=== PATIENT | male | born 1960 | race Caucasian/White ===

== ENCOUNTER 2018-01-12 07:17 | Emergency (ER) | END 2018-01-12 09:43 | disposition home or self-care (01) ==

== ENCOUNTER 2018-01-21 11:25 | Day surgery (SDC) | END 2018-01-21 18:23 | disposition home or self-care (01) ==

== ENCOUNTER 2018-03-15 16:45 | Inpatient (IN) | END 2018-03-17 12:10 | disposition home or self-care (01) | DRG 305 ==

== ENCOUNTER 2018-03-20 03:37 | Inpatient (IN) | END 2018-03-28 13:00 | disposition home or self-care (01) | DRG 304 ==

== ENCOUNTER 2018-09-23 13:11 | Inpatient (IN) | payer MEDICARE, OTHER ==
[~2018-09-23] VITALS: Ht 165.1 cm; Wt 65.9 kg
[~2018-09-23 13:11] MED LIST: ASPI-817 PO; ATOR20TA38 PO; CLON0.1T14 PO; GABA300C16 PO; LANT3I SC; LEVE-5 PO; METO-448 PO; NIFE30TA2 PO; NOVO3I SC
[2018-09-23] MEDS ORDERED: SOD CHLORIDE 0.9% 1,000 ML IV STA (14:50)
[2018-09-23] MEDS ORDERED: IODIXANOL LOCM 100 ML BTL ONE (14:58)
[2018-09-23] MEDS ORDERED: SOD CHLORIDE 0.9% 100 ML ONE (14:58)
[2018-09-23] MEDS ORDERED: CLON-379 PO (15:04)
[2018-09-23] MEDS ORDERED: LOSA1TAB25 PO (15:05)
[2018-09-23] MEDS ORDERED: HYDR100T25 PO (15:05)
[2018-09-23] MEDS ORDERED: TIOT4MIS2 INHALATION (17:00)
[2018-09-23] MEDS ORDERED: TIOT18CA INHALATION (17:00)
[2018-09-23] MEDS ORDERED: NICARDipine HCL 30 MG CAPSULE PO ONE (17:00)
--- NOTE | 2018-09-23 18:13 | ERD ---
ER Documentation Chief Complaint Chief Complaint Complains of right sided numbness Hx of HTN HPI This a 57-year-old male complaining of generalized weakness over the past couple of days. He states today around 10:00 in the morning he developed right arm and leg tingling and woke with a right subconjunctival hemorrhage to the eye. He says his right arm and leg feel slightly weaker than the left. He says his symptoms are about the same may be getting a little worse since the onset. No headache. The patient has hypertension. Denies any visual change speech change no swallowing difficulty, no nausea or vomiting ROS All systems reviewed and are negative except as per history of present illness. Medications Home Meds Active Scripts Atorvastatin Calcium* (Atorvastatin Calcium*) 20 Mg Tablet, 20 MG PO QHS, #30 TAB Prov:ESTEFANI ELIAS ADJUSTER LEADER 03/26/18 Levetiracetam* (Keppra*) 500 Mg Tablet, 500 MG PO BID, #60 TAB Prov:ESTEFANI ELIAS ADJUSTER LEADER 03/26/18 Metoprolol Tartrate* (Lopressor*) 25 Mg Tab, 25 MG PO BID, #60 TAB Prov:ESTEFANI ELIAS ADJUSTER LEADER 03/26/18 Reported Medications Tiotropium [place] (Spiriva Respimat) 4 Gm Mist.inhal, 2 PUFF INHALATION DAILY, #1 INHALER 09/23/18 Hydralazine Hcl* (Hydralazine Hcl*) 100 Mg Tablet, 100 MG PO TID, #90 TAB 09/23/18 Losartan-Hydrochlorothiazide (Losartan-HCTZ) 100-25 Mg Tab, 1 TAB PO DAILY, TAB 09/23/18 Clonidine Hcl* (Clonidine Hcl*) 0.1 Mg Tab, 0.1 MG PO TID, TAB 09/23/18 Aspirin* (Aspirin* EC) 81 Mg Tablet.dr, 81 MG PO DAILY, TAB 03/15/18 Insulin Aspart* (Novolog Insulin Pen*) 100 Unit/Ml Soln, UNIT SC WITH MEALS, EA SLIDING SCALE 03/15/18 Gabapentin* (Gabapentin*) 300 Mg Capsule, 300 MG PO TID, #90 CAP 03/15/18 Discontinued Reported Medications Tiotropium [place]* (Spiriva*) 18 Mcg Cap.w.dev, 1 CAP INHALATION DAILY, #30 CAP 09/23/18 Insulin Glargine* (Lantus*) 100 Unit/Ml Soln, 7 UNIT SC QHS, #1 VIAL 03/15/18 Discontinued Scripts Nifedipine (Procardia Xl) 30 Mg Tab.er.24, 30 MG PO BID, #60 TAB Prov:ESTEFANI ELIAS ADJUSTER LEADER 03/28/18 Clonidine Hcl* (Catapres*) 0.1 Mg Tablet, 0.1 MG PO BID, #60 TAB Prov:ESTEFANI ELIAS ADJUSTER LEADER 03/28/18 Allergies Allergies: Coded Allergies: No Known Allergy (Unverified , 09/23/18) PMhx/Soc History of Surgery: Yes (Lap (2015), Tracheostomy (2015)) Anesthesia Reaction: No Hx Neurological Disorder: Yes (Seizures (2017)) Hx Respiratory Disorders: Yes (Tracheostomy (2015)) Hx Cardiac Disorders: Yes (HTN) Hx Psychiatric Problems: Yes (Depression) Hx Miscellaneous Medical Probl: Yes (See PT NOTE) Hx Alcohol Use: Yes (2015) Hx Substance Use: No Hx Tobacco Use: No Smoking Status: Never smoker FmHx Family History: No coronary disease Physical Exam Vitals Vital Signs Date Temp Pulse Resp B/P (MAP) Pulse Ox O2 O2 Flow FiO2 Time Delivery Rate 09/23/18 20 196/83 100 Room Air 15:20 (120) 09/23/18 Nasal 2 15:15 Cannula 09/23/18 63 184/90 100 Room Air 14:32 (121) 09/23/18 97.1 72 20 220/153 100 13:15 (175) Physical Exam Const: Well-developed, well-nourished Head: Atraumatic, normocephalic Eyes: Right sub-conjunctival hemorrhage PERRLA, EOMI, normal sclera, no nystagmus ENT: Normal External Ears, Nose and Mouth, moist mucus membranes. Neck: Full range of motion. No meningismus, no lymphadenopathy. Resp: Clear to auscultation bilaterally, no wheezing, rhonchi, rales Cardio: Regular rate and rhythm, no murmurs, S1 S2 present Abd: Soft, non tender x 4, non distended. Normal bowel sounds, no guarding or rebound, no pulsitile abdominal masses or bruits Skin: No petechiae or rashes, no ecchymosis , no maculopapular rash Back: No midline or flank tenderness Ext: No cyanosis, or edema, FROM x 4, normal inspection, neurovascularly intact x 4 Neur: Awake and alert, STR 5/5 x 4, right arm and leg have subjective decreased sensation, cerebellum intact Psych: Normal Mood and Affect Result Diagram: 09/23/18 1513 09/23/18 1513 Results 24 hrs Laboratory Tests Test 09/23/18 15:13 White Blood Count 10.4 10^3/ul Red Blood Count 3.44 10^6/ul Hemoglobin 10.1 g/dl Hematocrit 30.8 % Mean Corpuscular Volume 89.5 fl Mean Corpuscular Hemoglobin 29.4 pg Mean Corpuscular Hemoglobin Concent 32.8 g/dl Red Cell Distribution Width 12.3 % Platelet Count 218 10^3/UL Mean Platelet Volume 11.1 fl Immature Granulocytes % 0.300 % Neutrophils % 78.6 % Lymphocytes % 10.6 % Monocytes % 7.2 % Eosinophils % 3.0 % Basophils % 0.3 % Nucleated Red Blood Cells % 0.0 /100WBC Immature Granulocytes # 0.030 10^3/ul Neutrophils # 8.1 10^3/ul Lymphocytes # 1.1 10^3/ul Monocytes # 0.8 10^3/ul Eosinophils # 0.3 10^3/ul Basophils # 0.0 10^3/ul Nucleated Red Blood Cells # 0.0 10^3/ul Prothrombin Time 11.5 Sec Prothrombin Time Ratio 0.9 INR International Normalized Ratio 0.83 Activated Partial Thromboplast Time 33.8 Sec Urine Color COLORLESS Urine Clarity CLEAR Urine pH 7.0 Urine Specific [place] 1.004 Urine Ketones NEGATIVE mg/dL Urine Nitrite NEGATIVE mg/dL Urine Bilirubin NEGATIVE mg/dL Urine Urobilinogen NEGATIVE mg/dL Urine Leukocyte Esterase NEGATIVE Adela/ul Urine Microscopic RBC 4 /HPF Urine Microscopic WBC 0 /HPF Urine Bacteria FEW /HPF Urine Hemoglobin 1+ mg/dL Urine Glucose 1+ mg/dL Urine Total Protein 2+ mg/dl Sodium Level 136 mmol/L Potassium Level 5.5 mmol/L Chloride Level 106 mmol/L Carbon Dioxide Level 20 mmol/L Anion Gap 10 Blood Urea Nitrogen 49 mg/dl Creatinine 3.02 mg/dl Est Glomerular Filtrat Rate mL/min 22 mL/min Glucose Level 156 mg/dl Hemoglobin A1c 6.0 % Calcium Level 7.8 mg/dl Total Bilirubin 0.0 mg/dl Direct Bilirubin 0.00 mg/dl Indirect Bilirubin 0.0 mg/dl Aspartate Amino Transf (AST/SGOT) 16 IU/L Alanine Aminotransferase (ALT/SGPT) 10 IU/L Alkaline Phosphatase 132 IU/L Creatine Kinase 100 IU/L Creatine Kinase Index 1.9 Creatinine Kinase MB (Mass) 1.85 ng/ml Troponin I < 0.012 ng/ml Total Protein 7.7 g/dl Albumin 3.9 g/dl Globulin 3.80 g/dl Albumin/Globulin Ratio 1.02 Triglycerides Level 216 mg/dl Cholesterol Level 188 mg/dl LDL Cholesterol, Calculated 103 mg/dl HDL Cholesterol 42 mg/dl Cholesterol/HDL Ratio 4.4 RATIO Current Medications Medications Dose Sig/Eladio Start Time Status Last (Trade) Ordered Route PRN Stop Time Admin Dose Reason Admin Sodium 1,000 ml @ Q1H STAT 09/23/18 DC 09/23/18 Chloride 1,000 mls/hr IV 14:50 15:59 09/23/18 15:49 IV Flush 10 ml STK-MED 09/23/18 DC 09/23/18 (NS 10 ml) ONCE .ROUTE 14:58 15:24 09/23/18 14:59 Sodium 100 ml @ ud STK-MED 09/23/18 DC 09/23/18 Chloride ONCE .ROUTE 14:58 15:24 09/23/18 14:59 Iodixanol 100 ml STK-MED 09/23/18 DC 09/23/18 (Visipaque ONCE .ROUTE 14:58 15:24 Locm) 09/23/18 14:59 Nicardipine 30 mg ONCE ONCE 09/23/18 DC 09/23/18 HCl PO 17:00 17:07 (Cardene) 09/23/18 17:01 Procedures/MDM EKG: Rate/Rhythm: Normal Sinus Rhythm,NL intervals QRS, ST, QT: NORMAL IN, QRS, QT] Impression: NORMAL EKG MR #: [id number] DOS: 09/23/18 1450 Ordering MD: GLORIA PIERRE DO Location: E/R Room/Bed: PROCEDURE: XR Chest AP portable CLINICAL INDICATION: Stroke TECHNIQUE: An AP portable radiograph of the chest was submitted. COMPARISON: 03/19/2018 FINDINGS: Support Hardware: None Cardiovascular: The heart has slightly increased in size and is now borderline enlarged with the pulmonary vasculature unremarkable. Lung Michelle: The lung michelle appear clear with no nodule, alveolar infiltrate, or interstitial prominence evident. Pleural Spaces: No pneumothorax or pleural effusion is identified. Osseous Structures: The osseous structures appear intact. Soft Tissues: The soft tissues appear unremarkable. IMPRESSION: 1. The heart size is increased and is now borderline enlarged without evidence of CHF. 2. The lung michelle and pleural spaces remain clear. 3. Otherwise, stable chest. Physician Yomaira Date Time Electronically viewed and signed by Physician Yomaira on 09/23/2018 15:34 RH/ CC: GLORIA PIERRE DO [phone] Patient: CORRINE HARRIS : 1960 Age: 57 Sex: M MR #: [id number] DOS: 09/23/18 1450 Ordering MD: GLORIA PIERRE DO Location: E/R Room/Bed: PROCEDURE: CT Brain without contrast. CLINICAL INDICATION: Stroke TECHNIQUE: Routine CT scan of the brain was performed on a high resolution multi detector scanner without intravenous contrast. One or more of the following dose reduction techniques were used: Automated exposure control; Adjustment of the mA and/or kV according to patient size; Use of iterative reconstruction technique. CTDI = 39 mGy. DLP = 634 mGy-cm. DICOM images are available. COMPARISON: MR 03/22/2018; CT 03/21/2018 FINDINGS: Hemorrhage: No evidence of intracranial hemorrhage. Acute ischemic changes: No definite acute appearing ischemic changes are seen. 2.5 cm area of new nonspecific white matter changes predominately involving the subcortical white matter of the left frontal lobe possibly relating to cerebritis. Mass effect: None. Parenchymal volume: Within normal limits for age. Ventricular system: Concordant with parenchymal volume. Chronic changes: Improvement in previously seen white matter changes involving the dorsal right frontal lobe. Atherosclerotic calcifications of the cavernous portions of both internal carotid arteries are present. Extracranial soft tissues: Unremarkable. Calvarium: No fractures. Paranasal sinuses: Visualized paranasal sinuses are clear. Mastoid air cells: Visualized mastoid air cells are clear. IMPRESSION: No evidence of intracranial hemorrhage or mass effect. No definite acute appearing ischemic changes are seen. 2.5 cm area of new nonspecific white matter changes predominately involving the subcortical white matter of the left frontal lobe possibly relating to cerebritis or other process. Improvement in previously seen white matter changes involving the dorsal right frontal lobe. Recommend correlation with pending CT angiogram of the intracranial circulation and MRI of the brain with and without contrast for further evaluation. Critical results were discussed with Gloria Clancy by telephone 09/23/2018 3:25:[address] Davonte Crowell RPTAT: AADD .Davonte Crowell MD, Date Time Electronically viewed and signed by .Davonte rCowell MD, on 09/23/2018 15:29 .B/ CC: GLORIA PIERRE DO [phone] Ordering MD: GLORIA PIERRE DO Location: E/R Room/Bed: PROCEDURE: CTA head and neck CLINICAL INDICATION: Right-sided weakness. Code stroke. TECHNIQUE: The study was performed utilizing a multidetector CT scanner. Direct thin section helical 0.625 mm axial sections were obtained through the head and neck after the uneventful administration of 90 ml of Visipaque 320 no nionic intravenous contrast material. Coronal and sagittal reformatted images.Maximal intensity projection reformations were obtained. 3-D images were made. The images were reviewed on a PACS workstation. The total 3.3, 59.4, 15.73 mGy and the 557.64 mGy-cm. One or more of the following dose reduction techniques were utilized: Automated exposure control, adjustment of the mA and/or kV according to patient size, use of iterative reconstruction technique. Carotid stenosis is calculated in accordance with NASCET criteria guidelines with direct measurements of the narrowest segment of stenosis compared with distal luminal diameter of the normal distal extracranial internal carotid artery. DICOM images are available. COMPARISON: No prior studies are available for comparison. FINDINGS: CTA BRAIN: Brain: No intracranial hemorrhage. Diffuse hypoattenuation within the left frontal lobe subcortical white matter suspicious for ischemic infarct or possibly cerebritis. No interval change compared to the precontrast CT brain 09/23/2018. Aneurysms: No aneurysm or vascular malformation is identified. Internal carotid arteries: Patent and normal in caliber. Anterior cerebral arteries: Patent and normal in caliber. Middle cerebral arteries: Patent and normal in caliber. Posterior cerebral arteries: Patent and normal in caliber. Communicating arteries: Anterior: Intact. Posterior: Not well visualized. Basilar artery: Patent and normal in caliber. Superior cerebellar arteries: Patent and normal in caliber. Anterior inferior cerebellar arteries: Patent and normal in caliber. Vertebral arteries V4 segment: Patent and normal in caliber. Dominant right vertebral artery. Posterior inferior cerebellar arteries: Patent and normal in caliber. Dural venous sinuses: The dural venous sinuses , cortical, and intracerebral veins are patent and normal in caliber. CTA NECK: Aortic arch: The aortic arch is normal in caliber. Atherosclerotic calcification of the aortic arch. Normal appearance of the origin of the great vessels. Common carotid arteries: The common carotid arteries are patent and normal in caliber bilaterally. Internal carotid arteries: EVELYN/ECA: Normal appearance of the internal carotid artery bulb. The distal internal carotid artery is patent and normal in caliber. No evidence of hemodynamically significant stenosis. External carotid artery and its branches are normal patent and normal in caliber LICA/ECA : Normal appearance of the internal carotid artery bulb. The distal internal carotid artery is patent and normal in caliber. No evidence of hemodynamically significant stenosis. External carotid artery and its branches are normal patent and normal in caliber Vertebral arteries V1/V2/V3 segments: The vertebral arteries are patent and normal in caliber. Dominant right vertebral artery. Straightening of the normal cervical lordosis with multilevel degenerative discogenic changes and enthesopathy greatest at C5-C6 and C6-C7. Lung apices are clear. IMPRESSION: 1. Normal CT angiogram of the intracranial vessels. 2. Normal CT angiogram of the extracranial carotid vasculature. 3. Nonspecific of hypo attenuation in the left anterior frontal lobe. No int racranial hemorrhage. This may represent ischemic changes or possible cerebritis. MRI may be considered for further evaluation. Critical results were discussed with Gloria Pierre MD. 09/23/2018 3:39:51 PM . RPTAT:AAJJ Tye Lazar Physician Date Time Electronically viewed and signed by Tye Lazar Physician on 09/23/2018 15:45 GÓMEZ/ CC: GLORIA PIERRE DO [phone] Patient is not a TPA candidate he is out of the TPA window. He likely, after speaking with the radiologist, has cerebritis and I have ordered an MRI. The location of the left frontal lobe would be consistent with right-sided symptoms. He would not get TPA anyway if this was an ischemic stroke due to CAT scan findings of stroke. We will admit to the hospital for blood pressure control as is likely the cause of his sub-conjunctival hemorrhage and possibly the right-sided deficits or this is due to cerebritis will need further workup etc. for autoimmune disease Departure Diagnosis: Primary Impression: Cerebritis Additional Impression: Numbness Condition: Stable GLORIA PIERRE DO Sep 23, 2018 18:13
[2018-09-23] MEDS ORDERED: ACETAMINOPHEN 325 MG TAB PO PRN (18:30)
[2018-09-23] MEDS ORDERED: ONDANSETRON 4 MG INJ IV PRN (18:30)
[2018-09-23] MEDS ORDERED: DOCUSATE SODIUM 100 MG CAP PO PRN (20:30)
[2018-09-23] MEDS ORDERED: NACL 0.9% 3 ML SYG IV SCH (20:30)
[2018-09-23] MEDS ORDERED: BISACODYL (EC) 5 MG TAB PO PRN (20:30)
--- NOTE | 2018-09-23 21:21 | HP ---
Date/Time of Note Date/Time of Note DATE: 09/23/18 TIME: 21:21 Assessment/Plan VTE Prophylaxis SCD applied (from Nsg): Yes Pharmacological prophylaxis: NA/contraindicated Pharm contraindication: low risk/ambulating Lines/Catheters IV Catheter Type (from Nrsg): Saline Lock Assessment/Plan Hospital Course This is a 57-year-old male being admitted to the telemetry floor for: #1 right-sided numbness: Cerebritis versus CVA. At the current time the suspicion is more likely considered to be cerebritis after the ER doc spoke to the radiologist who reviewed the CTA of the brain as well as a CT of the brain. Patient nonetheless was already outside the TPA window upon his arrival. At the current time we will put the patient on neurochecks every 4 hours, fall precautions. Will order an MRI of the brain with and without contrast. We will check an echocardiogram with bubble study. Will consult neurology . We will also check DIANA, HIV RPR and rheumatoid factor for possible autoimmune causes. #2 hypertensive emergency: Despite increased doses of clonidine as well as hydralazine patient's blood pressures persistently are elevated in the 180s-200s according to the patient and his son. I am also wondering whether the increased dose of clonidine are causing some sort of rebound effect. At the current time I will put the patient on as needed hydralazine. He was given nicardipine in the ED, will resume his metoprolol in the a.m. I will check a renal ultrasound with bubble study. Of note patient did have 2 episodes in the emergency department where he became severely hypertensive and started having tremors of his lips and mumbling of speech that occurred for approximately 15-20 seconds and then resulted in complete resolution. We will check a renal and aldosterone levels. Unsure whether this was an anxiety attack versus possible pheochromocytoma. At the current time will check urine metanephrines and vanillylmandelic acid. Will consult endocrinology for further recommendations as well as nephrology . #3 diabetes mellitus: We will check a hemoglobin A1c, lipid panel, TSH, insulin sliding scale. #4 acute on chronic kidney disease: Previous creatinine was 2.7 approximately 5 months ago. The current time will avoid nephrotoxic agents. PRN hydralazine for blood pressure. Will hold losartan and hydrochlorothiazide at the current time until seen by nephrology. #5 hypertension: PRN hydralazine at the current time please see #2 #6 Seizure disorder: Continue Keppra #7 DVT GI prophylaxis: SCDs, no GI prophylaxis indicated further treatment strategy will be implemented as per the clinical course. Result Diagram: 09/23/18 1513 09/23/18 1513 Results 24hrs Laboratory Tests Test 09/23/18 15:13 White Blood Count 10.4 Red Blood Count 3.44 L Hemoglobin 10.1 L Hematocrit 30.8 L Mean Corpuscular Volume 89.5 Mean Corpuscular Hemoglobin 29.4 Mean Corpuscular Hemoglobin Concent 32.8 Red Cell Distribution Width 12.3 Platelet Count 218 Mean Platelet Volume 11.1 H Immature Granulocytes % 0.300 Neutrophils % 78.6 H Lymphocytes % 10.6 L Monocytes % 7.2 Eosinophils % 3.0 Basophils % 0.3 Nucleated Red Blood Cells % 0.0 Immature Granulocytes # 0.030 Neutrophils # 8.1 H Lymphocytes # 1.1 Monocytes # 0.8 Eosinophils # 0.3 Basophils # 0.0 Nucleated Red Blood Cells # 0.0 Prothrombin Time 11.5 L Prothrombin Time Ratio 0.9 INR International Normalized Ratio 0.83 Activated Partial Thromboplast Time 33.8 Urine Color COLORLESS Urine Clarity CLEAR Urine pH 7.0 Urine Specific [place] 1.004 Urine Ketones NEGATIVE Urine Nitrite NEGATIVE Urine Bilirubin NEGATIVE Urine Urobilinogen NEGATIVE Urine Leukocyte Esterase NEGATIVE Urine Microscopic RBC 4 Urine Microscopic WBC 0 Urine Bacteria FEW A Urine Hemoglobin 1+ H Urine Glucose 1+ H Urine Total Protein 2+ H Sodium Level 136 Potassium Level 5.5 H Chloride Level 106 Carbon Dioxide Level 20 L Anion Gap 10 Blood Urea Nitrogen 49 H Creatinine 3.02 H Est Glomerular Filtrat Rate mL/min 22 L Glucose Level 156 Hemoglobin A1c 6.0 H Calcium Level 7.8 L Total Bilirubin 0.0 L Direct Bilirubin 0.00 Indirect Bilirubin 0.0 Aspartate Amino Transf (AST/SGOT) 16 Alanine Aminotransferase (ALT/SGPT) 10 L Alkaline Phosphatase 132 H Creatine Kinase 100 Creatine Kinase Index 1.9 Creatinine Kinase MB (Mass) 1.85 Troponin I < 0.012 Total Protein 7.7 Albumin 3.9 Globulin 3.80 H Albumin/Globulin Ratio 1.02 Triglycerides Level 216 H Cholesterol Level 188 LDL Cholesterol, Calculated 103 HDL Cholesterol 42 Cholesterol/HDL Ratio 4.4 HPI/ROS Admit Date/Time Admit Date/Time Hx of Present Illness Chief complaint: Generalized weakness, right-sided This a 57-year-old male complaining of generalized weakness over the past couple of days. He states today around 10:00 in the morning he developed right arm and leg tingling and woke with a right subconjunctival hemorrhage to the eye. He says his right arm and leg feel slightly weaker than the left. He says his symptoms are about the same may be getting a little worse since the onset. No headache. The patient has hypertension. Denies any visual change speech change no swallowing difficulty, no nausea or vomiting. He was accompanied with his son at the bedside. He does state that his blood pressures have not been well controlled with his medications despite his doctor increasing the dosages of his medication. The patient also reports that at times he starts noticing his blood pressure up and then he is unable to talk and this lasts for a couple of seconds and then resolved. During my encounter with the patient this episode occurred once and then the nurses reported to me that it occurred again where he starts mumbling for approximately 10-15 seconds and then all of a sudden improved. The blood pressure is also elevated at that time. Patient did have a CT of the brain done in the ER and as per the radiologist he suspected this being more of a cerebritis as opposed to a CVA sort of picture. Patient also had presented greater than 4 hours from his symptoms and so he was not a TPA candidate. Patient does report that he also feels anxious as well during the episode however he starts to feel that way once he notices that his voice is changing and lips are trembling. Allergies: NKDA Medications: See ZEINAB KIM Const: As per HPI Eyes : No pain discharge or redness or change in visual acuity ENT: No pain, sore throat, congestion, congestion, dysphagia or discharge Respiratory: No shortness of breath, cough, sputum, wheezing, or pleuritic pain Cardiovascular: No chest pain, palpitation, PND, or edema GI : no change in appetite, abdominal pain, nausea, vomiting, diarrhea, constipation, or change in the color his stool Genitourinary: No dysuria, hematuria, flank pain , discharge or CVA tenderness Musculoskeletal: Patient also reports that at times he has joint pains in his wrists and elbows. Skin: No rash, bruising or hives Neuro: As per HPI Endocrine: No polyuria, polydipsia, temperature intolerance Psych: No hallucination, depression, anxiety or suicidal ideation PMH/Family/Social Past Medical History Hypertension, diabetes mellitus, hyperlipidemia, chronic kidney disease, history of a fungal infection status post tracheostomy as well as right chest surgery Medications Current Medications Ondansetron HCl (Zofran Inj) 4 mg ER BRIDGE PRN IV NAUSEA AND/OR VOMITING; Start 09/23/18 at 18:30; Stop 09/24/18 at 18:29 Acetaminophen (Tylenol Tab) 650 mg ER BRIDGE PRN PO MILD PAIN(1-3)OR ELEVATED TEMP; Start 09/23/18 at 18:30; Stop 09/24/18 at 18:29 Aspirin (Halfprin) 81 mg DAILY PO ; Start 09/24/18 at 09:00; Status UNV Atorvastatin Calcium (Lipitor) 20 mg QHS PO ; Start 09/23/18 at 21:00; Status UNV Levetiracetam (Keppra) 500 mg BID PO ; Start 09/23/18 at 21:00; Status UNV Miscellaneous Information 2 puff DAILY INHALATION ; Start 09/24/18 at 09:00; Status UNV IV Flush (NS 3 ml) 3 ml PER PROTOCOL IV ; Start 09/23/18 at 20:30 Aspirin (Aspirin) 81 mg DAILY PO ; Start 09/24/18 at 09:00; Status UNV Acetaminophen (Tylenol Tab) 650 mg Q6H PRN PO PAIN LEVEL 1-3 OR FEVER; Start 09/23/18 at 20:30 Docusate Sodium (Colace) 100 mg Q12H PRN PO CONSTIPATION; Start 09/23/18 at 20:30 Bisacodyl (Dulcolax) 5 mg DAILY PRN PO CONSTIPATION; Start 09/23/18 at 20:30 Coded Allergies: No Known Allergy (Unverified , 09/23/18) Past Surgical History history of a fungal infection status post tracheostomy as well as right chest surgery, hernia repair Past Surgical Hx: other Family History Significant Family History: no pertinent family hx Social History Alcohol Use: none Smoking Status: Never smoker Drug Use: none Exam/Review of Systems Vital Signs Vitals Vital Signs Date Temp Pulse Resp B/P (MAP) Pulse Ox O2 O2 Flow FiO2 Time Delivery Rate 09/23/18 69 19 138/65 98 Room Air 18:45 (89) 09/23/18 2 15:15 09/23/18 97.1 13:15 Exam Exam General: Patient is currently sitting up in bed he does not appear to be in any acute distress initially during the examination there was an episode observed of the patient's blood pressure going up and his legs were trembling and he started mumbling this episode resolved in approximately 15-20 seconds. It occurred approximately twice within a 2-hour window. HEENT: Atraumatic, normocephalic. The pupils are equal, round and reactive. Extraocular motor are intact, right subconjunctival hemorrhage Neck: Supple with full range of motion. No rigidity or meningismus Chest: Nontender Lungs: Clear to auscultation bilaterally no crackles rales or wheezing Heart: Normal S1-S2, Regular rhythm and rate. Abdomen: Soft , nontender, nondistended , bowel sounds are present. No guarding no rebound tenderness , No masses or organomegaly. No costovertebral temporal angle mass Extremities: Normal to inspection, no edema no cyanosis Neurologic: Normal mental status, speech normal, cranial nerves II through XII are intact, motor and sensory are intact, subjective right upper extremity numbness, strength 5 out of 5 in bilateral upper and lower extremities. No focal neurological deficits noted. Please see general section above as well. Additional Comments PROCEDURE: CT Brain without contrast. CLINICAL INDICATION: Stroke TECHNIQUE: Routine CT scan of the brain was performed on a high resolution multi detector scanner without intravenous contrast. One or more of the fo llowing dose reduction techniques were used: Automated exposure control; Adjustment of the mA and/or kV according to patient size; Use of iterative reconstruction technique. CTDI = 39 mGy. DLP = 634 mGy-cm. DICOM images are available. COMPARISON: MR 03/22/2018; CT 03/21/2018 FINDINGS: Hemorrhage: No evidence of intracranial hemorrhage. Acute ischemic changes: No definite acute appearing ischemic changes are seen. 2.5 cm area of new nonspecific white matter changes predominately involving the subcortical white matter of the left frontal lobe possibly relating to cerebritis. Mass effect: None. Parenchymal volume: Within normal limits for age. Ventricular system: Concordant with parenchymal volume. Chronic changes: Improvement in previously seen white matter changes involving the dorsal right frontal lobe. Atherosclerotic calcifications of the cavernous portions of both internal carotid arteries are present. Extracranial soft tissues: Unremarkable. Calvarium: No fractures. Paranasal sinuses: Visualized paranasal sinuses are clear. Mastoid air cells: Visualized mastoid air cells are clear. IMPRESSION: No evidence of intracranial hemorrhage or mass effect. No definite acute appearing ischemic changes are seen. 2.5 cm area of new nonspecific white matter changes predominately involving the subcortical white matter of the left frontal lobe possibly relating to cerebritis or other process. Improvement in previously seen white matter changes involving the dorsal right frontal lobe. Recommend correlation with pending CT angiogram of the intracranial circulation and MRI of the brain with and without contrast for further evaluation. Critical results were discussed with Gloria Clancy by telephone 09/23/2018 3:25:[address] Davonte Crowell RPTAT: AADD .Davonte Crowell MD, Date Time Electronically viewed and signed by .Davonte Crowell MD, on 09/23/2018 15:29 .B/ CC: GLORIA PIERRE DO [id number] PROCEDURE: XR Chest AP portable CLINICAL INDICATION: Stroke TECHNIQUE: An AP portable radiograph of the chest was submitted. COMPARISON: 03/19/2018 FINDINGS: Support Hardware: None Cardiovascular: The heart has slightly increased in size and is now borderline enlarged with the pulmonary vasculature unremarkable. Lung Michelle: The lung michelle appear clear with no nodule, alveolar infiltrate, or interstitial prominence evident. Pleural Spaces: No pneumothorax or pleural effusion is identified. Osseous Structures: The osseous structures appear intact. Soft Tissues: The soft tissues appear unremarkable. IMPRESSION: 1. The heart size is increased and is now borderline enlarged without evidence of CHF. 2. The lung michelle and pleural spaces remain clear. 3. Otherwise, stable chest. Physician Yomaira Date Time Electronically viewed and signed by Physician Yomaira on 09/23/2018 15:34 RH/ CC: SOBIAARYAGUSTINGLORIA DO [id number] PROCEDURE: CTA head and neck CLINICAL INDICATION: Right-sided weakness. Code stroke. TECHNIQUE: The study was performed utilizing a multidetector CT scanner. Direct thin section helical 0.625 mm axial sections were obtained through the head and neck after the uneventful administration of 90 ml of Visipaque 320 nonionic intravenous contrast material. Coronal and sagittal reformatted images.Maximal intensity projection reformations were obtained. 3-D images were made. The images were reviewed on a PACS workstation. The total 3.3, 59.4, 15.73 mGy and the 557.64 mGy-cm. One or more of the following dose reduction techniques were utilized: Automated exposure control, adjustment of the mA and/or kV according to patient size, use of iterative reconstruction technique. Carotid stenosis is calculated in accordance with NASCET criteria guidelines with direct measurements of the narrowest segment of stenosis compared with distal luminal diameter of the normal distal extracranial internal carotid artery. DICOM images are available. COMPARISON: No prior studies are available for comparison. FINDINGS: CTA BRAIN: Brain: No intracranial hemorrhage. Diffuse hypoattenuation within the left frontal lobe subcortical white matter suspicious for ischemic infarct or possibly cerebritis. No interval change compared to the precontrast CT brain 09/23/2018. Aneurysms: No aneurysm or vascular malformation is identified. Internal carotid arteries: Patent and normal in caliber. Anterior cerebral arteries: Patent and normal in caliber. Middle cerebral arteries: Patent and normal in caliber. Posterior cerebral arteries: Patent and normal in caliber. Communicating arteries: Anterior: Intact. Posterior: Not well visualized. Basilar artery: Patent and normal in caliber. Superior cerebellar arteries: Patent and normal in caliber. Anterior inferior cerebellar arteries: Patent and normal in caliber. Vertebral arteries V4 segment: Patent and normal in caliber. Dominant right vertebral artery. Posterior inferior cerebellar arteries: Patent and normal in caliber. Dural venous sinuses: The dural venous sinuses , cortical, and intracerebral veins are patent and normal in caliber. CTA NECK: Aortic arch: The aortic arch is normal in caliber. Atherosclerotic calcification of the aortic arch. Normal appearance of the origin of the great vessels. Common carotid arteries: The common carotid arteries are patent and normal in caliber bilaterally. Internal carotid arteries: EVELYN/ECA: Normal appearance of the internal carotid artery bulb. The distal internal carotid artery is patent and normal in caliber. No evidence of hemodynamically significant stenosis. External carotid artery and its branches are normal patent and normal in caliber LICA/ECA : Normal appearance of the internal carotid artery bulb. The distal internal carotid artery is patent and normal in caliber. No evidence of hemodynamically significant stenosis. External carotid artery and its branches are normal patent and normal in caliber Vertebral arteries V1/V2/V3 segments: The vertebral arteries are patent and normal in caliber. Dominant right vertebral artery. Straightening of the normal cervical lordosis with multilevel degenerative discogenic changes and enthesopathy greatest at C5-C6 and C6-C7. Lung apices are clear. IMPRESSION: 1. Normal CT angiogram of the intracranial vessels. 2. Normal CT angiogram of the extracranial carotid vasculature. 3. Nonspecific of hypo attenuation in the left anterior frontal lobe. No intracranial hemorrhage. This may represent ischemic changes or possible cerebritis. MRI may be considered for further evaluation. Critical results were discussed with Gloria Pierre MD. 09/23/2018 3:39:51 PM . RPTAT:AAJJ Physician Derek Date Time Electronically viewed and signed by Physician Derek on 09/23/2018 15:45 GÓMEZ/ CC: GLORIA PIERRE DO [id number] BRISA HARKINS Sep 23, 2018 21:21
[2018-09-23] MEDS: LEVETIRACETAM 500 MG TAB PO SCH (23:08)
[2018-09-23] MEDS: ATORVASTATIN 20 MG TAB PO SCH (23:10)
[2018-09-23] MEDS: hydrALAzine 20 MG INJ IV PRN (23:21)
[2018-09-23] MEDS ORDERED: LORAZEPAM 2 MG INJ IV ONE (23:30)
[2018-09-24] VITALS (15 sets, daily range): BP systolic 154–211; BP diastolic 72–95; PULSE 66–85; RESP 18–19; Ht 165.1 cm; Wt 65.9 kg
[2018-09-24] MEDS: HYDROCODONE/APAP (5/325) TAB PO PRN ×2 (00:52→08:11)
[2018-09-24] MEDS ORDERED: LORAZEPAM 4 MG/ML VIAL IV PRN (03:30)
[2018-09-24] MEDS: hydrALAzine 20 MG INJ IV PRN ×2 (04:04→19:41)
--- NOTE | 2018-09-24 04:55 | NUR ---
END OF SHIFT REPORT WITH COMPLAINT OF HEADACHE, TEMPORARILY RELIEVED BY NORCO. SYSTOLIC BLOOD PRESSURE REMAINS ELEVATED (150-166), BUT MUCH LOWER THAN HIS INITIAL PRESENTATION AT THE ER.
[2018-09-24] MEDS: LEVETIRACETAM 500 MG TAB PO SCH ×2 (08:11→20:45)
[2018-09-24] MEDS: ASPIRIN 81 MG TAB PO SCH (08:11)
[2018-09-24] MEDS ORDERED: METOPROLOL 25 MG TAB PO SCH (09:00)
[2018-09-24] MEDS ORDERED: ASPIRIN (EC) 81 MG TAB PO SCH (09:00)
[2018-09-24] MEDS ORDERED: NON-FORMULARY/PATIENT OWN MED (Tiotropium Bromide (Spiriva Respimat) 2 PUFF) INHALATION SCH (09:00)
--- NOTE | 2018-09-24 09:15 | PN ---
Date/Time of Note Date/Time of Note DATE: 09/24/18 TIME: 09:15 Assessment/Plan VTE Prophylaxis SCD applied (from Nsg): Yes Pharmacological prophylaxis: NA/contraindicated Pharm contraindication: bleeding Lines/Catheters IV Catheter Type (from Nrsg): Saline Lock Urinary Cath still in place: No Assessment/Plan Assessment/Plan 1. Right UE, LE and LLE numbness - patient states deficits has resolved - Neurology consulted for further recommendations. Stroke workup being performed and MRI and ECHO results pending - CTA head shows " Nonspecific of hypo attenuation in the left anterior frontal lobe." - aspirin and statin on board 2. Hypertensive emergency - Patient given multiple medications in the ED with no improvement in BP control - Per Neurology, maintain permissive HTN until MRI performed and resulted - Hold antihypertensives - Endocrine was consulted by admitting physician due to concerns for pheo. 3. Diabetes Mellitus - A1c noted - ISS and accuchecks 4. DKAOTA on CKD - Nephrology consulted for further recommendations. - will avoid nephrotoxic agents - Renal US compatible with renal disease 5. Seizure d/o - seen by Dr. Morgan in February 2018. Continue on Keppra 6. Disposition - Awaiting MRI to determine further plan of care Result Diagram: 09/24/18 0457 09/24/18 0457 Results 24hrs Laboratory Tests Test 09/23/18 15:13 09/24/18 04:57 White Blood Count 10.4 8.9 Red Blood Count 3.44 L 3.01 L Hemoglobin 10.1 L 8.9 L Hematocrit 30.8 L 26.8 L Mean Corpuscular Volume 89.5 89.0 Mean Corpuscular Hemoglobin 29.4 29.6 Mean Corpuscular Hemoglobin Concent 32.8 33.2 Red Cell Distribution Width 12.3 12.3 Platelet Count 218 181 Mean Platelet Volume 11.1 H 10.8 H Immature Granulocytes % 0.300 0.300 Neutrophils % 78.6 H 67.7 Lymphocytes % 10.6 L 15.6 Monocytes % 7.2 11.7 H Eosinophils % 3.0 4.4 Basophils % 0.3 0.3 Nucleated Red Blood Cells % 0.0 0.0 Immature Granulocytes # 0.030 0.030 Neutrophils # 8.1 H 6.0 Lymphocytes # 1.1 1.4 Monocytes # 0.8 1.0 H Eosinophils # 0.3 0.4 Basophils # 0.0 0.0 Nucleated Red Blood Cells # 0.0 0.0 Prothrombin Time 11.5 L Prothrombin Time Ratio 0.9 INR International Normalized Ratio 0.83 Activated Partial Thromboplast Time 33.8 Urine Color COLORLESS Urine Clarity CLEAR Urine pH 7.0 Urine Specific [place] 1.004 Urine Ketones NEGATIVE Urine Nitrite NEGATIVE Urine Bilirubin NEGATIVE Urine Urobilinogen NEGATIVE Urine Leukocyte Esterase NEGATIVE Urine Microscopic RBC 4 Urine Microscopic WBC 0 Urine Bacteria FEW A Urine Hemoglobin 1+ H Urine Glucose 1+ H Urine Total Protein 2+ H Sodium Level 136 140 Potassium Level 5.5 H 4.6 Chloride Level 106 110 Carbon Dioxide Level 20 L 21 Anion Gap 10 9 Blood Urea Nitrogen 49 H 48 H Creatinine 3.02 H 3.14 H Est Glomerular Filtrat Rate mL/min 22 L 21 L Glucose Level 156 115 # Hemoglobin A1c 6.0 H Calcium Level 7.8 L 7.7 L Total Bilirubin 0.0 L 0.0 L Direct Bilirubin 0.00 0.00 Indirect Bilirubin 0.0 0.0 Aspartate Amino Transf (AST/SGOT) 16 11 L Alanine Aminotransferase (ALT/SGPT) 10 L 18 Alkaline Phosphatase 132 H 86 Creatine Kinase 100 Creatine Kinase Index 1.9 Creatinine Kinase MB (Mass) 1.85 Troponin I < 0.012 Total Protein 7.7 5.8 #L Albumin 3.9 3.0 L Globulin 3.80 H 2.80 Albumin/Globulin Ratio 1.02 1.07 Triglycerides Level 216 H Cholesterol Level 188 LDL Cholesterol, Calculated 103 HDL Cholesterol 42 Cholesterol/HDL Ratio 4.4 Magnesium Level 2.0 HIV (1&2) Antibody NEGATIVE Subjective 24 Hr Interval Summary Free Text/Dictation Patient states he's feeling better and no longer experiencing numbness of right arm or legs bilaterally. Still with right conjunctival hemorrhage but denies any visual changes. Eager to go home. Exam/Review of Systems Vital Signs Vitals Vital Signs Date Temp Pulse Resp B/P (MAP) Pulse Ox O2 O2 Flow FiO2 Time Delivery Rate 09/24/18 76 08:00 09/24/18 98.5 18 158/76 96 07:18 (103) 09/24/18 Room Air 00:04 09/23/18 2 15:15 Intake and Output 09/23/18 09/23/18 09/24/18 1515:00 23:00 07:00 IntakeIntake Total 500 ml OutputOutput Total 800 ml BalanceBalance -300 ml Exam General: Sitting in chair at bedside. no acute distress. using right hand to eat. Eyes: The pupils are equal, round and reactive. Extraocular motor are intact, right subconjunctival hemorrhage Neck: Supple Chest: Nontender Lungs: Clear to auscultation bilaterally no crackles rales or wheezing Heart: Normal S1-S2, Regular rhythm and rate. Abdomen: Soft , nontender, nondistended , bowel sounds are present. No guarding no rebound tenderness Extremities: Normal to inspection, no edema no cyanosis Neurologic: Normal mental status, speech normal, cranial nerves II through XII are intact, motor and sensory are intact, strength 5 out of 5 in bilateral upper and lower extremities. sensation intact. No focal neurological deficits noted. Medications Medications Current Medications Atorvastatin Calcium (Lipitor) 20 mg QHS PO Last administered on 09/23/18at 23:10; Admin Dose 20 MG; Start 09/23/18 at 21:00 Levetiracetam (Keppra) 500 mg BID PO Last administered on 09/24/18at 08:11; Admin Dose 500 MG; Start 09/23/18 at 21:00 Miscellaneous Information 2 puff DAILY INHALATION ; Start 09/24/18 at 09:00; Status UNV IV Flush (NS 3 ml) 3 ml PER PROTOCOL IV ; Start 09/23/18 at 20:30 Aspirin (Aspirin) 81 mg DAILY PO Last administered on 09/24/18at 08:11; Admin Dose 81 MG; Start 09/24/18 at 09:00 Acetaminophen (Tylenol Tab) 650 mg Q6H PRN PO PAIN LEVEL 1-3 OR FEVER; Start 09/23/18 at 20:30 Docusate Sodium (Colace) 100 mg Q12H PRN PO CONSTIPATION; Start 09/23/18 at 20:30 Bisacodyl (Dulcolax) 5 mg DAILY PRN PO CONSTIPATION; Start 09/23/18 at 20:30 Hydralazine HCl (Apresoline) 10 mg Q4H PRN IV ELEVATED BLOOD PRESSURE Last administered on 09/24/18at 04:04; Admin Dose 10 MG; Start 09/23/18 at 23:00 Acetaminophen/ Hydrocodone Bitart ([place] (5/325)) 1 tab Q4H PRN PO MODERATE PAIN LEVEL 4-6 Last administered on 09/24/18at 08:11; Admin Dose 1 TAB; Start 09/23/18 at 23:00 Lorazepam (Ativan) 0.5 mg Q6H PRN IV ANXIETY; Start 09/24/18 at 03:30 Metoprolol Tartrate (Lopressor) 25 mg BID PO ; Start 09/24/18 at 09:00 Doxazosin Mesylate (Cardura) 1 mg ONCE ONCE PO ; Start 09/24/18 at 11:00; Stop 09/24/18 at 11:01 Doxazosin Mesylate (Cardura) 1 mg HS PO ; Start 09/24/18 at 21:00 SUDHIR CHEUNG MD Sep 24, 2018 09:15
[2018-09-24] MEDS ORDERED: DOXAZOSIN 1 MG TAB PO ONE (11:00)
[2018-09-24] MEDS: TIOTROPIUM 18 MCG CAPSULE INHA DEV INH SCH (13:00)
--- NOTE | 2018-09-24 13:36 | CONS ---
Assessment/Plan Assessment/Plan Hospital Course A: 57 yo M with Hx of uncontrolled HTN and epilepsy... who presents with headache, R subconjunctival hemorrhage, R hemisensory loss... for which neurology is consulted. As an aside, the pt was noted to be severely hypertensive on arrival . Most ominously concerning for stroke. Hypertensive urgency is additionally considered -- a diagnosis of exclusion. CTH is most notable for nonspecific white matter changes in the L frontal lobe.. ? PRES? CTA H/N is unremarkable P: Await MRI brain for further characterization Await echo, ekg ASA/statin for now pending the above Permissive HTN (up to 220/110) for today, pending the MRI Cont keppra per ops Cont medical management per primary PT/OT/ST as needed Will follow clinically Result Diagram: 09/24/18 0457 09/24/18 0457 Results 24hrs Laboratory Tests Test 09/23/18 15:13 09/24/18 04:57 White Blood Count 10.4 8.9 Red Blood Count 3.44 L 3.01 L Hemoglobin 10.1 L 8.9 L Hematocrit 30.8 L 26.8 L Mean Corpuscular Volume 89.5 89.0 Mean Corpuscular Hemoglobin 29.4 29.6 Mean Corpuscular Hemoglobin Concent 32.8 33.2 Red Cell Distribution Width 12.3 12.3 Platelet Count 218 181 Mean Platelet Volume 11.1 H 10.8 H Immature Granulocytes % 0.300 0.300 Neutrophils % 78.6 H 67.7 Lymphocytes % 10.6 L 15.6 Monocytes % 7.2 11.7 H Eosinophils % 3.0 4.4 Basophils % 0.3 0.3 Nucleated Red Blood Cells % 0.0 0.0 Immature Granulocytes # 0.030 0.030 Neutrophils # 8.1 H 6.0 Lymphocytes # 1.1 1.4 Monocytes # 0.8 1.0 H Eosinophils # 0.3 0.4 Basophils # 0.0 0.0 Nucleated Red Blood Cells # 0.0 0.0 Prothrombin Time 11.5 L Prothrombin Time Ratio 0.9 INR International Normalized Ratio 0.83 Activated Partial Thromboplast Time 33.8 Urine Color COLORLESS Urine Clarity CLEAR Urine pH 7.0 Urine Specific [place] 1.004 Urine Ketones NEGATIVE Urine Nitrite NEGATIVE Urine Bilirubin NEGATIVE Urine Urobilinogen NEGATIVE Urine Leukocyte Esterase NEGATIVE Urine Microscopic RBC 4 Urine Microscopic WBC 0 Urine Bacteria FEW A Urine Hemoglobin 1+ H Urine Glucose 1+ H Urine Total Protein 2+ H Sodium Level 136 140 Potassium Level 5.5 H 4.6 Chloride Level 106 110 Carbon Dioxide Level 20 L 21 Anion Gap 10 9 Blood Urea Nitrogen 49 H 48 H Creatinine 3.02 H 3.14 H Est Glomerular Filtrat Rate mL/min 22 L 21 L Glucose Level 156 115 # Hemoglobin A1c 6.0 H Calcium Level 7.8 L 7.7 L Total Bilirubin 0.0 L 0.0 L Direct Bilirubin 0.00 0.00 Indirect Bilirubin 0.0 0.0 Aspartate Amino Transf (AST/SGOT) 16 11 L Alanine Aminotransferase (ALT/SGPT) 10 L 18 Alkaline Phosphatase 132 H 86 Creatine Kinase 100 Creatine Kinase Index 1.9 Creatinine Kinase MB (Mass) 1.85 Troponin I < 0.012 Total Protein 7.7 5.8 #L Albumin 3.9 3.0 L Globulin 3.80 H 2.80 Albumin/Globulin Ratio 1.02 1.07 Triglycerides Level 216 H Cholesterol Level 188 LDL Cholesterol, Calculated 103 HDL Cholesterol 42 Cholesterol/HDL Ratio 4.4 Magnesium Level 2.0 HIV (1&2) Antibody NEGATIVE Consultation Date/Type/Reason Admit Date/Time Type of Consult Neurology Reason for Consultation R hemisensory loss Requesting Provider: CHANDANA PALM MD Date/Time of Note DATE: 09/24/18 TIME: 13:36 Hx of Present Illness This is a 57 yo M with hx of uncontrolled HTN and other comorbidities who presented to the ED with R arm/leg tingling, generalized weakness, R eye subconjunctival hemorrhage. History was obtained from pt and chart review. The pt currently endorses headache and R sided tingling, but denies weakness, dizziness, lightheadedness, lethargy, confusion, vision/speech changes, or gait instability. It is additionally noted elsewhere: Chief complaint: Generalized weakness, right-sided This a 57-year-old male complaining of generalized weakness over the past couple of days. He states today around 10:00 in the morning he developed right arm and leg tingling and woke with a right subconjunctival hemorrhage to the eye. He s ays his right arm and leg feel slightly weaker than the left. He says his symptoms are about the same may be getting a little worse since the onset. No headache. The patient has hypertension. Denies any visual change speech change no swallowing difficulty, no nausea or vomiting. He was accompanied with his son at the bedside. He does state that his blood pressures have not been well controlled with his medications despite his doctor increasing the dosages of his medication. The patient also reports that at times he starts noticing his blood pressure up and then he is unable to talk and this lasts for a couple of seconds and then resolved. During my encounter with the patient this episode occurred once and then the nurses reported to me that it occurred again where he starts mumbling for approximately 10-15 seconds and then all of a sudden improved. The blood pressure is also elevated at that time. Patient did have a CT of the brain done in the ER and as per the radiologist he suspected this being more of a cerebritis as opposed to a CVA sort of picture. Patient also had presented greater than 4 hours from his symptoms and so he was not a TPA candidate. Patient does report that he also feels anxious as well during the episode however he starts to feel that way once he notices that his voice is changing and lips are trembling. negative unless noted otherwise in HPI Exam/Review of Systems Vital Signs Vitals Vital Signs Date Temp Pulse Resp B/P (MAP) Pulse Ox O2 O2 Flow FiO2 Time Delivery Rate 09/24/18 81 12:00 09/24/18 98.8 19 180/82 95 11:31 (114) 09/24/18 Room Air 10:50 09/23/18 2 15:15 Intake and Output 09/23/18 09/23/18 09/24/18 1414:59 22:59 06:59 IntakeIntake Total 500 ml OutputOutput Total 800 ml BalanceBalance -300 ml Exam PE: Gen Appearance: No Apparent Distress HEENT: Normocephalic; subconjunctival hemorrhage noted in R eye Cardiovascular: Regular rate Lungs: Clear bilaterally Abdomen: Soft Extremities: Dry NE: The patient was alert and oriented.. Language was normal. Fund of knowledge was normal. Pupils were equal and reactive to light. There was no afferent pupillary defect. Visual french were normal. Funduscopic examination was limited. Extra-ocular movements were full. Ptosis was absent. There was no nystagmus. Facial sensation was normal. Face was symmetric with normal strength. Hearing was intact. Palate movements were normal. Neck strength was normal. There was normal tongue bulk and speed of movement. Tone was normal. Muscle bulk was normal. I did not see fasciculations. Arms and legs were strong. Vibration sensation was normal. Temperature and pinprick sensation was normal. Rapid alternating movements were normal. There was no dysmetria. There was no intention tremor. Gait was steady when ambulating unassisted. Arm and leg reflexes were 2+ and symmetric. Weber's sign was absent. Plantar responses were flexor. Medications Medications Current Medications Atorvastatin Calcium (Lipitor) 20 mg QHS PO Last administered on 09/23/18at 23:10; Admin Dose 20 MG; Start 09/23/18 at 21:00 Levetiracetam (Keppra) 500 mg BID PO Last administered on 09/24/18at 08:11; Admin Dose 500 MG; Start 09/23/18 at 21:00 IV Flush (NS 3 ml) 3 ml PER PROTOCOL IV ; Start 09/23/18 at 20:30 Aspirin (Aspirin) 81 mg DAILY PO Last administered on 09/24/18at 08:11; Admin Dose 81 MG; Start 09/24/18 at 09:00 Acetaminophen (Tylenol Tab) 650 mg Q6H PRN PO PAIN LEVEL 1-3 OR FEVER; Start 09/23/18 at 20:30 Docusate Sodium (Colace) 100 mg Q12H PRN PO CONSTIPATION; Start 09/23/18 at 20:30 Bisacodyl (Dulcolax) 5 mg DAILY PRN PO CONSTIPATION; Start 09/23/18 at 20:30 Hydralazine HCl (Apresoline) 10 mg Q4H PRN IV ELEVATED BLOOD PRESSURE Last administered on 09/24/18at 04:04; Admin Dose 10 MG; Start 09/23/18 at 23:00 Acetaminophen/ Hydrocodone Bitart ([place] (5/325)) 1 tab Q4H PRN PO MODERATE PAIN LEVEL 4-6 Last administered on 09/24/18at 08:11; Admin Dose 1 TAB; Start 09/23/18 at 23:00 Lorazepam (Ativan) 0.5 mg Q6H PRN IV ANXIETY; Start 09/24/18 at 03:30 Metoprolol Tartrate (Lopressor) 25 mg BID PO Last administered on 09/24/18at 10:53; Admin Dose 25 MG; Start 09/24/18 at 09:00 Doxazosin Mesylate (Cardura) 1 mg HS PO ; Start 09/24/18 at 21:00 Tiotropium [place] (Spiriva) 1 inh DAILY INH ; Start 09/24/18 at 13:00 Past Medical History reviewed Medications Current Medications Atorvastatin Calcium (Lipitor) 20 mg QHS PO Last administered on 09/23/18at 23:10; Admin Dose 20 MG; Start 09/23/18 at 21:00 Levetiracetam (Keppra) 500 mg BID PO Last administered on 09/24/18at 08:11; Admin Dose 500 MG; Start 09/23/18 at 21:00 IV Flush (NS 3 ml) 3 ml PER PROTOCOL IV ; Start 09/23/18 at 20:30 Aspirin (Aspirin) 81 mg DAILY PO Last administered on 09/24/18at 08:11; Admin Dose 81 MG; Start 09/24/18 at 09:00 Acetaminophen (Tylenol Tab) 650 mg Q6H PRN PO PAIN LEVEL 1-3 OR FEVER; Start 09/23/18 at 20:30 Docusate Sodium (Colace) 100 mg Q12H PRN PO CONSTIPATION; Start 09/23/18 at 20:30 Bisacodyl (Dulcolax) 5 mg DAILY PRN PO CONSTIPATION; Start 09/23/18 at 20:30 Hydralazine HCl (Apresoline) 10 mg Q4H PRN IV ELEVATED BLOOD PRESSURE Last administered on 09/24/18at 04:04; Admin Dose 10 MG; Start 09/23/18 at 23:00 Acetaminophen/ Hydrocodone Bitart ([place] (5/325)) 1 tab Q4H PRN PO MODERATE PAIN LEVEL 4-6 Last administered on 09/24/18at 08:11; Admin Dose 1 TAB; Start 09/23/18 at 23:00 Lorazepam (Ativan) 0.5 mg Q6H PRN IV ANXIETY; Start 09/24/18 at 03:30 Metoprolol Tartrate (Lopressor) 25 mg BID PO Last administered on 09/24/18at 10:53; Admin Dose 25 MG; Start 09/24/18 at 09:00 Doxazosin Mesylate (Cardura) 1 mg HS PO ; Start 09/24/18 at 21:00 Tiotropium [place] (Spiriva) 1 inh DAILY INH ; Start 09/24/18 at 13:00 Allergies: Coded Allergies: No Known Allergy (Unverified , 09/23/18) Past Surgical History reviewed Past Surgical Hx: other Social History reviewed Alcohol Use: none Smoking Status: Never smoker Drug Use: none HERNANDO HART NP Sep 24, 2018 13:36 PAUL PIÑA Sep 24, 2018 14:40
--- NOTE | 2018-09-24 14:53 | CONS ---
Date/Time of Note Date/Time of Note DATE: 09/24/18 TIME: 14:46 Assessment/Plan Assessment/Plan Problems: (1) Essential hypertension Status: Chronic Comment: I do not see the obvious findings that one would normally associate with pheochromocytoma or aldosteronism or hypercortisolism. Regardless the aldosteronism has been evaluated and he does not have primary hyperaldo steronism. Pending at this time will be repeat evaluations for pheochromocytoma and hypercortisolism. Please note I do not have access to the records from [facility] which may have also done this evaluation. (2) Left ventricular hypertrophy Status: Chronic Comment: Need better control blood pressure with medicines that are convenient for this gentleman to take (3) Grade II diastolic dysfunction Status: Chronic Comment: Need better control of blood pressure (4) Nephrotic range proteinuria Status: Chronic Comment: Would actively consider resumption of KAR inhibitor or angiotensin II receptor naren carefully (5) Acute kidney injury superimposed on chronic kidney disease Status: Chronic Comment: Noted. (6) Chronic kidney disease, stage 3, mod decreased GFR Status: Chronic Comment: Noted. Please see nephrology notes (7) Hyperlipidemia Comment: Continue statin therapy Qualifiers: Qualified Codes: E78.00 - Pure hypercholesterolemia, unspecified (8) Numbness Status: Acute Comment: Effective malignant hypertension. I do not believe that this represents the poor cerebral autoperfusion referred to by 1 of our neurology c claudia as [place] ES syndrome (9) DIANA positive Status: Chronic Comment: Noted. Consideration in the evaluation of a cerebritis (10) Diabetes mellitus type 2 in nonobese Status: Chronic Comment: Noted. (11) Internal hemorrhoids without complication Status: Chronic Comment: Noted. (12) Cerebritis Status: Acute Comment: Per primary team (13) Anemia Status: Chronic Comment: He has a modestly low iron level check a few months back. Repeat the evaluation. Qualifiers: Qualified Codes: D64.9 - Anemia, unspecified Result Diagram: 09/24/18 0457 09/24/18 0457 Results 24hrs Laboratory Tests Test 09/23/18 15:13 09/24/18 04:57 White Blood Count 10.4 8.9 Red Blood Count 3.44 L 3.01 L Hemoglobin 10.1 L 8.9 L Hematocrit 30.8 L 26.8 L Mean Corpuscular Volume 89.5 89.0 Mean Corpuscular Hemoglobin 29.4 29.6 Mean Corpuscular Hemoglobin Concent 32.8 33.2 Red Cell Distribution Width 12.3 12.3 Platelet Count 218 181 Mean Platelet Volume 11.1 H 10.8 H Immature Granulocytes % 0.300 0.300 Neutrophils % 78.6 H 67.7 Lymphocytes % 10.6 L 15.6 Monocytes % 7.2 11.7 H Eosinophils % 3.0 4.4 Basophils % 0.3 0.3 Nucleated Red Blood Cells % 0.0 0.0 Immature Granulocytes # 0.030 0.030 Neutrophils # 8.1 H 6.0 Lymphocytes # 1.1 1.4 Monocytes # 0.8 1.0 H Eosinophils # 0.3 0.4 Basophils # 0.0 0.0 Nucleated Red Blood Cells # 0.0 0.0 Prothrombin Time 11.5 L Prothrombin Time Ratio 0.9 INR International Normalized Ratio 0.83 Activated Partial Thromboplast Time 33.8 Urine Color COLORLESS Urine Clarity CLEAR Urine pH 7.0 Urine Specific [place] 1.004 Urine Ketones NEGATIVE Urine Nitrite NEGATIVE Urine Bilirubin NEGATIVE Urine Urobilinogen NEGATIVE Urine Leukocyte Esterase NEGATIVE Urine Microscopic RBC 4 Urine Microscopic WBC 0 Urine Bacteria FEW A Urine Hemoglobin 1+ H Urine Glucose 1+ H Urine Total Protein 2+ H Sodium Level 136 140 Potassium Level 5.5 H 4.6 Chloride Level 106 110 Carbon Dioxide Level 20 L 21 Anion Gap 10 9 Blood Urea Nitrogen 49 H 48 H Creatinine 3.02 H 3.14 H Est Glomerular Filtrat Rate mL/min 22 L 21 L Glucose Level 156 115 # Hemoglobin A1c 6.0 H Calcium Level 7.8 L 7.7 L Total Bilirubin 0.0 L 0.0 L Direct Bilirubin 0.00 0.00 Indirect Bilirubin 0.0 0.0 Aspartate Amino Transf (AST/SGOT) 16 11 L Alanine Aminotransferase (ALT/SGPT) 10 L 18 Alkaline Phosphatase 132 H 86 Creatine Kinase 100 Creatine Kinase Index 1.9 Creatinine Kinase MB (Mass) 1.85 Troponin I < 0.012 Total Protein 7.7 5.8 #L Albumin 3.9 3.0 L Globulin 3.80 H 2.80 Albumin/Globulin Ratio 1.02 1.07 Triglycerides Level 216 H Cholesterol Level 188 LDL Cholesterol, Calculated 103 HDL Cholesterol 42 Cholesterol/HDL Ratio 4.4 Magnesium Level 2.0 HIV (1&2) Antibody NEGATIVE Consultation Date/Type/Reason Admit Date/Time September 23 2018 Date of Consultation: Sep 24, 2018 Type of Consult Endocrine Reason for Consultation Diabetes mellitus type 2; accelerated hypertension; acute kidney injury on chronic kidney disease; nephrotic range proteinuria; rule out secondary causes of hypertension Requesting Provider: BRISA HARKINS Hx of Present Illness Is 1 of multiple recent [facility] admissions for this 57-year-old gentleman. Please note he is also been admitted a number of other facilities and has been recently at [facility] for evaluation. He reports that he is impatient to get his blood pressure under better control. He states he is only had 2 medications in the last few years to treat this although on discussion with him and his family member at bedside it appears it was a bit more than just 2. Constitutional: no complaints (No fevers chills or sweats) Eyes: no complaints ENT: no complaints Respiratory: no complaints Cardiovascular: no complaints Gastrointestinal: no complaints Genitourinary: no complaints Neurologic: seizure, other (Focal weakness) Past Medical History Medical History: diabetes, high cholesterol, hypertension, renal disease (Acute kidney injury on chronic kidney disease stage III to stage IV, status post ultrasound evaluation for renal arteries, status post aldosterone evaluation that was negative) Medications Current Medications Atorvastatin Calcium (Lipitor) 20 mg QHS PO Last administered on 09/23/18at 23:10; Admin Dose 20 MG; Start 09/23/18 at 21:00 Levetiracetam (Keppra) 500 mg BID PO Last administered on 09/24/18at 08:11; Admin Dose 500 MG; Start 09/23/18 at 21:00 IV Flush (NS 3 ml) 3 ml PER PROTOCOL IV ; Start 09/23/18 at 20:30 Aspirin (Aspirin) 81 mg DAILY PO Last administered on 09/24/18at 08:11; Admin Dose 81 MG; Start 09/24/18 at 09:00 Acetaminophen (Tylenol Tab) 650 mg Q6H PRN PO PAIN LEVEL 1-3 OR FEVER; Start 09/23/18 at 20:30 Docusate Sodium (Colace) 100 mg Q12H PRN PO CONSTIPATION; Start 09/23/18 at 20:30 Bisacodyl (Dulcolax) 5 mg DAILY PRN PO CONSTIPATION; Start 09/23/18 at 20:30 Hydralazine HCl (Apresoline) 10 mg Q4H PRN IV ELEVATED BLOOD PRESSURE Last administered on 09/24/18at 04:04; Admin Dose 10 MG; Start 09/23/18 at 23:00 Acetaminophen/ Hydrocodone Bitart ([place] (5/325)) 1 tab Q4H PRN PO MODERATE PAIN LEVEL 4-6 Last administered on 09/24/18at 08:11; Admin Dose 1 TAB; Start 09/23/18 at 23:00 Lorazepam (Ativan) 0.5 mg Q6H PRN IV ANXIETY; Start 09/24/18 at 03:30 Metoprolol Tartrate (Lopressor) 25 mg BID PO Last administered on 09/24/18at 10:53; Admin Dose 25 MG; Start 09/24/18 at 09:00 Doxazosin Mesylate (Cardura) 1 mg HS PO ; Start 09/24/18 at 21:00 Tiotropium [place] (Spiriva) 1 inh DAILY INH ; Start 09/24/18 at 13:00 Allergies: Coded Allergies: No Known Allergy (Unverified , 09/23/18) Past Surgical History Past Surgical Hx: noncontributory, other Family History Significant Family History: hypertension Social History Alcohol Use: none Smoking Status: Never smoker Drug Use: none Exam/Review of Systems Vital Signs Vitals Vital Signs Date Temp Pulse Resp B/P (MAP) Pulse Ox O2 O2 Flow FiO2 Time Delivery Rate 09/24/18 67 154/74 13:48 (100) 09/24/18 98.8 19 95 11:31 09/24/18 Room Air 10:50 09/23/18 2 15:15 Intake and Output 09/23/18 09/23/18 09/24/18 1515:00 23:00 07:00 IntakeIntake Total 500 ml OutputOutput Total 800 ml BalanceBalance -300 ml Exam Not an excellent historian Constitutional: alert, oriented Neck: supple, non-tender Respiratory: clear to auscultation, normal air movement Cardiovascular: regular rate and rhythm, nl pulses Gastrointestinal: soft, nl liver, spleen, non-tender Medications Medications Current Medications Atorvastatin Calcium (Lipitor) 20 mg QHS PO Last administered on 09/23/18at 23:10; Admin Dose 20 MG; Start 09/23/18 at 21:00 Levetiracetam (Keppra) 500 mg BID PO Last administered on 09/24/18at 08:11; Admin Dose 500 MG; Start 09/23/18 at 21:00 IV Flush (NS 3 ml) 3 ml PER PROTOCOL IV ; Start 09/23/18 at 20:30 Aspirin (Aspirin) 81 mg DAILY PO Last administered on 09/24/18at 08:11; Admin Dose 81 MG; Start 09/24/18 at 09:00 Acetaminophen (Tylenol Tab) 650 mg Q6H PRN PO PAIN LEVEL 1-3 OR FEVER; Start 09/23/18 at 20:30 Docusate Sodium (Colace) 100 mg Q12H PRN PO CONSTIPATION; Start 09/23/18 at 20:30 Bisacodyl (Dulcolax) 5 mg DAILY PRN PO CONSTIPATION; Start 09/23/18 at 20:30 Hydralazine HCl (Apresoline) 10 mg Q4H PRN IV ELEVATED BLOOD PRESSURE Last administered on 09/24/18at 04:04; Admin Dose 10 MG; Start 09/23/18 at 23:00 Acetaminophen/ Hydrocodone Bitart ([place] (5/325)) 1 tab Q4H PRN PO MODERATE PAIN LEVEL 4-6 Last administered on 09/24/18at 08:11; Admin Dose 1 TAB; Start 09/23/18 at 23:00 Lorazepam (Ativan) 0.5 mg Q6H PRN IV ANXIETY; Start 09/24/18 at 03:30 Metoprolol Tartrate (Lopressor) 25 mg BID PO Last administered on 09/24/18at 10:53; Admin Dose 25 MG; Start 09/24/18 at 09:00 Doxazosin Mesylate (Cardura) 1 mg HS PO ; Start 09/24/18 at 21:00 Tiotropium [place] (Spiriva) 1 inh DAILY INH ; Start 09/24/18 at 13:00 TONY HUFFMAN MD Sep 24, 2018 14:53
--- NOTE | 2018-09-24 16:40 | RADRPT ---
Echocardiogram Report Patient Name: CORRINE HARRIS Gender: Male Date: 1960 Study Date: 24-Sep-2018 Engineer Conductor: Chris Sherman [facility] Location: [address] Ref. Physician: BRISA HARKINS Quality: Adequate Procedures: Transthoracic echocardiogram with complete 2D, M-Mode, and doppler examination. Indications: Cerebrovascular Accident w/ bubble study. 2D/M Mode Doppler Measurement Value Normal Ranges Measurement Value Normal Ranges LVIDd 2D 5.2 3.5 - 5.6 cm AV Peak [place] 1.8 m/sec LVIDs 2D 3.0 2.1 - 4.1 cm AV Peak PG 13.0 mmHg FS 2D 42.6 % LVOT Peak [place] 1.4 m/sec LVPWd 2D 1.5 0.6 - 1.1 cm LVOT Peak PG 8.0 mmHg IVSd 2D 1.6 0.6 - 1.1 cm MV E Peak [place] 1.0 m/sec IVS/LVPW 2D 1.1 MV A Peak [place] 1.3 m/sec AoR Diam 2D 3.0 2.0 - 3.7 cm MV E/A 0.8 LA/Ao 2D 1 0 - 1 MV Decel Time 190 msec EDV 2D 137.0 cm3 MV E/A 0.8 ESV 2D 25.9 cm3 TR Peak [place] 2.8 m/sec LA Dimen 2D 3.5 2.3 - 4.0 cm TR Peak PG 30.0 mmHg RVSP 33.0 mmHg Findings Left Ventricle: Normal left ventricular systolic function. Normal left ventricular cavity size. Moderate concentric left ventricular hypertrophy. Ejection fraction is visually estimated at 60 %. Tissue Doppler/Mitral Doppler indices are consistent with impaired relaxation (Stage I diastolic dysfunction). Right Ventricle: Normal right ventricular size. Normal right ventricular systolic function. Left Atrium: The left atrium is normal in size. Right Atrium: The right atrium is normal in size. Atrial Septum: Bubble study was performed with and with out valsalva indicating no evidence of intra atrial shunt. Mitral Valve: Mild mitral leaflet calcification. Mild mitral annular calcification. Trace mitral regurgitation. Aortic Valve: No significant aortic stenosis or insufficiency. Aortic cusps appear mildly calcified. Trace aortic valve regurgitation. Tricuspid Valve: Normal appearance of the tricuspid valve. Estimated peak PA systolic pressure 33 mmHg. There is mild tricuspid regurgitation. Pulmonic Valve: Normal pulmonic valve appearance. There is trace pulmonic regurgitation. Pericardium: Normal pericardium with no significant pericardial effusion. Aorta: Normal aortic root. IVC: Normal size and normal respiratory collapse consistent with normal right atrial pressure. Conclusions Normal left ventricular systolic function. Normal left ventricular cavity size. Moderate concentric left ventricular hypertrophy. Ejection fraction is visually estimated at 60 %. Tissue Doppler/Mitral Doppler indices are consistent with impaired relaxation (Stage I diastolic dysfunction). Mild mitral leaflet calcification. Mild mitral annular calcification. Trace mitral regurgitation. No significant aortic stenosis or insufficiency. Aortic cusps appear mildly calcified. Trace aortic valve regurgitation. Normal appearance of the tricuspid valve. Estimated peak PA systolic pressure 33 mmHg. There is mild tricuspid regurgitation. Normal pulmonic valve appearance. There is trace pulmonic regurgitation. Electronically Signed By: Abhijit Mayfield 24-Sep-2018 16:39:51 -0800 Patient Name: CORRINE HARRIS Study Date: 24-Sep-2018 [id number]
--- NOTE | 2018-09-24 19:45 | NUR ---
EOSS: Patient with elevated SBP, PRN medication given as [id number], endorsed to night nurse. MRI of brain to be done tonight. Will continue to monitor.
[2018-09-24] MEDS: ATORVASTATIN 20 MG TAB PO SCH (20:45)
[2018-09-24] MEDS ORDERED: DOXAZOSIN 1 MG TAB PO SCH (21:00)
--- NOTE | 2018-09-24 21:28 | CONS ---
DATE OF ADMISSION: 09/23/2018 DATE OF CONSULTATION: 09/24/2018 TYPE OF CONSULTATION: Nephrology. REASON FOR CONSULTATION: Acute kidney injury, chronic kidney disease. REQUESTING PHYSICIAN: Dr. Morelos HISTORY OF PRESENT ILLNESS: This is a 57-year-old male with the past medical history of chronic kidn ey disease stage IV with previous baseline creatinine around 2.5 to 3.0 mg/dL, history of hypertensio n, history of diabetes, history of seizure disorder who presents to [facility] with right-sided numbness. The patient's states that over the last couple days, he has had increased wea kness. Early in the morning prior to admission, patient started developing numbness and tingling on his right thigh and developed right subconjunctival hemorrhage. As a result, he came in to the Emerg ency Room. Upon arrival, patient was noted to be hypertensive with systolic pressures in the 170. T he patient also noted to have elevated BUN of 49, creatinine 3.02, and potassium 5.5. The patient in the Emergency Room was given antihypertensive medication and admitted to telemetry for evaluation. In terms of patient's renal history, the patient has underlying chronic kidney disease stage IV with previous baseline creatinines around 2.5 to 3 mg/dL. The patient has not seen a disaster director and has an appointment pending. He does not know who the disaster director is. He otherwise denies any hemoptys is, hematemesis or hematochezia. PAST MEDICAL HISTORY: History of CKD, history of hypertension, history of seizures. PAST SURGICAL HISTORY: Status post trach placement and removal. FAMILY HISTORY: No family history of kidney disease. SOCIAL HISTORY: He does not drink, smoke or do drugs. MEDICATIONS: The patient's medications have been reviewed. REVIEW OF SYSTEMS: A 14-point review of systems conducted. Pertinent positives stated in HPI, other hanson negative. PHYSICAL EXAMINATION: VITAL SIGNS: Blood pressure is 157/80, respiration 18, pulse 66, temperature 98.4. HEENT: Head is normocephalic. Pupils are reactive to light. NECK: Supple. HEART: Regular rate. LUNGS: Show diminished breath sounds at base. ABDOMEN: Soft, nontender to palpation, without rebound or guarding. EXTREMITIES: Negative for clubbing, cyanosis or edema. DERMATOLOGIC: No rashes. MUSCULOSKELETAL: No joint effusion. NEUROLOGIC: No change. LABORATORY DATA: Shows sodium of 140, potassium 4.6, creatinine ____, white count 8.9, hemoglobin 9. 9, hematocrit 26.8, platelet count 218. The patient's urinalysis does show +1 hemoglobin, no pyuria, no hematuria. ASSESSMENT AND PLAN: This is a 57-year-old male who presents with problems: 1. Nonoliguric acute kidney injury on top of chronic kidney disease with previous baseline creatinin e 2.5 to 3 mg/dL. Etiology of acute kidney injury may be secondary to hemodynamics, hypertensive urg ency. The possibility of acute tubular injury is a consideration. The patient's urinalysis was revi ewed. It shows positive proteinuria, no pyuria, no significant hematuria. The patient's renal ultra sound shows echogenic kidneys consistent with medical renal disease. Recommendation at this point is to continue current medical management. Continue blood pressure medication. Avoid significant hemo dynamic fluctuations. Recommend to decrease blood pressure no more than 25% in the first part. Othe rwise, continue supportive care, renally dose meds, and avoid nephrotoxins. 2. Hypertensive urgency. Etiology is likely secondary to chronic kidney disease. The possibility o f other secondary etiologies such as pheochromocytoma and hyperaldosteronism or hypercortisolism/Cush ing are consideration. Workup is currently ongoing per endocrinology. We will follow up results. M onitor closely. We would otherwise continue current blood pressure regimen. Avoid significant fluct uations as stated above. 3. Anemia. Monitor hemoglobin and hematocrit levels. Check iron panel, stool for occult blood. 4. Mineral bone disorder. Monitor calcium and phosphorus levels. 5. Chronic kidney disease likely secondary to diabetic nephropathy. Plan is to quantify patient's p roteinuria. We would continue current treatment plan as stated above. Otherwise, continue disease f actor modification. If renal function should stabilize, would consider adding low dose KAR inhibitor . 6. Diabetes. Continue Accu-Cheks and sliding scale. 7. Seizure disorder. Continue medical management. 8. Right upper extremity numbness. Etiology may be secondary to hypertensive urgency. Repeat CT sc an of the head was nonspecific. Continue to monitor. Follow up with neurology, consider MRI. 9. ____. Continue statin therapy. Thank you, Dr. Morelos, for this interesting consult. It will be a pleasure to follow the patient wi th you throughout the hospital course. Dictated By: JASMINA MCCLAIN/WILD Conf#: [id number] DID#: [id number] CC: CHANDANA PALM MD;*EndCC*
[2018-09-25] VITALS (12 sets, daily range): BP systolic 139–198; BP diastolic 65–92; PULSE 69–91; RESP 18–20
--- NOTE | 2018-09-25 06:37 | NUR ---
EOSS: Pt resting comfortably in stable condition. Pt a/o X4 and on room air. VS stable. Urine collection started at 0130. Pt verbalizes understanding of instructions. Will endorse to oncoming RN.
--- NOTE | 2018-09-25 08:02 | PN ---
Date/Time of Note Date/Time of Note DATE: 09/25/18 TIME: 07:58 Assessment/Plan VTE Prophylaxis Risk score (from Nsg)>0 risk: 1 SCD applied (from Nsg): No SCD contraindicated: other Pharmacological prophylaxis: other Lines/Catheters [facility]from [facility] Saline Lock Urinary Cath still in place: No Assessment/Plan Hospital Course renal follow up HISTORY OF PRESENT ILLNESS: This is a 57-year-old male with the past medical history of chronic kidney disease stage IV with previous baseline creatinine around 2.5 to 3.0 mg/dL, history of hypertension, history of diabetes, history of seizure disorder who presents to [facility] with right- sided numbness. The patient's states that over the last couple days, he has had increased weakness. Early in the morning prior to admission, patient started developing numbness and tingling on his right thigh and developed right subconjunctival hemorrhage. As a result, he came in to the Emergency Room. Upon arrival, patient was noted to be hypertensive with systolic pressures in the 170. The patient also noted to have elevated BUN of 49, creatinine 3.02, and potassium 5.5. The patient in the Emergency Room was given antihypertensive medication and admitted to telemetry for evaluation. He also had CTA (90 cc of contrast given) In terms of patient's renal history, the patient has underlying chronic kidney disease stage IV with previous baseline creatinines around 2.5 to 3 mg/dL. r enal failure is worse. He otherwise denies any hemoptysis, hematemesis or hematochezia. The patient's medications have been reviewed. REVIEW OF SYSTEMS: A 14-point review of systems conducted. Pertinent positives stated in HPI, otherwise negative. PHYSICAL EXAMINATION: HEENT: Head is normocephalic. Pupils are reactive to light. NECK: Supple. HEART: Regular rate. LUNGS: Show diminished breath sounds at base. ABDOMEN: Soft, nontender to palpation, without rebound or guarding. EXTREMITIES: Negative for clubbing, cyanosis or edema. DERMATOLOGIC: No rashes. MUSCULOSKELETAL: No joint effusion. NEUROLOGIC: No change. 1. Nonoliguric acute kidney injury on top of chronic kidney disease with previous baseline creatinine 2.5 to 3 mg/dL. Etiology of acute kidney injury may be secondary to contrast induced nephropathy. The possibility of acute tubular injury is a consideration. The patient's urinalysis was reviewed. It shows positive proteinuria, no pyuria, no significant hematuria. The patient's renal ultrasound shows echogenic kidneys consistent with medical renal disease. will start maintenance fluid. Avoid significant hemodynamic fluctuations. Recommend to decrease blood pressure no more than 25% in the first part. will add nifedipine. Otherwise, continue supportive care, renally dose meds, and avoid nephrotoxins. 2. Hypertensive urgency. meds reviewed. will add nifedipine 3. Anemia. Monitor hemoglobin and hematocrit levels. Check iron panel, stool for occult blood. 4. Mineral bone disorder. Monitor calcium and phosphorus levels. 5. Chronic kidney disease likely secondary to diabetic nephropathy. Plan is to quantify patient's proteinuria. We would continue current treatment plan as stated above. Otherwise, continue disease factor modification. no KAR inhibitor or ARB at this point 6. Diabetes. Continue Accu-Cheks and sliding scale. 7. Seizure disorder. Continue medical management. 8. Right upper extremity numbness. Etiology may be secondary to hypertensive urgency. Repeat CT scan of the head was nonspecific. Continue to monitor. Follow up with neurology, consider MRI. 9. hyperlipidemia. Continue statin therapy. Result Diagram: 09/25/18 0506 09/25/18 0506 Results 24hrs Laboratory Tests Test 09/25/18 05:06 White Blood Count 8.8 Red Blood Count 2.91 L Hemoglobin 8.6 L Hematocrit 25.7 L Mean Corpuscular Volume 88.3 Mean Corpuscular Hemoglobin 29.6 Mean Corpuscular Hemoglobin Concent 33.5 Red Cell Distribution Width 12.2 Platelet Count 189 Mean Platelet Volume 10.9 H Immature Granulocytes % 0.300 Neutrophils % 72.7 Lymphocytes % 12.4 L Monocytes % 10.4 Eosinophils % 4.0 Basophils % 0.2 Nucleated Red Blood Cells % 0.0 Immature Granulocytes # 0.030 Neutrophils # 6.4 Lymphocytes # 1.1 Monocytes # 0.9 Eosinophils # 0.4 Basophils # 0.0 Nucleated Red Blood Cells # 0.0 Erythrocyte Sedimentation Rate 56 H Sodium Level 139 Potassium Level 5.0 Chloride Level 113 H Carbon Dioxide Level 20 L Anion Gap 6 Blood Urea Nitrogen 59 H Creatinine 3.90 H Est Glomerular Filtrat Rate mL/min 16 L Glucose Level 115 Calcium Level 7.7 L Phosphorus Level 4.7 Magnesium Level 2.0 Total Bilirubin 0.1 L Direct Bilirubin 0.00 Indirect Bilirubin 0.1 Aspartate Amino Transf (AST/SGOT) 12 L Alanine Aminotransferase (ALT/SGPT) 13 Alkaline Phosphatase 101 C-Reactive Protein 0.9 Total Protein 6.2 Albumin 3.2 L Globulin 3.00 Albumin/Globulin Ratio 1.06 Exam/Review of Systems Vital Signs Vitals Vital Signs Date Temp Pulse Resp B/P (MAP) Pulse Ox O2 O2 Flow FiO2 Time Delivery Rate 09/25/18 98.1 79 18 168/78 97 07:21 (108) 09/24/18 Room Air 10:50 09/23/18 2 15:15 Intake and Output 09/24/18 09/24/18 09/25/18 1515:00 23:00 07:00 IntakeIntake Total 600 ml OutputOutput Total 20 ml 200 ml BalanceBalance -20 ml 400 ml Medications Medications Current Medications Atorvastatin Calcium (Lipitor) 20 mg QHS PO Last administered on 09/24/18at 20:45; Admin Dose 20 MG; Start 09/23/18 at 21:00 Levetiracetam (Keppra) 500 mg BID PO Last administered on 09/24/18at 20:45; Admin Dose 500 MG; Start 09/23/18 at 21:00 IV Flush (NS 3 ml) 3 ml PER PROTOCOL IV ; Start 09/23/18 at 20:30 Aspirin (Aspirin) 81 mg DAILY PO Last administered on 09/24/18at 08:11; Admin Dose 81 MG; Start 09/24/18 at 09:00 Acetaminophen (Tylenol Tab) 650 mg Q6H PRN PO PAIN LEVEL 1-3 OR FEVER; Start 09/23/18 at 20:30 Docusate Sodium (Colace) 100 mg Q12H PRN PO CONSTIPATION; Start 09/23/18 at 20:30 Bisacodyl (Dulcolax) 5 mg DAILY PRN PO CONSTIPATION; Start 09/23/18 at 20:30 Hydralazine HCl (Apresoline) 10 mg Q4H PRN IV ELEVATED BLOOD PRESSURE Last administered on 09/24/18at 19:41; Admin Dose 10 MG; Start 09/23/18 at 23:00 Acetaminophen/ Hydrocodone Bitart ([place] (5/325)) 1 tab Q4H PRN PO MODERATE PAIN LEVEL 4-6 Last administered on 09/24/18at 08:11; Admin Dose 1 TAB; Start 09/23/18 at 23:00 Lorazepam (Ativan) 0.5 mg Q6H PRN IV ANXIETY; Start 09/24/18 at 03:30 Metoprolol Tartrate (Lopressor) 25 mg BID PO Last administered on 09/24/18at 10:53; Admin Dose 25 MG; Start 09/24/18 at 09:00; Status Hold Doxazosin Mesylate (Cardura) 1 mg HS PO Last administered on 09/24/18at 20:46; Admin Dose 1 MG; Start 09/24/18 at 21:00 Tiotropium [place] (Spiriva) 1 inh DAILY INH ; Start 09/24/18 at 13:00 VENANCIO KELLOGG DO Sep 25, 2018 08:02
--- NOTE | 2018-09-25 08:40 | PN ---
Date/Time of Note Date/Time of Note DATE: 09/25/18 TIME: 08:40 Assessment/Plan VTE Prophylaxis Risk score (from Ns)>0 risk: 1 SCD applied (from Ns): No SCD contraindicated: low risk/ambulating Pharmacological prophylaxis: NA/contraindicated Pharm contraindication: bleeding Lines/Catheters [facility] Saline Lock Urinary Cath still in place: No Assessment/Plan Assessment/Plan 1. Right UE numbness - Patient states he started to experiencing the numbness again this am after it resolved yesterday. Also admit to experiencing 4 seizures in the last 24 hours which may be contributing to his symptoms - Neurology consultation appreciated - MRI results showing typical seizure changes - CTA head shows " Nonspecific of hypo attenuation in the left anterior frontal lobe." - aspirin and statin on board 2. Hypertensive emergency - continue to adjust medications for better BP control given imaging studies concerning for PRES - Endocrine consultation appreciated 3. Diabetes Mellitus - A1c noted - ISS and accuchecks 4. DAK[place] on CKD - Nephrology consultation appreciated and recommending better BP control - will avoid nephrotoxic agents - Renal US compatible with renal disease 5. Seizure d/o - seen by Dr. Morgan in February 2018. Continue on Keppra and will increased to 1000mg BID - monitor for further seizure activity 6. Disposition - Will need to be seizure free for 24 hours and need better control of BP prior to discharge Result Diagram: 09/25/18 0506 09/25/18 0506 Results 24hrs Laboratory Tests Test 09/25/18 05:06 White Blood Count 8.8 Red Blood Count 2.91 L Hemoglobin 8.6 L Hematocrit 25.7 L Mean Corpuscular Volume 88.3 Mean Corpuscular Hemoglobin 29.6 Mean Corpuscular Hemoglobin Concent 33.5 Red Cell Distribution Width 12.2 Platelet Count 189 Mean Platelet Volume 10.9 H Immature Granulocytes % 0.300 Neutrophils % 72.7 Lymphocytes % 12.4 L Monocytes % 10.4 Eosinophils % 4.0 Basophils % 0.2 Nucleated Red Blood Cells % 0.0 Immature Granulocytes # 0.030 Neutrophils # 6.4 Lymphocytes # 1.1 Monocytes # 0.9 Eosinophils # 0.4 Basophils # 0.0 Nucleated Red Blood Cells # 0.0 Erythrocyte Sedimentation Rate 56 H Sodium Level 139 Potassium Level 5.0 Chloride Level 113 H Carbon Dioxide Level 20 L Anion Gap 6 Blood Urea Nitrogen 59 H Creatinine 3.90 H Est Glomerular Filtrat Rate mL/min 16 L Glucose Level 115 Calcium Level 7.7 L Phosphorus Level 4.7 Magnesium Level 2.0 Total Bilirubin 0.1 L Direct Bilirubin 0.00 Indirect Bilirubin 0.1 Aspartate Amino Transf (AST/SGOT) 12 L Alanine Aminotransferase (ALT/SGPT) 13 Alkaline Phosphatase 101 C-Reactive Protein 0.9 Total Protein 6.2 Albumin 3.2 L Globulin 3.00 Albumin/Globulin Ratio 1.06 Subjective 24 Hr Interval Summary Free Text/Dictation Patient concerned about numbness in RUE and swelling in right hand. Patient states he had 3 seizures yesterday and 1 this am. Also states his BP was very elevated since was upset about MRI spot being taken. Discussed that a STAT MRI was needed and advised to let nurse know if experiences any further seizure activity. Exam/Review of Systems Vital Signs Vitals Vital Signs Date Temp Pulse Resp B/P (MAP) Pulse Ox O2 O2 Flow FiO2 Time Delivery Rate 09/25/18 98.1 79 18 168/78 97 07:21 (108) 09/24/18 Room Air 10:50 09/23/18 2 15:15 Intake and Output 09/24/18 09/24/18 09/25/18 1515:00 23:00 07:00 IntakeIntake Total 600 ml OutputOutput Total 20 ml 200 ml BalanceBalance -20 ml 400 ml Exam General: Sitting in chair at bedside. no acute distress Eyes: improving right subconjunctival hemorrhage Neck: Supple Chest: Nontender Lungs: Clear to auscultation bilaterally no crackles rales or wheezing Heart: Normal S1-S2, Regular rhythm and rate. no murmurs Abdomen: Soft , nontender, nondistended , bowel sounds are present. No guarding no rebound tenderness Extremities: Normal to inspection, no edema no cyanosis Neurologic: Normal mental status, speech normal, cranial nerves II through XII are intact, motor and sensory are intact, strength 5 out of 5 in bilateral upper and lower extremities. sensation intact. No focal neurological deficits noted. Medications Medications Current Medications Atorvastatin Calcium (Lipitor) 20 mg QHS PO Last administered on 09/24/18at 20:45; Admin Dose 20 MG; Start 09/23/18 at 21:00 Levetiracetam (Keppra) 500 mg BID PO Last administered on 09/24/18at 20:45; Admin Dose 500 MG; Start 09/23/18 at 21:00 IV Flush (NS 3 ml) 3 ml PER PROTOCOL IV ; Start 09/23/18 at 20:30 Aspirin (Aspirin) 81 mg DAILY PO Last administered on 09/24/18at 08:11; Admin Dose 81 MG; Start 09/24/18 at 09:00 Acetaminophen (Tylenol Tab) 650 mg Q6H PRN PO PAIN LEVEL 1-3 OR FEVER; Start 09/23/18 at 20:30 Docusate Sodium (Colace) 100 mg Q12H PRN PO CONSTIPATION; Start 09/23/18 at 20:30 Bisacodyl (Dulcolax) 5 mg DAILY PRN PO CONSTIPATION; Start 09/23/18 at 20:30 Hydralazine HCl (Apresoline) 10 mg Q4H PRN IV ELEVATED BLOOD PRESSURE Last administered on 09/24/18at 19:41; Admin Dose 10 MG; Start 09/23/18 at 23:00 Acetaminophen/ Hydrocodone Bitart ([place] (5/325)) 1 tab Q4H PRN PO MODERATE PAIN LEVEL 4-6 Last administered on 09/24/18at 08:11; Admin Dose 1 TAB; Start 09/23/18 at 23:00 Lorazepam (Ativan) 0.5 mg Q6H PRN IV ANXIETY; Start 09/24/18 at 03:30 Doxazosin Mesylate (Cardura) 1 mg HS PO Last administered on 09/24/18at 20:46; Admin Dose 1 MG; Start 09/24/18 at 21:00 Tiotropium [place] (Spiriva) 1 inh DAILY INH ; Start 09/24/18 at 13:00 Nifedipine (Procardia Xl) 30 mg DAILY PO ; Start 09/25/18 at 09:00 Sodium Chloride 1,000 ml @ 70 mls/hr [id number] IV ; Start 09/25/18 at 08:00 Metoprolol Tartrate (Lopressor) 25 mg BID PO ; Start 09/25/18 at 09:00; Status SUDHIR DORADO MD Sep 25, 2018 08:40
[2018-09-25] MEDS: LEVETIRACETAM 500 MG TAB PO SCH ×2 (08:51→20:55)
[2018-09-25] MEDS: TIOTROPIUM 18 MCG CAPSULE INHA DEV INH SCH (08:52)
[2018-09-25] MEDS: ASPIRIN 81 MG TAB PO SCH (08:52)
[2018-09-25] MEDS ORDERED: METOPROLOL 25 MG TAB PO SCH (09:00)
[2018-09-25] MEDS ORDERED: NIFEdipine (XL) 30 MG TAB PO SCH ×2 (09:00→11:30)
--- NOTE | 2018-09-25 09:42 | CONS ---
Date/Time of Note Date/Time of Note DATE: 09/25/18 TIME: 09:35 Assessment/Plan Assessment/Plan Hospital Course Is 1 of multiple recent [facility] admissions for this 57-year-old gentleman. Please note he is also been admitted a number of other facilities and has been recently at [facility] for evaluation. He reports that he is impatient to get his blood pressure under better control. He states he is only had 2 medications in the last few years to treat this although on discussion with him and his family member at bedside it appears it was a bit more than just 2. Problems: (1) Essential hypertension Status: Chronic Comment: In the past this gentleman had an untoward reaction to the dihydropyridine calcium channel blockers with swelling. If this is happening again. As an alternative I agree with the use of beta blockers as you are but would also add in the alpha blockers which in the case of a pheochromocytoma would actually be a superior drug regardless. We will try to slowly bring his blood pressure is down to avoid any type of cerebral perfusion issues. (2) Diabetes mellitus type 2 in nonobese Status: Chronic Comment: Adequate glycemic control at this time (3) Anemia Status: Chronic Comment: As per nephrology whether or not they wish to give him an agent such as Procrit Qualifiers: Anemia type: due to chronic kidney disease Chronic kidney disease stage: stage 4 (severe) Qualified Codes: N18.4 - Chronic kidney disease, stage 4 (severe); D63.1 - Anemia in chronic kidney disease (4) Acute kidney injury superimposed on chronic kidney disease Status: Chronic Comment: As per nephrology. This is been accelerating fast. (5) Hyperlipidemia Comment: Continue statin therapy Qualifiers: Hyperlipidemia type: pure hypercholesterolemia Qualified Codes: E78.00 - Pure hypercholesterolemia, unspecified (6) Left ventricular hypertrophy Status: Chronic Comment: Control of blood pressure (7) Grade II diastolic dysfunction Status: Chronic Comment: Control of blood pressure (8) Nephrotic range proteinuria Status: Chronic Comment: As per nephrology. Please note that other admissions he has had some of the workup already completed (9) DIANA positive Status: Chronic Comment: As per nephrology Result Diagram: 09/25/18 0506 09/25/18 0506 Results 24hrs Laboratory Tests Test 09/25/18 05:06 White Blood Count 8.8 Red Blood Count 2.91 L Hemoglobin 8.6 L Hematocrit 25.7 L Mean Corpuscular Volume 88.3 Mean Corpuscular Hemoglobin 29.6 Mean Corpuscular Hemoglobin Concent 33.5 Red Cell Distribution Width 12.2 Platelet Count 189 Mean Platelet Volume 10.9 H Immature Granulocytes % 0.300 Neutrophils % 72.7 Lymphocytes % 12.4 L Monocytes % 10.4 Eosinophils % 4.0 Basophils % 0.2 Nucleated Red Blood Cells % 0.0 Immature Granulocytes # 0.030 Neutrophils # 6.4 Lymphocytes # 1.1 Monocytes # 0.9 Eosinophils # 0.4 Basophils # 0.0 Nucleated Red Blood Cells # 0.0 Erythrocyte Sedimentation Rate 56 H Sodium Level 139 Potassium Level 5.0 Chloride Level 113 H Carbon Dioxide Level 20 L Anion Gap 6 Blood Urea Nitrogen 59 H Creatinine 3.90 H Est Glomerular Filtrat Rate mL/min 16 L Glucose Level 115 Calcium Level 7.7 L Phosphorus Level 4.7 Magnesium Level 2.0 Total Bilirubin 0.1 L Direct Bilirubin 0.00 Indirect Bilirubin 0.1 Aspartate Amino Transf (AST/SGOT) 12 L Alanine Aminotransferase (ALT/SGPT) 13 Alkaline Phosphatase 101 C-Reactive Protein 0.9 Total Protein 6.2 Albumin 3.2 L Globulin 3.00 Albumin/Globulin Ratio 1.06 Consultation Date/Type/Reason Admit Date/Time Sep 23, 2018 at 18:20 Initial Consult Date 09/24/18 Type of Consult Endocrine Reason for Consultation Diabetes mellitus type 2; malignant hypertension rule out endocrine causes Requesting Provider: BRISA HARKINS 24 HR Interval Summary Free Text/Dictation Patient complains of pulsating headache. He reports his breathing is doing better. He is also complaining of reacquiring swelling in the hands and feet. Constitutional: no complaints Detailed Summary Respiratory: no complaints Cardiovascular: no complaints, edema (Edema hands and ankles) Neurologic: headache (Pulsating headache) Exam/Review of Systems Vital Signs Vitals Vital Signs Date Temp Pulse Resp B/P (MAP) Pulse Ox O2 O2 Flow FiO2 Time Delivery Rate 09/25/18 91 09:01 09/25/18 98.1 18 168/78 97 07:21 (108) 09/24/18 Room Air 10:50 09/23/18 2 15:15 Intake and Output 09/24/18 09/24/18 09/25/18 1515:00 23:00 07:00 IntakeIntake Total 600 ml OutputOutput Total 20 ml 200 ml BalanceBalance -20 ml 400 ml Exam Somewhat frustrated gentleman Constitutional: alert, oriented Head: normocephalic, atraumatic ENMT: other (Old tracheostomy scar) Respiratory: clear to auscultation, normal air movement Cardiovascular: regular rate and rhythm, nl pulses Extremities: edema (1+ edema) Medications Medications Current Medications Atorvastatin Calcium (Lipitor) 20 mg QHS PO Last administered on 09/24/18at 20:45; Admin Dose 20 MG; Start 09/23/18 at 21:00 Levetiracetam (Keppra) 500 mg BID PO Last administered on 09/25/18 08:51; Admin Dose 500 MG; Start 09/23/18 at 21:00 IV Flush (NS 3 ml) 3 ml PER PROTOCOL IV ; Start 09/23/18 at 20:30 Aspirin (Aspirin) 81 mg DAILY PO Last administered on 09/25/18at 08:52; Admin Dose 81 MG; Start 09/24/18 at 09:00 Acetaminophen (Tylenol Tab) 650 mg Q6H PRN PO PAIN LEVEL 1-3 OR FEVER; Start 09/23/18 at 20:30 Docusate Sodium (Colace) 100 mg Q12H PRN PO CONSTIPATION; Start 09/23/18 at 20:30 Bisacodyl (Dulcolax) 5 mg DAILY PRN PO CONSTIPATION; Start 09/23/18 at 20:30 Hydralazine HCl (Apresoline) 10 mg Q4H PRN IV ELEVATED BLOOD PRESSURE Last administered on 09/24/18at 19:41; Admin Dose 10 MG; Start 09/23/18 at 23:00 Acetaminophen/ Hydrocodone Bitart ([place] (5/325)) 1 tab Q4H PRN PO MODERATE PAIN LEVEL 4-6 Last administered on 09/24/18at 08:11; Admin Dose 1 TAB; Start 09/23/18 at 23:00 Lorazepam (Ativan) 0.5 mg Q6H PRN IV ANXIETY; Start 09/24/18 at 03:30 Tiotropium [place] (Spiriva) 1 inh DAILY INH ; Start 09/24/18 at 13:00 Nifedipine (Procardia Xl) 30 mg DAILY PO Last administered on 09/25/18at 08:51; Admin Dose 30 MG; Start 09/25/18 at 09:00 Sodium Chloride 1,000 ml @ 70 mls/hr [id number] IV ; Start 09/25/18 at 08:00 Metoprolol Tartrate (Lopressor) 25 mg BID PO Last administered on 09/25/18at 08:52; Admin Dose 25 MG; Start 09/25/18 at 09:00 Doxazosin Mesylate (Cardura) 2 mg HS PO ; Start 09/25/18 at 21:00; Status TONY ALLRED MD Sep 25, 2018 09:42
[2018-09-25] MEDS: SOD CHLORIDE 0.9% 1,000 ML IV SCH ×2 (10:02→22:18)
[2018-09-25] MEDS ORDERED: LEVETIRACETAM 500 MG TAB PO ONE (11:30)
[2018-09-25] MEDS ORDERED: LEVETIRACETAM 250 MG TAB PO ONE (11:30)
[2018-09-25] MEDS ORDERED: METOPROLOL 25 MG TAB PO ONE (11:30)
[2018-09-25] MEDS: hydrALAzine 20 MG INJ IV PRN ×2 (11:52→16:10)
--- NOTE | 2018-09-25 12:25 | CONS ---
Assessment/Plan Assessment/Plan Hospital Course A: 57 yo M with Hx of frontal lobe epilepsy, who presents with R hemisensory loss and other symptoms... for which neurology is consulted. 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 MRI brain is notable for recurrent cortical restricted diffusion in the L frontal with adjacent vasogenic edema... suggestive of recent seizures.. P: Agree w/ increased Keppra to 1g bid for now Ativan iv prn prolonged seizure (> 5 min) or cluster Other medical management per primary PT/OT/ST as needed Will follow clinically Result Diagram: 09/25/18 0506 09/25/18 0506 Results 24hrs Laboratory Tests Test 09/25/18 05:06 White Blood Count 8.8 Red Blood Count 2.91 L Hemoglobin 8.6 L Hematocrit 25.7 L Mean Corpuscular Volume 88.3 Mean Corpuscular Hemoglobin 29.6 Mean Corpuscular Hemoglobin Concent 33.5 Red Cell Distribution Width 12.2 Platelet Count 189 Mean Platelet Volume 10.9 H Immature Granulocytes % 0.300 Neutrophils % 72.7 Lymphocytes % 12.4 L Monocytes % 10.4 Eosinophils % 4.0 Basophils % 0.2 Nucleated Red Blood Cells % 0.0 Immature Granulocytes # 0.030 Neutrophils # 6.4 Lymphocytes # 1.1 Monocytes # 0.9 Eosinophils # 0.4 Basophils # 0.0 Nucleated Red Blood Cells # 0.0 Erythrocyte Sedimentation Rate 56 H Sodium Level 139 Potassium Level 5.0 Chloride Level 113 H Carbon Dioxide Level 20 L Anion Gap 6 Blood Urea Nitrogen 59 H Creatinine 3.90 H Est Glomerular Filtrat Rate mL/min 16 L Glucose Level 115 Calcium Level 7.7 L Phosphorus Level 4.7 Magnesium Level 2.0 Total Bilirubin 0.1 L Direct Bilirubin 0.00 Indirect Bilirubin 0.1 Aspartate Amino Transf (AST/SGOT) 12 L Alanine Aminotransferase (ALT/SGPT) 13 Alkaline Phosphatase 101 C-Reactive Protein 0.9 Total Protein 6.2 Albumin 3.2 L Globulin 3.00 Albumin/Globulin Ratio 1.06 Consultation Date/Type/Reason Admit Date/Time Sep 23, 2018 at 18:20 Type of Consult Neurology Reason for Consultation R hemisensory loss Requesting Provider: BRISA HARKINS Date/Time of Note DATE: 09/25/18 TIME: 12:24 24 HR Interval Summary Free Text/Dictation Pt reportedly had 2 seizures overnight. The pt states that he was awake and fully cognizant of the seizures while they were happening. He states that initially his jaw tensed up, before breaking out in fully body convulsions. He states his seizure patterns have always been like this and that he usually feels extremely anxious after the episode, rather than lethargic. Exam Vital Signs Vitals Vital Signs Date Temp Pulse Resp B/P (MAP) Pulse Ox O2 O2 Flow FiO2 Time Delivery Rate 09/25/18 98.6 69 18 198/92 98 11:27 (127) 09/24/18 Room Air 10:50 09/23/18 2 15:15 Intake and Output 09/24/18 09/24/18 09/25/18 1414:59 22:59 06:59 IntakeIntake Total 600 ml OutputOutput Total 20 ml 200 ml BalanceBalance -20 ml 400 ml Exam PE: Gen Appearance: No Apparent Distress HEENT: Normocephalic; subconjunctival hemorrhage noted in R eye Cardiovascular: Regular rate Lungs: Clear bilaterally Abdomen: Soft Extremities: Dry NE: The patient was alert and oriented.. Language was normal. Fund of knowledge was normal. Pupils were equal and reactive to light. There was no afferent pupillary defect. Visual french were normal. Funduscopic examination was limited. Extra-ocular movements were full. Ptosis was absent. There was no nystagmus. Facial sensation was normal. Face was symmetric with normal strength. Hearing was intact. Palate movements were normal. Neck strength was normal. There was normal tongue bulk and speed of movement. Tone was normal. Muscle bulk was normal. I did not see fasciculations. Arms and legs were strong. Vibration sensation was normal. Temperature and pinprick sensation was normal. Rapid alternating movements were normal. There was no dysmetria. There was no intention tremor. Gait was steady when ambulating unassisted. Arm and leg reflexes were 2+ and symmetric. Weber's sign was absent. Plantar responses were flexor. HERNANDO HART NP Sep 25, 2018 12:24 PAUL PIÑA Sep 26, 2018 07:11
[2018-09-25] MEDS ORDERED: LABETALOL HCL 20MG INJ IV PRN (17:00)
--- NOTE | 2018-09-25 20:10 | NUR ---
EOSS: Patient with elevated BP all day, Dr. Valladares made aware with orders. Patient looks anxious, but denies. Stated to take deep breathings to calm down. All medications given. Endorsed to night nurse, re: 24 hr urine collection to end at 0130 this am, sent gisselle lab. Dr. Valladares aware of right arm with swolleness,Result of MRI re: Dr. Valladares and [employer] for Dr. Morgan aware.. IV site changed to left arm. IV NS on going as ordered.Will continue to monitor.
[2018-09-25] MEDS: ATORVASTATIN 20 MG TAB PO SCH (20:55)
[2018-09-25] MEDS: METOPROLOL 50 MG TAB PO SCH (20:55)
[2018-09-25] MEDS ORDERED: LEVETIRACETAM 750 MG TAB PO SCH (21:00)
[2018-09-25] MEDS ORDERED: DOXAZOSIN 2 MG TAB PO SCH (21:00)
[2018-09-25] MEDS: HYDROCODONE/APAP (5/325) TAB PO PRN (23:27)
[2018-09-26] VITALS (10 sets, daily range): BP systolic 130–179; BP diastolic 65–86; PULSE 67–86; RESP 17–18
--- NOTE | 2018-09-26 06:08 | NUR ---
PT IN STABLE CONDITION OVERNIGHT. NO SIGN OF ACUTE DISTRESS NOTED. NO SEIZURE ACTIVITY NOTED ON SHIFT. RIGHT ARM STILL REMAIN SWOLLEN, MD AWARE. BLOOD PRESSURE ELEVATED, MANAGED WITH MEDS. 24HR URINE COLLECTION SENT DOWN TO LAB. ALL NEEDS ATTENDED TO. WILL ENDORSE TO DAY SHIFT FOR CONTINUITY OF CARE.
[2018-09-26] MEDS: LEVETIRACETAM 500 MG TAB PO SCH ×2 (06:59→20:50)
--- NOTE | 2018-09-26 07:18 | PN ---
Date/Time of Note Date/Time of Note DATE: 09/26/18 TIME: 07:15 Assessment/Plan VTE Prophylaxis Risk score (from Nsg)>0 risk: 1 SCD applied (from Nsg): No SCD contraindicated: other Pharmacological prophylaxis: other Lines/Catheters IV Catheter Type (from Nrs): Peripheral IV Urinary Cath still in place: No Assessment/Plan Hospital Course renal follow up HISTORY OF PRESENT ILLNESS: This is a 57-year-old male with the past medical history of chronic kidney disease stage IV with previous baseline creatinine around 2.5 to 3.0 mg/dL, history of hypertension, history of diabetes, history of seizure disorder who presents to [facility] with right- sided numbness. The patient's states that over the last couple days, he has had increased weakness. Early in the morning prior to admission, patient started developing numbness and tingling on his right thigh and developed right subconjunctival hemorrhage. As a result, he came in to the Emergency Room. Upon arrival, patient was noted to be hypertensive with systolic pressures in the 170. The patient also noted to have elevated BUN of 49, creatinine 3.02, and potassium 5.5. The patient in the Emergency Room was given antihypertensive medication and admitted to telemetry for evaluation. He also had CTA (90 cc of contrast given) In terms of patient's renal history, the patient has underlying chronic kidney disease stage IV with previous baseline creatinines around 2.5 to 3 mg/dL. renal failure is worse. He otherwise denies any hemoptysis, hematemesis or hematochezia. The patient's medications have been reviewed. REVIEW OF SYSTEMS: A 14-point review of systems conducted. Pertinent positives stated in HPI, otherwise negative. PHYSICAL EXAMINATION: HEENT: Head is normocephalic. Pupils are reactive to light. NECK: Supple. HEART: Regular rate. LUNGS: Show diminished breath sounds at base. ABDOMEN: Soft, nontender to palpation, without rebound or guarding. EXTREMITIES: Negative for clubbing, cyanosis or edema. DERMATOLOGIC: No rashes. MUSCULOSKELETAL: No joint effusion. NEUROLOGIC: No change. 1. Nonoliguric acute kidney injury on top of chronic kidney disease with previous baseline creatinine 2.5 to 3 mg/dL. Etiology of acute kidney injury may be secondary to contrast induced nephropathy. The possibility of acute tubular injury is a consideration. The patient's urinalysis was reviewed. It shows positive proteinuria, no pyuria, no significant hematuria. The patient's renal ultrasound shows echogenic kidneys consistent with medical renal disease. continue maintenance fluid. Avoid significant hemodynamic fluctuations. Recommend to decrease blood pressure no more than 25% in the first part. will add hydralazine. Otherwise, continue supportive care, renally dose meds, and avoid nephrotoxins. 2. Hypertensive urgency. meds reviewed. will add hydralazine. no acei or arb yet 3. Anemia. will give one dose of epogen 4. Mineral bone disorder. Monitor calcium and phosphorus levels. will check pth and vit d panel with next blood draw 5. Chronic kidney disease likely secondary to diabetic nephropathy. Plan is to quantify patient's proteinuria. We would continue current treatment plan as stated above. Otherwise, continue disease factor modification. no KAR inhibitor or ARB at this point 6. Diabetes. Continue Accu-Cheks and sliding scale. 7. Seizure disorder. Continue medical management. 8. Right upper extremity numbness. Etiology may be secondary to hypertensive urgency. Repeat CT scan of the head was nonspecific. Continue to monitor. Follow up with neurology, consider MRI. 9. hyperlipidemia. Continue statin therapy. Result Diagram: 09/26/18 0507 09/25/18 0506 Results 24hrs Laboratory Tests Test 09/26/18 05:07 White Blood Count 8.9 Red Blood Count 2.71 L Hemoglobin 8.1 L Hematocrit 23.9 L Mean Corpuscular Volume 88.2 Mean Corpuscular Hemoglobin 29.9 Mean Corpuscular Hemoglobin Concent 33.9 Red Cell Distribution Width 12.2 Platelet Count 167 Mean Platelet Volume 10.7 H Immature Granulocytes % 0.300 Neutrophils % 62.8 Lymphocytes % 20.2 Monocytes % 11.6 H Eosinophils % 4.8 Basophils % 0.3 Nucleated Red Blood Cells % 0.0 Immature Granulocytes # 0.030 Neutrophils # 5.6 Lymphocytes # 1.8 Monocytes # 1.0 H Eosinophils # 0.4 Basophils # 0.0 Nucleated Red Blood Cells # 0.0 Exam/Review of Systems Vital Signs Vitals Vital Signs Date Temp Pulse Resp B/P (MAP) Pulse Ox O2 O2 Flow FiO2 Time Delivery Rate 09/26/18 98.0 72 17 155/73 97 04:42 (100) 09/24/18 Room Air 10:50 09/23/18 2 15:15 Intake and Output 09/25/18 09/25/18 09/26/18 1515:00 23:00 07:00 IntakeIntake Total 1000 ml BalanceBalance 1000 ml Medications Medications Current Medications Atorvastatin Calcium (Lipitor) 20 mg QHS PO Last administered on 09/25/18at 20:55; Admin Dose 20 MG; Start 09/23/18 at 21:00 IV Flush (NS 3 ml) 3 ml PER PROTOCOL IV ; Start 09/23/18 at 20:30 Aspirin (Aspirin) 81 mg DAILY PO Last administered on 09/25/18at 08:52; Admin Dose 81 MG; Start 09/24/18 at 09:00 Acetaminophen (Tylenol Tab) 650 mg Q6H PRN PO PAIN LEVEL 1-3 OR FEVER; Start 09/23/18 at 20:30 Docusate Sodium (Colace) 100 mg Q12H PRN PO CONSTIPATION; Start 09/23/18 at 20:30 Bisacodyl (Dulcolax) 5 mg DAILY PRN PO CONSTIPATION; Start 09/23/18 at 20:30 Hydralazine HCl (Apresoline) 10 mg Q4H PRN IV ELEVATED BLOOD PRESSURE Last administered on 09/25/18at 16:10; Admin Dose 10 MG; Start 09/23/18 at 23:00 Acetaminophen/ Hydrocodone Bitart ([place] (5/325)) 1 tab Q4H PRN PO MODERATE PAIN LEVEL 4-6 Last administered on 09/25/18at 23:27; Admin Dose 1 TAB; Start 09/23/18 at 23:00 Tiotropium [place] (Spiriva) 1 inh DAILY INH ; Start 09/24/18 at 13:00 Sodium Chloride 1,000 ml @ 70 mls/hr [id number] IV Last administered on 09/25/18at 22:18; Admin Dose 70 MLS/HR; Start 09/25/18 at 08:00 Doxazosin Mesylate (Cardura) 2 mg HS PO Last administered on 09/25/18at 20:54; Admin Dose 2 MG; Start 09/25/18 at 21:00 Levetiracetam (Keppra) 1,000 mg BID PO Last administered on 09/26/18at 06:59; Admin Dose 1,000 MG; Start 09/25/18 at 21:00 Metoprolol Tartrate (Lopressor) 50 mg BID PO Last administered on 09/25/18at 20:55; Admin Dose 50 MG; Start 09/25/18 at 21:00 Labetalol HCl (Labetalol) 10 mg Q4 PRN IV SBP >170; Start 09/25/18 at 17:00 Lorazepam (Ativan) 1 mg Q6H PRN IV ANXIETY; Start 09/25/18 at 16:45 VENANCIO KELLOGG DO Sep 26, 2018 07:18
--- NOTE | 2018-09-26 08:33 | PN ---
Date/Time of Note Date/Time of Note DATE: 09/26/18 TIME: 08:33 Assessment/Plan VTE Prophylaxis Risk score (from Ns)>0 risk: 1 SCD applied (from Ns): No SCD contraindicated: patient refusal Pharmacological prophylaxis: LMWH Lines/Catheters IV Catheter Type (from Nrs): Peripheral IV Urinary Cath still in place: No Assessment/Plan Assessment/Plan 1. 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 Hypertensive emergency - On Hydralazine and Clonidine at home which was resumed - Patient very upset that his BP has not been well controlled. Discussed he was on permissive HTN and now needing to adjust medications for better control. Ensured he would be discharged once BP well controlled to prevent readmissions. - continue to adjust medications for better BP control given imaging studies concerning for PRES - Endocrine consultation appreciated 3. Diabetes Mellitus - A1c noted - ISS and accuchecks 4. [place] on CKD - Nephrology consultation appreciated and recommending better BP control - will avoid nephrotoxic agents - Renal US compatible with renal disease 5. Seizure d/o - seen by Dr. Morgan in February 2018. Continue on Keppra 1000mg BID - monitor for further seizure activity 6. Disposition - Needs better BP control prior to discharge. - Nephrology/Endocrinology/Neurology consultations appreciated Result Diagram: 09/26/18 0507 09/26/18 0507 Results 24hrs Laboratory Tests Test 09/26/18 05:07 White Blood Count 8.9 Red Blood Count 2.71 L Hemoglobin 8.1 L Hematocrit 23.9 L Mean Corpuscular Volume 88.2 Mean Corpuscular Hemoglobin 29.9 Mean Corpuscular Hemoglobin Concent 33.9 Red Cell Distribution Width 12.2 Platelet Count 167 Mean Platelet Volume 10.7 H Immature Granulocytes % 0.300 Neutrophils % 62.8 Lymphocytes % 20.2 Monocytes % 11.6 H Eosinophils % 4.8 Basophils % 0.3 Nucleated Red Blood Cells % 0.0 Immature Granulocytes # 0.030 Neutrophils # 5.6 Lymphocytes # 1.8 Monocytes # 1.0 H Eosinophils # 0.4 Basophils # 0.0 Nucleated Red Blood Cells # 0.0 Sodium Level 140 Potassium Level 4.8 Chloride Level 115 H Carbon Dioxide Level 18 L Anion Gap 7 Blood Urea Nitrogen 66 H Creatinine 4.32 H Glucose Level 101 Calcium Level 7.5 L Phosphorus Level 5.0 H Magnesium Level 2.0 Albumin 2.9 L Subjective 24 Hr Interval Summary Free Text/Dictation Patient was very upset this am since states he is being given the same medications for BP and not controlled his pressures well. Discussed him needing to calm down since affecting his pressure. Exam/Review of Systems Vital Signs Vitals Vital Signs Date Temp Pulse Resp B/P (MAP) Pulse Ox O2 O2 Flow FiO2 Time Delivery Rate 09/26/18 98.2 79 17 160/76 96 07:51 (104) 09/24/18 Room Air 10:50 09/23/18 2 15:15 Intake and Output 09/25/18 09/25/18 09/26/18 1515:00 23:00 07:00 IntakeIntake Total 1000 ml BalanceBalance 1000 ml Exam General: Upset this am. answering questions appropriately Eyes: improving mild right subconjunctival hemorrhage Neck: Supple Chest: Nontender Lungs: Clear to auscultation bilaterally no crackles rales or wheezing Heart: Normal S1-S2, Regular rhythm and rate. no murmurs Abdomen: Soft , nontender, nondistended , bowel sounds are present. No guarding no rebound tenderness Extremities: Normal to inspection, no edema no cyanosis Neurologic: Normal mental status, speech normal, cranial nerves II through XII are intact, motor and sensory are intact, strength 5 out of 5 in bilateral upper and lower extremities. sensation intact. No focal neurological deficits noted. Medications Medications Current Medications Atorvastatin Calcium (Lipitor) 20 mg QHS PO Last administered on 09/25/18at 20:55; Admin Dose 20 MG; Start 09/23/18 at 21:00 IV Flush (NS 3 ml) 3 ml PER PROTOCOL IV ; Start 09/23/18 at 20:30 Aspirin (Aspirin) 81 mg DAILY PO Last administered on 09/25/18at 08:52; Admin Dose 81 MG; Start 09/24/18 at 09:00 Acetaminophen (Tylenol Tab) 650 mg Q6H PRN PO PAIN LEVEL 1-3 OR FEVER; Start 09/23/18 at 20:30 Docusate Sodium (Colace) 100 mg Q12H PRN PO CONSTIPATION; Start 09/23/18 at 20:30 Bisacodyl (Dulcolax) 5 mg DAILY PRN PO CONSTIPATION; Start 09/23/18 at 20:30 Hydralazine HCl (Apresoline) 10 mg Q4H PRN IV ELEVATED BLOOD PRESSURE Last administered on 09/25/18at 16:10; Admin Dose 10 MG; Start 09/23/18 at 23:00 Acetaminophen/ Hydrocodone Bitart ([place] (5/325)) 1 tab Q4H PRN PO MODERATE PAIN LEVEL 4-6 Last administered on 09/25/18at 23:27; Admin Dose 1 TAB; Start 09/23/18 at 23:00 Tiotropium [place] (Spiriva) 1 inh DAILY INH ; Start 09/24/18 at 13:00 Sodium Chloride 1,000 ml @ 70 mls/hr [id number] IV Last administered on 09/25/18at 22:18; Admin Dose 70 MLS/HR; Start 09/25/18 at 08:00 Doxazosin Mesylate (Cardura) 2 mg HS PO Last administered on 09/25/18at 20:54; Admin Dose 2 MG; Start 09/25/18 at 21:00 Levetiracetam (Keppra) 1,000 mg BID PO Last administered on 09/26/18at 06:59; Admin Dose 1,000 MG; Start 09/25/18 at 21:00 Metoprolol Tartrate (Lopressor) 50 mg BID PO Last administered on 09/25/18at 20:55; Admin Dose 50 MG; Start 09/25/18 at 21:00 Labetalol HCl (Labetalol) 10 mg Q4 PRN IV SBP >170; Start 09/25/18 at 17:00 Lorazepam (Ativan) 1 mg Q6H PRN IV ANXIETY; Start 09/25/18 at 16:45 Epoetin Saurabh (Epogen (Non Esrd/Non Oncology)) 10,000 units ONCE SC ; Start 09/26/18 at 09:00; Stop 09/26/18 at 23:59 Hydralazine HCl (Apresoline) 25 mg TID PO ; Start 09/26/18 at 09:00 SUDHIR CHEUNG MD Sep 26, 2018 08:33
[2018-09-26] MEDS ORDERED: EPOETIN 10000 UNITS/ML (NON ESRD/NON ONCOLOGY) SC SCH (09:00)
[2018-09-26] MEDS: TIOTROPIUM 18 MCG CAPSULE INHA DEV INH SCH (09:00)
[2018-09-26] MEDS: ASPIRIN 81 MG TAB PO SCH (09:12)
[2018-09-26] MEDS: METOPROLOL 50 MG TAB PO SCH (09:13)
[2018-09-26] MEDS: SOD CHLORIDE 0.9% 1,000 ML IV SCH (13:13)
--- NOTE | 2018-09-26 13:26 | CONS ---
Date/Time of Note Date/Time of Note DATE: 09/26/18 TIME: 13:23 Assessment/Plan Assessment/Plan Hospital Course Is 1 of multiple recent [facility] admissions for this 57-year-old gentleman. Please note he is also been admitted a number of other facilities and has been recently at [facility] for evaluation. He reports that he is impatient to get his blood pressure under better control. He states he is only had 2 medications in the last few years to treat this although on discussion with him and his family member at bedside it appears it was a bit more than just 2. Problems: (1) Diabetes mellitus type 2 in nonobese Status: Chronic Comment: Adequate control (2) Chronic kidney disease, stage 3, mod decreased GFR Status: Chronic Comment: I would actively consider using an angiotensin II receptor naren drug at low-dose in this patient. (3) Acute kidney injury superimposed on chronic kidney disease Status: Chronic Comment: As per nephrology (4) Hyperlipidemia Status: Chronic Comment: Noted. Continue statin therapy Qualifiers: Hyperlipidemia type: pure hypercholesterolemia Qualified Codes: E78.00 - Pure hypercholesterolemia, unspecified (5) Nephrotic range proteinuria Status: Chronic Comment: As per nephrology. Would actively consider using low-dose angiotensin II receptor naren agent (6) Left ventricular hypertrophy Status: Chronic Comment: Control of blood pressure (7) Grade II diastolic dysfunction Status: Chronic Comment: Control of blood pressure (8) Essential hypertension Status: Chronic Comment: Titrate up on alpha blockade and beta-blockade. Hydralazine has been added. Again consider low dose angiotensin II receptor naren drug therapy Result Diagram: 09/26/18 0507 09/26/18 0507 Results 24hrs Laboratory Tests Test 09/26/18 05:07 White Blood Count 8.9 Red Blood Count 2.71 L Hemoglobin 8.1 L Hematocrit 23.9 L Mean Corpuscular Volume 88.2 Mean Corpuscular Hemoglobin 29.9 Mean Corpuscular Hemoglobin Concent 33.9 Red Cell Distribution Width 12.2 Platelet Count 167 Mean Platelet Volume 10.7 H Immature Granulocytes % 0.300 Neutrophils % 62.8 Lymphocytes % 20.2 Monocytes % 11.6 H Eosinophils % 4.8 Basophils % 0.3 Nucleated Red Blood Cells % 0.0 Immature Granulocytes # 0.030 Neutrophils # 5.6 Lymphocytes # 1.8 Monocytes # 1.0 H Eosinophils # 0.4 Basophils # 0.0 Nucleated Red Blood Cells # 0.0 Sodium Level 140 Potassium Level 4.8 Chloride Level 115 H Carbon Dioxide Level 18 L Anion Gap 7 Blood Urea Nitrogen 66 H Creatinine 4.32 H Glucose Level 101 Calcium Level 7.5 L Phosphorus Level 5.0 H Magnesium Level 2.0 Albumin 2.9 L Consultation Date/Type/Reason Admit Date/Time Sep 23, 2018 at 18:20 Initial Consult Date 09/24/18 Type of Consult Endocrine Reason for Consultation Accelerated hypertension with endorgan damage; chronic kidney disease with acute kidney injury Requesting Provider: BRISA HARKINS 24 HR Interval Summary Free Text/Dictation Patient reports he still has a sensation of a pulsation especially affecting the left-hand side of the face. He is worried about his blood pressure. He reports that the hand and extremity swelling is decreased with stopping the calcium channel naren Constitutional: no complaints Detailed Summary Endocrine: no complaints Exam/Review of Systems Vital Signs Vitals Vital Signs Date Temp Pulse Resp B/P (MAP) Pulse Ox O2 O2 Flow FiO2 Time Delivery Rate 09/26/18 98.3 74 18 178/86 99 11:21 (116) 09/24/18 Room Air 10:50 09/23/18 2 15:15 Intake and Output 09/25/18 09/25/18 09/26/18 1515:00 23:00 07:00 IntakeIntake Total 1000 ml BalanceBalance 1000 ml Exam Constitutional: alert, oriented Respiratory: clear to auscultation, normal air movement Cardiovascular: regular rate and rhythm, nl pulses Medications Medications Current Medications Atorvastatin Calcium (Lipitor) 20 mg QHS PO Last administered on 09/25/18at 20:55; Admin Dose 20 MG; Start 09/23/18 at 21:00 IV Flush (NS 3 ml) 3 ml PER PROTOCOL IV ; Start 09/23/18 at 20:30 Aspirin (Aspirin) 81 mg DAILY PO Last administered on 09/26/18at 09:12; Admin Dose 81 MG; Start 09/24/18 at 09:00 Acetaminophen (Tylenol Tab) 650 mg Q6H PRN PO PAIN LEVEL 1-3 OR FEVER; Start 09/23/18 at 20:30 Docusate Sodium (Colace) 100 mg Q12H PRN PO CONSTIPATION; Start 09/23/18 at 20:30 Bisacodyl (Dulcolax) 5 mg DAILY PRN PO CONSTIPATION; Start 09/23/18 at 20:30 Hydralazine HCl (Apresoline) 10 mg Q4H PRN IV ELEVATED BLOOD PRESSURE Last administered on 09/25/18at 16:10; Admin Dose 10 MG; Start 09/23/18 at 23:00 Acetaminophen/ Hydrocodone Bitart ([place] (5/325)) 1 tab Q4H PRN PO MODERATE PAIN LEVEL 4-6 Last administered on 09/25/18at 23:27; Admin Dose 1 TAB; Start 09/23/18 at 23:00 Tiotropium [place] (Spiriva) 1 inh DAILY INH ; Start 09/24/18 at 13:00 Sodium Chloride 1,000 ml @ 70 mls/hr [id number] IV Last administered on 09/26/18at 13:13; Admin Dose 70 MLS/HR; Start 09/25/18 at 08:00 Levetiracetam (Keppra) 1,000 mg BID PO Last administered on 09/26/18at 06:59; Admin Dose 1,000 MG; Start 09/25/18 at 21:00 Labetalol HCl (Labetalol) 10 mg Q4 PRN IV SBP >170 Last administered on 09/26at 11:56; Admin Dose 10 MG; Start 09/25/18 at 17:00 Lorazepam (Ativan) 1 mg Q6H PRN IV ANXIETY; Start 09/25/18 at 16:45 Epoetin Saurabh (Epogen (Non Esrd/Non Oncology)) 10,000 units ONCE SC Last a dministered on 09/26/18at 09:18; Admin Dose 10,000 UNITS; Start 09/26/18 at 09:00; Stop 09/26/18 at 23:59 Clonidine (Catapres) 0.1 mg TID PO ; Start 09/26/18 at 13:00 Hydralazine HCl (Apresoline) 100 mg TID PO ; Start 09/26/18 at 13:00 Doxazosin Mesylate (Cardura) 4 mg 21 PO ; Start 09/26/18 at 21:00 Doxazosin Mesylate (Cardura) 2 mg ONCE ONCE PO ; Start 09/26/18 at 13:30; Stop 09/26/18 at 13:31 Metoprolol Tartrate (Lopressor) 100 mg BID PO ; Start 09/26/18 at 21:00 TONY HUFFMAN MD Sep 26, 2018 13:26
[2018-09-26] MEDS ORDERED: DOXAZOSIN 2 MG TAB PO ONE (13:30)
[2018-09-26] MEDS: LORAZEPAM 4 MG/ML VIAL IV PRN (14:14)
--- NOTE | 2018-09-26 19:40 | NUR ---
EOSS Pt remained A/O x 4, Anxious and agitated regarding blood pressure not being well controlled, MD aware. Medicated patient with Ativan 1 mg once for when he c/o signs/symptoms of a seizure. Ambulatory independently. Currently resting well, poc reviewed with patient and daughter.
[2018-09-26] MEDS: ATORVASTATIN 20 MG TAB PO SCH (20:48)
[2018-09-26] MEDS: METOPROLOL 100 MG TAB PO SCH (20:50)
[2018-09-26] MEDS ORDERED: DOXAZOSIN 4 MG TAB PO SCH (21:00)
[2018-09-27] VITALS (10 sets, daily range): BP systolic 138–168; BP diastolic 63–75; PULSE 59–81; RESP 18
[2018-09-27] MEDS: SOD CHLORIDE 0.9% 1,000 ML IV SCH (02:54)
[2018-09-27] MEDS: hydrALAzine 20 MG INJ IV PRN (06:08)
[2018-09-27] MEDS: ACETAMINOPHEN 325 MG TAB PO PRN ×2 (06:08→18:48)
--- NOTE | 2018-09-27 06:40 | NUR ---
PT A/O4, IN STABLE CONDITION. BLOOD PRESSURE STILL ELEVATED AT TIMES, BUT MANAGED WITH MEDS. NO SEIZURE ACTIVITY WITNESSED DURING SHIFT.ALL NEEDS ATTENDED TO. WILL ENDORSE TO DAY SHIFT FOR CONTINUITY OF CARE.
[2018-09-27] MEDS: LEVETIRACETAM 500 MG TAB PO SCH ×2 (08:55→21:46)
[2018-09-27] MEDS: ASPIRIN 81 MG TAB PO SCH (08:55)
[2018-09-27] MEDS: METOPROLOL 100 MG TAB PO SCH ×2 (08:56→21:47)
[2018-09-27] MEDS: TIOTROPIUM 18 MCG CAPSULE INHA DEV INH SCH ×2 (09:00→09:01)
[2018-09-27] MEDS: NIFEdipine (XL) 60 MG TAB PO SCH (10:25)
[2018-09-27] MEDS: HYDROCODONE/APAP (5/325) TAB PO PRN (10:28)
--- NOTE | 2018-09-27 12:05 | CONS ---
Assessment/Plan Assessment/Plan Hospital Course A: 57 yo M with Hx of frontal lobe epilepsy, who presents with R hemisensory loss and other symptoms... for which neurology is consulted. 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 MRI brain is notable for recurrent cortical restricted diffusion in the L frontal with adjacent vasogenic edema... suggestive of recent seizures.. P: Agree w/ increased Keppra to 1g bid for now Ativan iv prn prolonged seizure (> 5 min) or cluster Other medical management per primary PT/OT/ST as needed Will follow clinically Result Diagram: 09/27/1844409/27/18444 Results 24hrs Laboratory Tests Test 09/27/18 04:45 White Blood Count 8.7 Red Blood Count 2.80 L Hemoglobin 8.4 L Hematocrit 25.1 L Mean Corpuscular Volume 89.6 Mean Corpuscular Hemoglobin 30.0 Mean Corpuscular Hemoglobin Concent 33.5 Red Cell Distribution Width 11.9 Platelet Count 178 Mean Platelet Volume 10.9 H Immature Granulocytes % 0.700 H Neutrophils % 66.0 Lymphocytes % 18.3 Monocytes % 10.0 Eosinophils % 4.7 Basophils % 0.3 Nucleated Red Blood Cells % 0.0 Immature Granulocytes # 0.060 H Neutrophils # 5.7 Lymphocytes # 1.6 Monocytes # 0.9 Eosinophils # 0.4 Basophils # 0.0 Nucleated Red Blood Cells # 0.0 Sodium Level 140 Potassium Level 4.8 Chloride Level 116 H Carbon Dioxide Level 18 L Anion Gap 6 Blood Urea Nitrogen 61 H Creatinine 4.09 H Glucose Level 113 Calcium Level 7.8 L Phosphorus Level 4.7 Magnesium Level 2.0 Albumin 3.0 L Consultation Date/Type/Reason Admit Date/Time Sep 23, 2018 at 18:20 Type of Consult Neurology Reason for Consultation R hemisensory loss Requesting Provider: BRISA HARKINS Date/Time of Note DATE: 09/27/18 TIME: 12:05 24 HR Interval Summary Free Text/Dictation Pt states that he feels much better today. Denies further sensory loss or seizure episodes. Exam Vital Signs Vitals Vital Signs Date Temp Pulse Resp B/P (MAP) Pulse Ox O2 O2 Flow FiO2 Time Delivery Rate 09/27/18 98.0 60 18 158/75 97 Room Air 11:27 (102) 09/23/18 2 15:15 Intake and Output 12/30/18 12/30/18 12/31/18 1515:00 23:00 07:00 IntakeIntake Total 1000 ml 1200 ml OutputOutput Total 1500 ml BalanceBalance 1000 ml -300 ml Exam PE: Gen Appearance: No Apparent Distress HEENT: Normocephalic; subconjunctival hemorrhage noted in R eye Cardiovascular: Regular rate Lungs: Clear bilaterally Abdomen: Soft Extremities: Dry NE: The patient was alert and oriented.. Language was normal. Fund of knowledge was normal. Pupils were equal and reactive to light. There was no afferent pupillary defect. Visual french were normal. Funduscopic examination was limited. Extra-ocular movements were full. Ptosis was absent. There was no nystagmus. Facial sensation was normal. Face was symmetric with normal strength. Hearing was intact. Palate movements were normal. Neck strength was normal. There was normal tongue bulk and speed of movement. Tone was normal. Muscle bulk was normal. I did not see fasciculations. Arms and legs were strong. Vibration sensation was normal. Temperature and pinprick sensation was normal. Rapid alternating movements were normal. There was no dysmetria. There was no intention tremor. Gait was steady when ambulating unassisted. Arm and leg reflexes were 2+ and symmetric. Weber's sign was absent. Plantar responses were flexor. HERNANDO HART NP Sep 27, 2018 12:05 PAUL PIÑA Sep 27, 2018 20:39
--- NOTE | 2018-09-27 13:24 | PN ---
DATE: 09/27/2018 SUBJECTIVE: The patient is stable. No events overnight. No fevers, chills, nausea, vomiting. I di scussed in detail with the patient about his ongoing acute kidney injury and chronic kidney disease, informing them that dialysis may be a possibility if renal function does not improve. The patient vo iced understanding. No other events noted. OBJECTIVE: VITAL SIGNS: Blood pressure is 168/75, respiration 19, pulse 80, temperature 98.0. HEENT: Head is normocephalic. NECK: Supple. HEART: Regular rate. LUNGS: Show diminished breath sounds at the base. ABDOMEN: Soft, nontender to palpation without rebound or guarding. EXTREMITIES: Negative for clubbing, cyanosis. No edema. DERMATOLOGIC: No rashes. MUSCULOSKELETAL: No joint effusions. NEUROLOGIC: No change in exam. MEDICATIONS: Have been reviewed. LABORATORY DATA: Show sodium 140, potassium 4.8, chloride 116, bicarbonate 18, BUN 61, creatinine 4. 09. White count 8.7, hemoglobin 9.4, platelet count is 178. ASSESSMENT AND PLAN: 1. Nonoliguric acute kidney injury on top of chronic kidney disease with previous baseline creatinin e 2.5 to 3 mg/dL. Etiology of acute kidney injury is likely secondary to acute tubular necrosis due to hypertensive urgency. The patient's renal function appears to have stabilized in the last 24 hour s. At this point, continue current treatment plans, supportive care, renally dose all meds. We will discontinue IV fluids and monitor closely. 2. Hypertensive urgency. Etiology is multifactorial, likely in part due to chronic kidney disease, recent IV fluids. Lower suspicion for other secondary endocrinology causes such as pheochromocytoma, hyperaldosteronism or [place] syndrome. Continue to monitor. Follow up with endocrinology. Contin ue current blood pressure regimen. Adjust as needed. Defer KAR inhibitor or ARB at this time. 3. Anemia. Monitor hemoglobin and hematocrit levels. 4. Mineral bone disorder. Monitor calcium and phosphorus levels. 5. Chronic kidney disease likely secondary to diabetic nephropathy with possible nephrotic range pro teinuria. The patient's proteinuria is being quantified. We will follow up protein-creatinine ratio and albumin-creatinine ratio. The patient would likely benefit from KAR or ARB; however, we will de christopher in the setting of acute kidney injury. Once renal function stabilized, we would consider reintro duction of KAR inhibitor or ARB. 6. Diabetes. Continue current insulin regimen. 7. Seizure disorder. Continue medical management. 8. Right upper extremity numbness. Continue to monitor. Imaging studies were reviewed. Dictated By: JASMINA DOCKERY DO NR/NTS Conf#: [id number] DID#: [id number] CC: CHANDANA PALM MD; MALGORZATA HENDRICKSON MD;*EndCC*
--- NOTE | 2018-09-27 13:28 | CONS ---
Date/Time of Note Date/Time of Note DATE: 09/27/18 TIME: 13:21 Assessment/Plan Assessment/Plan Hospital Course Is 1 of multiple recent [facility] admissions for this 57-year-old gentleman. Please note he is also been admitted a number of other facilities and has been recently at [facility] for evaluation. He reports that he is impatient to get his blood pressure under better control. He states he is only had 2 medications in the last few years to treat this although on discussion with him and his family member at bedside it appears it was a bit more than just 2. Problems: (1) Chronic kidney disease, stage 3, mod decreased GFR Status: Chronic Comment: As per nephrology (2) Acute kidney injury superimposed on chronic kidney disease Status: Chronic Comment: As per nephrology (3) Nephrotic range proteinuria Status: Chronic Comment: Again at this point I would recommend consideration of usage of low- dose angiotensin II receptor naren therapy. Consideration for ultrasound- guided percutaneous renal biopsy (4) DIANA positive Status: Chronic Comment: Noted (5) Essential hypertension Status: Chronic Comment: The blood pressure medications were changed around and the medicines that would be used in the setting of pheochromocytoma are going to continue to be adjusted. Caution with usage of dihydropyridine calcium channel blockers due to the side effect of edema which the patient has complained about before (6) Left ventricular hypertrophy Status: Chronic Comment: Control of blood pressure (7) Grade II diastolic dysfunction Status: Chronic Comment: Control blood pressure (8) Diabetes mellitus type 2 in nonobese Status: Chronic Comment: Adequate control (9) Anemia Status: Chronic Comment: As per primary team Qualifiers: Anemia type: due to chronic kidney disease Chronic kidney disease stage: stage 4 (severe) Qualified Codes: N18.4 - Chronic kidney disease, stage 4 (severe); D63.1 - Anemia in chronic kidney disease Result Diagram: 09/27/18 0445 09/27/185 Results 24hrs Laboratory Tests Test 09/27/18 04:45 White Blood Count 8.7 Red Blood Count 2.80 L Hemoglobin 8.4 L Hematocrit 25.1 L Mean Corpuscular Volume 89.6 Mean Corpuscular Hemoglobin 30.0 Mean Corpuscular Hemoglobin Concent 33.5 Red Cell Distribution Width 11.9 Platelet Count 178 Mean Platelet Volume 10.9 H Immature Granulocytes % 0.700 H Neutrophils % 66.0 Lymphocytes % 18.3 Monocytes % 10.0 Eosinophils % 4.7 Basophils % 0.3 Nucleated Red Blood Cells % 0.0 Immature Granulocytes # 0.060 H Neutrophils # 5.7 Lymphocytes # 1.6 Monocytes # 0.9 Eosinophils # 0.4 Basophils # 0.0 Nucleated Red Blood Cells # 0.0 Sodium Level 140 Potassium Level 4.8 Chloride Level 116 H Carbon Dioxide Level 18 L Anion Gap 6 Blood Urea Nitrogen 61 H Creatinine 4.09 H Glucose Level 113 Calcium Level 7.8 L Phosphorus Level 4.7 Magnesium Level 2.0 Albumin 3.0 L Consultation Date/Type/Reason Admit Date/Time Sep 23, 2018 at 18:20 Initial Consult Date 09/24/18 Type of Consult Endocrine Reason for Consultation Accelerated hypertension with endorgan damage; rule out endocrinopathy as a cause for this specifically pheochromocytoma Requesting Provider: BRISA HARKINS 24 HR Interval Summary Free Text/Dictation Patient is very interested in knowing when he can go home. Also wants to know if his kidneys will get better. Constitutional: no complaints Detailed Summary Respiratory: no complaints Cardiovascular: no complaints (No chest pain no PND no orthopnea and NO ORTHOSTASIS) Gastrointestinal: no complaints Exam/Review of Systems Vital Signs Vitals Vital Signs Date Temp Pulse Resp B/P (MAP) Pulse Ox O2 O2 Flow FiO2 Time Delivery Rate 09/27/18 64 12:00 09/27/18 98.0 18 158/75 97 Room Air 11:27 (102) 09/23/18 2 15:15 Intake and Output 09/26/18 09/26/18 09/27/18 1414:59 22:59 06:59 IntakeIntake Total 1000 ml 1200 ml OutputOutput Total 1500 ml BalanceBalance 1000 ml -300 ml Exam Constitutional: alert, oriented Respiratory: clear to auscultation, normal air movement Cardiovascular: regular rate and rhythm, nl pulses Gastrointestinal: soft, nl liver, spleen, non-tender Medications Medications Current Medications Atorvastatin Calcium (Lipitor) 20 mg QHS PO Last administered on 09/26/18at 20:48; Admin Dose 20 MG; Start 09/23/18 at 21:00 IV Flush (NS 3 ml) 3 ml PER PROTOCOL IV ; Start 09/23/18 at 20:30 Aspirin (Aspirin) 81 mg DAILY PO Last administered on 09/27/18 08:55; Admin Dose 81 MG; Start 09/24/18 at 09:00 Acetaminophen (Tylenol Tab) 650 mg Q6H PRN PO PAIN LEVEL 1-3 OR FEVER Last administered on 09/27/18 06:08; Admin Dose 650 MG; Start 09/23/18 at 20:30 Docusate Sodium (Colace) 100 mg Q12H PRN PO CONSTIPATION; Start 09/23/18 at 20:30 Bisacodyl (Dulcolax) 5 mg DAILY PRN PO CONSTIPATION; Start 09/23/18 at 20:30 Hydralazine HCl (Apresoline) 10 mg Q4H PRN IV ELEVATED BLOOD PRESSURE Last administered on 09/27/18 06:08; Admin Dose 10 MG; Start 09/23/18 at 23:00 Acetaminophen/ Hydrocodone Bitart ([place] (5/325)) 1 tab Q4H PRN PO MODERATE PAIN LEVEL 4-6 Last administered on 09/27/18 10:28; Admin Dose 1 TAB; Start 09/23/18 at 23:00 Tiotropium [place] (Spiriva) 1 inh DAILY INH ; Start 09/24/18 at 13:00 Levetiracetam (Keppra) 1,000 mg BID PO Last administered on 09/27/18 08:55; Admin Dose 1,000 MG; Start 09/25/18 at 21:00 Labetalol HCl (Labetalol) 10 mg Q4 PRN IV SBP >170 Last administered on 09/26/18 11:56; Admin Dose 10 MG; Start 09/25/18 at 17:00 Lorazepam (Ativan) 1 mg Q6H PRN IV ANXIETY Last administered on 09/26/18 14:14; Admin Dose 1 MG; Start 09/25/18 at 16:45 Hydralazine HCl (Apresoline) 100 mg TID PO Last administered on 09/27/18 13:06; Admin Dose 100 MG; Start 09/26/18 at 13:00 Metoprolol Tartrate (Lopressor) 100 mg BID PO Last administered on 09/27/18 08:56; Admin Dose 100 MG; Start 09/26/18 at 21:00 Clonidine (Catapres) 0.2 mg TID PO Last administered on 12/31/18at 13:06; Admin Dose 0.2 MG; Start 09/26/18 at 21:00 Nifedipine (Procardia Xl) 60 mg DAILY PO Last administered on 09/27/18at 10:25; Admin Dose 60 MG; Start 09/27/18 at 10:00 TONY HUFFMAN MD Sep 27, 2018 13:28
--- NOTE | 2018-09-27 14:32 | PN ---
Date/Time of Note Date/Time of Note DATE: 09/27/18 TIME: 14:32 Objective Vitals Vital Signs Date Temp Pulse Resp B/P (MAP) Pulse Ox O2 O2 Flow FiO2 Time Delivery Rate 09/27/18 64 12:00 09/27/18 98.0 18 158/75 97 Room Air 11:27 (102) 09/23/18 2 15:15 Intake and Output 09/26/18 09/26/18 09/27/18 1515:00 23:00 07:00 IntakeIntake Total 1000 ml 1200 ml OutputOutput Total 1500 ml BalanceBalance 1000 ml -300 ml Results Result Diagram: 09/27/18 0445 09/27/18 0445 Medications Medications Current Medications Atorvastatin Calcium (Lipitor) 20 mg QHS PO Last administered on 09/26/18at 20:48; Admin Dose 20 MG; Start 09/23/18 at 21:00 IV Flush (NS 3 ml) 3 ml PER PROTOCOL IV ; Start 09/23/18 at 20:30 Aspirin (Aspirin) 81 mg DAILY PO Last administered on 09/27/18at 08:55; Admin Dose 81 MG; Start 09/24/18 at 09:00 Acetaminophen (Tylenol Tab) 650 mg Q6H PRN PO PAIN LEVEL 1-3 OR FEVER Last administered on 09/27/18at 06:08; Admin Dose 650 MG; Start 09/23/18 at 20:30 Docusate Sodium (Colace) 100 mg Q12H PRN PO CONSTIPATION; Start 09/23/18 at 20:30 Bisacodyl (Dulcolax) 5 mg DAILY PRN PO CONSTIPATION; Start 09/23/18 at 20:30 Hydralazine HCl (Apresoline) 10 mg Q4H PRN IV ELEVATED BLOOD PRESSURE Last administered on 09/27/18at 06:08; Admin Dose 10 MG; Start 09/23/18 at 23:00 Acetaminophen/ Hydrocodone Bitart ([place] (5/325)) 1 tab Q4H PRN PO MODERATE PAIN LEVEL 4-6 Last administered on 09/27/18at 10:28; Admin Dose 1 TAB; Start 09/23/18 at 23:00 Tiotropium [place] (Spiriva) 1 inh DAILY INH ; Start 09/24/18 at 13:00 Levetiracetam (Keppra) 1,000 mg BID PO Last administered on 09/27/18 08:55; Admin Dose 1,000 MG; Start 09/25/18 at 21:00 Labetalol HCl (Labetalol) 10 mg Q4 PRN IV SBP >170 Last administered on 09/26/18at 11:56; Admin Dose 10 MG; Start 09/25/18 at 17:00 Lorazepam (Ativan) 1 mg Q6H PRN IV ANXIETY Last administered on 09/26/18 14:14; Admin Dose 1 MG; Start 09/25/18 at 16:45 Hydralazine HCl (Apresoline) 100 mg TID PO Last administered on 09/27/18 13:06; Admin Dose 100 MG; Start 09/26/18 at 13:00 Metoprolol Tartrate (Lopressor) 100 mg BID PO Last administered on 09/27/18at 08:56; Admin Dose 100 MG; Start 09/26/18 at 21:00 Clonidine (Catapres) 0.2 mg TID PO Last administered on 09/27/18 13:06; Admin Dose 0.2 MG; Start 09/26/18 at 21:00 Nifedipine (Procardia Xl) 60 mg DAILY PO Last administered on 09/27/18at 10:25; Admin Dose 60 MG; Start 09/27/18 at 10:00 Doxazosin Mesylate (Cardura) 8 mg HS PO ; Start 09/27/18 at 21:00 VTE Prophylaxis Risk score (from Ns)>0 risk: 1 SCD applied (from Ns): No SCD contraindication: other Lines/Catheters IV Catheter Type: Rg in Place: No Assessment/Plan Hospital Course Subjective Patient feeling well, wants to go home Objective Physical exam General: Patient is laying in bed and answers questions appropriately Mentation: Patient is alert and oriented 4, Head: Normocephalic atraumatic Eyes: EOMI, pupils reactive to light Neck: Supple, nontender, midline Respiratory: Clear to auscultation bilaterally Cardiovascular: regular rate, no obvious murmurs Gastrointestinal: non-tender to palpation, bowel sounds heard. Neurological: Moves all extremities spontaneously Skin: No new skin lesions Assessment/Plan 1. 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 Hypertensive emergency - On Hydralazine and Clonidine at home which was resumed - Patient very upset that his BP has not been well controlled. Discussed he was on permissive HTN and now needing to adjust medications for better control. Ensured he would be discharged once BP well controlled to prevent readmissions. - continue to adjust medications for better BP control given imaging studies concerning for PRES - Endocrine consultation appreciated 3. Diabetes Mellitus - A1c noted - ISS and accuchecks 4. [place] on CKD - Nephrology consultation appreciated and recommending better BP control - will avoid nephrotoxic agents - Renal US compatible with renal disease -possible ATN? 5. Seizure d/o - seen by Dr. Morgan in February 2018. Continue on Keppra 1000mg BID - monitor for further seizure activity 6. Disposition - BP needs to be better controlled, however will also would like to see improvement in renal function before discharge. MALGORZATA HENDRICKSON Sep 27, 2018 14:32
--- NOTE | 2018-09-27 17:53 | NUR ---
EOSS pt is alert and orientedx4, room air, stable pt was very upset this AM because there was a misunderstanding when Dr. Kent told him that he was cleared from her standpoint, the pt thought he was gonna go home. He was very upset because Dr. Bardales told him that he was not going today. This made the pt confused and frustrated. Issue brought up to Dr. Bardales and cinder crew workerAdiel. Issue resolved pt agrees to stay in the hospital hourly rounding done
[2018-09-27] MEDS: LORAZEPAM 4 MG/ML VIAL IV PRN (18:41)
[2018-09-27] MEDS ORDERED: DOXAZOSIN 4 MG TAB PO SCH (21:00)
[2018-09-27] MEDS: ATORVASTATIN 20 MG TAB PO SCH (21:46)
[2018-09-28] VITALS (10 sets, daily range): BP systolic 105–143; BP diastolic 57–69; PULSE 59–66; RESP 16–18
--- NOTE | 2018-09-28 06:39 | NUR ---
PT REMAIN IN STABLE CONDITION OVERNIGHT. NO SIGN OF ACUTE DISTRESS NOTED. PT BLOOD PRESSURE UNDER CONTROL. NO SEIZURE ACTIVITY WITNESSED DURING SHIFT. WILL ENDORSE TO DAY SHIFT FOR CONTINUITY OF CARE.
[2018-09-28] MEDS: TIOTROPIUM 18 MCG CAPSULE INHA DEV INH SCH (09:00)
[2018-09-28] MEDS: METOPROLOL 100 MG TAB PO SCH ×2 (09:02→20:24)
[2018-09-28] MEDS: ASPIRIN 81 MG TAB PO SCH (09:02)
[2018-09-28] MEDS: LEVETIRACETAM 500 MG TAB PO SCH ×2 (09:02→20:23)
[2018-09-28] MEDS: NIFEdipine (XL) 60 MG TAB PO SCH (09:03)
--- NOTE | 2018-09-28 09:39 | PN ---
DATE: 09/28/2018 SUBJECTIVE: The patient was stable overnight. Blood pressures have improved. Urinary output has be en adequate. No other events noted. No hemoptysis, hematemesis or hematochezia. OBJECTIVE: VITAL SIGNS: Blood pressure is 105/57, respiration 18, pulse 61, temperature 98.4. HEENT: Head is normocephalic. NECK: Supple. HEART: Regular rate. LUNGS: Show diminished breath sounds at base. ABDOMEN: Soft, nontender to palpation, no rebound or guarding. EXTREMITIES: Negative for clubbing, cyanosis, no edema. DERMATOLOGIC: No rashes. MUSCULOSKELETAL: No joint effusions. NEUROLOGIC: No focal deficits. MEDICATIONS: The patient's medications have been reviewed. LABORATORY DATA: Shows white count 8.1, hemoglobin 7.6, platelet count is 171. The patient's sodium 137, potassium 5.0, chloride 109, BUN 58, creatinine 3.85. ASSESSMENT AND PLAN: 1. Nonoliguric acute kidney injury on top of chronic kidney disease stage IV with previous baseline creatinine 2.5 to 3 mg/dL. Etiology of acute kidney injury is likely secondary to hemodynamics, poss ible acute tubular necrosis. The patient's renal function has improved in the last 24 hours. At thi s point, would continue current treatment plan, supportive care, renally dose all meds, continue curr ent blood pressure regimen and monitor closely for significant hemodynamic fluctuations. Avoid signi ficant hemodynamic fluctuations to maintain adequate renal perfusion. 2. Chronic kidney disease with a previous history of nephrotic range proteinuria. Etiology is likel y due to diabetic nephropathy, possible hypertensive nephrosclerosis. The possibility of a primary g lomerulopathy is always a consideration; however, given the patient's bland urinary sediment less lik norberto to be an acute glomerulonephritis or vasculitis. We will repeat the patient's serological data a nd complements. At this point, would continue to treat acute kidney injury as stated above. A renal biopsy is a consideration; however, cannot be obtained or done in the setting of hypertension. If b lood pressures remain normotensive could be considered either as an inpatient or outpatient setting. Would otherwise continue current treatment plan. Would defer KAR inhibitor or ARB at this time unti l renal function is stable. 3. Hypertensive urgency. Etiology is likely multifactorial in part due to chronic kidney disease, r ecent IV fluids. Other possibilities such as a pheochromocytoma are being considered. The patient's blood pressures have improved, would continue current medical management. Defer to primary team and endocrinology for management. Would however, continue to defer KAR inhibitor, ARB at this time unti l renal function has stabilized. 4. Anemia. Continue to monitor hemoglobin and hematocrit levels. 5. Mineral bone disorder. Monitor calcium and phosphatase levels. 6. Diabetes. Hemoglobin well controlled. Continue current treatment plan. 7. Seizure disorder. Continue medical management. 8. Right upper extremity weakness, numbness, possible syndrome. Continue medical management. Follow up with neurology. Dictated By: JASMINA MCCLAIN/NTS Conf#: [id number] DID#: [id number]
--- NOTE | 2018-09-28 11:16 | CONS ---
Date/Time of Note Date/Time of Note DATE: 09/28/18 TIME: 11:13 Assessment/Plan Assessment/Plan Problems: (1) Essential hypertension Status: Chronic Comment: BP improved on current regimen including clonidine 0.1 mg q8, nifedipine 60 mg daily, metoprolol 100 mg bid, and doxazosin 8 mg qhs. Plasma renin activity level normal but aldosterone still pending. Other secondary HTN work up pending. Defer to primary team. Result Diagram: 09/28/18 0844 09/28/18 0456 Results 24hrs Laboratory Tests Test 09/28/18 04:56 09/28/18 08:44 White Blood Count 8.1 Red Blood Count 2.59 L Hemoglobin 7.6 L 8.5 L Hematocrit 22.7 L 25.2 L Mean Corpuscular Volume 87.6 Mean Corpuscular Hemoglobin 29.3 Mean Corpuscular Hemoglobin Concent 33.5 Red Cell Distribution Width 12.1 Platelet Count 171 Mean Platelet Volume 10.7 H Immature Granulocytes % 0.900 H Neutrophils % 64.5 Lymphocytes % 17.4 Monocytes % 11.6 H Eosinophils % 5.2 Basophils % 0.4 Nucleated Red Blood Cells % 0.0 Immature Granulocytes # 0.070 H Neutrophils # 5.2 Lymphocytes # 1.4 Monocytes # 0.9 Eosinophils # 0.4 Basophils # 0.0 Nucleated Red Blood Cells # 0.0 Sodium Level 137 Potassium Level 5.0 Chloride Level 109 Carbon Dioxide Level 18 L Anion Gap 10 Blood Urea Nitrogen 58 H Creatinine 3.85 H Est Glomerular Filtrat Rate mL/min 16 L Glucose Level 117 Calcium Level 7.5 L Phosphorus Level 4.8 Magnesium Level 1.9 Consultation Date/Type/Reason Admit Date/Time Sep 23, 2018 at 18:20 Initial Consult Date 09/24/18 Type of Consult Endocrinology Reason for Consultation R/o secondary cause of HTN Requesting Provider: BRISA HARKINS 24 HR Interval Summary Constitutional: no complaints, improved Detailed Summary Respiratory: no complaints Cardiovascular: no complaints Gastrointestinal: no complaints Genitourinary: no complaints Musculoskeletal: no complaints Neurologic: no complaints Exam/Review of Systems Vital Signs Vitals VS - Last 72 Hours, by Label Date Temp Pulse Resp B/P (MAP) Pulse Ox O2 O2 Flow FiO2 Time Delivery Rate 09/28/18 66 08:00 09/28/18 98.4 60 18 120/61 97 Room Air 07:56 (80) 09/28/18 60 04:00 09/28/18 98.4 61 18 105/57 100 Room Air 04:00 (73) 09/28/18 59 00:00 09/27/18 59 20:00 09/27/18 98.4 19:33 09/27/18 67 16:00 09/27/18 98.0 61 18 138/63 100 Room Air 15:05 (88) 09/27/18 64 12:00 09/27/18 98.0 60 18 158/75 97 Room Air 11:27 (102) 09/27/18 62 139/67 10:23 (91) 09/27/18 81 08:00 09/27/18 98.0 80 18 168/75 97 Room Air 07:50 (106) 09/27/18 98.4 06:08 09/27/18 69 04:00 09/27/18 68 00:00 09/26/18 73 20:00 09/26/18 73 16:50 09/26/18 98.3 80 18 130/65 96 15:41 (86) 09/26/18 76 179/79 14:17 (112) 09/26/18 98.3 74 18 178/86 99 11:21 (116) 09/26/18 86 08:46 09/26/18 98.2 79 17 160/76 96 07:51 (104) 09/26/18 98.0 72 17 155/73 97 04:42 (100) 09/26/18 67 04:00 09/26/18 72 00:00 09/25/18 98.0 72 19 139/65 96 23:59 (89) 09/25/18 98.7 85 20 175/81 95 20:42 (112) 09/25/18 87 20:00 09/25/18 84 16:46 09/25/18 98.1 79 19 170/79 96 15:09 (109) 09/25/18 74 12:58 09/25/18 98.6 69 18 198/92 98 11:27 (127) Vital Signs Date Temp Pulse Resp B/P (MAP) Pulse Ox O2 O2 Flow FiO2 Time Delivery Rate 09/28/18 66 08:00 09/28/18 98.4 18 120/61 97 Room Air 07:56 (80) Intake and Output 09/27/18 09/27/18 09/28/18 1414:59 22:59 06:59 IntakeIntake Total 1220 ml 1000 ml OutputOutput Total 1400 ml BalanceBalance 1220 ml -400 ml Exam Constitutional: alert, oriented, well developed Respiratory: clear to auscultation, normal air movement Cardiovascular: regular rate and rhythm, nl pulses, edema (1+ BLE); No murmurs/extra sounds, No rub Gastrointestinal: soft, nl liver, spleen, non-tender, bowel sounds; No mass, No rebound or guarding Musculoskeletal: nl extremities to inspection Extremities: normal pulses, edema (1+ BLE); No cyanosis, No clubbing 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, nl mental status, nl speech, nl strength Medications Medications Current Medications Atorvastatin Calcium (Lipitor) 20 mg QHS PO Last administered on 09/27/18at 21:46; Admin Dose 20 MG; Start 09/23/18 at 21:00 IV Flush (NS 3 ml) 3 ml PER PROTOCOL IV ; Start 09/23/18 at 20:30 Aspirin (Aspirin) 81 mg DAILY PO Last administered on 09/28/18 09:02; Admin Dose 81 MG; Start 09/24/18 at 09:00 Acetaminophen (Tylenol Tab) 650 mg Q6H PRN PO PAIN LEVEL 1-3 OR FEVER Last administered on 09/27/18at 18:48; Admin Dose 650 MG; Start 09/23/18 at 20:30 Docusate Sodium (Colace) 100 mg Q12H PRN PO CONSTIPATION; Start 09/23/18 at 20:30 Bisacodyl (Dulcolax) 5 mg DAILY PRN PO CONSTIPATION; Start 09/23/18 at 20:30 Hydralazine HCl (Apresoline) 10 mg Q4H PRN IV ELEVATED BLOOD PRESSURE Last administered on 09/27/18at 06:08; Admin Dose 10 MG; Start 09/23/18 at 23:00 Tiotropium [place] (Spiriva) 1 inh DAILY INH ; Start 09/24/18 at 13:00 Levetiracetam (Keppra) 1,000 mg BID PO Last administered on 09/28/18 09:02; Admin Dose 1,000 MG; Start 09/25/18 at 21:00 Labetalol HCl (Labetalol) 10 mg Q4 PRN IV SBP >170 Last administered on 09/26/18at 11:56; Admin Dose 10 MG; Start 09/25/18 at 17:00 Lorazepam (Ativan) 1 mg Q6H PRN IV ANXIETY Last administered on 09/27/18at 18:41; Admin Dose 1 MG; Start 09/25/18 at 16:45 Hydralazine HCl (Apresoline) 100 mg TID PO Last administered on 09/28/18 09:02; Admin Dose 100 MG; Start 09/26/18 at 13:00 Metoprolol Tartrate (Lopressor) 100 mg BID PO Last administered on 09/28/18 09:02; Admin Dose 100 MG; Start 09/26/18 at 21:00 Nifedipine (Procardia Xl) 60 mg DAILY PO Last administered on 09/28/18 09:03; Admin Dose 60 MG; Start 09/27/18 at 10:00 Doxazosin Mesylate (Cardura) 8 mg HS PO Last administered on 09/27/18at 21:46; Admin Dose 8 MG; Start 09/27/18 at 21:00 Clonidine (Catapres) 0.1 mg TID PO Last administered on 09/28/18 09:05; Admin Dose 0.1 MG; Start 09/28/18 at 09:[address] MD Sep 28, 2018 11:16
--- NOTE | 2018-09-28 12:26 | CONS ---
Assessment/Plan Assessment/Plan Hospital Course A: 57 yo M with Hx of frontal lobe epilepsy, who presents with R hemisensory loss and other symptoms... for which neurology is consulted. 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 MRI brain is notable for recurrent cortical restricted diffusion in the L frontal with adjacent vasogenic edema... suggestive of recent seizures.. P: Cont Keppra 1g bid for now Ativan iv prn prolonged seizure (> 5 min) or cluster Other medical management per primary PT/OT/ST as needed Will follow clinically Result Diagram: 09/28/18 0844 09/28/18 0456 Results 24hrs Laboratory Tests Test 09/28/18 04:56 09/28/18 08:44 White Blood Count 8.1 Red Blood Count 2.59 L Hemoglobin 7.6 L 8.5 L Hematocrit 22.7 L 25.2 L Mean Corpuscular Volume 87.6 Mean Corpuscular Hemoglobin 29.3 Mean Corpuscular Hemoglobin Concent 33.5 Red Cell Distribution Width 12.1 Platelet Count 171 Mean Platelet Volume 10.7 H Immature Granulocytes % 0.900 H Neutrophils % 64.5 Lymphocytes % 17.4 Monocytes % 11.6 H Eosinophils % 5.2 Basophils % 0.4 Nucleated Red Blood Cells % 0.0 Immature Granulocytes # 0.070 H Neutrophils # 5.2 Lymphocytes # 1.4 Monocytes # 0.9 Eosinophils # 0.4 Basophils # 0.0 Nucleated Red Blood Cells # 0.0 Sodium Level 137 Potassium Level 5.0 Chloride Level 109 Carbon Dioxide Level 18 L Anion Gap 10 Blood Urea Nitrogen 58 H Creatinine 3.85 H Est Glomerular Filtrat Rate mL/min 16 L Glucose Level 117 Calcium Level 7.5 L Phosphorus Level 4.8 Magnesium Level 1.9 Complement C3 67 L Complement C4 28 Consultation Date/Type/Reason Admit Date/Time Sep 23, 2018 at 18:20 Type of Consult Neurology Reason for Consultation R hemisensory loss Requesting Provider: BRISA HARKINS Date/Time of Note DATE: 09/28/18 TIME: 12:26 24 HR Interval Summary Free Text/Dictation Pt states that he is doing much better today, is without further seizures, and wants to go home. Exam Vital Signs Vitals Vital Signs Date Temp Pulse Resp B/P (MAP) Pulse Ox O2 O2 Flow FiO2 Time Delivery Rate 09/28/18 98.2 59 16 125/64 97 Room Air 11:28 (84) Intake and Output 09/27/18 09/27/18 09/28/18 1515:00 23:00 07:00 IntakeIntake Total 1220 ml 1000 ml OutputOutput Total 1400 ml BalanceBalance 1220 ml -400 ml Exam PE: Gen Appearance: No Apparent Distress HEENT: Normocephalic; subconjunctival hemorrhage noted in R eye Cardiovascular: Regular rate Lungs: Clear bilaterally Abdomen: Soft Extremities: Dry NE: The patient was alert and oriented.. Language was normal. Fund of knowledge was normal. Pupils were equal and reactive to light. There was no afferent pupillary defect. Visual french were normal. Funduscopic examination was limited. Extra-ocular movements were full. Ptosis was absent. There was no nystagmus. Facial sensation was normal. Face was symmetric with normal strength. Hearing was intact. Palate movements were normal. Neck strength was normal. There was normal tongue bulk and speed of movement. Tone was normal. Muscle bulk was normal. I did not see fasciculations. Arms and legs were strong. Vibration sensation was normal. Temperature and pinprick sensation was normal. Rapid alternating movements were normal. There was no dysmetria. There was no intention tremor. Gait was steady when ambulating unassisted. Arm and leg reflexes were 2+ and symmetric. Weber's sign was absent. Plantar responses were flexor. HERNANDO HART NP Sep 28, 2018 12:26
--- NOTE | 2018-09-28 13:33 | PN ---
Date/Time of Note Date/Time of Note DATE: 09/28/18 TIME: 13:32 Objective Vitals Vital Signs Date Temp Pulse Resp B/P (MAP) Pulse Ox O2 O2 Flow FiO2 Time Delivery Rate 09/28/18 65 12:00 09/28/18 98.2 16 125/64 97 Room Air 11:28 (84) Intake and Output 09/27/18 09/27/18 09/28/18 1515:00 23:00 07:00 IntakeIntake Total 1220 ml 1000 ml OutputOutput Total 1400 ml BalanceBalance 1220 ml -400 ml Results Result Diagram: 09/28/18 0844 09/28/18 0456 Medications Medications Current Medications Atorvastatin Calcium (Lipitor) 20 mg QHS PO Last administered on 09/27/18at 21:46; Admin Dose 20 MG; Start 09/23/18 at 21:00 IV Flush (NS 3 ml) 3 ml PER PROTOCOL IV ; Start 09/23/18 at 20:30 Aspirin (Aspirin) 81 mg DAILY PO Last administered on 09/28/18at 09:02; Admin Dose 81 MG; Start 09/24/18 at 09:00 Acetaminophen (Tylenol Tab) 650 mg Q6H PRN PO PAIN LEVEL 1-3 OR FEVER Last administered on 09/27/18at 18:48; Admin Dose 650 MG; Start 09/23/18 at 20:30 Docusate Sodium (Colace) 100 mg Q12H PRN PO CONSTIPATION; Start 09/23/18 at 20:30 Bisacodyl (Dulcolax) 5 mg DAILY PRN PO CONSTIPATION; Start 09/23/18 at 20:30 Hydralazine HCl (Apresoline) 10 mg Q4H PRN IV ELEVATED BLOOD PRESSURE Last administered on 09/27/18at 06:08; Admin Dose 10 MG; Start 09/23/18 at 23:00 Tiotropium [place] (Spiriva) 1 inh DAILY INH ; Start 09/24/18 at 13:00 Levetiracetam (Keppra) 1,000 mg BID PO Last administered on 09/28/18 09:02; Admin Dose 1,000 MG; Start 09/25/18 at 21:00 Labetalol HCl (Labetalol) 10 mg Q4 PRN IV SBP >170 Last administered on 09/26/18at 11:56; Admin Dose 10 MG; Start 09/25/18 at 17:00 Lorazepam (Ativan) 1 mg Q6H PRN IV ANXIETY Last administered on 09/27/18at 18:41; Admin Dose 1 MG; Start 09/25/18 at 16:45 Hydralazine HCl (Apresoline) 100 mg TID PO Last administered on 09/28/18at 12:47; Admin Dose 100 MG; Start 09/26/18 at 13:00 Metoprolol Tartrate (Lopressor) 100 mg BID PO Last administered on 09/28/18at 09:02; Admin Dose 100 MG; Start 09/26/18 at 21:00 Nifedipine (Procardia Xl) 60 mg DAILY PO Last administered on 09/28/18 09:03; Admin Dose 60 MG; Start 09/27/18 at 10:00 Doxazosin Mesylate (Cardura) 8 mg HS PO Last administered on 09/27/18at 21:46; Admin Dose 8 MG; Start 09/27/18 at 21:00 Clonidine (Catapres) 0.1 mg TID PO Last administered on 09/28/18at 12:47; Admin Dose 0.1 MG; Start 09/28/18 at 09:00 VTE Prophylaxis Risk score (from Nsg)>0 risk: 3 SCD applied (from Nsg): No SCD contraindication: other Lines/Catheters IV Catheter Type: Rg in Place: No Assessment/Plan Hospital Course Subjective Patient feeling well Objective Physical exam General: Patient is laying in bed and answers questions appropriately Mentation: Patient is alert and oriented 4, Head: Normocephalic atraumatic Eyes: EOMI, pupils reactive to light Neck: Supple, nontender, midline Respiratory: Clear to auscultation bilaterally Cardiovascular: regular rate, no obvious murmurs Gastrointestinal: non-tender to palpation, bowel sounds heard. Neurological: Moves all extremities spontaneously Skin: No new skin lesions Assessment/Plan 1. 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 Hypertensive emergency - On Hydralazine and Clonidine at home which was resumed - Patient very upset that his BP has not been well controlled. Discussed he was on permissive HTN and now needing to adjust medications for better control. Ensured he would be discharged once BP well controlled to prevent readmissions. - continue to adjust medications for better BP control given imaging studies concerning for PRES - Endocrine consultation appreciated, after speaking with search marketing specialist, doubts highly true pheo, so will discontinue doxazosin for now, test nifedipine xl on patient (but keeping mindful that he had lower extremity swelling complaints before, but had not been on nifedipine before) 3. Diabetes Mellitus - A1c noted - ISS and accuchecks 4. DAKOTA on CKD - Nephrology consultation appreciated and recommending better BP control - will avoid nephrotoxic agents - Renal US compatible with renal disease -possible ATN? 5. Seizure d/o - seen by Dr. Morgan in February 2018. Continue on Keppra 1000mg BID - monitor for further seizure activity 6. Disposition - BP under better control, however will also would like to see improvement in renal function before discharge. MALGORZATA HENDRICKSON Sep 28, 2018 13:33
--- NOTE | 2018-09-28 17:38 | NUR ---
EOSS pt is alert and orientedx4, room air, stable hourly rounding done BP controlled
[2018-09-28] MEDS: ATORVASTATIN 20 MG TAB PO SCH (20:23)
[2018-09-29] VITALS (12 sets, daily range): BP systolic 110–191; BP diastolic 56–86; PULSE 58–72; RESP 16–18
[2018-09-29] MEDS: ACETAMINOPHEN 325 MG TAB PO PRN ×2 (00:23→18:28)
--- NOTE | 2018-09-29 06:22 | NUR ---
EOSS Pt monitored through night, AOx4, ambulatory, SR and on RA. Vitals stable through night, no acute events, will endorse to oncoming RN.
--- NOTE | 2018-09-29 08:20 | PN ---
DATE: 09/29/2018 SUBJECTIVE: The patient is stable, no events overnight. No fevers, chills, nausea, or vomiting. OBJECTIVE: VITAL SIGNS: Blood pressure is 134/62, respirations 18, pulse 63, temperature 98.7. HEENT: Head is normocephalic. NECK: Supple. HEART: Regular rate. LUNGS: Show diminished breath sounds at the base. ABDOMEN: Soft, nontender to palpation without rebound or guarding. EXTREMITIES: Negative for clubbing, cyanosis, no edema. DERMATOLOGIC: No rashes. MUSCULOSKELETAL: No joint effusions. NEUROLOGIC: No change in exam. MEDICATIONS: Reviewed. LABORATORY DATA: Shows sodium 138, potassium 4.7, BUN 53, creatinine 3.63. White count 7.7, hemoglo bin 7.8, platelet count is 181. The patient's complement level shows C3 of 67. ASSESSMENT AND PLAN: 1. Nonoliguric acute kidney injury on top of chronic kidney disease stage IV with previous baseline creatinine of 2.5 to 3 mg/dL. Etiology of acute kidney injury is secondary to hemodynamics, possible acute tubular necrosis. The patient appears to be in recovery phase as renal function has improved in the last 48 hours. At this point, we will continue current treatment plans, supportive care, juan lly dose all medicines. Monitor blood pressure closely, avoid hemodynamic fluctuations. 2. Chronic kidney disease with a history of nephrotic range proteinuria. Etiology is likely seconda ry to diabetic nephropathy, hypertensive nephrosclerosis. The possibility of a primary glomerulopath y is a consideration. The patient's serological workup showed a low C3 which can be seen in MPGN, po stinfectious glomerulonephritis. The patient's previous serological workup was negative for ANCA, ne gative DIANA, therefore, low suspicion for acute glomerulonephritis or vasculitis. At this point, we w ould continue treating acute kidney injury as stated above. I spoke with the patient about the possi bility of renal biopsy once blood pressure is stable and controlled. The patient will need to have a renal biopsy, but expressed desire to go home and to be done possibly in outpatient setting. We wou ld otherwise continue current treatment plans, supportive care, renally dose all medicines, defer any KAR inhibitor or ARB at this time. 3. Hypertensive urgency, currently well controlled. The patient is being worked up for secondary et iology per endocrinology. Continue current blood pressure regimen. Monitor closely. 4. Anemia. Monitor hemoglobin and hematocrit levels. We will give 1 dose of Epogen. 5. Mineral disorder. Monitor calcium and phosphorus levels. 6. Diabetes. Hemoglobin well controlled. Continue current treatment plan. 7. Seizure disorder. Continue current medical management. 8. Right-sided weakness, numbness, improving. Continue current treatment plan. Follow up with Neur ology. Dictated By: JASMINA DOCKERY DO NR/NTS Conf#: [id number] DID#: [id number] CC: MALGORZATA HENDRICKSON MD; CHANDANA PALM MD;*EndCC*
[2018-09-29] MEDS: ASPIRIN 81 MG TAB PO SCH (08:55)
[2018-09-29] MEDS: METOPROLOL 100 MG TAB PO SCH ×2 (08:56→21:07)
[2018-09-29] MEDS: NIFEdipine (XL) 60 MG TAB PO SCH (08:56)
[2018-09-29] MEDS: LEVETIRACETAM 500 MG TAB PO SCH ×2 (08:56→21:08)
[2018-09-29] MEDS ORDERED: EPOETIN 4000 UNITS/1 ML INJ (ESRD) SC ONE (09:00)
[2018-09-29] MEDS: TIOTROPIUM 18 MCG CAPSULE INHA DEV INH SCH (09:00)
[2018-09-29] MEDS: CALCIUM CARBONATE 500 MG CHEW TAB PO SCH ×2 (12:28→18:24)
--- NOTE | 2018-09-29 12:36 | CONS ---
Date/Time of Note Date/Time of Note DATE: 09/29/18 TIME: 12:33 Assessment/Plan Assessment/Plan Hospital Course Is 1 of multiple recent [facility] admissions for this 57-year-old gentleman. Please note he is also been admitted a number of other facilities and has been recently at [facility] for evaluation. He reports that he is impatient to get his blood pressure under be tter control. He states he is only had 2 medications in the last few years to treat this although on discussion with him and his family member at bedside it appears it was a bit more than just 2. Problems: (1) Essential hypertension Status: Chronic Comment: Blood pressure is well controlled now on combination medications. Remember that his blood pressure was brought down slowly to avoid any type of cerebral perfusion imbalances. He is not a stable regimen. Please note that his serum catecholamine levels are still pending. This should not hold up his discharge (2) Grade II diastolic dysfunction Status: Chronic Comment: Better control blood pressure (3) Left ventricular hypertrophy Status: Chronic Comment: Better control blood pressure (4) Hyperlipidemia Status: Chronic Comment: As per primary team Qualifiers: Hyperlipidemia type: pure hypercholesterolemia Qualified Codes: E78.00 - Pure hypercholesterolemia, unspecified (5) Acute kidney injury superimposed on chronic kidney disease Status: Chronic Comment: Improved modestly. This is still a significant issue in this gentleman nephrology is managing (6) Chronic kidney disease, stage 3, mod decreased GFR Status: Chronic Comment: As above (7) Nephrotic range proteinuria Status: Chronic Comment: Please see careful dictation from nephrology which covers this quite nicely Result Diagram: 09/29/18 0458 09/29/18 0458 Results 24hrs Laboratory Tests Test 09/28/18 18:30 09/29/18 04:58 Urine Color STRAW Urine Clarity CLEAR Urine pH 5.0 Urine Specific [place] 1.008 Urine Ketones NEGATIVE Urine Nitrite NEGATIVE Urine Bilirubin NEGATIVE Urine Urobilinogen NEGATIVE Urine Leukocyte Esterase NEGATIVE Urine Microscopic RBC 1 Urine Microscopic WBC 0 Urine Hemoglobin NEGATIVE Urine Random Creatinine 66.23 Urine Random Sodium 26 L Urine Glucose 1+ H Urine Total Protein 158.0 H White Blood Count 7.7 Red Blood Count 2.66 L Hemoglobin 7.8 L Hematocrit 23.5 L Mean Corpuscular Volume 88.3 Mean Corpuscular Hemoglobin 29.3 Mean Corpuscular Hemoglobin Concent 33.2 Red Cell Distribution Width 12.1 Platelet Count 181 Mean Platelet Volume 11.2 H Immature Granulocytes % 0.800 H Neutrophils % 66.9 Lymphocytes % 16.1 Monocytes % 10.7 Eosinophils % 5.1 Basophils % 0.4 Nucleated Red Blood Cells % 0.0 Immature Granulocytes # 0.060 H Neutrophils # 5.1 Lymphocytes # 1.2 Monocytes # 0.8 Eosinophils # 0.4 Basophils # 0.0 Nucleated Red Blood Cells # 0.0 Sodium Level 138 Potassium Level 4.7 Chloride Level 110 Carbon Dioxide Level 18 L Anion Gap 10 Blood Urea Nitrogen 53 H Creatinine 3.63 H Est Glomerular Filtrat Rate mL/min 17 L Glucose Level 122 Calcium Level 7.6 L Phosphorus Level 4.4 Magnesium Level 1.9 Consultation Date/Type/Reason Admit Date/Time Sep 23, 2018 at 18:20 Initial Consult Date 09/24/18 Type of Consult Endocrine Reason for Consultation Hypertensive urgency with question about a possible endocrine cause; acute kidney injury on chronic kidney disease Requesting Provider: BRISA HARKINS 24 HR Interval Summary Free Text/Dictation Patient reports he is feeling well and wants to go home. He reports his right upper extremity neurologic symptoms have fully resolved Exam/Review of Systems Vital Signs Vitals Vital Signs Date Temp Pulse Resp B/P (MAP) Pulse Ox O2 O2 Flow FiO2 Time Delivery Rate 09/29/18 97.6 58 18 110/56 97 Room Air 11:22 (74) Intake and Output 09/28/18 09/28/18 09/29/18 1515:00 23:00 07:00 IntakeIntake Total 800 ml BalanceBalance 800 ml Exam Constitutional: alert, oriented Cardiovascular: regular rate and rhythm, nl pulses Gastrointestinal: soft, nl liver, spleen, non-tender Medications Medications Current Medications Atorvastatin Calcium (Lipitor) 20 mg QHS PO Last administered on 09/28/18at 20:23; Admin Dose 20 MG; Start 09/23/18 at 21:00 IV Flush (NS 3 ml) 3 ml PER PROTOCOL IV ; Start 09/23/18 at 20:30 Aspirin (Aspirin) 81 mg DAILY PO Last administered on 09/29/18at 08:55; Admin Dose 81 MG; Start 09/24/18 at 09:00 Acetaminophen (Tylenol Tab) 650 mg Q6H PRN PO PAIN LEVEL 1-3 OR FEVER Last administered on 09/29/18 00:23; Admin Dose 650 MG; Start 09/23/18 at 20:30 Docusate Sodium (Colace) 100 mg Q12H PRN PO CONSTIPATION; Start 09/23/18 at 20:30 Bisacodyl (Dulcolax) 5 mg DAILY PRN PO CONSTIPATION; Start 09/23/18 at 20:30 Hydralazine HCl (Apresoline) 10 mg Q4H PRN IV ELEVATED BLOOD PRESSURE Last administered on 09/27/18 06:08; Admin Dose 10 MG; Start 09/23/18 at 23:00 Tiotropium [place] (Spiriva) 1 inh DAILY INH ; Start 09/24/18 at 13:00 Levetiracetam (Keppra) 1,000 mg BID PO Last administered on 09/29/18 08:56; Admin Dose 1,000 MG; Start 09/25/18 at 21:00 Labetalol HCl (Labetalol) 10 mg Q4 PRN IV SBP >170 Last administered on 09/26/18at 11:56; Admin Dose 10 MG; Start 09/25/18 at 17:00 Lorazepam (Ativan) 1 mg Q6H PRN IV ANXIETY Last administered on 09/27/18 18:41; Admin Dose 1 MG; Start 09/25/18 at 16:45 Hydralazine HCl (Apresoline) 100 mg TID PO Last administered on 09/29/18 08:56; Admin Dose 100 MG; Start 09/26/18 at 13:00 Metoprolol Tartrate (Lopressor) 100 mg BID PO Last administered on 09/29/18 08:56; Admin Dose 100 MG; Start 09/26/18 at 21:00 Nifedipine (Procardia Xl) 60 mg DAILY PO Last administered on 09/29/18 08:56; Admin Dose 60 MG; Start 09/27/18 at 10:00 Clonidine (Catapres) 0.1 mg TID PO Last administered on 09/29/18 08:56; Admin Dose 0.1 MG; Start 09/28/18 at 09:00 Calcium Carbonate (Tums) 500 mg PC MEALS PO ; Start 09/29/18 at 13:00 TONY HUFFMAN MD Sep 29, 2018 12:36
--- NOTE | 2018-09-29 12:52 | CONS ---
Assessment/Plan Assessment/Plan Hospital Course A: 57 yo M with Hx of frontal lobe epilepsy, who presents with R hemisensory loss and other symptoms... for which neurology is consulted. 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 MRI brain is notable for recurrent cortical restricted diffusion in the L frontal with adjacent vasogenic edema... suggestive of recent seizures.. P: Cont Keppra 1g bid for now Ativan iv prn prolonged seizure (> 5 min) or cluster Other medical management per primary PT/OT/ST as needed Will follow clinically Result Diagram: 09/29/18 0458 09/29/18 0458 Results 24hrs Laboratory Tests Test 09/28/18 18:30 09/29/18 04:58 Urine Color STRAW Urine Clarity CLEAR Urine pH 5.0 Urine Specific [place] 1.008 Urine Ketones NEGATIVE Urine Nitrite NEGATIVE Urine Bilirubin NEGATIVE Urine Urobilinogen NEGATIVE Urine Leukocyte Esterase NEGATIVE Urine Microscopic RBC 1 Urine Microscopic WBC 0 Urine Hemoglobin NEGATIVE Urine Random Creatinine 66.23 Urine Random Sodium 26 L Urine Glucose 1+ H Urine Total Protein 158.0 H White Blood Count 7.7 Red Blood Count 2.66 L Hemoglobin 7.8 L Hematocrit 23.5 L Mean Corpuscular Volume 88.3 Mean Corpuscular Hemoglobin 29.3 Mean Corpuscular Hemoglobin Concent 33.2 Red Cell Distribution Width 12.1 Platelet Count 181 Mean Platelet Volume 11.2 H Immature Granulocytes % 0.800 H Neutrophils % 66.9 Lymphocytes % 16.1 Monocytes % 10.7 Eosinophils % 5.1 Basophils % 0.4 Nucleated Red Blood Cells % 0.0 Immature Granulocytes # 0.060 H Neutrophils # 5.1 Lymphocytes # 1.2 Monocytes # 0.8 Eosinophils # 0.4 Basophils # 0.0 Nucleated Red Blood Cells # 0.0 Sodium Level 138 Potassium Level 4.7 Chloride Level 110 Carbon Dioxide Level 18 L Anion Gap 10 Blood Urea Nitrogen 53 H Creatinine 3.63 H Est Glomerular Filtrat Rate mL/min 17 L Glucose Level 122 Calcium Level 7.6 L Phosphorus Level 4.4 Magnesium Level 1.9 Consultation Date/Type/Reason Admit Date/Time Sep 23, 2018 at 18:20 Type of Consult Neurology Reason for Consultation R hemisensory loss Requesting Provider: BRISA HARKINS Date/Time of Note DATE: 09/29/18 TIME: 12:50 24 HR Interval Summary Free Text/Dictation Continues telemetry monitoring. Pt states he is fine and is wondering when he can go home. Exam Vital Signs Vitals Vital Signs Date Temp Pulse Resp B/P (MAP) Pulse Ox O2 O2 Flow FiO2 Time Delivery Rate 09/29/18 97.6 58 18 110/56 97 Room Air 11:22 (74) Intake and Output 09/28/18 09/28/18 09/29/18 1515:00 23:00 07:00 IntakeIntake Total 800 ml BalanceBalance 800 ml Exam PE: Gen Appearance: No Apparent Distress HEENT: Normocephalic Cardiovascular: Regular rate Lungs: Clear bilaterally Abdomen: Soft Extremities: Dry NE: The patient was alert and oriented.. Language was normal. Fund of knowledge was normal. Pupils were equal and reactive to light. There was no afferent pupillary defect. Visual french were normal. Funduscopic examination was limited. Extra-ocular movements were full. Ptosis was absent. There was no nystagmus. Facial sensation was normal. Face was symmetric with normal strength. Hearing was intact. Palate movements were normal. Neck strength was normal. There was normal tongue bulk and speed of movement. Tone was normal. Muscle bulk was normal. I did not see fasciculations. Arms and legs were strong. Vibration sensation was normal. Temperature and pinprick sensation was normal. Rapid alternating movements were normal. There was no dysmetria. There was no intention tremor. Gait was steady when ambulating unassisted. Arm and leg reflexes were 2+ and symmetric. Weber's sign was absent. Plantar responses were flexor. HERNANDO HART NP Sep 29, 2018 12:52 PAUL PIÑA Sep 29, 2018 13:24
--- NOTE | 2018-09-29 13:35 | NUR ---
RN NOTE NOTIFIED DR. HENDRICKSON PT IS HAVING RIGHT HAND NUMBNESS. ASSESSED PT, PT IS NOT ABLE TO SQUEEZE MY HAND AND COULD NOT MAKE A FIST. NO C/O CHEST PAIN, DIZZINESS, OR SOB AT THIS TIME.
--- NOTE | 2018-09-29 13:40 | NUR ---
RN NOTE DR. HENDRICKSON CAME ON THE UNIT AND ASSESSED THE PT BY THE BEDSIDE. PT IS ABLE TO SQUEEZE MY HAND AND MAKE A FIST. NIHSS DONE WITH A SCORE OF 0. NO FACIAL DROOP NOTED, AX4, PT IS ABLE TO HOLD ALL EXTREMITIES WITH NO PROBLEM. BP 139/93, 69, BS 230, 96% RA, R 18.
--- NOTE | 2018-09-29 13:45 | NUR ---
RN NOTE CALLED CODE STROKE PER DR. HENDRICKSON. PT IS STABLE AT THIS TIME, TRANSPORT CAME AND TOOK PT TO CT SCAN. TELE NEURO MONITOR WAS BROUGHT TO THE FLOOR. WAITING FOR PT TO COME BACK TO THE UNIT.
--- NOTE | 2018-09-29 13:53 | PN ---
Date/Time of Note Date/Time of Note DATE: 09/29/18 TIME: 13:51 Objective Vitals Vital Signs Date Temp Pulse Resp B/P (MAP) Pulse Ox O2 O2 Flow FiO2 Time Delivery Rate 09/29/18 59 12:00 09/29/18 97.6 18 110/56 97 Room Air 11:22 (74) Intake and Output 09/28/18 09/28/18 09/29/18 1414:59 22:59 06:59 IntakeIntake Total 800 ml BalanceBalance 800 ml Results Result Diagram: 09/29/18 0458 09/29/18 0458 Medications Medications Current Medications Atorvastatin Calcium (Lipitor) 20 mg QHS PO Last administered on 09/28/18 20:23; Admin Dose 20 MG; Start 09/23/18 at 21:00 IV Flush (NS 3 ml) 3 ml PER PROTOCOL IV ; Start 09/23/18 at 20:30 Aspirin (Aspirin) 81 mg DAILY PO Last administered on 09/29/18 08:55; Admin Dose 81 MG; Start 09/24/18 at 09:00 Acetaminophen (Tylenol Tab) 650 mg Q6H PRN PO PAIN LEVEL 1-3 OR FEVER Last administered on 09/29/18 00:23; Admin Dose 650 MG; Start 09/23/18 at 20:30 Docusate Sodium (Colace) 100 mg Q12H PRN PO CONSTIPATION; Start 09/23/18 at 20:30 Bisacodyl (Dulcolax) 5 mg DAILY PRN PO CONSTIPATION; Start 09/23/18 at 20:30 Hydralazine HCl (Apresoline) 10 mg Q4H PRN IV ELEVATED BLOOD PRESSURE Last administered on 09/27/18at 06:08; Admin Dose 10 MG; Start 09/23/18 at 23:00 Tiotropium [place] (Spiriva) 1 inh DAILY INH ; Start 09/24/18 at 13:00 Levetiracetam (Keppra) 1,000 mg BID PO Last administered on 09/29/18 08:56; Admin Dose 1,000 MG; Start 09/25/18 at 21:00 Lorazepam (Ativan) 1 mg Q6H PRN IV ANXIETY Last administered on 09/27/18at 18:41; Admin Dose 1 MG; Start 09/25/18 at 16:45 Hydralazine HCl (Apresoline) 100 mg TID PO Last administered on 09/29/18 08:56; Admin Dose 100 MG; Start 09/26/18 at 13:00 Metoprolol Tartrate (Lopressor) 100 mg BID PO Last administered on 09/29/18 08:56; Admin Dose 100 MG; Start 09/26/18 at 21:00 Nifedipine (Procardia Xl) 60 mg DAILY PO Last administered on 09/29/18 08:56; Admin Dose 60 MG; Start 09/27/18 at 10:00 Clonidine (Catapres) 0.1 mg TID PO Last administered on 09/29/18 08:56; Admin Dose 0.1 MG; Start 09/28/18 at 09:00 Calcium Carbonate (Tums) 500 mg PC MEALS PO ; Start 09/29/18 at 13:00 Docusate Sodium (Colace) 100 mg BID PO ; Start 09/29/18 at 21:00 VTE Prophylaxis Risk score (from Ns)>0 risk: 3 SCD applied (from Ns): No SCD contraindication: other Lines/Catheters IV Catheter Type: Rg in Place: No Assessment/Plan Hospital Course Subjective At approximately 1335 I was notified by nurse that patient had acute onset right hand weakness as well as numbness. Promptly evaluated patient at 1340, patient's right hand weakness has mostly resolved however still having some residual numbness on the right hand, but patient stated he was improving as far as the numbness is concerned. Patient has no other complaints at this time and no other focal signs and deficits. Code stroke was called and patient's inpatient neurologist was contacted, Dr. Morgan, opted for CT without contrast and no CTA head due to patient's very poor renal function, MRI and MRA have also been ordered. Objective Physical exam General: Patient is laying in bed and answers questions appropriately Mentation: Patient is alert and oriented 4, Head: Normocephalic atraumatic Eyes: EOMI, pupils reactive to light Neck: Supple, nontender, midline Respiratory: Clear to auscultation bilaterally Cardiovascular: regular rate, no obvious murmurs Gastrointestinal: non-tender to palpation, bowel sounds heard. Neurological: Moves all extremities spontaneously, but with R hand numbness Skin: No new skin lesions Assessment/Plan 1. 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 Hypertensive emergency - On Hydralazine and Clonidine at home which was resumed - Patient very upset that his BP has not been well controlled. Discussed he was on permissive HTN and now needing to adjust medications for better control. Ensured he would be discharged once BP well controlled to prevent readmissions. - continue to adjust medications for better BP control given imaging studies concerning for PRES - Endocrine consultation appreciated, after speaking with veneer taping machine offbearer, doubts highly true pheo, so will discontinue doxazosin for now, test nifedipine xl on patient (but keeping mindful that he had lower extremity swelling complaints before, but had not been on nifedipine before) 3. Diabetes Mellitus - A1c noted - ISS and accuchecks 4. [place] on CKD - Nephrology consultation appreciated and recommending better BP control - will avoid nephrotoxic agents - Renal US compatible with renal disease -possible ATN? 5. Seizure d/o - seen by Dr. Morgan in February 2018. Continue on Keppra 1000mg BID - monitor for further seizure activity 6. Disposition - code stroke called. awaiting CT head, symptoms for patient however are resolving spontaneously. MALGORZATA HENDRICKSON Sep 29, 2018 13:53
--- NOTE | 2018-09-29 14:00 | NUR ---
Code stroke called for Inpatient. AUTOMOTIVE HARDWARE ENGINEER nurse deployed to CT scan to provide assistance with Code stroke management.
--- NOTE | 2018-09-29 14:18 | NUR ---
cm note received order for post discharge needs, code stroke called,cm will follow up in am.
--- NOTE | 2018-09-29 14:42 | STROKE ---
Date/Time of Note Date/Time of Note DATE: 09/29/18 TIME: 14:22 Patient Information General Patient location: inpatient Arrival Date Age 57 Gender male Weight 65.9 kg POC Glucose Glucose Result Bedside Glucose - 72 Hours Test 09/29/18 13:46 Bedside Glucose 230 mg/dL (70-220) H Vital Signs Vital Signs Vital Signs Date Temp Pulse Resp B/P (MAP) Pulse Ox O2 O2 Flow FiO2 Time Delivery Rate 09/29/18 59 12:00 09/29/18 97.6 18 110/56 97 Room Air 11:22 (74) Patient History Past Medical History Diabetes, Hypertension Current Medications Allergies: Coded Allergies: No Known Allergy (Unverified , 09/23/18) Labs Coagulation Labs: Coagulation Test 09/29/18 13:57 Activated Partial Thromboplast Time 32.8 Sec (23.0-35.0) History & Physical Patient History Notes Pt Hx Reviewed History of Present Illness 57yo M CKD, HTN, DM, epilepsy admitted for right leg, arm and left leg numbness on the . Neurology thought symptoms due to Peter's paralysis and symptoms resolved. Still in hospital for HTN. Today at 1:35pm sudden right hand numbness and weakness. On arrival hospitalist weakness resolved. Review of Systems Constitutional: no symptoms reported EENTM: no symptoms reported Respiratory: no symptoms reported Cardiovascular: no symptoms reported Gastrointestinal: no symptoms reported Genitourinary: no symptoms reported Musculoskeletal: no symptoms reported Skin: no symptoms reported Psychiatric/Neurological: no symptoms reported All Other Systems: Reviewed and Negative NIH Stroke Scale NIH Stroke Scale [id number] l4d LOC Questions: Nmhgv9s LOC Commands: Yviwj9c t Gaze: Mgvgt6s Rssvh6v alsy: Pysvz0p rm - Left: Xdvuh4p ight: Paidn0r eft: Eizfp6z ight: Yibtr0a Rhptx7y Mbsbp1x Zbwmy9x maryt: Nytjs0h Yqaxp5v 4Bd Total Score: Aaifg6f Date/Time Recorded DATE: 09/29/18 TIME: 14:22 Submitted By Jake Calero t-PA Imaging Review Imaging Reviewed: Yes Date/Time Imaging Reviewed DATE: 09/29/18 TIME: 14:[address] Head- no acute changes t-PA Administration Recommendation: No Weight 65.9 kg Recommedation submitted by Jake Calero Reason t-PA not Recommended symptoms resolving t-PA Not Recommended Date/Time 14:26 09/29/18 Recommendations Impression Diagnosis right hand numbness Recommendation 57 yo M with h/o numbness of the right arm and legs in association with seizures now presents with an episode of right hand numbness and weakness, now improving. Neurological exam is unremarkable. I suspect that patient is again having seizures causing Peter's paralysis, but differential diagnosis also includes TIA. Also the diffusion weighted change reported on previous MRI Brain is unusual and thus I recommend repeat MRI Brain without gadolinium and increase Keppra 1500mg PO BID. [id number] Diagnostic Labs: Gebco9b Lipid Proile Hgb A1C CMP CBC w/Diff Coags Umvoq0Cw Therapy: Qrwxq0s Physical Therapy Speech Therapy Occupational Therapy [id number] [facility] [place]. Recommendations: Adfem5k Bedside Swallow Evaluation Pnumatic Compression Devices Stroke Education Smoking Education JAKE CALERO Sep 29, 2018 14:32
--- NOTE | 2018-09-29 14:50 | NUR ---
RN NOTE CALLED TELE NEURO AT 1408 AND RELAYED PT'S INFORMATION. PT CAME BACK TO THE UNIT AND DR. JAKE DIAZ FROM TELE NEURO CALLED AND BEGAN ASSESSING THE PATIENT. ASSESSED THE PATIENT WELL PER MD ORDERS. NEW RECOMMENDATIONS WERE GIVEN MRI OF THE BRAIN, TO INCREASE KEPPRA 1500 MG BID, AND PSYCHOLOGIST CONSULT. PT IS STABLE AT THIS TIME, RIGHT HAND NUMBNESS STILL PRESENT. WILL CONTINUE TO MONITOR.
--- NOTE | 2018-09-29 16:31 | NUR ---
RN NOTE CALLED CRISTÓBAL SUAREZ FOR NEW CONSULT AND LEFT A MESSAGE. WAITING FOR CALL BACK.
--- NOTE | 2018-09-29 18:25 | NUR ---
EOSS PT IS STABLE, STILL COMPLAINING OF RIGHT HAND NUMBNESS, NO CHEST PAIN, NO DIZZINESS. S/P CODE STROKE, NIHSS WAS DONE AND MRI OF THE BRAIN. BEDSIDE SWALLOW DONE AND PT PASSED WITH NO SIGNS OF DYSPHAGIA. HOURLY ROUNDING DONE, REFUSED BED ALARM, CALL LIGHT WITHIN REACH. WILL CONTINUE TO MONITOR.
[2018-09-29] MEDS: hydrALAzine 20 MG INJ IV PRN (19:21)
[2018-09-29] MEDS: DOCUSATE SODIUM 100 MG CAP PO SCH (21:06)
[2018-09-29] MEDS: ATORVASTATIN 20 MG TAB PO SCH (21:06)
[2018-09-30] VITALS (12 sets, daily range): BP systolic 135–194; BP diastolic 63–86; PULSE 55–75; RESP 18–20
[2018-09-30] MEDS: ACETAMINOPHEN 325 MG TAB PO PRN ×4 (00:09→23:46)
[2018-09-30] MEDS: hydrALAzine 20 MG INJ IV PRN ×2 (00:15→23:51)
--- NOTE | 2018-09-30 06:50 | NUR ---
EOSS Pt monitored through night, with elevated BP and intermittent headache relieved with PRN acetaminophen. Neuro and NIH assessments performed, pt AOx4 with NIH 0, no deficits noted, will endorse to oncoming RN.
--- NOTE | 2018-09-30 08:24 | CONS ---
Date/Time of Note Date/Time of Note DATE: 09/30/18 TIME: 08:21 Assessment/Plan Assessment/Plan Hospital Course Is 1 of multiple recent [facility] admissions for this 57-year-old gentleman. Please note he is also been admitted a number of other facilities and has been recently at [facility] for evaluation. He reports that he is impatient to get his blood pressure under be tter control. He states he is only had 2 medications in the last few years to treat this although on discussion with him and his family member at bedside it appears it was a bit more than just 2. Problems: (1) Essential hypertension Status: Chronic Comment: Blood pressure still somewhat variable. On a combination of medications that are doing better than what he had as an outpatient. Further adjustment to be considered by nephrology. Please note this time they are opposed to the idea of angiotensin II receptor blockers and KAR inhibitors (2) Left ventricular hypertrophy Status: Chronic Comment: Better control blood pressure (3) Grade II diastolic dysfunction Status: Chronic Comment: Better controlled blood pressure (4) Nephrotic range proteinuria Status: Chronic Comment: As per nephrology (5) Chronic kidney disease, stage 3, mod decreased GFR Status: Chronic Comment: As per nephrology Result Diagram: 09/30/18 0504 09/30/18 0504 Results 24hrs Laboratory Tests Test 09/29/18 13:46 09/29/18 13:57 09/29/18 14:02 09/30/18 05:04 Bedside Glucose 230 H White Blood Count 8.6 8.5 Red Blood Count 3.07 L 2.73 L Hemoglobin 9.1 L 9.1 L 8.1 L Hematocrit 27.1 L 27.0 L 24.3 L Mean Corpuscular Volume 88.3 89.0 Mean Corpuscular 29.6 29.7 Hemoglobin Mean Corpuscular 33.6 33.3 Hemoglobin Concent Red Cell Distribution 12.1 12.2 Width Platelet Count 202 207 Mean Platelet Volume 10.5 H 10.5 H Immature Granulocytes % 0.800 H 1.100 H Neutrophils % 73.7 66.7 Lymphocytes % 11.3 L 14.5 L Monocytes % 10.7 12.7 H Eosinophils % 3.3 4.8 Basophils % 0.2 0.2 Nucleated Red Blood 0.0 0.4 H Cells % Immature Granulocytes # 0.070 H 0.090 H Neutrophils # 6.3 5.7 Lymphocytes # 1.0 1.2 Monocytes # 0.9 1.1 H Eosinophils # 0.3 0.4 Basophils # 0.0 0.0 Nucleated Red Blood 0.0 0.0 Cells # Prothrombin Time 12.4 Prothrombin Time Ratio 1.0 INR International 0.91 Normalized Ratio Activated 32.8 Partial Thromboplast Time Sodium Level 139 140 Potassium Level 5.2 H 4.9 Chloride Level 109 113 H Carbon Dioxide Level 17 L 18 L Anion Gap 13 9 Blood Urea Nitrogen 50 H 43 H Creatinine 3.57 H 3.38 H Est Glomerular Filtrat 18 L 19 L Rate mL/min Glucose Level 213 128 # Hemoglobin A1c 6.0 H Calcium Level 7.9 L 7.9 L Creatine Kinase 74 Creatine Kinase Index 2.0 Creatinine Kinase MB 1.47 (Mass) Troponin I < 0.012 Triglycerides Level 216 H Cholesterol Level 136 LDL Cholesterol, 52 Calculated HDL Cholesterol 41 Cholesterol/HDL Ratio 3.3 Phosphorus Level 4.0 Magnesium Level 1.9 Test 09/30/18 05:45 Urine Color COLORLESS Urine Clarity CLEAR Urine pH 6.0 Urine Specific [place] 1.004 Urine Ketones NEGATIVE Urine Nitrite NEGATIVE Urine Bilirubin NEGATIVE Urine Urobilinogen NEGATIVE Urine Leukocyte Esterase NEGATIVE Urine Microscopic RBC 2 Urine Microscopic WBC 0 Urine Hemoglobin 1+ H Urine Glucose 1+ H Urine Total Protein 2+ H Urine Opiates Screen Negative Urine Barbiturates Negative Urine Amphetamines Negative Screen Urine Benzodiazepines Negative Screen Urine Cocaine Screen Negative Urine Cannabinoids Negative Consultation Date/Type/Reason Admit Date/Time Sep 23, 2018 at 18:20 Initial Consult Date 09/24/18 Type of Consult Endocrine Reason for Consultation Accelerated hypertension rule out endocrine disorder; aldosterone levels are not consistent with primary hyperaldosteronism Requesting Provider: BRISA HARKINS 24 HR Interval Summary Free Text/Dictation Event yesterday for right hand numbness recurred and code stroke was called. Please see neurology notes times have resolved Exam/Review of Systems Vital Signs Vitals Vital Signs Date Temp Pulse Resp B/P (MAP) Pulse Ox O2 O2 Flow FiO2 Time Delivery Rate 09/30/18 98.6 62 18 158/72 97 07:23 (100) 09/29/18 Room Air 15:23 Intake and Output 09/29/18 09/29/18 09/30/18 1414:59 22:59 06:59 IntakeIntake Total 1110 ml 1000 ml BalanceBalance 1110 ml 1000 ml Exam No change in examination Medications Medications Current Medications Atorvastatin Calcium (Lipitor) 20 mg QHS PO Last administered on 09/29/18 21:06; Admin Dose 20 MG; Start 09/23/18 at 21:00 IV Flush (NS 3 ml) 3 ml PER PROTOCOL IV ; Start 09/23/18 at 20:30 Aspirin (Aspirin) 81 mg DAILY PO Last administered on 09/29/18 08:55; Admin Dose 81 MG; Start 09/24/18 at 09:00 Acetaminophen (Tylenol Tab) 650 mg Q6H PRN PO PAIN LEVEL 1-3 OR FEVER Last administered on 09/30/18 06:03; Admin Dose 650 MG; Start 09/23/18 at 20:30 Docusate Sodium (Colace) 100 mg Q12H PRN PO CONSTIPATION; Start 09/23/18 at 20:30 Bisacodyl (Dulcolax) 5 mg DAILY PRN PO CONSTIPATION; Start 09/23/18 at 20:30 Hydralazine HCl (Apresoline) 10 mg Q4H PRN IV ELEVATED BLOOD PRESSURE Last administered on 09/30/18 00:15; Admin Dose 10 MG; Start 09/23/18 at 23:00 Tiotropium [place] (Spiriva) 1 inh DAILY INH ; Start 09/24/18 at 13:00 Lorazepam (Ativan) 1 mg Q6H PRN IV ANXIETY Last administered on 09/27/18at 18:41; Admin Dose 1 MG; Start 09/25/18 at 16:45 Hydralazine HCl (Apresoline) 100 mg TID PO Last administered on 09/29/18 21:07; Admin Dose 100 MG; Start 09/26/18 at 13:00 Metoprolol Tartrate (Lopressor) 100 mg BID PO Last administered on 09/29/18 21:07; Admin Dose 100 MG; Start 09/26/18 at 21:00 Nifedipine (Procardia Xl) 60 mg DAILY PO Last administered on 09/29/18 08:56; Admin Dose 60 MG; Start 09/27/18 at 10:00 Clonidine (Catapres) 0.1 mg TID PO Last administered on 09/29/18 21:08; Admin Dose 0.1 MG; Start 09/28/18 at 09:00 Calcium Carbonate (Tums) 500 mg PC MEALS PO ; Start 09/29/18 at 13:00 Docusate Sodium (Colace) 100 mg BID PO Last administered on 09/29/18at 21:06; Admin Dose 100 MG; Start 09/29/18 at 21:00 Levetiracetam (Keppra) 1,500 mg BID PO Last administered on 09/29/18at 21:08; Admin Dose 1,500 MG; Start 09/29/18 at 21:00 TONY HUFFMAN MD Sep 30, 2018 08:24
[2018-09-30] MEDS: DOCUSATE SODIUM 100 MG CAP PO SCH ×2 (08:27→20:36)
[2018-09-30] MEDS: CALCIUM CARBONATE 500 MG CHEW TAB PO SCH ×3 (08:27→18:00)
[2018-09-30] MEDS: LEVETIRACETAM 500 MG TAB PO SCH ×2 (08:27→20:34)
[2018-09-30] MEDS: TIOTROPIUM 18 MCG CAPSULE INHA DEV INH SCH (08:27)
[2018-09-30] MEDS: NIFEdipine (XL) 60 MG TAB PO SCH (08:28)
[2018-09-30] MEDS: ASPIRIN 81 MG TAB PO SCH (08:28)
[2018-09-30] MEDS: METOPROLOL 100 MG TAB PO SCH ×2 (08:28→20:25)
--- NOTE | 2018-09-30 08:36 | PN ---
DATE: 09/30/2018 SUBJECTIVE: Overnight, the patient was noted to be markedly hypertensive with systolic pressures in the 170 to 190s. The patient was noncompliant yesterday with blood pressure medications. Patient al so had a code stroke called and was felt to be episodes of Peter's paralysis. A CT scan showed no acu te findings. MRI of the brain also showed no acute stroke but evidence of cerebritis. No other even ts noted overnight. I spoke again with the patient about the possibility of a renal biopsy once bloo d pressure is adequately controlled. OBJECTIVE: VITAL SIGNS: Blood pressure is 158/72, respiration 18, pulse 62, temperature 98.6. HEENT: Head is normocephalic. NECK: Supple. HEART: Regular rate. LUNGS: Show diminished breath sounds at the base. ABDOMEN: Soft, nontender to palpation without rebound or guarding. EXTREMITIES: Negative for clubbing, cyanosis, no edema. DERMATOLOGIC: No rashes. MUSCULOSKELETAL: No joint effusion. NEUROLOGIC: No change in exam. MEDICATIONS: Reviewed. LABORATORY DATA: Shows sodium 140, potassium 4.9, chloride 113, BUN 43, creatinine 3.38, white count 8.5, hemoglobin 8.1, platelet count is 207. ASSESSMENT AND PLAN: 1. Nonoliguric acute kidney injury on top of chronic kidney disease stage IV with previous baseline creatinine between 2.5 to 3 mg/dL. Etiology of acute kidney injury is likely secondary to hemodynami cs, acute tubular necrosis. The patient's renal function continues to slowly improve in the last 72 hours. Creatinine appears to be stabilizing around 3.0 mg/dL. At this point, continue current treat ment plans, supportive care, renally dose all meds, avoid significant blood pressure fluctuations. I stressed medical compliance with blood pressure regimen with the patient. 2. Chronic kidney disease with history of nephrotic range proteinuria. Etiology is likely secondary to diabetic nephropathy, hypertensive nephrosclerosis. The possibility of a primary glomerulopathy is a consideration. The patient's serological workup does show a low C3 which can be seen in MPGN, p ostinfectious glomerulonephritis. The patient's previous serological workup was negative for ANCA, t herefore low suspicion for acute glomerulonephritis or vasculitis. I spoke again with the patient ab out the possibility of a renal biopsy once the blood pressure is adequately stable and controlled. T he patient agrees for biopsy which can be done in a possible outpatient setting or inpatient setting once blood pressure is stable. Would otherwise continue current treatment plans, supportive care, re nika dose all meds. Would defer any KAR inhibitor or ARB in acute kidney injury at this time. 3. Hypertensive urgency. The patient's blood pressure was markedly elevated overnight. The patient was noncompliant with his medications. I spoke with the patient again stressing compliance with the blood pressure medications. We will continue current regimen. Secondary workup for pheochromocytoma is ongoing. We will continue to monitor. 4. Anemia. Monitor hemoglobin and hematocrit levels. The patient is status post Epogen. 5. Mineral bone disorder, monitor calcium and phosphorus levels. 6. Diabetes. Continue current insulin regimen. 7. Seizure disorder. Continue current treatment plan. 8. Cerebritis with episode of Peter paralysis. Etiology is likely secondary to hypertension. Contin ue good blood pressure control and monitor. Dictated By: JASMINA DOCKERY DO NR/NTS Conf#: [id number] DID#: [id number] CC: CHANDANA PALM MD; MALGORZATA HENDRICKSON MD;*End*
[2018-09-30] MEDS ORDERED: NIFEdipine (XL) 30 MG TAB PO ONE (12:00)
--- NOTE | 2018-09-30 13:52 | CONS ---
Assessment/Plan Assessment/Plan Hospital Course A: 57 yo M with Hx of frontal lobe epilepsy, who presents with R hemisensory loss and other symptoms... for which neurology is consulted. 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 MRI brain is notable for recurrent cortical restricted diffusion in the L frontal with adjacent vasogenic edema... suggestive of recent seizures.. Repeat MRI brain is without evidence of strokes, however, the continued presence of subcortical hyperintensities are consistent with a diagnosis of PRES. P: Cont Keppra as scheduled for now Ativan iv prn prolonged seizure (> 5 min) or cluster Aggressive BP control and other medical management per primary PT/OT/ST as needed Will follow clinically Result Diagram: 09/30/18 0504 09/30/18 0504 Results 24hrs Laboratory Tests Test 09/29/18 13:57 09/29/18 14:02 09/30/18 05:04 09/30/18 05:45 White Blood Count 8.6 8.5 Red Blood Count 3.07 L 2.73 L Hemoglobin 9.1 L 9.1 L 8.1 L Hematocrit 27.1 L 27.0 L 24.3 L Mean Corpuscular Volume 88.3 89.0 Mean Corpuscular 29.6 29.7 Hemoglobin Mean Corpuscular 33.6 33.3 Hemoglobin Concent Red Cell Distribution 12.1 12.2 Width Platelet Count 202 207 Mean Platelet Volume 10.5 H 10.5 H Immature Granulocytes % 0.800 H 1.100 H Neutrophils % 73.7 66.7 Lymphocytes % 11.3 L 14.5 L Monocytes % 10.7 12.7 H Eosinophils % 3.3 4.8 Basophils % 0.2 0.2 Nucleated Red Blood 0.0 0.4 H Cells % Immature Granulocytes # 0.070 H 0.090 H Neutrophils # 6.3 5.7 Lymphocytes # 1.0 1.2 Monocytes # 0.9 1.1 H Eosinophils # 0.3 0.4 Basophils # 0.0 0.0 Nucleated Red Blood 0.0 0.0 Cells # Prothrombin Time 12.4 Prothrombin Time Ratio 1.0 INR International 0.91 Normalized Ratio Activated 32.8 Partial Thromboplast Time Sodium Level 139 140 Potassium Level 5.2 H 4.9 Chloride Level 109 113 H Carbon Dioxide Level 17 L 18 L Anion Gap 13 9 Blood Urea Nitrogen 50 H 43 H Creatinine 3.57 H 3.38 H Est Glomerular Filtrat 18 L 19 L Rate mL/min Glucose Level 213 128 # Hemoglobin A1c 6.0 H Calcium Level 7.9 L 7.9 L Creatine Kinase 74 Creatine Kinase Index 2.0 Creatinine Kinase MB 1.47 (Mass) Troponin I < 0.012 Triglycerides Level 216 H Cholesterol Level 136 LDL Cholesterol, 52 Calculated HDL Cholesterol 41 Cholesterol/HDL Ratio 3.3 Phosphorus Level 4.0 Magnesium Level 1.9 Urine Color COLORLESS Urine Clarity CLEAR Urine pH 6.0 Urine Specific [place] 1.004 Urine Ketones NEGATIVE Urine Nitrite NEGATIVE Urine Bilirubin NEGATIVE Urine Urobilinogen NEGATIVE Urine Leukocyte Esterase NEGATIVE Urine Microscopic RBC 2 Urine Microscopic WBC 0 Urine Hemoglobin 1+ H Urine Glucose 1+ H Urine Total Protein 2+ H Urine Opiates Screen Negative Urine Barbiturates Negative Urine Amphetamines Negative Screen Urine Benzodiazepines Negative Screen Urine Cocaine Screen Negative Urine Cannabinoids Negative Consultation Date/Type/Reason Admit Date/Time Sep 23, 2018 at 18:20 Type of Consult Neurology Reason for Consultation R hemisensory loss Requesting Provider: BRISA HARKINS Date/Time of Note DATE: 09/30/18 TIME: 13:52 24 HR Interval Summary Free Text/Dictation Continues telemetry monitoring. S/p code stroke. Pt states that the episode felt similar to his other seizure episodes. Per report, pt continues to have uncontrolled hypertension. Exam Vital Signs Vitals Vital Signs Date Temp Pulse Resp B/P (MAP) Pulse Ox O2 O2 Flow FiO2 Time Delivery Rate 09/30/18 75 12:01 09/30/18 98.7 18 173/84 97 11:45 (113) 09/29/18 Room Air 15:23 Intake and Output 09/29/18 09/29/18 09/30/18 1515:00 23:00 07:00 IntakeIntake Total 1110 ml 1000 ml BalanceBalance 1110 ml 1000 ml Exam PE: Gen Appearance: No Apparent Distress HEENT: Normocephalic Cardiovascular: Regular rate Lungs: Clear bilaterally Abdomen: Soft Extremities: Dry NE: The patient was alert and oriented.. Language was normal. Fund of knowledge was normal. Pupils were equal and reactive to light. There was no afferent pupillary defect. Visual french were normal. Funduscopic examination was limited. Extra-ocular movements were full. Ptosis was absent. There was no nystagmus. Facial sensation was normal. Face was symmetric with normal strength. Hearing was intact. Palate movements were normal. Neck strength was normal. There was normal tongue bulk and speed of movement. Tone was normal. Muscle bulk was normal. I did not see fasciculations. Arms and legs were strong. Vibration sensation was normal. Temperature and pinprick sensation was normal. Rapid alternating movements were normal. There was no dysmetria. There was no intention tremor. Gait was steady when ambulating unassisted. Arm and leg reflexes were 2+ and symmetric. Weber's sign was absent. Plantar responses were flexor. HERNANDO HART NP Sep 30, 2018 13:52
--- NOTE | 2018-09-30 15:18 | NUR ---
Nutrition consult A1C 6.0 and BG levels are running high. Pt was not in room at visit. Saw a huge bottle of Gatorade in room. Recommend No Concentrated Sweets diet at this time. Avoid all sugary drinks and snacks. Will educate the pt at f/u visit. Thank you!
--- NOTE | 2018-09-30 17:09 | PN ---
Date/Time of Note Date/Time of Note DATE: 09/30/18 TIME: 17:06 Objective Vitals Vital Signs Date Temp Pulse Resp B/P (MAP) Pulse Ox O2 O2 Flow FiO2 Time Delivery Rate 09/30/18 65 16:01 09/30/18 98.6 18 153/72 97 15:26 (99) 09/29/18 Room Air 15:23 Intake and Output 09/29/18 09/29/18 09/30/18 1414:59 22:59 06:59 IntakeIntake Total 1110 ml 1000 ml BalanceBalance 1110 ml 1000 ml Results Result Diagram: 09/30/18 0504 09/30/18 0504 Medications Medications Current Medications Atorvastatin Calcium (Lipitor) 20 mg QHS PO Last administered on 09/29/18 21:06; Admin Dose 20 MG; Start 09/23/18 at 21:00 IV Flush (NS 3 ml) 3 ml PER PROTOCOL IV ; Start 09/23/18 at 20:30 Aspirin (Aspirin) 81 mg DAILY PO Last administered on 09/30/18 08:28; Admin Dose 81 MG; Start 09/24/18 at 09:00 Acetaminophen (Tylenol Tab) 650 mg Q6H PRN PO PAIN LEVEL 1-3 OR FEVER Last administered on 09/30/18 15:40; Admin Dose 650 MG; Start 09/23/18 at 20:30 Docusate Sodium (Colace) 100 mg Q12H PRN PO CONSTIPATION; Start 09/23/18 at 20:30 Bisacodyl (Dulcolax) 5 mg DAILY PRN PO CONSTIPATION; Start 09/23/18 at 20:30 Hydralazine HCl (Apresoline) 10 mg Q4H PRN IV ELEVATED BLOOD PRESSURE Last administered on 09/30/18 00:15; Admin Dose 10 MG; Start 09/23/18 at 23:00 Tiotropium [place] (Spiriva) 1 inh DAILY INH ; Start 09/24/18 at 13:00 Lorazepam (Ativan) 1 mg Q6H PRN IV ANXIETY Last administered on 09/27/18at 18:41; Admin Dose 1 MG; Start 09/25/18 at 16:45 Hydralazine HCl (Apresoline) 100 mg TID PO Last administered on 09/30/18 12:10; Admin Dose 100 MG; Start 09/26/18 at 13:00 Metoprolol Tartrate (Lopressor) 100 mg BID PO Last administered on 09/30/18 08:28; Admin Dose 100 MG; Start 09/26/18 at 21:00 Clonidine (Catapres) 0.1 mg TID PO Last administered on 09/30/18 12:10; Admin Dose 0.1 MG; Start 09/28/18 at 09:00 Calcium Carbonate (Tums) 500 mg PC MEALS PO Last administered on 09/30/18 12:09; Admin Dose 500 MG; Start 09/29/18 at 13:00 Docusate Sodium (Colace) 100 mg BID PO Last administered on 09/30/18 08:27; Admin Dose 100 MG; Start 09/29/18 at 21:00 Levetiracetam (Keppra) 1,500 mg BID PO Last administered on 09/30/18 08:27; Admin Dose 1,500 MG; Start 09/29/18 at 21:00 Nifedipine (Procardia Xl) 90 mg DAILY PO ; Start 10/01/18 at 09:00 VTE Prophylaxis Risk score (from Ns)>0 risk: 3 [place] [facility] [place] contraindication: other Lines/Catheters IV Catheter Type: Rg in Place: No Assessment/Plan Hospital Course Subjective no further issues with hand Objective Physical exam General: Patient is laying in bed and answers questions appropriately Mentation: Patient is alert and oriented 4, Head: Normocephalic atraumatic Eyes: EOMI, pupils reactive to light Neck: Supple, nontender, midline Respiratory: Clear to auscultation bilaterally Cardiovascular: regular rate, no obvious murmurs Gastrointestinal: non-tender to palpation, bowel sounds heard. Neurological: Moves all extremities spontaneously Skin: No new skin lesions Assessment/Plan 1. 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 Hypertensive emergency - On Hydralazine and Clonidine at home which was resumed - continue to adjust medications for better BP control given imaging studies concerning for PRES - Endocrine consultation appreciated, after speaking with rag inspector, doubts pheo, so will discontinue doxazosin for now, test nifedipine xl on patient (but keeping mindful that he had lower extremity swelling complaints before, but had not been on nifedipine before) 3. Diabetes Mellitus - A1c noted - ISS and accuchecks 4. [place] on CKD - Nephrology consultation appreciated and recommending better BP control - will avoid nephrotoxic agents - Renal US compatible with renal disease -possible ATN? 5. Seizure d/o - seen by Dr. Morgan in February 2018. increased keppra to 1500bid - monitor for further seizure activity 6. Disposition - monitor overnight MALGORZATA HENDRICKSON Sep 30, 2018 17:09
--- NOTE | 2018-09-30 18:00 | NUR ---
EOSS: Pt is stable, VS are WNL, Pt did not complain of pain or discomfort. New IV was initiated, pt tolerated well. all needs are attended, will endorse the care to industrial manufacturing technician nurse
[2018-09-30] MEDS: ATORVASTATIN 20 MG TAB PO SCH (20:34)
[2018-10-01] VITALS (7 sets, daily range): BP systolic 129–158; BP diastolic 63–77; PULSE 55–79; RESP 18–19
--- NOTE | 2018-10-01 08:15 | NUR ---
EOSS:B.P. controlled after hydralazine given. 0400 a.m. vitas 129/63. No further c/o headache. Endorse to day nurse.
[2018-10-01] MEDS: CALCIUM CARBONATE 500 MG CHEW TAB PO SCH (08:56)
[2018-10-01] MEDS: METOPROLOL 100 MG TAB PO SCH (08:57)
[2018-10-01] MEDS: DOCUSATE SODIUM 100 MG CAP PO SCH (08:58)
[2018-10-01] MEDS: LEVETIRACETAM 500 MG TAB PO SCH (08:58)
[2018-10-01] MEDS: TIOTROPIUM 18 MCG CAPSULE INHA DEV INH SCH (08:59)
[2018-10-01] MEDS: ASPIRIN 81 MG TAB PO SCH (08:59)
[2018-10-01] MEDS ORDERED: NIFEdipine (XL) 90 MG TAB PO SCH (09:00)
--- NOTE | 2018-10-01 09:40 | PN ---
Date/Time of Note Date/Time of Note DATE: 10/01/18 TIME: 09:38 Assessment/Plan VTE Prophylaxis Risk score (from Ns)>0 risk: 1 SCD applied (from Ns): No SCD contraindicated: other Pharmacological prophylaxis: other Lines/Catheters IV [facility] Type [facility] Saline Lock Urinary Cath still in place: No Assessment/Plan Hospital Course renal follow up SUBJECTIVE: Overnight, the patient was noted to be markedly hypertensive with systolic pressures in the 170 to 190s. The patient was noncompliant yesterday with blood pressure medications. Patient also had a code stroke called and was felt to be episodes of Peter's paralysis. A CT scan showed no acute findings. MRI of the brain also showed no acute stroke but evidence of cerebritis. No other events noted overnight. possibility of a renal biopsy once blood pressure is adequately controlled was discussed with the patient and he is still thinking about it. d/w Dr houser no vomiting, new rash, hematuria, melena, diaphoresis OBJECTIVE: HEENT: Head is normocephalic. NECK: Supple. HEART: Regular rate. LUNGS: Show diminished breath sounds at the base. ABDOMEN: Soft, nontender to palpation without rebound or guarding. EXTREMITIES: Negative for clubbing, cyanosis, no edema. DERMATOLOGIC: No rashes. MUSCULOSKELETAL: No joint effusion. NEUROLOGIC: No change in exam. MEDICATIONS: Reviewed. ASSESSMENT AND PLAN: 1. Nonoliguric acute kidney injury on top of chronic kidney disease stage IV with previous baseline creatinine between 2.5 to 3 mg/dL. Etiology of acute kidney injury is likely secondary to hemodynamics, acute tubular necrosis. The patient's renal function continues to slowly improve in the last 72 hours. Creatinine appears to be stabilizing around 3.0 mg/dL. At this point, continue current treatment plans, supportive care, renally dose all meds, avoid significa nt blood pressure fluctuations. I stressed medical compliance with blood pressure regimen with the patient. 2. Chronic kidney disease with history of nephrotic range proteinuria. Etiology is likely secondary to diabetic nephropathy, hypertensive nephrosclerosis. The possibility of a primary glomerulopathy is a consideration. 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 The patient's previous serological workup was negative for ANCA, therefore low suspicion for acute glomerulonephritis or vasculitis. possibility of a renal biopsy once the blood pressure is adequately stable and controlled The patient agreed for biopsy which can be done in a possible outpatient setting or inpatient setting once blood pressure is stable. Would otherwise continue current treatment plans, supportive care, renally dose all meds. Would defer any KAR inhibitor or ARB in acute kidney injury at this time. 3. Hypertensive urgency. The patient's blood pressure was markedly elevated overnight. The patient was noncompliant with his medications. I spoke with the patient again stressing compliance with the blood pressure medications. We will continue current regimen. Secondary workup for pheochromocytoma is ongoing. We will continue to monitor. 4. Anemia. Monitor hemoglobin and hematocrit levels. The patient is status post Epogen. 5. Mineral bone disorder, monitor calcium and phosphorus levels. 6. Diabetes. Continue current insulin regimen. 7. Seizure disorder. Continue current treatment plan. 8. Cerebritis with episode of Peter paralysis. Etiology is likely secondary to hypertension. Continue good blood pressure control and monitor. Result Diagram: 10/01/18 0507 10/01/18 0507 Results 24hrs Laboratory Tests Test 10/01/18 05:07 White Blood Count 7.7 Red Blood Count 2.68 L Hemoglobin 7.9 L Hematocrit 23.8 L Mean Corpuscular Volume 88.8 Mean Corpuscular Hemoglobin 29.5 Mean Corpuscular Hemoglobin Concent 33.2 Red Cell Distribution Width 12.4 Platelet Count 215 Mean Platelet Volume 10.6 H Immature Granulocytes % 1.400 H Neutrophils % 58.4 Lymphocytes % 20.9 Monocytes % 13.7 H Eosinophils % 5.2 Basophils % 0.4 Nucleated Red Blood Cells % 0.4 H Immature Granulocytes # 0.110 H Neutrophils # 4.5 Lymphocytes # 1.6 Monocytes # 1.1 H Eosinophils # 0.4 Basophils # 0.0 Nucleated Red Blood Cells # 0.0 Sodium Level 140 Potassium Level 4.7 Chloride Level 110 Carbon Dioxide Level 19 L Anion Gap 11 Blood Urea Nitrogen 39 H Creatinine 3.35 H Est Glomerular Filtrat Rate mL/min 19 L Glucose Level 146 Calcium Level 7.9 L Phosphorus Level 3.8 Magnesium Level 1.8 Exam/Review of Systems Vital Signs Vitals Vital Signs Date Temp Pulse Resp B/P (MAP) Pulse Ox O2 O2 Flow FiO2 Time Delivery Rate 10/01/18 67 09:08 10/01/18 97.8 18 158/76 97 07:33 (103) 09/29/18 Room Air 15:23 Intake and Output 09/30/18 09/30/18 10/01/18 1515:00 23:00 07:00 IntakeIntake Total 1420 ml 100 ml BalanceBalance 1420 ml 100 ml Medications Medications Current Medications Atorvastatin Calcium (Lipitor) 20 mg QHS PO Last administered on 09/30/18 20:34; Admin Dose 20 MG; Start 09/23/18 at 21:00 IV Flush (NS 3 ml) 3 ml PER PROTOCOL IV ; Start 09/23/18 at 20:30 Aspirin (Aspirin) 81 mg DAILY PO Last administered on 10/01/18 08:59; Admin Dose 81 MG; Start 09/24/18 at 09:00 Acetaminophen (Tylenol Tab) 650 mg Q6H PRN PO PAIN LEVEL 1-3 OR FEVER Last administered on 09/30/18 23:46; Admin Dose 650 MG; Start 09/23/18 at 20:30 Docusate Sodium (Colace) 100 mg Q12H PRN PO CONSTIPATION; Start 09/23/18 at 20:30 Bisacodyl (Dulcolax) 5 mg DAILY PRN PO CONSTIPATION; Start 09/23/18 at 20:30 Hydralazine HCl (Apresoline) 10 mg Q4H PRN IV ELEVATED BLOOD PRESSURE Last administered on 09/30/18 23:51; Admin Dose 10 MG; Start 09/23/18 at 23:00 Tiotropium [place] (Spiriva) 1 inh DAILY INH ; Start 09/24/18 at 13:00 Lorazepam (Ativan) 1 mg Q6H PRN IV ANXIETY Last administered on 09/27/18at 18:41; Admin Dose 1 MG; Start 09/25/18 at 16:45 Hydralazine HCl (Apresoline) 100 mg TID PO Last administered on 10/01/18 08:59; Admin Dose 100 MG; Start 09/26/18 at 13:00 Metoprolol Tartrate (Lopressor) 100 mg BID PO Last administered on 10/01/18 08:57; Admin Dose 100 MG; Start 09/26/18 at 21:00 Calcium Carbonate (Tums) 500 mg PC MEALS PO Last administered on 10/01/18 08:56; Admin Dose 500 MG; Start 09/29/18 at 13:00 Docusate Sodium (Colace) 100 mg BID PO Last administered on 09/30/18 08:27; Admin Dose 100 MG; Start 09/29/18 at 21:00 Levetiracetam (Keppra) 1,500 mg BID PO Last administered on 10/01/18 08:58; Admin Dose 1,500 MG; Start 09/29/18 at 21:00 Nifedipine (Procardia Xl) 90 mg DAILY PO Last administered on 10/01/18 08:58; Admin Dose 90 MG; Start 10/01/18 at 09:00 Clonidine (Catapres) 0.2 mg TID PO Last administered on 10/01/18 08:59; Admin Dose 0.2 MG; Start 09/30/18 at 21:00 VENANCIO KELLOGG DO Oct 01, 2018 09:40
[2018-10-01] MEDS ORDERED: traZODone 50 MG TAB PO PRN (10:30)
--- NOTE | 2018-10-01 12:19 | PSY ---
Date/Time of Note Date/Time of Note DATE: 10/01/18 TIME: 11:59 Psychiatric Subjective Eval Consent Pt consented to telemedicine: No Subjective Evaluation Patient location: inpatient Chief Complaint: Complains of right sided numbness Hx of HTN History of present illness Patient is a 57-year-old male admitted for generalized weakness and right arm and leg tingling. On a [id number] evaluation, patient states he is depressed because his 3 months ago, he denies suicidal ideation but states he needs a referral for counseling. Patient also reports difficulty sleeping he is very anxious but contracted for safety. Explained risk and benefits of trazodone and to help him sleep and he verbalized understanding. Social service to help patient with referral for counseling services. Past psychiatric history Denies history of depression Hospitalization: other Medical history Problems Medical Problems: (1) Acute kidney injury superimposed on chronic kidney disease Status: Acute (2) Acute kidney injury superimposed on chronic kidney disease Status: Chronic (3) Acute weakness Status: Acute (4) DIANA positive Status: Chronic (5) Anemia Status: Acute (6) Anemia Status: Chronic (7) Cerebritis Status: Acute (8) Chronic kidney disease, stage 3, mod decreased GFR Status: Chronic (9) Diabetes mellitus type 2 in nonobese Status: Chronic (10) Essential hypertension Status: Chronic (11) Grade II diastolic dysfunction Status: Chronic (12) Headache Status: Acute (13) Hyperkalemia Status: Acute (14) Hyperlipidemia Status: Chronic (15) Hypertension Status: Acute (16) Hypertensive emergency Status: Acute (17) Internal hemorrhoids without complication Status: Chronic (18) Left ventricular hypertrophy Status: Chronic (19) Mucus plugging of bronchi Status: Acute (20) Nephrotic range proteinuria Status: Chronic (21) Numbness Status: Acute (22) Seizure Status: Acute (23) Shortness of breath Status: Acute (24) Shortness of breath Status: Acute (25) TIA (transient ischemic attack) Status: Acute Allergies: Coded Allergies: No Known Allergy (Unverified , 09/23/18) Substance Abuse Substance abuse history: No Prior substance abuse treatmen: No Social History Marital status: other DPA/Conservatorship: No Psychiatric Objective Eval Review of Systems: Review of Systems: Not Applicable Physical Examination: Physical Examination: Not Applicable Appetite: Adequate, Decreased Energy: Decreased Interest: Decreased Mental Status Examination: Appearance: Groomed Eye Contact: Fair Psychomotor Activity: Slow Behavior: Cooperative Speech: Clear AFFECT: Flat Mood: Depressed Though Process: Linear Thought Content: Normal Orientation: x4 Cognition: Alert Insight: Moderate Judgement: Moderate Attention Span: Distractible Laboratory Results Laboratory Tests Test 09/29/18 13:46 09/29/18 13:57 09/29/18 14:02 09/30/18 05:04 Bedside Glucose 230 mg/dL White Blood 8.6 10^3/ul 8.5 10^3/ul Count Red Blood Count 3.07 10^6/ul 2.73 10^6/ul Hemoglobin 9.1 g/dl 9.1 g/dl 8.1 g/dl Hematocrit 27.1 % 27.0 % 24.3 % Mean 88.3 fl 89.0 fl Corpuscular Volume Mean 29.6 pg 29.7 pg Corpuscular Hemoglobin Mean 33.6 g/dl 33.3 g/dl Corpuscular Hemoglobin Conc ent Red Cell 12.1 % 12.2 % Distribution Width Platelet Count 202 10^3/UL 207 10^3/UL Mean Platelet 10.5 fl 10.5 fl Volume Immature 0.800 % 1.100 % Granulocytes % Neutrophils % 73.7 % 66.7 % Lymphocytes % 11.3 % 14.5 % Monocytes % 10.7 % 12.7 % Eosinophils % 3.3 % 4.8 % Basophils % 0.2 % 0.2 % Nucleated Red 0.0 /100WBC 0.4 /100WBC Blood Cells % Immature 0.070 10^3/ul 0.090 10^3/ul Granulocytes # Neutrophils # 6.3 10^3/ul 5.7 10^3/ul Lymphocytes # 1.0 10^3/ul 1.2 10^3/ul Monocytes # 0.9 10^3/ul 1.1 10^3/ul Eosinophils # 0.3 10^3/ul 0.4 10^3/ul Basophils # 0.0 10^3/ul 0.0 10^3/ul Nucleated Red 0.0 10^3/ul 0.0 10^3/ul Blood Cells # Prothrombin 12.4 Sec Time Prothrombin 1.0 Time Ratio INR 0.91 International Normalized Rati o Activated 32.8 Sec Partial Thrombo plast Time Sodium Level 139 mmol/L 140 mmol/L Potassium Level 5.2 mmol/L 4.9 mmol/L Chloride Level 109 mmol/L 113 mmol/L Carbon Dioxide 17 mmol/L 18 mmol/L Level Anion Gap 13 9 Blood Urea 50 mg/dl 43 mg/dl Nitrogen Creatinine 3.57 mg/dl 3.38 mg/dl Est Glomerular 18 mL/min 19 mL/min Filtrat Rate mL/min Glucose Level 213 mg/dl 128 mg/dl Hemoglobin A1c 6.0 % Calcium Level 7.9 mg/dl 7.9 mg/dl Creatine Kinase 74 IU/L Creatine Kinase 2.0 Index Creatinine 1.47 ng/ml Kinase MB (Mass) Troponin I < 0.012 ng/ml Triglycerides 216 mg/dl Level Cholesterol 136 mg/dl Level LDL 52 mg/dl Cholesterol, Calculated HDL Cholesterol 41 mg/dl Cholesterol/HDL 3.3 RATIO Ratio Phosphorus 4.0 mg/dl Level Magnesium Level 1.9 mg/dl Test 09/30/18 05:45 10/01/18 05:07 10/01/18 10:36 Urine Color COLORLESS Urine Clarity CLEAR Urine pH 6.0 Urine Specific 1.004 [place] Urine Ketones NEGATIVE mg/dL Urine Nitrite NEGATIVE mg/dL Urine Bilirubin NEGATIVE mg/dL Urine NEGATIVE mg/dL Urobilinogen Urine Leukocyte NEGATIVE Adela/ul Esterase Urine 2 /HPF Microscopic RBC Urine 0 /HPF Microscopic WBC Urine 1+ mg/dL Hemoglobin Urine Glucose 1+ mg/dL Urine Total 2+ mg/dl Protein Urine Opiates Negative Screen Urine Negative Barbiturates Urine Negative Amphetamines Screen Urine Negative Benzodiazepines Screen Urine Cocaine Negative Screen Urine Negative Cannabinoids White Blood 7.7 10^3/ul Count Red Blood Count 2.68 10^6/ul Hemoglobin 7.9 g/dl Hematocrit 23.8 % Mean 88.8 fl Corpuscular Volume Mean 29.5 pg Corpuscular Hemoglobin Mean 33.2 g/dl Corpuscular Hemoglobin Conc ent Red Cell 12.4 % Distribution Width Platelet Count 215 10^3/UL Mean Platelet 10.6 fl Volume Immature 1.400 % Granulocytes % Neutrophils % 58.4 % Lymphocytes % 20.9 % Monocytes % 13.7 % Eosinophils % 5.2 % Basophils % 0.4 % Nucleated Red 0.4 /100WBC Blood Cells % Immature 0.110 10^3/ul Granulocytes # Neutrophils # 4.5 10^3/ul Lymphocytes # 1.6 10^3/ul Monocytes # 1.1 10^3/ul Eosinophils # 0.4 10^3/ul Basophils # 0.0 10^3/ul Nucleated Red 0.0 10^3/ul Blood Cells # Sodium Level 140 mmol/L Potassium Level 4.7 mmol/L Chloride Level 110 mmol/L Carbon Dioxide 19 mmol/L Level Anion Gap 11 Blood Urea 39 mg/dl Nitrogen Creatinine 3.35 mg/dl Est Glomerular 19 mL/min Filtrat Rate mL/min Glucose Level 146 mg/dl Calcium Level 7.9 mg/dl Phosphorus 3.8 mg/dl Level Magnesium Level 1.8 mg/dl Lab Scanned REFERENCE Report LAB [id number] Assessment and Plan Assessment/Diagnosis Diagnosis Major Depressive Disorder Single Episode Recommendation/Plan Medication Management Trazadone 25mg QHS PRN Discharge Disposition: Other Legal Status: Voluntary (Does not meet criteria for 5150 hold, social service to refer patient for counseling) ELIZABETH PRECIADO NP Oct 01, 2018 12:16
[2018-10-01] MEDS ORDERED: LEVE750T8 PO (12:40)
[2018-10-01] MEDS ORDERED: CLON0.2T12 PO (12:40)
[2018-10-01] MEDS ORDERED: NIFE90TA PO (12:40)
[2018-10-01] MEDS ORDERED: ATOR20TA38 PO (12:40)
[2018-10-01] MEDS ORDERED: METO-407 PO (12:40)
[2018-10-01] MEDS ORDERED: HYDR100T25 PO (12:40)
[2018-10-01] MEDS ORDERED: ASPI-817 PO (12:40)
--- NOTE | 2018-10-01 12:48 | PDOCDIS ---
Discharge Instructions CONDITION [id number] Patient Condition: [id number] Stable HOME CARE INSTRUCTIONS: [id number] Special Diet: [id number] Regular FOLLOW UP/APPOINTMENTS Follow-up Plan 1. Follow up with your primary care provider to address the following issues -Repeat your renal bloodwork as your most recent creatinine was stablized at 3.35 in the hospital -get a referral to see a neurologist for your seizures -address your blood pressure medications and uncontrolled blood pressure 2. Please follow up with Dr. Gabriella Morgan, neurologist as soon as possible 3. Please follow up with Dr. Scotty Villa or another asphalt screed operator as soon as possible MALGORZATA HENDRICKSON Oct 01, 2018 12:48
[2018-10-01] MEDS ORDERED: TRA50 PO (12:51)
--- NOTE | 2018-10-01 12:56 | DS ---
Date/Time of Note Date/Time of Note DATE: 10/01/18 TIME: 12:56 Discharge Summary Admission/Discharge Info Admit Date/Time Sep 23, 2018 at 18:20 Discharge Date/Time Patient Condition: Stable Hospital Course Patient is a male with a past medical history significant for epilepsy, hypertension, questionable diabetes mellitus and chronic kidney disease who presents to [facility] for right upper extremity numbness. 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 Patient also had a second episode of his right upper extremity numbness which also resulted in a diagnosis of Peter's paralysis however neurology does feel he warrants continued monitoring in the outpatient setting with a neurologist. Patient's Keppra was increased after these episodes however should take some time to be therapeutic. Patient with currently feels very well with resolution of all symptoms and neurology has cleared patient to be discharged in order to follow-up with a neurologist in the outpatient setting. Patient also had a very hard time with his blood pressure however with the help of an machinist brake as well as a billboard poster helper his medications were managed and is adjusted appropriately due to his renal conditions and will be discharged on a safe regimen. Patient's blood pressure was so elevated and difficult to control that a diagnosis of pheochromocytoma was considered however endocrinology at this point highly doubt this as the etiology. Patient is noted to be on a sliding scale insulin at home however A1c is lower than what is diagnosable as diabetes and it was mentioned to the patient that he should consider just metformin in the outpatient setting, however we will defer this to his primary care provider which she will see in 3 days. Patient did have acute kidney injury on top of his chronic kidney disease and nephrology did see the patient. Patient's kidney function appeared to stabilize around 3.3 and nephrology subsequently was okay with patient to be discharged as he already has an appointment with another billboard poster helper ready and he is able to draw renal blood work as soon as 3 days with his primary care provider which it was emphasized. Patient currently feels well and will follow up with his primary care provider in 3 days and will also see a neurologist and has an appointment for a billboard poster helper as well. Patient will be discharged safely Discharge diagnosis Right upper extremity numbness, resolved Peter's paralysis Hypertensive emergency, resolving Diabetes mellitus, questionable Acute kidney injury on chronic kidney disease Epilepsy Home Meds Active Scripts Trazodone Hcl* (Desyrel*) 50 Mg Tablet, 25 MG PO HS PRN for INSOMNIA, #30 TAB Prov:MALGORZATA HENDRICKSON 10/01/18 Levetiracetam* (Levetiracetam*) 750 Mg Tablet, 1500 MG PO BID, #60 TAB 1 Refill Prov:MALGORZATA HENDRICKSON 10/01/18 Nifedipine (Procardia Xl) 90 Mg Tab.er.24, 90 MG PO DAILY, #30 TAB 1 Refill Prov:MALGORZATA HENDRICKSON 10/01/18 Metoprolol Tartrate* (Lopressor*) 100 Mg Tablet, 100 MG PO BID, #60 TAB 1 Refill Prov:MALGORZATA HENDRICKSON 10/01/18 Clonidine Hcl* (Catapres*) 0.2 Mg Tablet, 0.2 MG PO TID for 30 Days, #90 TAB 1 Refill Prov:MALGORZATA HENDRICKSON 10/01/18 Hydralazine Hcl* (Hydralazine Hcl*) 100 Mg Tablet, 100 MG PO TID, #90 TAB 1 Refill Prov:MALGORZATA HENDRICKSON 10/01/18 Atorvastatin Calcium* (Atorvastatin Calcium*) 20 Mg Tablet, 20 MG PO QHS for 30 Days, #30 TAB 1 Refill Prov:MALGORZATA HENDRICKSON 10/01/18 Aspirin* (Aspirin* EC) 81 Mg Tablet.dr, 81 MG PO DAILY, #30 TAB 1 Refill Prov:MALGORZATA HENDRICKSON 10/01/18 Reported Medications Tiotropium [place] (Spiriva Respimat) 4 Gm Mist.inhal, 2 PUFF INHALATION DAILY, #1 INHALER 09/23/18 Discontinued Reported Medications Losartan-Hydrochlorothiazide (Losartan-HCTZ) 100-25 Mg Tab, 1 TAB PO DAILY, TAB 09/23/18 Clonidine Hcl* (Clonidine Hcl*) 0.1 Mg Tab, 0.1 MG PO TID, TAB 09/23/18 Insulin Aspart* (Novolog Insulin Pen*) 100 Unit/Ml Soln, UNIT SC WITH MEALS, EA SLIDING SCALE 03/15/18 Gabapentin* (Gabapentin*) 300 Mg Capsule, 300 MG PO TID, #90 CAP 03/15/18 Discontinued Scripts Levetiracetam* (Keppra*) 500 Mg Tablet, 500 MG PO BID, #60 TAB Prov:ESTEFANI ELIAS SALES SECRETARY 03/26/18 Metoprolol Tartrate* (Lopressor*) 25 Mg Tab, 25 MG PO BID, #60 TAB Prov:CURTESTEFANI CRISTÓBAL 03/26/18 Follow-up Plan 1. Follow up with your primary care provider to address the following issues -Repeat your renal bloodwork as your most recent creatinine was stablized at 3.35 in the hospital -get a referral to see a neurologist for your seizures -address your blood pressure medications and uncontrolled blood pressure 2. Please follow up with Dr. Gabriella Morgan, neurologist as soon as possible 3. Please follow up with Dr. Scotty Villa or another billboard poster helper as soon as possible Primary Care Provider Not On Staff Doctor Time spent on discharge: > 30 minutes Pending Labs Laboratory Tests Test 10/01/18 05:07 10/01/18 10:36 10/01/18 12:15 White Blood Count 7.7 10^3/ul (4.8-10.8) Red Blood Count 2.68 10^6/ul (4.70-6.10) Hemoglobin 7.9 g/dl (14.0-18.0) Hematocrit 23.8 % (42.0-52.0) Mean Corpuscular 88.8 Volume fl (82.0-101.0) Mean Corpuscular 29.5 pg (29.0-33.0) Hemoglobin Mean Corpuscular 33.2 Hemoglobin Concent g/dl (32.0-37.0) Red Cell 12.4 % (11.5-14.5) Distribution Width Platelet Count 215 10^3/UL (140-415) Mean Platelet 10.6 fl (7.4-10.4) Volume Immature 1.400 Granulocytes % % (0.001-0.429) Neutrophils % 58.4 % (39.0-77.0) Lymphocytes % 20.9 % (15.0-51.0) Monocytes % 13.7 % (0.0-11.0) Eosinophils % 5.2 % (0.0-7.0) Basophils % 0.4 % (0.0-2.0) Nucleated Red Blood 0.4 Cells % /100WBC (0.0-0.0) Immature 0.110 Granulocytes # 10^3/ul (0.0-0.031) Neutrophils # 4.5 10^3/ul (1.6-7.5) Lymphocytes # 1.6 10^3/ul (0.8-2.9) Monocytes # 1.1 10^3/ul (0.3-0.9) Eosinophils # 0.4 10^3/ul (0.0-0.5) Basophils # 0.0 10^3/ul (0.0-0.1) Nucleated Red Blood 0.0 Cells # 10^3/ul (0.0-0.0) Sodium Level 140 mmol/L (135-144) Potassium Level 4.7 mmol/L (3.5-5.1) Chloride Level 110 mmol/L (97-110) Carbon Dioxide 19 mmol/L (21-31) Level Anion Gap 11 (5-13) Blood Urea 39 mg/dl (7-20) Nitrogen Creatinine 3.35 mg/dl (0.61-1.24) Est Glomerular 19 mL/min (>60) Filtrat Rate mL/min Glucose Level 146 mg/dl (70-220) Calcium Level 7.9 mg/dl (8.4-10.2) Phosphorus Level 3.8 mg/dl (2.5-4.9) Magnesium Level 1.8 mg/dl (1.7-2.5) Lab Scanned Report REFERENCE REFERENCE LAB [id number] LAB [id number] MALGORZATA HENDRICKSON Oct 01, 2018 12:56
--- NOTE | 2018-10-01 13:07 | CONS ---
Assessment/Plan Assessment/Plan Hospital Course A: 57 yo M with Hx of frontal lobe epilepsy, who presents with R hemisensory loss and other symptoms... for which neurology is consulted. 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 MRI brain is notable for recurrent cortical restricted diffusion in the L frontal with adjacent vasogenic edema... suggestive of recent seizures.. Repeat MRI brain is without evidence of strokes, however, the continued presence of subcortical hyperintensities are consistent with a diagnosis of PRES. P: Cont Keppra as scheduled for now Ativan iv prn prolonged seizure (> 5 min) or cluster Cont aggressive BP control and other medical management per primary PT/OT/ST as needed Will follow clinically Result Diagram: 10/01/18 0507 10/01/18 0507 Results 24hrs Laboratory Tests Test 10/01/18 05:07 10/01/18 10:36 10/01/18 12:15 White Blood Count 7.7 Red Blood Count 2.68 L Hemoglobin 7.9 L Hematocrit 23.8 L Mean Corpuscular Volume 88.8 Mean Corpuscular Hemoglobin 29.5 Mean Corpuscular 33.2 Hemoglobin Concent Red Cell Distribution Width 12.4 Platelet Count 215 Mean Platelet Volume 10.6 H Immature Granulocytes % 1.400 H Neutrophils % 58.4 Lymphocytes % 20.9 Monocytes % 13.7 H Eosinophils % 5.2 Basophils % 0.4 Nucleated Red Blood Cells % 0.4 H Immature Granulocytes # 0.110 H Neutrophils # 4.5 Lymphocytes # 1.6 Monocytes # 1.1 H Eosinophils # 0.4 Basophils # 0.0 Nucleated Red Blood Cells # 0.0 Sodium Level 140 Potassium Level 4.7 Chloride Level 110 Carbon Dioxide Level 19 L Anion Gap 11 Blood Urea Nitrogen 39 H Creatinine 3.35 H Est Glomerular Filtrat 19 L Rate mL/min Glucose Level 146 Calcium Level 7.9 L Phosphorus Level 3.8 Magnesium Level 1.8 Lab Scanned Report REFERENCE LAB REFERENCE LAB Consultation Date/Type/Reason Admit Date/Time Sep 23, 2018 at 18:20 Type of Consult Neurology Reason for Consultation R hemisensory loss Requesting Provider: BRISA HARKINS Date/Time of Note DATE: 10/01/18 TIME: 13:06 24 HR Interval Summary Free Text/Dictation Continues telemetry monitoring. Pt states that he is feeling good today and is ready to go home. Understands necessity of taking BP/AEDs. Awaiting discharge. Exam Vital Signs Vitals Vital Signs Date Temp Pulse Resp B/P (MAP) Pulse Ox O2 O2 Flow FiO2 Time Delivery Rate 10/01/18 59 12:25 10/01/18 98.1 18 135/77 97 11:35 (96) 09/29/18 Room Air 15:23 Intake and Output 09/30/18 09/30/18 10/01/18 1414:59 22:59 06:59 IntakeIntake Total 1420 ml 100 ml BalanceBalance 1420 ml 100 ml Exam PE: Gen Appearance: No Apparent Distress HEENT: Normocephalic Cardiovascular: Regular rate Lungs: Clear bilaterally Abdomen: Soft Extremities: Dry NE: The patient was alert and oriented.. Language was normal. Fund of knowledge was normal. Pupils were equal and reactive to light. There was no afferent pupillary defect. Visual french were normal. Funduscopic examination was limited. Extra-ocular movements were full. Ptosis was absent. There was no nystagmus. Facial sensation was normal. Face was symmetric with normal strength. Hearing was intact. Palate movements were normal. Neck strength was normal. There was normal tongue bulk and speed of movement. Tone was normal. Muscle bulk was normal. I did not see fasciculations. Arms and legs were strong. Vibration sensation was normal. Temperature and pinprick sensation was normal. Rapid alternating movements were normal. There was no dysmetria. There was no intention tremor. Gait was steady when ambulating unassisted. Arm and leg reflexes were 2+ and symmetric. Weber's sign was absent. Plantar responses were flexor. HERNANDO HART NP Oct 01, 2018 13:06
--- NOTE | 2018-10-01 13:44 | NUR ---
SW: CONSULTATION SW was consulted to meet with this patient for depression to provide appropriate community resources. Patient states that he has been feeling depressed for about 3-6 months when his from cancer at this hospital. States that he lives at home with a son and a daughter, but states that he has 5 children who are all involved and supportive. Patient denies any history of professional intervention. Denies any past/ present thoughts, ideations or plans of suicide/ homicide. SW provided patient with resources for grief and loss, bereavement as well as outpatient psychotherapy resources. All other questions/ concerns denied at this time. Patient denies having an AHCD, and he verbally designated his daughter Dilia Kim ([phone]) as his surrogate medical spokesperson. SW remains available as needed throughout patient's treatment process.
--- NOTE | 2018-10-01 13:45 | NUR ---
RN NOTES: Discharge packet discussed. IV removed cathlon intact. Left unit with all personal belongings.
== END 2018-10-01 13:48 | disposition home or self-care (01) | DRG 91 ==
LOC: E/R 13:11 → 6WM 18:20
PROVIDERS: ADMIT Internal Medicine; ATTEND Internal Medicine
DX: G83.84 Todd's paralysis (postepileptic) (principal); G04.90 Encephalitis and encephalomyelitis, unspecified; N17.0 Acute kidney failure with tubular necrosis; I16.1 Hypertensive emergency; N18.4 Chronic kidney disease, stage 4 (severe); G81.91 Hemiplegia, unspecified affecting right dominant side; G40.909 Epilepsy, unspecified, not intractable, without status epilepticus; I12.9 Hypertensive chronic kidney disease with stage 1 through stage 4 chronic kidney disease, or unspecified chronic kidney disease; H11.31 Conjunctival hemorrhage, right eye; E11.22 Type 2 diabetes mellitus with diabetic chronic kidney disease; F32.9 Major depressive disorder, single episode, unspecified; Z91.14 Patient's other noncompliance with medication regimen
CPT/HCPCS: 36415; 70450; 70496; 70498; 70544; 70551; 70553; 71045; 76775; 80048; 80053; 80061; 80069; 80307; 81001; 81003; 82043; 82088; 82384; 82550; 82553; 82595; 82728; 82962; 83036; 83540; 83735; 83835; 84100; 84155; 84244; 84300; 84484; 84585; 85014; 85018; 85025; 85610; 85651; 85730; 86021; 86038; 86140; 86160; 86226; 86430; 86592; 86703; 86706; 86803; 87340; 92610; 93005; 93306; J0360; J0885; J2060; J7030; Q4081; Q9967

== ENCOUNTER 2018-11-16 07:34 | Inpatient (IN) | payer MEDICARE ==
[~2018-11-16] VITALS: Ht 167.6 cm; Wt 65.6 kg
[2018-11-16] VITALS (40 sets, daily range): BP systolic 127–213; BP diastolic 57–102; PULSE 76–112; RESP 11–24; Ht 167.6 cm; Wt 65.6 kg
[~2018-11-16 07:34] MED LIST changes: -CLON0.1T14 PO; +CLON0.2T12 PO; -GABA300C16 PO; +HYDR100T25 PO; -LANT3I SC; -LEVE-5 PO; +LEVE750T8 PO; +METO-407 PO; -METO-448 PO; -NIFE30TA2 PO; +NIFE90TA PO; -NOVO3I SC; +TIOT4MIS2 INHALATION; +TRA50 PO
[2018-11-16] MEDS ORDERED: SOD CHLORIDE 0.9% 1,000 ML IV STA (07:51)
--- NOTE | 2018-11-16 07:55 | ERD ---
ER Documentation Chief Complaint Chief Complaint left sided weakness and hypertension since thursday HPI This is a 57-year-old man brought in by his daughter for headache, elevated blood pressure, and left facial droop since Thursday. 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 He states today's weakness is not new although daughter states the facial droop on the left is new. Patient denies cough, no chest pain, no neck pain or stiffness, no abdominal pain, no vomiting or diarrhea, no dysuria. Patient states he has been using his medications as prescribed including aspirin and Ke ppra. ROS All systems reviewed and are negative except as per history of present illness. Medications Home Meds Active Scripts Trazodone Hcl* (Desyrel*) 50 Mg Tablet, 25 MG PO HS PRN for INSOMNIA, #30 TAB Prov:MALGORZATA HENDRICKSON 10/01/18 Levetiracetam* (Levetiracetam*) 750 Mg Tablet, 1500 MG PO BID, #60 TAB 1 Refill Prov:MALGORZATA HENDRICKSON 10/01/18 Metoprolol Tartrate* (Lopressor*) 100 Mg Tablet, 100 MG PO BID, #60 TAB 1 Refill Prov:MALGORZATA HENDRICKSON 10/01/18 Clonidine Hcl* (Catapres*) 0.2 Mg Tablet, 0.2 MG PO TID for 30 Days, #90 TAB 1 Refill Prov:MALGORZATA HENDRICKSON 10/01/18 Hydralazine Hcl* (Hydralazine Hcl*) 100 Mg Tablet, 100 MG PO TID, #90 TAB 1 Refill Prov:MALGORZATA HENDRICKSON 10/01/18 Atorvastatin Calcium* (Atorvastatin Calcium*) 20 Mg Tablet, 20 MG PO QHS for 30 Days, #30 TAB 1 Refill Prov:MALGORZATA HENDRICKSON 10/01/18 Reported Medications Furosemide* (Lasix*) 20 Mg Tablet, 20 MG PO DAILY, TAB 11/16/18 Lorazepam* (Lorazepam*) 1 Mg Tablet, 1 MG PO DAILY PRN for ANXIETY, #30 TAB 11/16/18 Calcitriol* (Calcitriol*) 0.5 Mcg Capsule, 0.5 MCG PO DAILY, CAP 11/16/18 Isosorbide Mononitrate* (Isosorbide Mononitrate*) 30 Mg Tab.er.24h, 30 MG PO DAILY, TAB 11/16/18 Aspirin* (Aspirin* Chew) 81 Mg Tab.chew, 81 MG PO DAILY, TAB.CHEW 11/16/18 Tiotropium [place] (Spiriva Respimat) 4 Gm Mist.inhal, 2 PUFF INHALATION DAILY, #1 INHALER 09/23/18 Discontinued Scripts Nifedipine (Procardia Xl) 90 Mg Tab.er.24, 90 MG PO DAILY, #30 TAB 1 Refill Prov:MALGORZATA HENDRICKSON 10/01/18 Aspirin* (Aspirin* EC) 81 Mg Tablet.dr, 81 MG PO DAILY, #30 TAB 1 Refill Prov:MALGORZATA HENDRICKSON 10/01/18 Allergies Allergies: Coded Allergies: No Known Allergy (Unverified , 09/23/18) PMhx/Soc epilepsy with episodes of Peter's paralysis to the left hemibody, hypertension, diabetes mellitus, and chronic kidney disease, CAD History of Surgery: Yes (LAP 2015; TRACHEOSTOMY 2015 (pt had viral infection. unable to breathe)) Anesthesia Reaction: No Hx Neurological Disorder: Yes (SEIZURE DISORDER; TIA FEBRUARY 2018) Hx Respiratory Disorders: Yes (Viral infection in larynx leading to trach eostomy) Hx Cardiac Disorders: Yes (HTN) Hx Psychiatric Problems: Yes (DEPRESSION) Hx Miscellaneous Medical Probl: Yes (See PT NOTE) Hx Alcohol Use: Yes Hx Substance Use: No Hx Tobacco Use: No FmHx Family History: diabetes Physical Exam Vitals Vital Signs Date Temp Pulse Resp B/P (MAP) Pulse Ox O2 O2 Flow FiO2 Time Delivery Rate 11/16/18 100.9 08:20 11/16/18 87 15 200/90 97 Room Air 07:55 (126) 11/16/18 100.4 105 18 212/116 97 07:37 (148) Physical Exam Const: No acute distress, nontoxic in appearance, appears dehydrated, low- grade fever. HEENT: Left facial paralysis affecting the lower face, forehead is spared, pupils equal round reactive to light, patient has old tracheostomy site to the anterior neck which appears clean and dry. Dry mucous membranes Resp: Clear to auscultation bilaterally Cardio: Tachycardic and regular, no murmurs Abd: Soft, non tender, non distended. Skin: No petechiae or rashes Back: No midline or flank tenderness Ext: No cyanosis, or edema Neur: Awake and alert x3, left upper and lower extremity paresis consistent with his history, paralysis of the left lower face although forehead is spared, pupils equal round reactive to light Psych: Normal Mood and Affect Result Diagram: 11/16/18 0753 11/16/18 0751 Results 24 hrs Laboratory Tests Test 11/16/18 07:51 11/16/18 07:53 Sodium Level 142 mmol/L Potassium Level 5.3 mmol/L Chloride Level 109 mmol/L Carbon Dioxide Level 16 mmol/L Anion Gap 17 Blood Urea Nitrogen 52 mg/dl Creatinine 3.48 mg/dl Est Glomerular Filtrat Rate mL/min 18 mL/min Glucose Level 143 mg/dl Calcium Level 9.0 mg/dl Total Bilirubin 0.1 mg/dl Direct Bilirubin 0.00 mg/dl Indirect Bilirubin 0.1 mg/dl Aspartate Amino Transf (AST/SGOT) 15 IU/L Alanine Aminotransferase (ALT/SGPT) 15 IU/L Alkaline Phosphatase 117 IU/L Troponin I < 0.012 ng/ml Total Protein 8.0 g/dl Albumin 4.2 g/dl Globulin 3.80 g/dl Albumin/Globulin Ratio 1.10 Lipase 71 U/L White Blood Count 13.0 10^3/ul Red Blood Count 3.85 10^6/ul Hemoglobin 11.0 g/dl Hematocrit 33.5 % Mean Corpuscular Volume 87.0 fl Mean Corpuscular Hemoglobin 28.6 pg Mean Corpuscular Hemoglobin Concent 32.8 g/dl Red Cell Distribution Width 12.0 % Platelet Count 209 10^3/UL Mean Platelet Volume 10.4 fl Immature Granulocytes % 0.500 % Neutrophils % 85.8 % Lymphocytes % 6.5 % Monocytes % 5.5 % Eosinophils % 1.5 % Basophils % 0.2 % Nucleated Red Blood Cells % 0.0 /100WBC Immature Granulocytes # 0.070 10^3/ul Neutrophils # 11.1 10^3/ul Lymphocytes # 0.8 10^3/ul Monocytes # 0.7 10^3/ul Eosinophils # 0.2 10^3/ul Basophils # 0.0 10^3/ul Nucleated Red Blood Cells # 0.0 10^3/ul Prothrombin Time 12.2 Sec Prothrombin Time Ratio 1.0 INR International Normalized Ratio 0.89 Activated Partial Thromboplast Time 30.3 Sec Current Medications Medications Dose Sig/Eladio Start Time Status Last (Trade) Ordered Route PRN Stop Time Admin Dose Reason Admin Sodium 1,000 ml @ Q1H STAT 11/16/18 DC 11/16/18 Chloride 1,000 mls/hr IV 07:51 08:22 11/16/18 08:50 Aspirin 162 mg ONCE ONCE 11/16/18 DC 11/16/18 (Aspirin) PO 08:30 08:49 11/16/18 08:31 Sodium 1,000 ml BOLUS OVER 2 11/16/18 DC 11/16/18 Chloride HOURS STAT 08:25 08:55 (NS) IV* 11/16/18 08:27 Ibuprofen 600 mg ONCE ONCE 11/16/18 DC 11/16/18 (Motrin) PO 08:30 08:49 11/16/18 08:31 Ceftriaxone 50 ml @ ONCE ONCE 11/16/18 DC 11/16/18 Sodium 100 mls/hr IVPB 08:30 08:54 11/16/18 08:59 Procedures/MDM IV line was established patient was placed on residential monitor rhythm strip revealed a sinus rhythm at about 80 bpm with upright P and T waves. Patient was febrile, I do not suspect sepsis. EKG performed, read by me revealed a normal sinus rhythm at 92 bpm, left axis deviation, narrow QRS complex, no concerning ST elevations or depressions noted. One AP view of the chest performed, read by me reveals no acute infiltrates, nor mal mediastinum, sharp costophrenic and cardiac borders, no air under the diaphragm. Otherwise unremarkable chest x-ray. CT scan of the head was performed revealing acute infarct to the right frontal and parietal lobes, please refer to radiologist dictation for full report. Given the onset of symptoms patient is not a candidate for TPA or endovascular clot retrieval therapy I administered 1 L normal saline IV and aspirin 162 mg p.o. for neuro protective measures. Also administered ibuprofen 600 mg p.o. for low-grade fever. CBC was unremarkable, electrolytes revealed kidney injury and dehydration with a BUN/creatinine of 52/3.5 although this is consistent with his normal. Potassium a bit elevated at 5.3, liver function tests were normal, troponin negative, urinalysis negative for infection. Critical Care: Time: 38 minutes, this was time separate from other billable procedures. Treatments/Evaluations: Close monitoring and treatment of unstable vital signs, cardiorespiratory, and neurologic status, while maintaining tight balance of fluid, respiratory, and cardiac interventions. Patient will be admitted to telemetry setting for continued medical management and neurology consultation. I found no source of fever today although it may be due to his stroke given the location near the hypothalamus and antibiotics if indicated will be deferred to admitting team Departure Diagnosis: Primary Impression: Acute kidney injury Additional Impressions: Dehydration Stroke CVA mechanism: unspecified Qualified Codes: I63.9 - Cerebral infarction, u nspecified Seizure disorder Fever Fever type: unspecified Qualified Codes: R50.9 - Fever, unspecified Condition: MALGORZATA Jaimes MD Nov 16, 2018 07:55
[2018-11-16] MEDS ORDERED: SODIUM CHLORIDE 0.9% 1L BAG IV* STA (08:25)
[2018-11-16] MEDS ORDERED: ASPIRIN 81 MG TAB PO ONE (08:30)
[2018-11-16] MEDS ORDERED: CEFTRIAXONE 1 GM/50 ML (PMX) 50 ML IVPB ONE (08:30)
[2018-11-16] MEDS ORDERED: IBUPROFEN 600 MG TAB PO ONE (08:30)
[2018-11-16] MEDS ORDERED: ASPI-903 PO (08:44)
[2018-11-16] MEDS ORDERED: CALC0.5C10 PO (08:50)
[2018-11-16] MEDS ORDERED: ISOS30TA67 PO (08:50)
[2018-11-16] MEDS ORDERED: LORA1TAB PO (08:51)
[2018-11-16] MEDS ORDERED: FURO-110 PO (08:53)
[2018-11-16] MEDS ORDERED: ACETAMINOPHEN 500 MG TAB PO STA (10:57)
[2018-11-16] MEDS ORDERED: hydrALAzine 20 MG INJ IV PRN (12:30)
--- NOTE | 2018-11-16 12:54 | HP ---
Date/Time of Note Date/Time of Note DATE: 11/16/18 TIME: 12:54 Assessment/Plan VTE Prophylaxis SCD applied (from Nsg): Yes Pharmacological prophylaxis: NA/contraindicated Pharm contraindication: low risk/ambulating Lines/Catheters IV Catheter Type (from Nrsg): Saline Lock Urinary Cath still in place: No Assessment/Plan Hospital Course SUBJECTIVE: Lying in bed, having speech difficulties, left facial droop, headache. Mild weakness on left upper /lower extremity. OBJECTIVE: Vital signs-see below PHYSICAL EXAM: Constitutional: Well-developed, adequately built, lying in bed comfortably. Psych: nl mood/affect, no complaints Head: atraumatic, normocephalic Eyes: nl conjunctiva, nl sclera ENMT: mucosa pink and moist, nl external ears & nose Neck: non-tender, supple Respiratory: clear to auscultation, normal air movement Cardiovascular: nl pulses, regular rate and rhythm Gastrointestinal: non-tender, soft, bowel sounds active in all 4 quadrants. Musculoskeletal/extremities: nl extremities to inspection, motor strength equal bilaterally, no focal deficit. Normal pulses,no cyanosis, no edema. Neurological: +Left facial droop.Slurred speech+. LUE/LLE 4/5. RUE/RLE 5/.5. Alert oriented 3 Skin: nl turgor ASSESSMENT/PLAN: 57-year-old male with a history of uncontrolled hypertension/poorly managed as outpatient, type 2 diabetes, depressive disorders, CKD stage IV, seizure disorders, here with uncontrolled hypertension, with new onset left sided weakness, facial droop, speech difficulties started Thursday, concerning for acute CVA... 1. Acute CVA involving temporal/parietal area sx: Left hemiparesis/Facial droop/slurry speech CT Brain: Focal areas of diminished density within the lateral right frontal lobe and lateral parietotemporal region consistent with developing infarcts. -Given the onset of symptoms patient is not a candidate for TPA or endovascular clot retrieval therapy -Patient with poor renal function precludes from obtaining CTA. As such, we will proceed with MRI brain, MRA brain/neck/carotid ultrasound/TTE with bubble study. -Aspirin 325 mg, high intensity statin, blood pressure management with goal blood pressure ~140/90 as patient already passed the 24-hour window for permissive blood pressure. -Neurology consult -PT/OT/ST eval -NIH stroke scale, dental financial coordinator review -Repeat CT in a.m. to rule out hemorrhagic conversion 2. Hypertensive emergency -Likely culprit of #1 =>.as per staff mine warfare officer, BP now up to 223 -At this time, he is not stable for any oral trials or IV pushes, recommend to start Cardene drip (no indication for permissive blood pressure as patient passed 24-hour window), ICU transfer 3. SIRS with leukocytosis/fevers -Reactive versus infectious etiology. -Start empiric ceftriaxone and obtain cultures to rule out infection. -CT reviewed, less threshold for cerebritis 4. Acute kidney injury on CKD stage IV -Baseline creatinine 2.5 to 3 mg/dL -Hyperkalemia noted -Management per nephrology. -Avoid nephrotoxins. 5.Seizure disorders -No witnessed seizure activities although he could have a seizure... -Will change to IV Keppra until patient is cleared for oral intake. -neurology to manage. 6. Type 2 diabetes -A1c -Accu-Cheks/Lantus/ISS -Diabetic education 7. Dyslipidemia -High intensity statin 8. Depressive disorder -Resume trazodone 9. Anemia of chronic illness -Stable H&H. Continue to monitor. DVT prophylaxis: SCDs PUD prophylaxis: Pepcid CODE STATUS: Full code Diet: N.p.o. until evaluated by speech therapist. Rest of the management depend on hospital course. Patient was seen in collaboration with . Approximately 60 m spent on this history and physical. Result Diagram: 11/16/18 0753 11/16/18 0751 Results 24hrs Laboratory Tests Test 11/16/18 07:51 11/16/18 07:53 11/16/18 08:37 11/16/18 08:41 Sodium Level 142 Potassium Level 5.3 H Chloride Level 109 Carbon Dioxide 16 L Level Anion Gap 17 H Blood Urea 52 H Nitrogen Creatinine 3.48 H Est Glomerular 18 L Filtrat Rate mL/min Glucose Level 143 Calcium Level 9.0 Total Bilirubin 0.1 L Direct Bilirubin 0.00 Indirect 0.1 Bilirubin Aspartate Amino 15 Transf (AST/SGOT) Alanine 15 Aminotransferase (ALT/SGPT) Alkaline 117 Phosphatase Troponin I < 0.012 Total Protein 8.0 Albumin 4.2 Globulin 3.80 H Albumin/Globulin 1.10 Ratio Lipase 71 White Blood Count 13.0 #H Red Blood Count 3.85 #L Hemoglobin 11.0 #L Hematocrit 33.5 #L Mean Corpuscular 87.0 Volume Mean Corpuscular 28.6 L Hemoglobin Mean Corpuscular 32.8 Hemoglobin Concen t Red Cell 12.0 Distribution Width Platelet Count 209 Mean Platelet 10.4 Volume Immature 0.500 H Granulocytes % Neutrophils % 85.8 H Lymphocytes % 6.5 L Monocytes % 5.5 Eosinophils % 1.5 Basophils % 0.2 Nucleated Red 0.0 Blood Cells % Immature 0.070 H Granulocytes # Neutrophils # 11.1 H Lymphocytes # 0.8 Monocytes # 0.7 Eosinophils # 0.2 Basophils # 0.0 Nucleated Red 0.0 Blood Cells # Prothrombin Time 12.2 Prothrombin Time 1.0 Ratio INR International 0.89 Normalized Ratio Activated 30.3 Partial Thrombopl ast Time POC Venous 1.0 Lactate Urine Color YELLOW Urine Clarity SLIGHTLY CLOUDY A Urine pH 5.0 Urine Specific 1.013 [place] Urine Ketones NEGATIVE Urine Nitrite NEGATIVE Urine Bilirubin NEGATIVE Urine NEGATIVE Urobilinogen Urine Leukocyte NEGATIVE Esterase Urine Microscopic 19 H RBC Urine Microscopic 1 WBC Urine Bacteria FEW A Urine Mucus FEW A Urine Hemoglobin 1+ H Urine Glucose 1+ H Urine Total 3+ H Protein HPI/ROS Admit Date/Time Admit Date/Time Nov 16, 2018 at 08:35 Hx of Present Illness This is a 57-year-old male with a past medical history of poorly managed hypertension, CKD stage IV, DMII, dyslipidemia, depressive disorders, seizure disorders, was brought into the emergency room with left-sided weakness, left facial droop, headache, speech difficulties, gait disturbance started Thursday afternoon (~48 hrs symptoms onset). Patient was admitted to [facility] recently with poorly managed hypertension, right hemiparesis, worsening kidney function, and at that time he was ruled out for endocrine etiology for uncontrolled hypertension. 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 He was sent home on antihypertensive regimen. Apparently, according to the patient's family, his blood pressure was not managed well despite addition of new agents with last visit and he was feeling weak since thursday and his symptoms progressed as mentioned above. Patient denied any chest pain, palpitation, shortness of breath, nausea, vomiting, vision changes, loss of consciousness, diarrhea, constipation or other constitutional symptoms. Patient has been having a low- grade fevers at home. In ER, patient's initial blood pressure 212/116. He also had a temperature 101.6. Patient also had a pulse rate 105. Initial labs showed WBC 13,000, hemoglobin 11, hematocrit 33.5, potassium 5.3, BUN 52, creatinine 3.48, glucose 143. Chest x-ray negative for any acute cardiopulmonary disease. A brain CT showed Focal areas of diminished density within the lateral right frontal lobe and lateral parietotemporal region consistent with developing infarcts. Cerebritis also possible but considered less likely. No significant mass effect or evidence of hemorrhage. Urine analysis negative for UTI. There is 3+ total protein and UA. In ER, patient was given aspirin 162 mg, ceftriaxone 1 g and normal saline bolus. Patient was admitted for further evaluation. ROS 12 point review of system was assessed and is negative other than what is mentioned in the HPI. PMH/Family/Social Past Medical History See HPI Coded Allergies: No Known Allergy (Unverified , 09/23/18) Past Surgical History See HPI Past Surgical Hx: noncontributory, other Family History Significant Family History: hypertension Social History Denied history of alcohol, smoking or illicit drug use Smoking Status: Never smoker Exam/Review of Systems Vital Signs Vitals Vital Signs Date Temp Pulse Resp B/P (MAP) Pulse Ox O2 O2 Flow FiO2 Time Delivery Rate 11/16/18 98.5 83 20 213/95 97 12:01 (134) 11/16/18 Room Air 11:33 EARNESTINE MCCLENDON NP Nov 16, 2018 12:54
[2018-11-16] MEDS: niCARdipine 25 MG in SOD CHLORIDE 0.9% 240 ML IV SCH ×4 (13:40→23:35)
[2018-11-16] MEDS ORDERED: GLUCAGON 1 MG INJ IM PRN (14:30)
[2018-11-16] MEDS ORDERED: GLUCOSE GEL 15 GRAM TUBE PO PRN ×2 (14:30)
[2018-11-16] MEDS ORDERED: GLUCOSE GEL 15 GRAM TUBE BUCCAL PRN (14:30)
[2018-11-16] MEDS ORDERED: DEXTROSE 50% 50 ML SYRINGE IV PRN ×2 (14:30)
[2018-11-16] MEDS: ONDANSETRON 4 MG INJ IV PRN ×2 (14:49→23:35)
[2018-11-16] MEDS: CEFTRIAXONE 1 GM/50 ML (PMX) 50 ML IVPB SCH (15:59)
[2018-11-16] MEDS: FAMOTIDINE 20 MG INJ IV SCH (16:02)
--- NOTE | 2018-11-16 16:56 | CONS ---
Assessment/Plan Assessment/Plan Hospital Course 57 yo M with Hx of frontal-lobe epilepsy and other comorbidities, who presents for evaluation of L hemiparesis and L hemisensory loss...in the context of fevers, for which neurology is consulted. The clinical picture could be consistent w/ post-ictal paralysis.. CTH is notable for hypodensities in the lateral R frontal and parietotemporal regions, as can be seen following focal-onset seizures..; acute ischemia is additionally considered.. P: Await MRI brain for further characterization ASA/Lipitor pending the above Clarify outpatient Keppra compliance, OK to cont Keppra per ops for now.. Ativan IV PRN seizure > 5 min or for cluster BP control and other medical management per primary PT/OT/ST as necessary Will follow clinically, to recommend neurologic studies, as necessary Consultation Date/Type/Reason Admit Date/Time Nov 16, 2018 at 08:35 Type of Consult Neurology Reason for Consultation L hemiparesis, hemisensory loss Requesting Provider: EARNESTINE MCCLENDON NP Date/Time of Note DATE: 11/16/18 TIME: 16:56 Hx of Present Illness 57 yo M with recent diagnosis of PRES and PMH of seizures, HTN and other comorbidities who presented to the ED for evaluation of L hemiparesis and L hemisensory loss x 3 days. History was obtained from pt as well as chart review. The pt states that he is fully compliant his BP medications, though his family states otherwise. The pt also states that he hasn't had a recent seizure. It is elsewhere noted: Hx of Present Illness This is a 57-year-old male with a past medical history of poorly managed hypertension, CKD stage IV, DMII, dyslipidemia, depressive disorders, seizure disorders, was brought into the emergency room with left-sided weakness, left facial droop, headache, speech difficulties, gait disturbance started Thursday afternoon (~48 hrs symptoms onset). Apparently, according to the patient's family, his blood pressure was not managed well. Patient was admitted to [facility] recently with poorly managed hypertension, worsening kidney function, endocrine workup for uncontrolled hypertension, and Peter's paralysis of right upper extremity. Patient denied any chest pain, palpitation, shortness of breath, nausea, vomiting, vision changes, loss of consciousness, diarrhea, constipation or other constitutional symptoms. Patient has been having a low-grade fevers at home. In ER, patient's initial blood pressure 212/116. He also had a temperature 101.6. Patient also had a pulse rate 105. Initial labs showed WBC 13,000, hemoglobin 11, hematocrit 33.5, potassium 5.3, BUN 52, creatinine 3.48, glucose 143. Chest x-ray negative for any acute cardiopulmonary disease. A brain CT showed Focal areas of diminished density within the lateral right frontal lobe and lateral parietotemporal region consistent with developing infarcts. Cerebritis also possible but considered less likely. No significant mass effect or evidence of hemorrhage. Urine analysis negative for UTI. There is 3+ total protein and UA. In ER, patient was given aspirin 162 mg, ceftriaxone 1 g and normal saline bolus. Patient was admitted for further evaluation. negative unless noted otherwise Exam/Review of Systems Exam Vitals Vital Signs Date Temp Pulse Resp B/P (MAP) Pulse Ox O2 O2 Flow FiO2 Time Delivery Rate 11/16/18 81 13 136/61 99 16:15 (86) 11/16/18 99.5 Room Air 16:00 Exam PE: Gen Appearance: No Apparent Distress HEENT: Normocephalic Cardiovascular: Regular rate Lungs: Clear bilaterally Abdomen: Soft Extremities: Dry NE: The patient was alert and oriented.. Language was normal. Fund of knowledge was normal. Pupils were equal and reactive to light. There was no afferent pupillary defect. Visual french were normal. Funduscopic examination was limited. Extra-ocular movements were full. Ptosis was absent. There was no nystagmus. Facial sensation was normal. Face was asymmetric with diminished activation on the L. Hearing was intact. Palate movements were normal. Neck strength was normal. There was normal tongue bulk and speed of movement. Tone was normal. Muscle bulk was normal. I did not see fasciculations. Arms and legs were mildly weak on the L. Vibration sensation was normal. Temperature and pinprick sensation was normal. Rapid alternating movements were normal. There was no dysmetria. There was no intention tremor. Gait was deferred due to bedrest. Arm and leg reflexes were 2+ and symmetric. Weebr's sign was absent. Plantar responses were flexor. Results Result Diagram: 11/16/18 0753 11/16/18 0751 Results 24hrs Laboratory Tests Test 11/16/18 07:51 11/16/18 07:53 11/16/18 08:37 11/16/18 08:41 Sodium Level 142 Potassium Level 5.3 H Chloride Level 109 Carbon Dioxide 16 L Level Anion Gap 17 H Blood Urea 52 H Nitrogen Creatinine 3.48 H Est Glomerular 18 L Filtrat Rate mL/min Glucose Level 143 Calcium Level 9.0 Total Bilirubin 0.1 L Direct Bilirubin 0.00 Indirect 0.1 Bilirubin Aspartate Amino 15 Transf (AST/SGOT) Alanine 15 Aminotransferase (ALT/SGPT) Alkaline 117 Phosphatase Troponin I < 0.012 Total Protein 8.0 Albumin 4.2 Globulin 3.80 H Albumin/Globulin 1.10 Ratio Lipase 71 White Blood Count 13.0 #H Red Blood Count 3.85 #L Hemoglobin 11.0 #L Hematocrit 33.5 #L Mean Corpuscular 87.0 Volume Mean Corpuscular 28.6 L Hemoglobin Mean Corpuscular 32.8 Hemoglobin Concen t Red Cell 12.0 Distribution Width Platelet Count 209 Mean Platelet 10.4 Volume Immature 0.500 H Granulocytes % Neutrophils % 85.8 H Lymphocytes % 6.5 L Monocytes % 5.5 Eosinophils % 1.5 Basophils % 0.2 Nucleated Red 0.0 Blood Cells % Immature 0.070 H Granulocytes # Neutrophils # 11.1 H Lymphocytes # 0.8 Monocytes # 0.7 Eosinophils # 0.2 Basophils # 0.0 Nucleated Red 0.0 Blood Cells # Prothrombin Time 12.2 Prothrombin Time 1.0 Ratio INR International 0.89 Normalized Ratio Activated 30.3 Partial Thrombopl ast Time Hemoglobin A1c 6.7 H Triglycerides 207 H Level Cholesterol Level 152 LDL Cholesterol, 66 Calculated HDL Cholesterol 45 Cholesterol/HDL 3.3 Ratio POC Venous 1.0 Lactate Urine Color YELLOW Urine Clarity SLIGHTLY CLOUDY A Urine pH 5.0 Urine Specific 1.013 [place] Urine Ketones NEGATIVE Urine Nitrite NEGATIVE Urine Bilirubin NEGATIVE Urine NEGATIVE Urobilinogen Urine Leukocyte NEGATIVE Esterase Urine Microscopic 19 H RBC Urine Microscopic 1 WBC Urine Bacteria FEW A Urine Mucus FEW A Urine Hemoglobin 1+ H Urine Glucose 1+ H Urine Total 3+ H Protein Test 11/16/18 12:53 Lactic Acid Level 0.7 Creatine Kinase 100 Creatine Kinase 1.0 Index Creatinine Kinase 1.01 MB (Mass) Troponin I < 0.012 Thyroid 1.410 Stimulating Hormone (TSH) Imaging Imaging CTH reviewed: IMPRESSION: Focal areas of diminished density within the lateral right frontal lobe and lateral parietotemporal region consistent with developing infarcts. Cerebritis also possible but considered less likely. No significant mass effect or evidence of hemorrhage. Medications Medication Current Medications Calcitriol (Rocaltrol) 0.5 mcg DAILY PO ; Start 11/17/18 at 09:00 Trazodone HCl (Desyrel) 25 mg HS PRN PO INSOMNIA; Start 11/16/18 at 21:00 Tiotropium Brickeys (Spiriva) 1 inh DAILY INH ; Start 11/16/18 at 16:00 Atorvastatin Calcium (Lipitor) 80 mg HS PO ; Start 11/16/18 at 21:00 Aspirin (Aspirin) 325 mg DAILY PO ; Start 11/17/18 at 09:00 Acetaminophen (Tylenol Tab) 650 mg Q4H PRN PO Temp greater than 99.6F; Start 11/16/18 at 13:00 Docusate Sodium (Colace) 100 mg BID PO ; Start 11/16/18 at 21:00 Nicardipine HCl 25 mg/Sodium Chloride 250 ml @ 50 mls/hr PER PROTOCOL IV Last administered on 11/16/18at 13:40; Admin Dose 50 MLS/HR; Start 11/16/18 at 13:45 Ceftriaxone Sodium 50 ml @ 100 mls/hr Q24H IVPB Last administered on 11/16/18at 15:59; Admin Dose 100 MLS/HR; Start 11/16/18 at 13:00 Insulin Glargine (Lantus) 10 units DAILY@2000 SC ; Start 11/16/18 at 20:00 Insulin Aspart (Novolog Insulin Pen) NOVOLOG *MILD* ALGORI... Q4 SC ; Start 10/29 06/16 at 17:00 Levetiracetam 100 ml @ 400 mls/hr Q12 IVPB ; Start 11/16/18 at 21:00 Influenza Virus Vaccine Quadrival (Fluzone) 0.5 ml ONCE ONCE IM* ; Start 11/17/18 at 10:00; Stop 11/17/18 at 10:01 Ondansetron HCl (Zofran Inj) 4 mg Q6H PRN IV NAUSEA AND/OR VOMITING Last administered on 11/16/18at 14:49; Admin Dose 4 MG; Start 11/16/18 at 14:00 Miscellaneous Information 1 ea NOTE XX ; Start 11/16/18 at 14:30 Glucose (Glutose) 15 gm Q15M PRN PO DECREASED GLUCOSE; Start 11/16/18 at 14:30 Glucose (Glutose) 22.5 gm Q15M PRN PO DECREASED GLUCOSE; Start 11/16/18 at 14:30 Dextrose (D50w Syringe) 25 ml Q15M PRN IV DECREASED GLUCOSE; Start 11/16/18 at 14:30 Dextrose (D50w Syringe) 50 ml Q15M PRN IV DECREASED GLUCOSE; Start 11/16/18 at 14:30 Glucagon (Glucagen) 1 mg Q15M PRN IM DECREASED GLUCOSE; Start 11/16/18 at 14:30 Glucose (Glutose) 15 gm Q15M PRN BUCCAL DECREASED GLUCOSE; Start 11/16/18 at 14:30 Famotidine (Pepcid Iv) 20 mg DAILY IV Last administered on 11/16/18at 16:02; Admin Dose 20 MG; Start 11/16/18 at 15:00 Past Medical History reviewed Home Meds Active Scripts Trazodone Hcl* (Desyrel*) 50 Mg Tablet, 25 MG PO HS PRN for INSOMNIA, #30 TAB Prov:MALGORZATA HENDRICKSON 10/01/18 Levetiracetam* (Levetiracetam*) 750 Mg Tablet, 1500 MG PO BID, #60 TAB 1 Refill Prov:MALGORZATA HENDRICKSON 10/01/18 Metoprolol Tartrate* (Lopressor*) 100 Mg Tablet, 100 MG PO BID, #60 TAB 1 Refill Prov:MALGORZATA HENDRICKSON 10/01/18 Clonidine Hcl* (Catapres*) 0.2 Mg Tablet, 0.2 MG PO TID for 30 Days, #90 TAB 1 Refill Prov:MALGORZATA HENDRICKSON 10/01/18 Hydralazine Hcl* (Hydralazine Hcl*) 100 Mg Tablet, 100 MG PO TID, #90 TAB 1 Refill Prov:MALGORZATA HENDRICKSON 10/01/18 Atorvastatin Calcium* (Atorvastatin Calcium*) 20 Mg Tablet, 20 MG PO QHS for 30 Days, #30 TAB 1 Refill Prov:MALGORZATA HENDRICKSON 10/01/18 Reported Medications Furosemide* (Lasix*) 20 Mg Tablet, 20 MG PO DAILY, TAB 11/16/18 Lorazepam* (Lorazepam*) 1 Mg Tablet, 1 MG PO DAILY PRN for ANXIETY, #30 TAB 11/16/18 Calcitriol* (Calcitriol*) 0.5 Mcg Capsule, 0.5 MCG PO DAILY, CAP 11/16/18 Isosorbide Mononitrate* (Isosorbide Mononitrate*) 30 Mg Tab.er.24h, 30 MG PO DAILY, TAB 11/16/18 Aspirin* (Aspirin* Chew) 81 Mg Tab.chew, 81 MG PO DAILY, TAB.CHEW 11/16/18 Tiotropium Brickeys (Spiriva Respimat) 4 Gm Mist.inhal, 2 PUFF INHALATION DAILY, #1 INHALER 09/23/18 Discontinued Scripts Nifedipine (Procardia Xl) 90 Mg Tab.er.24, 90 MG PO DAILY, #30 TAB 1 Refill Prov:MALGORZATA HENDRICKSON 10/01/18 Aspirin* (Aspirin* EC) 81 Mg Tablet.dr, 81 MG PO DAILY, #30 TAB 1 Refill Prov:MALGORZATA HENDRICKSON 10/01/18 Medications Current Medications Calcitriol (Rocaltrol) 0.5 mcg DAILY PO ; Start 11/17/18 at 09:00 Trazodone HCl (Desyrel) 25 mg HS PRN PO INSOMNIA; Start 11/16/18 at 21:00 Tiotropium Brickeys (Spiriva) 1 inh DAILY INH ; Start 11/16/18 at 16:00 Atorvastatin Calcium (Lipitor) 80 mg HS PO ; Start 11/16/18 at 21:00 Aspirin (Aspirin) 325 mg DAILY PO ; Start 11/17/18 at 09:00 Acetaminophen (Tylenol Tab) 650 mg Q4H PRN PO Temp greater than 99.6F; Start 11/16/18 at 13:00 Docusate Sodium (Colace) 100 mg BID PO ; Start 11/16/18 at 21:00 Nicardipine HCl 25 mg/Sodium Chloride 250 ml @ 50 mls/hr PER PROTOCOL IV Last administered on 11/16/18at 13:40; Admin Dose 50 MLS/HR; Start 11/16/18 at 13:45 Ceftriaxone Sodium 50 ml @ 100 mls/hr Q24H IVPB Last administered on 11/16/18at 15:59; Admin Dose 100 MLS/HR; Start 11/16/18 at 13:00 Insulin Glargine (Lantus) 10 units DAILY@2000 SC ; Start 11/16/18 at 20:00 Insulin Aspart (Novolog Insulin Pen) NOVOLOG *MILD* ALGORI... Q4 SC ; Start 11/16/18 at 17:00 Levetiracetam 100 ml @ 400 mls/hr Q12 IVPB ; Start 11/16/18 at 21:00 Influenza Virus Vaccine Quadrival (Fluzone) 0.5 ml ONCE ONCE IM* ; Start at 10:00; Stop 11/17/18 at 10:01 Ondansetron HCl (Zofran Inj) 4 mg Q6H PRN IV NAUSEA AND/OR VOMITING Last administered on 11/16/18at 14:49; Admin Dose 4 MG; Start 11/16/18 at 14:00 Miscellaneous Information 1 ea NOTE XX ; Start 11/16/18 at 14:30 Glucose (Glutose) 15 gm Q15M PRN PO DECREASED GLUCOSE; Start 11/16/18 at 14:30 Glucose (Glutose) 22.5 gm Q15M PRN PO DECREASED GLUCOSE; Start 11/16/18 at 14:30 Dextrose (D50w Syringe) 25 ml Q15M PRN IV DECREASED GLUCOSE; Start 11/16/18 at 14:30 Dextrose (D50w Syringe) 50 ml Q15M PRN IV DECREASED GLUCOSE; Start 11/16/18 at 14:30 Glucagon (Glucagen) 1 mg Q15M PRN IM DECREASED GLUCOSE; Start 11/16/18 at 14:30 Glucose (Glutose) 15 gm Q15M PRN BUCCAL DECREASED GLUCOSE; Start 11/16/18 at 14:30 Famotidine (Pepcid Iv) 20 mg DAILY IV Last administered on 11/16/18at 16:02; Admin Dose 20 MG; Start 11/16/18 at 15:00 Allergies: Coded Allergies: No Known Allergy (Unverified , 09/23/18) Past Surgical History reviewed Past Surgical Hx: noncontributory, other Social History reviewed Smoking Status: Never smoker HERNANDO HART NP Nov 16, 2018 16:56 PAUL PIÑA Nov 16, 2018 20:02
[2018-11-16] MEDS: TIOTROPIUM 18 MCG CAPSULE INHA DEV INH SCH (17:22)
[2018-11-16] MEDS: INSULIN ASPART [NOVOLOG] 3 ML PEN SC SCH ×2 (18:17→20:43)
--- NOTE | 2018-11-16 18:22 | CONS ---
DATE OF ADMISSION: 11/16/2018 DATE OF CONSULTATION: 11/16/2018 TYPE OF CONSULTATION: Nephrology. REASON FOR CONSULTATION: Acute kidney injury, CKD. PHYSICIAN REQUESTING CONSULT: Aylin Nathan NP HISTORY OF PRESENT ILLNESS: This is a 57-year-old male with a past medical history of CKD stage IV w ith baseline creatinine around 3.2 mg/dL, a history of hypertension, history of diabetes, history of seizure disorder, recent history of cerebritis, who presents to [facility] with lef t-sided weakness. The patient states over the last 2 days he noted to have a sudden weakness and num bness on the left side. The patient's blood pressure has been markedly elevated over the last 2 days per patient. As a result, he came into [facility] Emergency Room. Upon arrival, the patie nt had a CT scan of the brain which showed findings of focal areas of diminished density within the l ateral right frontal lobe consistent with developing infarct. The patient was admitted to the intens daryl care unit and placed on nicardipine drip. The patient states that his left-sided weakness is sti ll present but slowly improving. In terms of patient's renal history, the patient has baseline creatinine around 3.2 to 3.4 mg/dL. Th e patient denies any hemoptysis, hematemesis, hematochezia. Denies any frothy urine or any rashes. The patient states his urinary output has been adequate. PAST MEDICAL HISTORY: As stated above, history of hypertensive urgency, history of CKD stage IV, his tory of anemia, history of seizure disorder, history of cerebritis. PAST SURGICAL HISTORY: Status post trach and removal. FAMILY HISTORY: No family history of kidney disease. SOCIAL HISTORY: Does not drink, smoke or do drugs. MEDICATIONS: Have been reviewed. REVIEW OF SYSTEMS: A 14-point review of systems was conducted. Pertinent positives stated in HPI, o therwise negative. PHYSICAL EXAMINATION: VITAL SIGNS: Blood pressure is 141/76, respirations 16, pulse 72, temperature is 101. HEENT: Head is normocephalic. Pupils are equal, react to light. NECK: Supple. HEART: Regular rate. LUNGS: Show diminished breath sounds at the base. ABDOMEN: Soft, nontender to palpation without rebound or guarding. EXTREMITIES: Negative for clubbing, cyanosis. No edema. DERMATOLOGIC: No rashes. MUSCULOSKELETAL: No joint effusion. NEUROLOGIC: The patient has left-sided weakness. LABORATORY DATA: Shows white count 13.0, hemoglobin 11.0, platelet count is 209. Sodium is 142, pot assium is 5.3, BUN 52, creatinine 3.48. ASSESSMENT AND PLAN: This is a 57-year-old male who presents with: 1. Chronic kidney disease stage IV with baseline creatinine between 3.2 and 3.4 mg/dL. Etiology of chronic kidney disease is likely secondary to hypertensive nephrosclerosis. The patient's renal func tion currently appears to be at baseline. However given the patient's acute cerebrovascular disease and significant hypertension, possible tubular injury is a consideration. At this point, recommendat ion would be to continue current medical management. Continue nicardipine drip, wean off if possible . Avoid significant hemodynamic fluctuations in order to maintain adequate renal perfusion. We woul d otherwise continue supportive care, renally dose meds, avoid nephrotoxins. 2. Hypertensive urgency. Etiology is secondary to chronic kidney disease. Other possibilities and secondary workup suggest pheochromocytoma, hyperaldosteronism and Emerald were previously evaluated a nd negative. At this point, we would continue current nicardipine drip. Continue oral antihypertens daryl medications. Avoid lowering blood pressure more than 25% in the first 24 hours. 3. Anemia. Monitor hemoglobin and hematocrit levels. 4. Hyperkalemia secondary to chronic kidney disease. We will place the patient on low-potassium t and monitor potassium levels closely. 5. Mineral bone disorder. Monitor calcium and phosphorus levels. 6. Diabetes. Continue current insulin regimen. 7. Seizure disorder. Continue medical management. 8. Acute cerebrovascular accident. The patient's CT scan showed findings of right frontal lobe infa rct. The patient has noted left-sided weakness. Continue current medical management. Follow up wit h neurology. 9. Systemic inflammatory response syndrome. The patient had fever and elevated white count. Unclea r if this is reactive versus infectious. We will continue the patient on empiric antibiotics and mon itor closely. Thank you, Aylin, for this interesting consult. It will be a pleasure to follow patient with you thr oughout the hospital course. Dictated By: JASMINA MCCLAIN/WILD Conf#: [id number] DID#: [id number] CC: CHANDANA PALM MD;*[facility]*
[2018-11-16] MEDS: ACETAMINOPHEN 325 MG TAB PO PRN (18:25)
[2018-11-16] MEDS: LEVETIRACETAM 1500 MG (PMX) 100 ML IVPB SCH (20:39)
[2018-11-16] MEDS: ATORVASTATIN 80 MG TAB PO SCH (20:41)
[2018-11-16] MEDS: INSULIN GLARGINE [LANTus] (100 UNITS/ML) SYG SC SCH (20:41)
[2018-11-16] MEDS: DOCUSATE SODIUM 100 MG CAP PO SCH (20:41)
[2018-11-16] MEDS ORDERED: traZODone 50 MG TAB PO PRN (21:00)
[2018-11-16] MEDS ORDERED: METOPROLOL 100 MG TAB PO SCH (21:00)
[2018-11-16] MEDS ORDERED: LEVETIRACETAM 750 MG TAB PO SCH (21:00)
[2018-11-16] MEDS ORDERED: BISACODYL (EC) 5 MG TAB PO PRN (22:30)
[2018-11-16] MEDS ORDERED: ACETAMINOPHEN 650 MG SUPP PR PRN (22:30)
[2018-11-16] MEDS ORDERED: NACL 0.9% 3 ML SYG IV SCH (22:30)
[2018-11-17] VITALS (90 sets, daily range): BP systolic 113–176; BP diastolic 40–123; PULSE 74–111; RESP 10–33
[2018-11-17] MEDS: ACETAMINOPHEN 325 MG TAB PO PRN ×3 (00:06→18:58)
[2018-11-17] MEDS: INSULIN ASPART [NOVOLOG] 3 ML PEN SC SCH ×6 (01:00→21:40)
[2018-11-17] MEDS: niCARdipine 50 MG in SOD CHLORIDE 0.9% 480 ML IV SCH ×3 (01:15→19:57)
[2018-11-17] MEDS ORDERED: ACCU-CHEK XX SCH (02:00)
[2018-11-17] MEDS: TIOTROPIUM 18 MCG CAPSULE INHA DEV INH SCH (08:46)
[2018-11-17] MEDS: CALCITRIOL 0.25 MCG CAP PO SCH (08:49)
[2018-11-17] MEDS: DOCUSATE SODIUM 100 MG CAP PO SCH ×2 (08:49→21:31)
[2018-11-17] MEDS: CITRIC ACID/NA CITRATE 30 ML CUP PO SCH ×3 (08:49→21:35)
[2018-11-17] MEDS: FAMOTIDINE 20 MG INJ IV SCH (08:49)
--- NOTE | 2018-11-17 08:49 | PN ---
DATE: 11/17/2018 SUBJECTIVE: The patient is in serious but stable condition. The patient's blood pressure has improv ed, remains on nicardipine drip. The patient continued to have low grade fever. Upper extremity str ength is improving. No other acute events noted. OBJECTIVE: VITAL SIGNS: Blood pressure is 146/66, respirations 19, pulse 86, temperature 100.2. HEENT: Head is normocephalic. NECK: Supple. HEART: Regular rate. LUNGS: Show diminished breath sounds at the base. ABDOMEN: Soft, nontender to palpation without rebound or guarding. EXTREMITIES: Negative for clubbing, cyanosis, no edema. DERMATOLOGIC: No rashes. MUSCULOSKELETAL: No joint effusion. NEUROLOGIC: The patient has left-sided weakness, improving. MEDICATIONS: Reviewed. LABORATORY DATA: Shows sodium 144, potassium 5.1, chloride 113, bicarbonate 16, BUN 48, creatinine 3 .46. White count 9.6, hemoglobin 9.1, platelet count is 191. The patient's urinalysis was reviewed. IMAGING STUDIES: MRI of the brain shows acute right temporoparietal infarcts and chronic left lacuna r infarct. ASSESSMENT AND PLAN: 1. Chronic kidney disease stage IV with baseline creatinine between 3.2 to 3.4 mg/dL. Etiology of c hronic kidney disease is likely secondary to hypertensive nephrosclerosis. The patient's renal funct ion is around recent baseline. At this point, we will continue current treatment plan. We would mon itor hemodynamics closely to avoid significant hemodynamic shifts to ensure adequate renal perfusion. We will continue to wean off nicardipine drip. Otherwise, continue supportive care, renally dose a ll medicines and avoid nephrotoxins. 2. Hypertensive urgency. Etiology is likely secondary to chronic kidney disease. The patient had a secondary workup performed, which was negative. We will continue to adjust blood pressure medicatio ns. We would continue to adjust blood pressure medications. Anticipate resuming oral antihypertensi ve medications. 3. Anemia. Continue to monitor hemoglobin and hematocrit levels. 4. Mineral bone disorder. Monitor calcium and phosphorus levels. 5. Hyperkalemia secondary to chronic kidney disease, improved. The patient will be placed on low-po tassium diet. 6. Acute cerebrovascular accident. The patient's MRI shows evidence of right parietal infarct. The patient has left-sided weakness, improving. Continue medical management. Follow up with neurology. 7. History of seizure disorder. Continue current treatment plan. 8. History of diabetes. Continue current insulin regimen. 9. Systemic inflammatory response syndrome possibly due to acute cerebrovascular accident versus inf ectious. Continue current antibiotics, follow up with cultures. Dictated By: JASMINA DOCKERY DO NR/NTS Conf#: [id number] DID#: [id number] CC: CHANDANA PALM MD; JASMINA DOCKERY DO;*EndCC*
[2018-11-17] MEDS: LEVETIRACETAM 1500 MG (PMX) 100 ML IVPB SCH (08:56)
[2018-11-17] MEDS ORDERED: ISOSORBIDE MONONITRATE(SR)30 MG TAB PO SCH (09:00)
[2018-11-17] MEDS ORDERED: FUROSEMIDE 20 MG TAB PO SCH (09:00)
[2018-11-17] MEDS ORDERED: ASPIRIN 81 MG TAB PO SCH (09:00)
[2018-11-17] MEDS ORDERED: ASPIRIN 325 MG TAB PO SCH (09:00)
[2018-11-17] MEDS: LABETALOL 200 MG TAB PO SCH ×2 (09:05→21:31)
--- NOTE | 2018-11-17 10:18 | PN ---
Date/Time of Note Date/Time of Note DATE: 11/17/18 TIME: 10:06 Assessment/Plan VTE Prophylaxis Risk score (from Ns)>0 risk: 3 SCD applied (from Ns): Yes Pharmacological prophylaxis: NA/contraindicated Pharm contraindication: low risk/ambulating, renal impairment, other (RISK OF ICH) Lines/Catheters IV [facility]from [facility] Saline Lock Urinary Cath still in place: No Assessment/Plan Hospital Course SUBJECTIVE: Today patient appears more alert, speech clear, with improved strength on left upper and lower extremities. He did well with bedside swallow eval. OBJECTIVE: Vital signs-see below PHYSICAL EXAM: Constitutional: Well-developed, adequately built, lying in bed comfortably. Psych: nl mood/affect, no complaints Head: atraumatic, normocephalic Eyes: nl conjunctiva, nl sclera ENMT: mucosa pink and moist, nl external ears & nose Neck: non-tender, supple Respiratory: clear to auscultation, normal air movement Cardiovascular: nl pulses, regular rate and rhythm Gastrointestinal: non-tender, soft, bowel sounds active in all 4 quadrants. Musculoskeletal/extremities: nl extremities to inspection, motor strength equal bilaterally, no focal deficit. Normal pulses,no cyanosis, no edema. Neurological: +Left facial droop.Slurred speech+ (improved). LUE/LLE 4/5. RUE/RLE 5/.5. Alert oriented 3 Skin: nl turgor ASSESSMENT/PLAN: 57-year-old male with a history of uncontrolled hypertension/poorly managed as outpatient, type 2 diabetes, depressive disorders, CKD stage IV, seizure disorders, here with uncontrolled hypertension, with new onset left sided weakness, facial droop, speech difficulties started Thursday, concerning for acute CVA... 1.Acute CVA involving right temporal/parietal infarcts sx: Left hemiparesis/Facial droop/slurry speech -Given the onset of symptoms patient is not a candidate for TPA or endovascular clot retrieval therapy -No evidence of carotid/intracranial artery stenosis. -Follow-up TTE with bubble study -In light of previous stroke shown in MRI, would continue patient on DAPT ( aspirin 81 mg, Plavix 75 mg, high intensity statin) -Neurology notes reviewed -Continue rehab -NIH stroke scale assessment, stroke education 2. Hypertensive emergency -Likely culprit of #1 -Improving -continue weaning off Cardene drip with oral transition. -Nephrology managing hypertension in light of advanced CKD -Pending echocardiogram 3. SIRS with leukocytosis/fevers -Reactive versus infectious etiology. -Continue ceftriaxone for now. 4. Acute kidney injury on CKD stage IV -Baseline creatinine 2.5 to 3 mg/dL -Hyperkalemia noted=> not a candidate for ACEi/ARB -Management per nephrology=> started on Lasix and Bicitra. -Avoid nephrotoxins. 5.Seizure disorders -No witnessed/reported seizure activities -Change Keppra back to p.o. as he is now able to take oral -Follow-up neurology recommendations 6. Type 2 diabetes -A1c noted -Continue Accu-Cheks/Lantus/ISS -Diabetic education 7. Dyslipidemia -Lipid panel reviewed -High intensity statin 8. Depressive disorder -Continue trazodone 9. Anemia of chronic illness -H&H slightly dropped but stable, consider Epogen if indicated. -Continue to monitor. DVT prophylaxis: SCDs PUD prophylaxis: Pepcid CODE STATUS: Full code Diet: Carbohydrate controlled/low-cholesterol diet once patient passed swallow eval per ST Continue ICU management, continue weaning off Cardene drip, hoping patient can be downgraded to telemetry floor in next 24 hours. Start stroke rehab today. Patient was seen in collaboration with . Result Diagram: 11/17/184 11/17/18 0454 Results 24hrs Laboratory Tests Test 11/16/18 12:53 11/16/18 17:26 11/16/18 19:42 11/16/18 20:38 Lactic Acid Level 0.7 Creatine Kinase 100 93 Creatine Kinase 1.0 1.3 Index Creatinine Kinase MB 1.01 1.25 (Mass) Troponin I < 0.012 < 0.012 Thyroid Stimulating 1.410 Hormone (TSH) Bedside Glucose 142 106 Test 11/16/18 23:00 11/17/18 01:12 11/17/18 04:43 11/17/18 04:54 Urine Color STRAW Urine Clarity CLEAR Urine pH 5.0 Urine Specific 1.012 Pinnacle Urine Ketones NEGATIVE Urine Nitrite NEGATIVE Urine Bilirubin NEGATIVE Urine Urobilinogen NEGATIVE Urine Leukocyte NEGATIVE Esterase Urine Microscopic 8 H RBC Urine Microscopic 1 WBC Urine Hemoglobin 1+ H Urine Random 60.25 Creatinine Urine Random Sodium 85 Urine Glucose 1+ H Urine Total Protein 404.0 H Urine Opiates Screen Negative Urine Barbiturates Negative Urine Amphetamines Negative Screen Urine Negative Benzodiazepines Screen Urine Cocaine Screen Negative Urine Cannabinoids Negative Bedside Glucose 115 100 White Blood Count 9.6 # Red Blood Count 3.15 L Hemoglobin 9.1 L Hematocrit 27.6 L Mean Corpuscular 87.6 Volume Mean Corpuscular 28.9 L Hemoglobin Mean Corpuscular 33.0 Hemoglobin Concent Red Cell 12.2 Distribution Width Platelet Count 191 Mean Platelet Volume 10.7 H Immature 0.300 Granulocytes % Neutrophils % 75.9 Lymphocytes % 13.5 L Monocytes % 9.4 Eosinophils % 0.6 Basophils % 0.3 Nucleated Red Blood 0.0 Cells % Immature 0.030 Granulocytes # Neutrophils # 7.3 Lymphocytes # 1.3 Monocytes # 0.9 Eosinophils # 0.1 Basophils # 0.0 Nucleated Red Blood 0.0 Cells # Sodium Level 144 Potassium Level 5.1 Chloride Level 113 H Carbon Dioxide Level 16 L Anion Gap 15 H Blood Urea Nitrogen 48 H Creatinine 3.47 H Est Glomerular 18 L Filtrat Rate mL/min Glucose Level 91 # Calcium Level 8.5 Phosphorus Level 4.0 Magnesium Level 1.9 Total Bilirubin 0.0 L Direct Bilirubin 0.00 Indirect Bilirubin 0.0 Aspartate Amino 11 L Transf (AST/SGOT) Alanine 16 Aminotransferase (AL T/SGPT) Alkaline Phosphatase 79 Total Protein 6.4 # Albumin 3.2 #L Globulin 3.20 Albumin/Globulin 1.00 Ratio Exam/Review of Systems Exam Vitals Vital Signs Date Temp Pulse Resp B/P (MAP) Pulse Ox O2 O2 Flow FiO2 Time Delivery Rate 11/17/18 86 19 146/66 98 05:30 (92) 11/17/18 100.2 Room Air 05:00 Intake and Output 11/16/18 11/16/18 11/17/18 1515:00 23:00 07:00 IntakeIntake Total 1130 ml 530 ml 600 ml OutputOutput Total 800 ml 350 ml BalanceBalance 1130 ml -270 ml 250 ml Results Results 24hrs Laboratory Tests Test 11/16/18 12:53 11/16/18 17:26 11/16/18 19:42 11/16/18 20:38 Lactic Acid Level 0.7 Creatine Kinase 100 93 Creatine Kinase 1.0 1.3 Index Creatinine Kinase MB 1.01 1.25 (Mass) Troponin I < 0.012 < 0.012 Thyroid Stimulating 1.410 Hormone (TSH) Bedside Glucose 142 106 Test 11/16/18 23:00 11/17/18 01:12 11/17/18 04:43 11/17/18 04:54 Urine Color STRAW Urine Clarity CLEAR Urine pH 5.0 Urine Specific 1.012 Pinnacle Urine Ketones NEGATIVE Urine Nitrite NEGATIVE Urine Bilirubin NEGATIVE Urine Urobilinogen NEGATIVE Urine Leukocyte NEGATIVE Esterase Urine Microscopic 8 H RBC Urine Microscopic 1 WBC Urine Hemoglobin 1+ H Urine Random 60.25 Creatinine Urine Random Sodium 85 Urine Glucose 1+ H Urine Total Protein 404.0 H Urine Opiates Screen Negative Urine Barbiturates Negative Urine Amphetamines Negative Screen Urine Negative Benzodiazepines Screen Urine Cocaine Screen Negative Urine Cannabinoids Negative Bedside Glucose 115 100 White Blood Count 9.6 # Red Blood Count 3.15 L Hemoglobin 9.1 L Hematocrit 27.6 L Mean Corpuscular 87.6 Volume Mean Corpuscular 28.9 L Hemoglobin Mean Corpuscular 33.0 Hemoglobin Concent Red Cell 12.2 Distribution Width Platelet Count 191 Mean Platelet Volume 10.7 H Immature 0.300 Granulocytes % Neutrophils % 75.9 Lymphocytes % 13.5 L Monocytes % 9.4 Eosinophils % 0.6 Basophils % 0.3 Nucleated Red Blood 0.0 Cells % Immature 0.030 Granulocytes # Neutrophils # 7.3 Lymphocytes # 1.3 Monocytes # 0.9 Eosinophils # 0.1 Basophils # 0.0 Nucleated Red Blood 0.0 Cells # Sodium Level 144 Potassium Level 5.1 Chloride Level 113 H Carbon Dioxide Level 16 L Anion Gap 15 H Blood Urea Nitrogen 48 H Creatinine 3.47 H Est Glomerular 18 L Filtrat Rate mL/min Glucose Level 91 # Calcium Level 8.5 Phosphorus Level 4.0 Magnesium Level 1.9 Total Bilirubin 0.0 L Direct Bilirubin 0.00 Indirect Bilirubin 0.0 Aspartate Amino 11 L Transf (AST/SGOT) Alanine 16 Aminotransferase (AL T/SGPT) Alkaline Phosphatase 79 Total Protein 6.4 # Albumin 3.2 #L Globulin 3.20 Albumin/Globulin 1.00 Ratio Medications Medication Current Medications Calcitriol (Rocaltrol) 0.5 mcg DAILY PO Last administered on 11/17/18at 08:49; Admin Dose 0.5 MCG; Start 11/17/18 at 09:00 Trazodone HCl (Desyrel) 25 mg HS PRN PO INSOMNIA; Start 11/16/18 at 21:00 Tiotropium Sheldon (Spiriva) 1 inh DAILY INH Last administered on 11/17/18 08:46; Admin Dose 1 INH; Start 11/16/18 at 16:00 Atorvastatin Calcium (Lipitor) 80 mg HS PO Last administered on 11/16/18 20:41; Admin Dose 80 MG; Start 11/16/18 at 21:00 Aspirin (Aspirin) 325 mg DAILY PO Last administered on 11/17/18 08:49; Admin Dose 325 MG; Start 11/17/18 at 09:00 Acetaminophen (Tylenol Tab) 650 mg Q4H PRN PO Temp greater than 99.6F Last administered on 11/17/18 05:01; Admin Dose 650 MG; Start 11/16/18 at 13:00 Docusate Sodium (Colace) 100 mg BID PO Last administered on 11/17/18 08:49; Admin Dose 100 MG; Start 11/16/18 at 21:00 Ceftriaxone Sodium 50 ml @ 100 mls/hr Q24H IVPB Last administered on 11/16/18 15:59; Admin Dose 100 MLS/HR; Start 11/16/18 at 13:00 Insulin Glargine (Lantus) 10 units DAILY@2000 SC Last administered on 11/16/18 20:41; Admin Dose 10 UNITS; Start 11/16/18 at 20:00 Insulin Aspart (Novolog Insulin Pen) NOVOLOG *MILD* ALGORI... Q4 SC Last administered on 11/16/18 18:17; Admin Dose 1 UNIT; Start 11/16/18 at 17:00 Levetiracetam 100 ml @ 400 mls/hr Q12 IVPB Last administered on 11/17/18 08:56; Admin Dose 400 MLS/HR; Start 11/16/18 at 21:00 Ondansetron HCl (Zofran Inj) 4 mg Q6H PRN IV NAUSEA AND/OR VOMITING Last administered on 11/16/18 23:35; Admin Dose 4 MG; Start 11/16/18 at 14:00 Miscellaneous Information 1 ea NOTE XX ; Start 11/16/18 at 14:30 Glucose (Glutose) 15 gm Q15M PRN PO DECREASED GLUCOSE; Start 11/16/18 at 14:30 Glucose (Glutose) 22.5 gm Q15M PRN PO DECREASED GLUCOSE; Start 11/16/18 at 14:30 Dextrose (D50w Syringe) 25 ml Q15M PRN IV DECREASED GLUCOSE; Start 11/16/18 at 14:30 Dextrose (D50w Syringe) 50 ml Q15M PRN IV DECREASED GLUCOSE; Start 11/16/18 at 14:30 Glucagon (Glucagen) 1 mg Q15M PRN IM DECREASED GLUCOSE; Start 11/16/18 at 14:30 Glucose (Glutose) 15 gm Q15M PRN BUCCAL DECREASED GLUCOSE; Start 11/16/18 at 14:30 Famotidine (Pepcid Iv) 20 mg DAILY IV Last administered on 11/17/18at 08:49; Admin Dose 20 MG; Start 11/16/18 at 15:00 IV Flush (NS 3 ml) 3 ml PER PROTOCOL IV ; Start 11/16/18 at 22:30 Acetaminophen (Tylenol Supp) 650 mg Q6H PRN [place] .PAIN 1-3 OR TEMP; Start 10/29 06/16 at 22:30 Bisacodyl (Dulcolax) 5 mg DAILY PRN PO .CONSTIPATION; Start 11/16/18 at 22:30 Nicardipine HCl 50 mg/Sodium Chloride 500 ml @ 50 mls/hr TITRATE IV Last administered on 11/17/18at 01:15; Admin Dose 125 MLS/HR; Start 11/17/18 at 01:00 Citric Acid/ Sodium Citrate (Bicitra) 30 ml BID PO Last administered on 11/17/18at 08:49; Admin Dose 30 ML; Start 11/17/18 at 09:00 Labetalol HCl (Normodyne) 200 mg BID PO Last administered on 11/17/18at 09:05; Admin Dose 200 MG; Start 11/17/18 at 09:00 Hydralazine HCl (Apresoline) 50 mg Q8 PO ; Start 11/17/18 at 14:00 Bumetanide (Bumex) 1 mg BID DIURETICS PO ; Start 11/17/18 at 18:00 EARNESTINE MCCLENDON NP Nov 17, 2018 10:17
[2018-11-17] MEDS: CEFTRIAXONE 1 GM/50 ML (PMX) 50 ML IVPB SCH (13:04)
--- NOTE | 2018-11-17 14:11 | CONS ---
Assessment/Plan Assessment/Plan Hospital Course 57 yo M with Hx of frontal-lobe epilepsy and other comorbidities, who presents for evaluation of L hemiparesis and L hemisensory loss...in the context of fevers, for which neurology is consulted. MRI brain is notable for an acute R temporoparietal infarct. MRA H/N is unrevealing. P: Add echo, ESR, RPR Cont ASA/Lipitor for secondary stroke prevention Load with Depakote 1g and start maintenance 500 BID; recheck lvl 1h after and in am Decrease Keppra to 500 BID given poor renal function Ativan IV PRN seizure > 5 min or for cluster BP control and other medical management per primary PT/OT/ST as necessary Will follow clinically, to recommend neurologic studies, as necessary Consultation Date/Type/Reason Admit Date/Time Nov 16, 2018 at 08:35 Type of Consult Neurology Reason for Consultation L hemiparesis, hemisensory loss Requesting Provider: EARNESTINE MCCLENDON NP Date/Time of Note DATE: 11/17/18 TIME: 14:11 24 HR Interval Summary Free Text/Dictation Continues critical care. On cardene gtt. Pt states that his last seizure episode was this past Thursday. Exam Vital Signs Vitals Vital Signs Date Temp Pulse Resp B/P (MAP) Pulse Ox O2 O2 Flow FiO2 Time Delivery Rate 11/17/18 80 12:00 11/17/18 18 147/60 99 11:15 (89) 11/17/18 Room Air 11:00 11/17/18 99.1 08:00 Intake and Output 11/16/18 11/16/18 11/17/18 1515:00 23:00 07:00 IntakeIntake Total 1130 ml 530 ml 612.5 ml OutputOutput Total 800 ml 350 ml BalanceBalance 1130 ml -270 ml 262.5 ml Exam PE: Gen Appearance: No Apparent Distress HEENT: Normocephalic Cardiovascular: Regular rate Lungs: Clear bilaterally Abdomen: Soft Extremities: Dry NE: The patient was alert and oriented.. Language was normal. Fund of knowledge was normal. Pupils were equal and reactive to light. There was no afferent pupillary defect. Visual french were normal. Funduscopic examination was limited. Extra-ocular movements were full. Ptosis was absent. There was no nystagmus. Facial sensation was normal. Face was symmetric. Hearing was intact. Palate movements were normal. Neck strength was normal. There was normal tongue bulk and speed of movement. Tone was normal. Muscle bulk was normal. I did not see fasciculations. Arms and legs were symmetric. Vibration sensation was normal. Temperature and pinprick sensation was normal. Rapid alternating movements were normal. There was no dysmetria. There was no intention tremor. Gait was deferred due to bedrest. Arm and leg reflexes were 2+ and symmetric. Weber's sign was absent. Plantar responses were flexor. HERNANDO HART NP Nov 17, 2018 14:11 PAUL PIÑA Nov 17, 2018 17:10
[2018-11-17] MEDS ORDERED: VALPROATE INJ 1,000 MG in SOD CHLORIDE 0.9% 100 ML IVPB ONE (16:00)
[2018-11-17] MEDS: BUMETANIDE 1 MG TAB PO SCH (17:24)
[2018-11-17] MEDS: INSULIN GLARGINE [LANTus] (100 UNITS/ML) SYG SC SCH (19:59)
[2018-11-17] MEDS: LEVETIRACETAM 500 MG (PMX) 100 ML IVPB SCH (21:28)
[2018-11-17] MEDS: ATORVASTATIN 80 MG TAB PO SCH (21:31)
[2018-11-17] MEDS: VALPROATE INJ 500 MG in SOD CHLORIDE 0.9% 50 ML IVPB SCH (21:59)
[2018-11-18] VITALS (72 sets, daily range): BP systolic 77–163; BP diastolic 42–102; PULSE 69–106; RESP 10–26
[2018-11-18] MEDS: niCARdipine 50 MG in SOD CHLORIDE 0.9% 480 ML IV SCH ×2 (00:20→09:47)
[2018-11-18] MEDS: INSULIN ASPART [NOVOLOG] 3 ML PEN SC SCH ×6 (00:47→20:20)
[2018-11-18] MEDS: ACETAMINOPHEN 325 MG TAB PO PRN ×3 (03:45→19:58)
[2018-11-18] MEDS: BUMETANIDE 1 MG TAB PO SCH (07:43)
[2018-11-18] MEDS: ONDANSETRON 4 MG INJ IV PRN (07:44)
--- NOTE | 2018-11-18 08:20 | PN ---
DATE: 11/18/2018 SUBJECTIVE: The patient remains on nicardipine drip. No other acute events overnight noted. No hem optysis, hematemesis, or hematochezia. OBJECTIVE: VITAL SIGNS: Blood pressure is 129/59, respirations 23, pulse 77, temperature 98.6. HEENT: Head is normocephalic. NECK: Supple. HEART: Regular rate. LUNGS: Show diminished breath sounds at the base. ABDOMEN: Soft, nontender to palpation without rebound or guarding. EXTREMITIES: Negative for clubbing, cyanosis, no edema. DERMATOLOGIC: No rashes. MUSCULOSKELETAL: No joint effusion. NEUROLOGIC: No change in exam. MEDICATIONS: Reviewed. LABORATORY DATA: Shows a sodium of 147, potassium 4.8, chloride 119, bicarbonate 18, BUN 53, creatin ine 3.97. White count 7.3, hemoglobin 8.5, platelet count is 183. IMAGING STUDIES: Reviewed. ASSESSMENT AND PLAN: 1. Nonoliguric acute kidney injury on top of chronic kidney disease stage IV with previous baseline creatinine of 3.2 to 3.4 mg/dL. Etiology of current acute kidney injury is likely secondary to hemod ynamics, possible tubular injury due to hypertensive emergency and blood pressure fluctuations. Curr ently, the patient's urinary output has been adequate. Plan at this point is to continue to adjust b lood pressure medications to avoid significant hemodynamic fluctuations. We will deescalate diuretic therapy. Otherwise, continue supportive care, renally dose all medicines and avoid nephrotoxins. N o immediate need for renal replacement therapy at this time. 2. Hypertensive urgency. Etiology is likely secondary to chronic kidney disease. The patient had a secondary workup, which was negative. We will continue to adjust blood pressure medications. Michael nue to wean off nicardipine drip. 3. Mineral bone disorder, monitor calcium and phosphorus levels. 4. Hypernatremia. The patient has free water deficit of approximately 1 liter, encourage free water intake. 5. Hyperkalemia secondary to chronic kidney disease, improved. 6. 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 The patient's left-sided weakness is improving. Continue medical management. 7. History of seizure disorder. Continue current treatment plan. 8. Diabetes. Continue current insulin regimen. 9. Systemic inflammatory response syndrome. The patient is on empiric antibiotic therapy. We will continue to monitor. Please note I spent over 30 minutes of critical care time with this patient. Dictated By: JASMINA DOCKERY DO NR/WILD Conf#: [id number] DID#: [id number] CC: CHANDANA PALM MD; JASMINA DOCKERY DO;*EndCC*
--- NOTE | 2018-11-18 09:07 | RADRPT ---
Echocardiogram Report Patient Name: Nitish HARRIS ID: [id number] : 1960 (58y )Study Date: 11/16/2018 2:10:48 PM Gender: MAccession #: [id number] Tech: Chris Whit [facility] Location: [address] Ref.Physician: EARNESTINE MCCLENDON Height(Cm): BSA: Weight(Kg): Quality: AdequateAccount #: Procedures: Echocardiographic Report: Transthoracic echocardiogram examination. Indications: Cerebrovascular Accident. Findings: Left Ventricle: Normal left ventricular cavity size, wall thickness and systolic function. Atrial Septum: Agitated saline was injected intravenously for microbubble contrast study. No right to left shunt was identified with and with out valsalva maneuver. Conclusions: Agitated saline was injected intravenously for microbubble contrast study. No right to left shunt was identified with and with out valsalva maneuver. Normal left ventricular cavity size, wall thickness and systolic function. Electronically Signed By: Daniel Tran 2018-11-18 09:07:09 PST
[2018-11-18] MEDS: DOCUSATE SODIUM 100 MG CAP PO SCH ×2 (09:43→20:06)
[2018-11-18] MEDS: ASPIRIN 81 MG TAB PO SCH (09:43)
[2018-11-18] MEDS: CLOPIDOGREL 75 MG TAB PO SCH (09:43)
[2018-11-18] MEDS: CITRIC ACID/NA CITRATE 30 ML CUP PO SCH ×2 (09:44→20:06)
[2018-11-18] MEDS: CALCITRIOL 0.25 MCG CAP PO SCH (09:44)
[2018-11-18] MEDS: VALPROATE INJ 500 MG in SOD CHLORIDE 0.9% 50 ML IVPB SCH ×2 (09:48→21:37)
[2018-11-18] MEDS: LEVETIRACETAM 500 MG (PMX) 100 ML IVPB SCH (09:49)
[2018-11-18] MEDS: FAMOTIDINE 20 MG INJ IV SCH (09:49)
[2018-11-18] MEDS: TIOTROPIUM 18 MCG CAPSULE INHA DEV INH SCH (09:50)
[2018-11-18] MEDS ORDERED: niCARdipine 50 MG in SOD CHLORIDE 0.9% 480 ML IV SCH ×3 (12:00→16:30)
--- NOTE | 2018-11-18 12:11 | PN ---
Date/Time of Note Date/Time of Note DATE: 11/18/18 TIME: 12:07 Assessment/Plan VTE Prophylaxis Risk score (from Nsg)>0 risk: 3 SCD applied (from Ns): Yes Pharmacological prophylaxis: NA/contraindicated Pharm contraindication: low risk/ambulating Lines/Catheters IV Catheter Type (from Nrsg): Peripheral IV Urinary Cath still in place: No Assessment/Plan Hospital Course SUBJECTIVE: Cardene drip restarted this morning at 3:00 for SBP 160s.. Currently in 150s ,patient with no acute distress. Walked with physical therapist OBJECTIVE: Vital signs-see below PHYSICAL EXAM: Constitutional: Well-developed, adequately built, lying in bed comfortably. Psych: nl mood/affect, no complaints Head: atraumatic, normocephalic Eyes: nl conjunctiva, nl sclera ENMT: mucosa pink and moist, nl external ears & nose Neck: non-tender, supple Respiratory: clear to auscultation, normal air movement Cardiovascular: nl pulses, regular rate and rhythm Gastrointestinal: non-tender, soft, bowel sounds active in all 4 quadrants. Musculoskeletal/extremities: nl extremities to inspection, motor strength equal bilaterally, no focal deficit. Normal pulses,no cyanosis, no edema. Neurological: +Left facial droop.Slurred speech+ (improved). LUE/LLE 4/5. RUE/RLE 5/.5. Alert oriented 3 Skin: nl turgor ASSESSMENT/PLAN: 57-year-old male with a history of uncontrolled hyp ertension/poorly managed as outpatient, type 2 diabetes, depressive disorders, CKD stage IV, seizure disorders, here with uncontrolled hypertension, with new onset left sided weakness, facial droop, speech difficulties started Thursday, concerning for acute CVA... 1.Acute CVA involving right temporal/parietal infarcts sx: Left hemiparesis/Facial droop/slurry speech -Given the onset of symptoms patient is not a candidate for TPA or endovascular clot retrieval therapy -No evidence of carotid/intracranial artery stenosis. -Follow-up TTE with bubble study -In light of previous stroke shown in MRI, would continue patient on DAPT ( aspirin 81 mg, Plavix 75 mg, high intensity statin) -Neurology notes reviewed -Continue rehab=>Acute rehab consult placed once patient is medically stable. -NIH stroke scale assessment 2. Hypertensive emergency -Likely culprit of #1 -Improving -continue weaning off Cardene drip with oral transition. Will add minoxidil and increase hydralazine 200 mg for BP control. -Nephrology managing hypertension in light of advanced CKD=> not a candidate for KAR inhibitors -Pending echocardiogram 3. SIRS with leukocytosis/fevers -Likely reactive. No evidence of infection, as such I will stop ceftriaxone. 4. Acute kidney injury on CKD stage IV -Baseline creatinine 2.5 to 3 mg/dL -Management per nephrology=> on Bumex and Bicitra. -Avoid nephrotoxins. 5.Seizure disorders -No witnessed/reported seizure activities -Management per neurologist. On antiseizure medications. 6. Type 2 diabetes -Table glycemic trends. -Continue Accu-Cheks/Lantus/ISS -Diabetic education 7. Dyslipidemia -Continue high intensity statin 8. Depressive disorder -Continue trazodone 9. Anemia of CKD -H&H dropped. Recommend obtaining iron/ferritin/desat level to determine w hether patient would benefit from Epogen treatment DVT prophylaxis: Heparin subcu, repeat CT noted, no evidence of hemorrhage PUD prophylaxis: Pepcid CODE STATUS: Full code Diet: Carbohydrate controlled/low-cholesterol diet once patient passed swallow eval per ST Continue ICU management, continue weaning off Cardene drip for SBP less than 160 with addition of new antihypertensive agents, hoping patient can be downgraded to telemetry floor in next 24 hours. Acute rehab consult placed. Patient was seen in collaboration with . Result Diagram: 11/18/18 0426 11/18/18 0426 Results 24hrs Laboratory Tests Test 11/17/18 13:08 11/17/18 15:03 11/17/18 17:25 11/17/18 17:26 Bedside Glucose 217 113 Erythrocyte 75 H Sedimentation Rate Valproic Acid < 10 L (Depakene) Level Test 11/17/18 19:55 11/17/18 21:37 11/18/18 00:40 11/18/18 04:26 Bedside Glucose 213 170 146 White Blood Count 7.3 # Red Blood Count 3.02 L Hemoglobin 8.5 L Hematocrit 26.6 L Mean Corpuscular 88.1 Volume Mean Corpuscular 28.1 L Hemoglobin Mean Corpuscular 32.0 Hemoglobin Concent Red Cell 12.7 Distribution Width Platelet Count 183 Mean Platelet Volume 10.5 H Immature 0.300 Granulocytes % Neutrophils % 56.8 Lymphocytes % 27.7 Monocytes % 10.1 Eosinophils % 4.6 Basophils % 0.5 Nucleated Red Blood 0.0 Cells % Immature 0.020 Granulocytes # Neutrophils # 4.2 Lymphocytes # 2.0 Monocytes # 0.7 Eosinophils # 0.3 Basophils # 0.0 Nucleated Red Blood 0.0 Cells # Sodium Level 147 H Potassium Level 4.8 Chloride Level 119 H Carbon Dioxide Level 18 L Anion Gap 10 # Blood Urea Nitrogen 53 H Creatinine 3.96 H Est Glomerular 16 L Filtrat Rate mL/min Glucose Level 94 Calcium Level 8.5 Phosphorus Level 4.6 Magnesium Level 1.9 Valproic Acid 52 (Depakene) Level Test 11/18/18 05:09 11/18/18 08:06 Bedside Glucose 105 110 Exam/Review of Systems Exam Vitals Vital Signs Date Temp Pulse Resp B/P (MAP) Pulse Ox O2 O2 Flow FiO2 Time Delivery Rate 11/18/18 91 15 155/55 100 Room Air 10:00 (88) 11/18/18 98.7 08:00 Intake and Output 11/17/18 11/17/18 11/18/18 1515:00 23:00 07:00 IntakeIntake Total 1012.5 ml 1875 ml 458.25 ml OutputOutput Total 600 ml 450 ml 600 ml BalanceBalance 412.5 ml 1425 ml -141.75 ml Results Results 24hrs Laboratory Tests Test 11/17/18 13:08 11/17/18 15:03 11/17/18 17:25 11/17/18 17:26 Bedside Glucose 217 113 Erythrocyte 75 H Sedimentation Rate Valproic Acid < 10 L (Depakene) Level Test 11/17/18 19:55 11/17/18 21:37 11/18/18 00:40 11/18/18 04:26 Bedside Glucose 213 170 146 White Blood Count 7.3 # Red Blood Count 3.02 L Hemoglobin 8.5 L Hematocrit 26.6 L Mean Corpuscular 88.1 Volume Mean Corpuscular 28.1 L Hemoglobin Mean Corpuscular 32.0 Hemoglobin Concent Red Cell 12.7 Distribution Width Platelet Count 183 Mean Platelet Volume 10.5 H Immature 0.300 Granulocytes % Neutrophils % 56.8 Lymphocytes % 27.7 Monocytes % 10.1 Eosinophils % 4.6 Basophils % 0.5 Nucleated Red Blood 0.0 Cells % Immature 0.020 Granulocytes # Neutrophils # 4.2 Lymphocytes # 2.0 Monocytes # 0.7 Eosinophils # 0.3 Basophils # 0.0 Nucleated Red Blood 0.0 Cells # Sodium Level 147 H Potassium Level 4.8 Chloride Level 119 H Carbon Dioxide Level 18 L Anion Gap 10 # Blood Urea Nitrogen 53 H Creatinine 3.96 H Est Glomerular 16 L Filtrat Rate mL/min Glucose Level 94 Calcium Level 8.5 Phosphorus Level 4.6 Magnesium Level 1.9 Valproic Acid 52 (Depakene) Level Test 11/18/18 05:09 11/18/18 08:06 Bedside Glucose 105 110 Medications Medication Current Medications Calcitriol (Rocaltrol) 0.5 mcg DAILY PO Last administered on 11/18/18 09:44; Admin Dose 0.5 MCG; Start 11/17/18 at 09:00 Trazodone HCl (Desyrel) 25 mg HS PRN PO INSOMNIA; Start 11/16/18 at 21:00 Tiotropium [place] (Spiriva) 1 inh DAILY INH Last administered on 11/18/18 09:50; Admin Dose 1 INH; Start 11/16/18 at 16:00 Atorvastatin Calcium (Lipitor) 80 mg HS PO Last administered on 11/17/18 21:31; Admin Dose 80 MG; Start 11/16/18 at 21:00 Acetaminophen (Tylenol Tab) 650 mg Q4H PRN PO Temp greater than 99.6F Last administered on 11/18/18 12:00; Admin Dose 650 MG; Start 11/16/18 at 13:00 Docusate Sodium (Colace) 100 mg BID PO Last administered on 11/18/18 09:43; Admin Dose 100 MG; Start 11/16/18 at 21:00 Ceftriaxone Sodium 50 ml @ 100 mls/hr Q24H IVPB Last administered on 11/17/18 13:04; Admin Dose 100 MLS/HR; Start 11/16/18 at 13:00 Insulin Glargine (Lantus) 10 units DAILY@2000 SC Last administered on 11/17/18 19:59; Admin Dose 10 UNITS; Start 11/16/18 at 20:00 Ondansetron HCl (Zofran Inj) 4 mg Q6H PRN IV NAUSEA AND/OR VOMITING Last administered on 11/18/18 07:44; Admin Dose 4 MG; Start 11/16/18 at 14:00 Miscellaneous Information 1 ea NOTE XX ; Start 11/16/18 at 14:30 Glucose (Glutose) 15 gm Q15M PRN PO DECREASED GLUCOSE; Start 11/16/18 at 14:30 Glucose (Glutose) 22.5 gm Q15M PRN PO DECREASED GLUCOSE; Start 11/16/18 at 14:30 Dextrose (D50w Syringe) 25 ml Q15M PRN IV DECREASED GLUCOSE; Start 11/16/18 at 14:30 Dextrose (D50w Syringe) 50 ml Q15M PRN IV DECREASED GLUCOSE; Start 11/16/18 at 14:30 Glucagon (Glucagen) 1 mg Q15M PRN IM DECREASED GLUCOSE; Start 11/16/18 at 14:30 Glucose (Glutose) 15 gm Q15M PRN BUCCAL DECREASED GLUCOSE; Start 11/16/18 at 14:30 Famotidine (Pepcid Iv) 20 mg DAILY IV Last administered on 11/18/18 09:49; Admin Dose 20 MG; Start 11/16/18 at 15:00 IV Flush (NS 3 ml) 3 ml PER PROTOCOL IV ; Start 11/16/18 at 22:30 Acetaminophen (Tylenol Supp) 650 mg Q6H PRN OR .PAIN 1-3 OR TEMP; Start 11/16/18 at 22:30 Bisacodyl (Dulcolax) 5 mg DAILY PRN PO .CONSTIPATION; Start 11/16/18 at 22:30 Citric Acid/ Sodium Citrate (Bicitra) 30 ml BID PO Last administered on 11/18/18 09:44; Admin Dose 30 ML; Start 11/17/18 at 09:00 Aspirin (Aspirin) 81 mg DAILY PO Last administered on 11/18/18 09:43; Admin Dose 81 MG; Start 11/18/18 at 09:00 Clopidogrel Bisulfate (plaVIX) 75 mg DAILY PO Last administered on 11/18/18 09:43; Admin Dose 75 MG; Start 11/18/18 at 09:00 Levetiracetam 100 ml @ 400 mls/hr Q12 IVPB Last administered on 11/18/18 09:49; Admin Dose 400 MLS/HR; Start 11/17/18 at 21:00 Valproate Sodium 500 mg/Sodium Chloride 55 ml @ 55 mls/hr BID IVPB Last administered on 11/18/18at 09:48; Admin Dose 55 MLS/HR; Start 11/17/18 at 21:00 Bumetanide (Bumex) 1 mg DAILY PO ; Start 11/19/18 at 09:00 Labetalol HCl (Normodyne) 400 mg Q8 PO ; Start 11/18/18 at 14:00 Diagnostic Test (Pha) (Accu-Chek) XX ; Start 11/19/18 at 02:00 Insulin Aspart (Novolog Insulin Pen) NOVOLOG *MILD* ALGORITHM WITH MEALS BEDTIME SC ; Start 11/18/18 at 11:30 Hydralazine HCl (Apresoline) 100 mg Q8 PO ; Start 11/18/18 at 14:00; Status UNV Minoxidil (Loniten) 5 mg BID PO ; Start 11/18/18 at 12:00; Status UNV Nicardipine HCl 50 mg/Sodium Chloride 500 ml @ 50 mls/hr TITRATE IV ; Start 11/18/18 at 12:30; Status UNV EARNESTINE MCCLENDON NP Nov 18, 2018 12:11
[2018-11-18] MEDS: LABETALOL 200 MG TAB PO SCH ×2 (13:13→21:08)
[2018-11-18] MEDS: MINOXIDIL 2.5 MG TAB PO SCH ×2 (14:30→20:06)
--- NOTE | 2018-11-18 14:34 | CONS ---
Assessment/Plan Assessment/Plan Hospital Course 57 yo M with Hx of frontal-lobe epilepsy and other comorbidities, who presents for evaluation of L hemiparesis and L hemisensory loss...in the context of fevers, for which neurology is consulted. MRI brain confirmed an acute R temporoparietal infarct. MRA H/N is unrevealing. CUS is unrevealing. Echo is unrevealing. P: Await RPR Cont ASA/Lipitor for secondary stroke prevention Cont depakote maintenance 500 BID; recheck lvl in am Cont Keppra 500 BID given poor renal function Ativan IV PRN seizure > 5 min or for cluster BP control and other medical management per primary PT/OT/ST as necessary Will follow clinically Consultation Date/Type/Reason Admit Date/Time Nov 16, 2018 at 08:35 Type of Consult Neurology Reason for Consultation L hemiparesis, hemisensory loss Requesting Provider: EARNESTINE MCCLENDON NP Date/Time of Note DATE: 11/18/18 TIME: 14:34 24 HR Interval Summary Free Text/Dictation Continues critical care. Cardene gtt increased today for worsening HTN. Pt states he feels okay today and is without current c/o headache, weakness, numbness/tingling. Exam Vital Signs Vitals Vital Signs Date Temp Pulse Resp B/P (MAP) Pulse Ox O2 O2 Flow FiO2 Time Delivery Rate 11/18/18 106 15 153/73 99 12:45 (99) 11/18/18 98.7 Room Air 12:00 Intake and Output 11/17/18 11/17/18 11/18/18 1515:00 23:00 07:00 IntakeIntake Total 1012.5 ml 1875 ml 458.25 ml OutputOutput Total 600 ml 450 ml 600 ml BalanceBalance 412.5 ml 1425 ml -141.75 ml Exam PE: Gen Appearance: No Apparent Distress HEENT: Normocephalic Cardiovascular: Regular rate Lungs: Clear bilaterally Abdomen: Soft Extremities: Dry NE: The patient was alert and oriented.. Language was normal. Fund of knowledge was normal. Pupils were equal and reactive to light. There was no afferent pupillary defect. Visual french were normal. Funduscopic examination was limited. Extra-ocular movements were full. Ptosis was absent. There was no nystagmus. Facial sensation was normal. Face was symmetric. Hearing was intact. Palate movements were normal. Neck strength was normal. There was normal tongue bulk and speed of movement. Tone was normal. Muscle bulk was normal. I did not see fasciculations. Arms and legs were symmetric. Vibration sensation was normal. Temperature and pinprick sensation was normal. Rapid alternating movements were normal. There was no dysmetria. There was no intention tremor. Gait was deferred due to bedrest. Arm and leg reflexes were 2+ and symmetric. Weber's sign was absent. Plantar responses were flexor. HERNANDO HART NP Nov 18, 2018 14:34 PAUL PIÑA Nov 18, 2018 20:08
[2018-11-18] MEDS: HEPARIN 5,000 UNIT/1 ML VIAL SC SCH ×2 (15:09→20:19)
[2018-11-18] MEDS: ATORVASTATIN 80 MG TAB PO SCH (20:06)
[2018-11-18] MEDS: INSULIN GLARGINE [LANTus] (100 UNITS/ML) SYG SC SCH (20:19)
[2018-11-18] MEDS ORDERED: HEPARIN 5,000 UNIT/1 ML VIAL SC SCH (21:00)
[2018-11-18] MEDS ORDERED: LEVETIRACETAM IV 500 MG in SOD CHLORIDE 0.9% 100 ML IV SCH (21:00)
[2018-11-19] VITALS (21 sets, daily range): BP systolic 119–181; BP diastolic 58–121; PULSE 64–91; RESP 10–22
[2018-11-19] MEDS: ACCU-CHEK XX SCH (01:12)
[2018-11-19] MEDS: ACETAMINOPHEN 325 MG TAB PO PRN ×3 (04:15→20:29)
[2018-11-19] MEDS: LABETALOL 200 MG TAB PO SCH ×3 (05:10→23:09)
[2018-11-19] MEDS: INSULIN ASPART [NOVOLOG] 3 ML PEN SC SCH ×4 (07:35→21:00)
--- NOTE | 2018-11-19 08:12 | PN ---
DATE: 11/19/2018 SUBJECTIVE: The patient is stable, currently off nicardipine drip. The patient's urinary output has been adequate. No other acute events noted. OBJECTIVE: VITAL SIGNS: Blood pressure is 148/66, respirations 14, pulse 81, temperature 98.6. HEENT: Head is normocephalic. NECK: Supple. HEART: Regular rate. LUNGS: Show diminished breath sounds at the base. ABDOMEN: Soft, nontender to palpation without rebound or guarding. EXTREMITIES: Negative for clubbing, cyanosis, no edema. DERMATOLOGIC: No rashes. MUSCULOSKELETAL: No joint effusion. NEUROLOGIC: No change in exam. LABORATORY DATA: Shows sodium 147, potassium 4.8, chloride 120, BUN 51, creatinine 4.14. White coun t 6.0, hemoglobin 8.5, platelet count is 178. MEDICATIONS: The patient's medications have been reviewed. ASSESSMENT AND PLAN: 1. Nonoliguric acute kidney injury on top of chronic kidney disease stage IV with previous baseline creatinine of 3.2 to 3.4 mg/dL. Etiology of acute kidney injury is secondary to hemodynamics, possib le tubular injury. The patient appears to be in injury phase of acute kidney injury as creatinine co ntinues to decline. The patient has no overt uremic signs or symptoms. At this point, continue curr ent treatment plan, supportive care, renally dose all medicines. 2. Hypertensive urgency. Etiology is likely secondary to chronic kidney disease. The patient had a secondary workup, which was negative. The patient's blood pressure medications have been adjusted. Currently, off nicardipine drip. We will continue current insulin regimen, adjust as needed. Defer any KAR inhibitor or ARB as the patient becomes markedly hyperkalemic. 3. Mineral bone disorder. Continue to monitor calcium and phosphorus levels. Continue vitamin D an alogs. 4. Anemia. Monitor hemoglobin and hematocrit levels. We will give Epogen. 5. Hypernatremia. Encourage free water intake. 6. Hyperkalemia, improved. 7. Acute cerebrovascular accident with left-sided weakness. The patient is clinically improving. C ontinue medical management. 8. History of seizure disorder. Continue current treatment plan. 9. Diabetes. Continue current insulin regimen. 10. Systemic inflammatory response syndrome, the patient is on empiric antibiotic therapy. Continue to monitor. 11. Metabolic acidosis secondary to chronic kidney disease. The patient remains on Bicitra and will continue. Please note I spent over 30 minutes of critical care time with this patient. Dictated By: JASMINA DOCKERY DO NR/WILD Conf#: [id number] DID#: [id number] CC: JASMINA DCOKERY DO; CHANDANA PALM MD;*EndCC*
[2018-11-19] MEDS ORDERED: NIFEdipine (XL) 30 MG TAB PO SCH (08:30)
--- NOTE | 2018-11-19 08:39 | PN ---
Date/Time of Note Date/Time of Note DATE: 11/19/18 TIME: 08:34 Assessment/Plan VTE Prophylaxis Risk score (from Ns)>0 risk: 3 SCD applied (from Ns): Yes Pharmacological prophylaxis: heparin Lines/Catheters IV Catheter Type (from [facility]): [place] Urinary Cath still in place: No Assessment/Plan Hospital Course SUBJECTIVE: off Cardene drip..doing well.. OBJECTIVE: Vital signs-see below PHYSICAL EXAM: Constitutional: Well-developed, adequately built, lying in bed comfortably. Psych: nl mood/affect, no complaints Head: atraumatic, normocephalic Eyes: nl conjunctiva, nl sclera ENMT: mucosa pink and moist, nl external ears & nose Neck: non-tender, supple Respiratory: clear to auscultation, normal air movement Cardiovascular: nl pulses, regular rate and rhythm Gastrointestinal: non-tender, soft, bowel sounds active in all 4 quadrants. Musculoskeletal/extremities: nl extremities to inspection, motor strength equal bilaterally, no focal deficit. Normal pulses,no cyanosis, no edema. Neurological: +Left facial droop.Slurred speech+ (improved). LUE/LLE 4/5. RUE/RLE 5/.5. Alert oriented 3 Skin: nl turgor ASSESSMENT/PLAN: 57-year-old male with a history of uncontrolled hypertension/poorly managed as outpatient, type 2 diabetes, depressive disorders, CKD stage IV, seizure disorders, here with uncontrolled hypertension, with new onset left sided weakness, facial droop, speech difficulties started Thursday, concerning for acute CVA... 1.Acute CVA involving right temporal/parietal infarcts sx: Left hemiparesis/Facial droop/slurry speech -Given the onset of symptoms patient is not a candidate for TPA or endovascular clot retrieval therapy -No evidence of carotid/intracranial artery stenosis. - TTE with bubble study no evidence of shunting.. -In light of previous stroke shown in MRI,continue DAPT, high intensity statin -Neurology notes reviewed -Continue rehab=>Acute rehab consult placed once patient is medically stable. -NIH stroke scale assessment 2. Hypertensive emergency -Likely culprit of #1 -stable, off Cardene drip.. -start PO Procardia, cont.hydralazine/labetelol, consider minoxidil if indicated per nephrology 3. SIRS with leukocytosis/fevers likely reactive w/#1 -resolved 4. Acute kidney injury on CKD stage IV -Baseline creatinine 2.5 to 3 mg/dL -Renal fxn worsened.. ??Bumex=->Management per nephrology -on Bicitra -Avoid nephrotoxins. 5.Seizure disorders -No witnessed/reported seizure activities -Management per neurologist=>on IV keppra/valproic acid=>change to po today. -Obtain a valproic acid level 6. Type 2 diabetes -Table glycemic trends. -Continue Accu-Cheks/Lantus/ISS -Diabetic education 7. Dyslipidemia -Continue high intensity statin 8. Depressive disorder -Continue trazodone 9. Anemia of CKD -H&H dropped. Recommend obtaining iron/ferritin/desat level to determine whether patient would benefit from Epogen treatment DVT prophylaxis: Heparin subcu, repeat CT noted, no evidence of hemorrhage PUD prophylaxis: Pepcid CODE STATUS: Full code Diet: Carbohydrate controlled/low-cholesterol diet once patient passed swallow eval per ST Transfer to [facility]. ARU eval. [email or web address] Patient was seen in collaboration with . Result Diagram: 11/19/1844011/[id number]/18440 Results 24hrs Laboratory Tests Test 11/18/18 12:37 11/18/18 17:43 11/18/18 20:10 11/19/18 04:41 Bedside Glucose 132 105 102 White Blood Count 6.0 Red Blood Count 3.00 L Hemoglobin 8.5 L Hematocrit 26.7 L Mean Corpuscular 89.0 Volume Mean Corpuscular 28.3 L Hemoglobin Mean Corpuscular 31.8 L Hemoglobin Concent Red Cell 12.6 Distribution Width Platelet Count 178 Mean Platelet Volume 10.4 Immature 0.300 Granulocytes % Neutrophils % 60.0 Lymphocytes % 23.5 Monocytes % 9.2 Eosinophils % 6.7 Basophils % 0.3 Nucleated Red Blood 0.0 Cells % Immature 0.020 Granulocytes # Neutrophils # 3.6 Lymphocytes # 1.4 Monocytes # 0.6 Eosinophils # 0.4 Basophils # 0.0 Nucleated Red Blood 0.0 Cells # Sodium Level 147 H Potassium Level 4.8 Chloride Level 120 H Carbon Dioxide Level 18 L Anion Gap 9 Blood Urea Nitrogen 51 H Creatinine 4.14 H Est Glomerular 15 L Filtrat Rate mL/min Glucose Level 96 Calcium Level 8.7 Phosphorus Level 4.8 Magnesium Level 1.8 Valproic Acid 41 L (Depakene) Level Test 11/19/18 08:09 Bedside Glucose 96 Exam/Review of Systems Exam Vitals Vital Signs Date Temp Pulse Resp B/P (MAP) Pulse Ox O2 O2 Flow FiO2 Time Delivery Rate 11/19/18 81 14 148/66 99 Room Air 07:00 (93) 11/19/18 98.7 04:00 Intake and Output 11/18/18 11/18/18 11/19/18 1515:00 23:00 07:00 IntakeIntake Total 1007.5 ml 1120 ml 200 ml OutputOutput Total 400 ml 500 ml 900 ml BalanceBalance 607.5 ml 620 ml -700 ml Results Results 24hrs Laboratory Tests Test 11/18/18 12:37 11/18/18 17:43 11/18/18 20:10 11/19/18 04:41 Bedside Glucose 132 105 102 White Blood Count 6.0 Red Blood Count 3.00 L Hemoglobin 8.5 L Hematocrit 26.7 L Mean Corpuscular 89.0 Volume Mean Corpuscular 28.3 L Hemoglobin Mean Corpuscular 31.8 L Hemoglobin Concent Red Cell 12.6 Distribution Width Platelet Count 178 Mean Platelet Volume 10.4 Immature 0.300 Granulocytes % Neutrophils % 60.0 Lymphocytes % 23.5 Monocytes % 9.2 Eosinophils % 6.7 Basophils % 0.3 Nucleated Red Blood 0.0 Cells % Immature 0.020 Granulocytes # Neutrophils # 3.6 Lymphocytes # 1.4 Monocytes # 0.6 Eosinophils # 0.4 Basophils # 0.0 Nucleated Red Blood 0.0 Cells # Sodium Level 147 H Potassium Level 4.8 Chloride Level 120 H Carbon Dioxide Level 18 L Anion Gap 9 Blood Urea Nitrogen 51 H Creatinine 4.14 H Est Glomerular 15 L Filtrat Rate mL/min Glucose Level 96 Calcium Level 8.7 Phosphorus Level 4.8 Magnesium Level 1.8 Valproic Acid 41 L (Depakene) Level Test 11/19/18 08:09 Bedside Glucose 96 Medications Medication Current Medications Calcitriol (Rocaltrol) 0.5 mcg DAILY PO Last administered on 11/18/18at 09:44; Admin Dose 0.5 MCG; Start 11/17/18 at 09:00 Trazodone HCl (Desyrel) 25 mg HS PRN PO INSOMNIA; Start 11/16/18 at 21:00 Tiotropium [place] (Spiriva) 1 inh DAILY INH Last administered on 11/18/18at 09:50; Admin Dose 1 INH; Start 11/16/18 at 16:00 Atorvastatin Calcium (Lipitor) 80 mg HS PO Last administered on 11/18/18 20:06; Admin Dose 80 MG; Start 11/16/18 at 21:00 Acetaminophen (Tylenol Tab) 650 mg Q4H PRN PO Temp greater than 99.6F Last administered on 11/19/18at 04:15; Admin Dose 650 MG; Start 11/16/18 at 13:00 Docusate Sodium (Colace) 100 mg BID PO Last administered on 11/18/18 20:06; Admin Dose 100 MG; Start 11/16/18 at 21:00 Insulin Glargine (Lantus) 10 units DAILY@2000 SC Last administered on 11/18/18 20:19; Admin Dose 10 UNITS; Start 11/16/18 at 20:00 Ondansetron HCl (Zofran Inj) 4 mg Q6H PRN IV NAUSEA AND/OR VOMITING Last administered on 11/18/18at 07:44; Admin Dose 4 MG; Start 11/16/18 at 14:00 Miscellaneous Information 1 ea NOTE XX ; Start 11/16/18 at 14:30 Glucose (Glutose) 15 gm Q15M PRN PO DECREASED GLUCOSE; Start 11/16/18 at 14:30 Glucose (Glutose) 22.5 gm Q15M PRN PO DECREASED GLUCOSE; Start 11/16/18 at 14:30 Dextrose (D50w Syringe) 25 ml Q15M PRN IV DECREASED GLUCOSE; Start 11/16/18 at 14:30 Dextrose (D50w Syringe) 50 ml Q15M PRN IV DECREASED GLUCOSE; Start 11/16/18 at 14:30 Glucagon (Glucagen) 1 mg Q15M PRN IM DECREASED GLUCOSE; Start 11/16/18 at 14:30 Glucose (Glutose) 15 gm Q15M PRN BUCCAL DECREASED GLUCOSE; Start 11/16/18 at 14:30 IV Flush (NS 3 ml) 3 ml PER PROTOCOL IV ; Start 11/16/18 at 22:30 Acetaminophen (Tylenol Supp) 650 mg Q6H PRN NM .PAIN 1-3 OR TEMP; Start 11/16/18 at 22:30 Bisacodyl (Dulcolax) 5 mg DAILY PRN PO .CONSTIPATION; Start 11/16/18 at 22:30 Citric Acid/ Sodium Citrate (Bicitra) 30 ml BID PO Last administered on 11/18/18at 20:06; Admin Dose 30 ML; Start 11/17/18 at 09:00 Aspirin (Aspirin) 81 mg DAILY PO Last administered on 11/18/18 09:43; Admin Dose 81 MG; Start 11/18/18 at 09:00 Clopidogrel Bisulfate (plaVIX) 75 mg DAILY PO Last administered on 11/18/18 09:43; Admin Dose 75 MG; Start 11/18/18 at 09:00 Valproate Sodium 500 mg/Sodium Chloride 55 ml @ 55 mls/hr BID IVPB Last admin istered on 11/18/18at 21:37; Admin Dose 55 MLS/HR; Start 11/17/18 at 21:00 Bumetanide (Bumex) 1 mg DAILY PO ; Start 11/19/18 at 09:00 Labetalol HCl (Normodyne) 400 mg Q8 PO Last administered on 11/19/18at 05:10; Admin Dose 400 MG; Start 11/18/18 at 14:00 Diagnostic Test (Pha) (Accu-Chek) 1 ea 02 XX ; Start 11/19/18 at 02:00 Insulin Aspart (Novolog Insulin Pen) NOVOLOG *MILD* ALGORITHM WITH MEALS B EDTIME SC ; Start 11/18/18 at 11:30 Hydralazine HCl (Apresoline) 100 mg Q8 PO Last administered on 11/19/18at 05:11; Admin Dose 100 MG; Start 11/18/18 at 14:00 Minoxidil (Loniten) 5 mg BID PO Last administered on 11/18/18at 20:06; Admin Dose 5 MG; Start 11/18/18 at 12:00 Heparin Sodium (Porcine) (Heparin (5000 Units/1ml)) 5,000 unit BID SC Last administered on 11/18/18at 20:19; Admin Dose 5,000 UNIT; Start 11/18/18 at 13:00 Famotidine (Pepcid) 20 mg DAILY PO ; Start 11/19/18 at 09:00 Levetiracetam 500 mg/Sodium Chloride 105 ml @ 400 mls/hr Q12 IV Last administered on 11/18/18at 21:16; Admin Dose 400 MLS/HR; Start 11/18/18 at 21:00 Nicardipine HCl 50 mg/Sodium Chloride 500 ml @ 50 mls/hr TITRATE IV ; Start 11/18/18 at 16:30 Epoetin Saurabh (Epogen (Esrd)) 10,000 units ONCE ONCE SC ; Start 11/19/18 at 09:00; Stop 11/19/18 at 09:01 EARNESTINE MCCLENDON NP Nov 19, 2018 08:39
[2018-11-19] MEDS ORDERED: EPOETIN 10000 UNITS/1 ML INJ (ESRD) SC ONE (09:00)
[2018-11-19] MEDS: CLOPIDOGREL 75 MG TAB PO SCH (09:11)
[2018-11-19] MEDS: NIFEdipine (XL) 60 MG TAB PO SCH ×2 (09:12→20:23)
[2018-11-19] MEDS: BUMETANIDE 1 MG TAB PO SCH (09:12)
[2018-11-19] MEDS: CALCITRIOL 0.25 MCG CAP PO SCH (09:12)
[2018-11-19] MEDS: FAMOTIDINE 20 MG TAB PO SCH (09:12)
[2018-11-19] MEDS: DOCUSATE SODIUM 100 MG CAP PO SCH ×2 (09:12→20:22)
[2018-11-19] MEDS: LEVETIRACETAM 500 MG TAB PO SCH ×2 (09:12→20:21)
[2018-11-19] MEDS: ASPIRIN 81 MG TAB PO SCH (09:12)
[2018-11-19] MEDS: TIOTROPIUM 18 MCG CAPSULE INHA DEV INH SCH (09:14)
[2018-11-19] MEDS: CITRIC ACID/NA CITRATE 30 ML CUP PO SCH ×2 (09:16→20:21)
[2018-11-19] MEDS: HEPARIN 5,000 UNIT/1 ML VIAL SC SCH ×2 (09:25→21:28)
[2018-11-19] MEDS ORDERED: VALPROIC ACID 250 MG CAP PO SCH (10:00)
[2018-11-19] MEDS ORDERED: VALPROATE INJ 500 MG in SOD CHLORIDE 0.9% 50 ML IVPB ONE (13:30)
--- NOTE | 2018-11-19 13:39 | CONS ---
Assessment/Plan Assessment/Plan Hospital Course 57 yo M with Hx of frontal-lobe epilepsy and other comorbidities, who presents for evaluation of L hemiparesis and L hemisensory loss...in the context of fevers, for which neurology is consulted. MRI brain is notable for an acute R temporoparietal infarct. MRA H/N is unrevealing. Echo is unrevealing. ESR ++ RPR neg P: Cont ASA/Lipitor for secondary stroke prevention Bolus 500mg iv x1, then Increase depakote to 500 TID (goal level 50-100) Cont Keppra 500 BID given poor renal function Ativan IV PRN seizure > 5 min or for cluster BP control and other medical management per primary PT/OT/ST as necessary Will follow clinically Consultation Date/Type/Reason Admit Date/Time Nov 16, 2018 at 08:35 Type of Consult Neurology Reason for Consultation L hemiparesis, hemisensory loss Requesting Provider: EARNESTINE MCCLENDON NP Date/Time of Note DATE: 11/19/18 TIME: 13:39 24 HR Interval Summary Free Text/Dictation Continues acute care Exam Vital Signs Vitals Vital Signs Date Temp Pulse Resp B/P (MAP) Pulse Ox O2 O2 Flow FiO2 Time Delivery Rate 11/19/18 73 143/64 13:16 (90) 11/19/18 97.9 22 98 Room Air 11:51 Intake and Output 11/18/18 11/18/18 11/19/18 1515:00 23:00 07:00 IntakeIntake Total 1007.5 ml 1120 ml 200 ml OutputOutput Total 400 ml 500 ml 900 ml BalanceBalance 607.5 ml 620 ml -700 ml HERNANDO HART [employer] Nov 19, 2018 13:39 PAUL PIÑA Nov 19, 2018 16:02
[2018-11-19] MEDS: VALPROIC ACID 250 MG CAP PO SCH (20:22)
[2018-11-19] MEDS: ATORVASTATIN 80 MG TAB PO SCH (20:22)
[2018-11-19] MEDS: INSULIN GLARGINE [LANTus] (100 UNITS/ML) SYG SC SCH (21:28)
[2018-11-20] VITALS (11 sets, daily range): BP systolic 136–162; BP diastolic 60–76; PULSE 62–80; RESP 18–20
[2018-11-20] MEDS: ACCU-CHEK XX SCH (02:00)
[2018-11-20] MEDS: LABETALOL 200 MG TAB PO SCH ×3 (06:14→22:27)
[2018-11-20] MEDS: INSULIN ASPART [NOVOLOG] 3 ML PEN SC SCH ×4 (07:44→21:00)
[2018-11-20] MEDS: TIOTROPIUM 18 MCG CAPSULE INHA DEV INH SCH (08:57)
[2018-11-20] MEDS: CLOPIDOGREL 75 MG TAB PO SCH (08:58)
[2018-11-20] MEDS: CALCITRIOL 0.25 MCG CAP PO SCH (08:59)
[2018-11-20] MEDS: CITRIC ACID/NA CITRATE 30 ML CUP PO SCH ×2 (08:59→20:57)
[2018-11-20] MEDS: VALPROIC ACID 250 MG CAP PO SCH ×3 (08:59→20:57)
[2018-11-20] MEDS: FAMOTIDINE 20 MG TAB PO SCH (08:59)
[2018-11-20] MEDS: LEVETIRACETAM 500 MG TAB PO SCH ×2 (09:00→20:58)
[2018-11-20] MEDS: NIFEdipine (XL) 60 MG TAB PO SCH ×2 (09:00→20:58)
[2018-11-20] MEDS: DOCUSATE SODIUM 100 MG CAP PO SCH ×2 (09:00→20:58)
[2018-11-20] MEDS: BUMETANIDE 1 MG TAB PO SCH (09:00)
[2018-11-20] MEDS: ASPIRIN 81 MG TAB PO SCH (09:00)
[2018-11-20] MEDS: HEPARIN 5,000 UNIT/1 ML VIAL SC SCH ×2 (09:04→21:45)
--- NOTE | 2018-11-20 10:04 | CONS ---
Assessment/Plan Assessment/Plan Hospital Course 57 yo M with Hx of frontal-lobe epilepsy and other comorbidities, who presents for evaluation of L hemiparesis and L hemisensory loss...in the context of fevers, for which neurology is consulted. MRI brain confirmed an acute R temporoparietal infarct. MRA H/N is unrevealing. CUS is unrevealing. Echo is unrevealing. RPR neg P: Cont ASA/Lipitor for secondary stroke prevention Cont depakote maintenance 500mg TID Cont Keppra 500 BID given poor renal function Ativan IV PRN seizure > 5 min or for cluster BP control and other medical management per primary PT/OT/ST as necessary Will follow clinically Consultation Date/Type/Reason Admit Date/Time Nov 16, 2018 at 08:35 Type of Consult Neurology Reason for Consultation L hemiparesis, hemisensory loss Requesting Provider: EARNESTINE MCCLENDON NP Date/Time of Note DATE: 11/20/18 TIME: 10:04 24 HR Interval Summary Free Text/Dictation Continues acute care Exam Vital Signs Vitals Vital Signs Date Temp Pulse Resp B/P (MAP) Pulse Ox O2 O2 Flow FiO2 Time Delivery Rate 11/20/18 80 08:01 11/20/18 98.4 19 138/65 97 07:40 (89) 11/19/18 Room Air 16:08 11/19/18 2.0 15:56 Intake and Output 11/19/18 11/19/18 11/20/18 1515:00 23:00 07:00 IntakeIntake Total 655 ml 80 ml OutputOutput Total 0 ml BalanceBalance 655 ml 80 ml Exam PE: Gen Appearance: No Apparent Distress HEENT: Normocephalic Cardiovascular: Regular rate Lungs: Clear bilaterally Abdomen: Soft Extremities: Dry NE: The patient was alert and oriented.. Language was normal. Fund of knowledge was normal. Pupils were equal and reactive to light. There was no afferent pupillary defect. Visual french were normal. Funduscopic examination was limited. Extra-ocular movements were full. Ptosis was absent. There was no nystagmus. Facial sensation was normal. Face was symmetric. Hearing was intact. Palate movements were normal. Neck strength was normal. There was normal tongue bulk and speed of move ment. Tone was normal. Muscle bulk was normal. I did not see fasciculations. Arms and legs were symmetric. Vibration sensation was normal. Temperature and pinprick sensation was normal. Rapid alternating movements were normal. There was no dysmetria. There was no intention tremor. Gait was deferred due to bedrest. Arm and leg reflexes were 2+ and symmetric. Weber's sign was absent. Plantar responses were flexor. HERNANDO HART NP Nov 20, 2018 10:04 PAUL PIÑA Nov 20, 2018 12:01
--- NOTE | 2018-11-20 10:04 | PN ---
Date/Time of Note Date/Time of Note DATE: 11/20/18 TIME: 09:58 Assessment/Plan VTE Prophylaxis Risk score (from Nsg)>0 risk: 1 SCD applied (from Nsg): Yes Pharmacological prophylaxis: heparin Lines/Catheters IV Catheter Type (from Nrs): Peripheral IV Urinary Cath still in place: No Assessment/Plan Hospital Course SUBJECTIVE: No acute overnight episodes. Blood pressure stable OBJECTIVE: Vital signs-see below PHYSICAL EXAM: Constitutional: Well-developed, adequately built, lying in bed comfortably. Psych: nl mood/affect, no complaints Head: atraumatic, normocephalic Eyes: nl conjunctiva, nl sclera ENMT: mucosa pink and moist, nl external ears & nose Neck: non-tender, supple Respiratory: clear to auscultation, normal air movement Cardiovascular: nl pulses, regular rate and rhythm Gastrointestinal: non-tender, soft, bowel sounds active in all 4 quadrants. Musculoskeletal/extremities: nl extremities to inspection, motor strength equal bilaterally, no focal deficit. Normal pulses,no cyanosis, no edema. Neurological: +Left facial droop.Slurred speech+ (improved). LUE/LLE 4/5. RUE/RLE 5/.5. Alert oriented 3 Skin: nl turgor ASSESSMENT/PLAN: 57-year-old male with a history of uncontrolled hypertension/poorly managed as outpatient, type 2 diabetes, depressive d isorders, CKD stage IV, seizure disorders, here with uncontrolled hypertension, with new onset left sided weakness, facial droop, speech difficulties started Thursday, concerning for acute CVA... 1.Acute CVA involving right temporal/parietal infarcts sx: Left hemiparesis/Facial droop/slurry speech -Given the onset of symptoms patient is not a candidate for TPA or endovascular clot retrieval therapy -No evidence of carotid/intracranial artery stenosis. TTE with bubble study no evidence of shunting.. -In light of previous stroke shown in MRI,continue DAPT(Plavix and aspirin together for 3 months and thereafter aspirin only.), high intensity statin -Neurology notes reviewed -Continue rehab=>Acute rehab consult placed once patient is medically stable. -NIH stroke scale assessment 2. Hypertensive emergency -Likely culprit of #1 -stable -Blood pressure controlled on Procardia/hydralazine/labetalol -PRN clonidine 3. Acute kidney injury on CKD stage IV -Baseline creatinine 2.5 to 3 mg/dL -Renal fxn worsened further, likely culprit Bumex=> hold Bumex=> we will give gentle hydration, 1/2 Ns (hyperchloremia noted) -on Bicitra -Avoid nephrotoxins. -Monitor renal function. 4.Seizure disorders -No witnessed/reported seizure activities -Management per neurologist=> keppra/valproic acid 5. Type 2 diabetes -stable glycemic trends. -Continue Accu-Cheks/Lantus/ISS -Diabetic education 6. Dyslipidemia -Continue high intensity statin 7. Depressive disorder -Continue trazodone 8. Anemia of CKD -H&H dropped. Received 1 dose of Epogen yesterday. -Monitor H&H DVT prophylaxis: Heparin subcu, repeat CT noted, no evidence of hemorrhage PUD prophylaxis: Pepcid CODE STATUS: Full code Diet: Carbohydrate controlled/low-cholesterol diet once patient passed swallow eval per ST Disposition: Patient not a candidate for further inpatient rehab as he is deemed high. So plan is to discharge home. However, patient with rising creatinine requiring further inpatient monitoring. Will hold Bumex and follow-up nephrology recommendations. Patient was seen in collaboration with Result Diagram: 11/20/18 0525 11/20/18 0525 Results 24hrs Laboratory Tests Test 11/19/18 11:56 11/19/18 14:47 11/19/18 17:31 11/19/18 20:20 Bedside Glucose 141 109 134 Valproic Acid 43 L (Depakene) Level Test 11/20/18 05:25 11/20/18 07:41 White Blood Count 4.8 Red Blood Count 2.73 L Hemoglobin 7.7 L Hematocrit 24.7 L Mean Corpuscular 90.5 Volume Mean Corpuscular 28.2 L Hemoglobin Mean Corpuscular 31.2 L Hemoglobin Concent Red Cell 12.4 Distribution Width Platelet Count 187 Mean Platelet Volume 10.5 H Immature 0.600 H Granulocytes % Neutrophils % 51.3 Lymphocytes % 28.7 Monocytes % 10.3 Eosinophils % 8.5 H Basophils % 0.6 Nucleated Red Blood 0.0 Cells % Immature 0.030 Granulocytes # Neutrophils # 2.5 Lymphocytes # 1.4 Monocytes # 0.5 Eosinophils # 0.4 Basophils # 0.0 Nucleated Red Blood 0.0 Cells # Sodium Level 144 Potassium Level 4.7 Chloride Level 118 H Carbon Dioxide Level 19 L Anion Gap 7 Blood Urea Nitrogen 52 H Creatinine 4.22 H Est Glomerular 15 L Filtrat Rate mL/min Glucose Level 82 Calcium Level 8.2 L Phosphorus Level 4.7 Magnesium Level 1.8 Valproic Acid 32 L (Depakene) Level Bedside Glucose 105 Exam/Review of Systems Exam Vitals Vital Signs Date Temp Pulse Resp B/P (MAP) Pulse Ox O2 O2 Flow FiO2 Time Delivery Rate 11/20/18 80 08:01 11/20/18 98.4 19 138/65 97 07:40 (89) 11/19/18 Room Air 16:08 11/19/18 2.0 15:56 Intake and Output 11/19/18 11/19/18 11/20/18 1515:00 23:00 07:00 IntakeIntake Total 655 ml 80 ml OutputOutput Total 0 ml BalanceBalance 655 ml 80 ml Results Results 24hrs Laboratory Tests Test 11/19/18 11:56 11/19/18 14:47 11/19/18 17:31 11/19/18 20:20 Bedside Glucose 141 109 134 Valproic Acid 43 L (Depakene) Level Test 11/20/18 05:25 11/20/18 07:41 White Blood Count 4.8 Red Blood Count 2.73 L Hemoglobin 7.7 L Hematocrit 24.7 L Mean Corpuscular 90.5 Volume Mean Corpuscular 28.2 L Hemoglobin Mean Corpuscular 31.2 L Hemoglobin Concent Red Cell 12.4 Distribution Width Platelet Count 187 Mean Platelet Volume 10.5 H Immature 0.600 H Granulocytes % Neutrophils % 51.3 Lymphocytes % 28.7 Monocytes % 10.3 Eosinophils % 8.5 H Basophils % 0.6 Nucleated Red Blood 0.0 Cells % Immature 0.030 Granulocytes # Neutrophils # 2.5 Lymphocytes # 1.4 Monocytes # 0.5 Eosinophils # 0.4 Basophils # 0.0 Nucleated Red Blood 0.0 Cells # Sodium Level 144 Potassium Level 4.7 Chloride Level 118 H Carbon Dioxide Level 19 L Anion Gap 7 Blood Urea Nitrogen 52 H Creatinine 4.22 H Est Glomerular 15 L Filtrat Rate mL/min Glucose Level 82 Calcium Level 8.2 L Phosphorus Level 4.7 Magnesium Level 1.8 Valproic Acid 32 L (Depakene) Level Bedside Glucose 105 Medications Medication Current Medications Calcitriol (Rocaltrol) 0.5 mcg DAILY PO Last administered on 11/20/18 08:59; Admin Dose 0.5 MCG; Start 11/17/18 at 09:00 Trazodone HCl (Desyrel) 25 mg HS PRN PO INSOMNIA; Start 11/16/18 at 21:00 Tiotropium [place] (Spiriva) 1 inh DAILY INH Last administered on 11/20/18 08:57; Admin Dose 1 INH; Start 11/16/18 at 16:00 Atorvastatin Calcium (Lipitor) 80 mg HS PO Last administered on 11/19/18 20:22; Admin Dose 80 MG; Start 11/16/18 at 21:00 Acetaminophen (Tylenol Tab) 650 mg Q4H PRN PO Temp greater than 99.6F Last administered on 11/19/18 20:29; Admin Dose 650 MG; Start 11/16/18 at 13:00 Docusate Sodium (Colace) 100 mg BID PO Last administered on 11/20/18 09:00; Admin Dose 100 MG; Start 11/16/18 at 21:00 Insulin Glargine (Lantus) 10 units DAILY@2000 SC Last administered on 11/19/18 21:28; Admin Dose 10 UNITS; Start 11/16/18 at 20:00 Ondansetron HCl (Zofran Inj) 4 mg Q6H PRN IV NAUSEA AND/OR VOMITING Last admin istered on 11/18/18 07:44; Admin Dose 4 MG; Start 11/16/18 at 14:00 Miscellaneous Information 1 ea NOTE XX ; Start 11/16/18 at 14:30 Glucose (Glutose) 15 gm Q15M PRN PO DECREASED GLUCOSE; Start 11/16/18 at 14:30 Glucose (Glutose) 22.5 gm Q15M PRN PO DECREASED GLUCOSE; Start 11/16/18 at 14:30 Dextrose (D50w Syringe) 25 ml Q15M PRN IV DECREASED GLUCOSE; Start 11/16/18 at 14:30 Dextrose (D50w Syringe) 50 ml Q15M PRN IV DECREASED GLUCOSE; Start 11/16/18 at 14:30 Glucagon (Glucagen) 1 mg Q15M PRN IM DECREASED GLUCOSE; Start 11/16/18 at 14:30 Glucose (Glutose) 15 gm Q15M PRN BUCCAL DECREASED GLUCOSE; Start 11/16/18 at 14:30 IV Flush (NS 3 ml) 3 ml PER PROTOCOL IV ; Start 11/16/18 at 22:30 Acetaminophen (Tylenol Supp) 650 mg Q6H PRN SC .PAIN 1-3 OR TEMP; Start 11/16/18 at 22:30 Bisacodyl (Dulcolax) 5 mg DAILY PRN PO .CONSTIPATION; Start 11/16/18 at 22:30 Citric Acid/ Sodium Citrate (Bicitra) 30 ml BID PO Last administered on 11/20/18 08:59; Admin Dose 30 ML; Start 11/17/18 at 09:00 Aspirin (Aspirin) 81 mg DAILY PO Last administered on 11/20/18 09:00; Admin Dose 81 MG; Start 11/18/18 at 09:00 Clopidogrel Bisulfate (plaVIX) 75 mg DAILY PO Last administered on 11/20/18 08:58; Admin Dose 75 MG; Start 11/18/18 at 09:00 Bumetanide (Bumex) 1 mg DAILY PO Last administered on 11/20/18 09:00; Admin Dose 1 MG; Start 11/19/18 at 09:00 Labetalol HCl (Normodyne) 400 mg Q8 PO Last administered on 11/20/18 06:14; Admin Dose 400 MG; Start 11/18/18 at 14:00 Diagnostic Test (Pha) (Accu-Chek) 1 ea 02 XX ; Start 11/19/18 at 02:00 Insulin Aspart (Novolog Insulin Pen) NOVOLOG *MILD* ALGORITHM WITH MEALS BEDTIME SC Last administered on 11/19/18 12:03; Admin Dose 1 UNIT; Start 10/30 10/16 at 11:30 Hydralazine HCl (Apresoline) 100 mg Q8 PO Last administered on 11/20/18 06:13; Admin Dose 100 MG; Start 11/18/18 at 14:00 Heparin Sodium (Porcine) (Heparin (5000 Units/1ml)) 5,000 unit BID SC Last administered on 11/20/18 09:04; Admin Dose 5,000 UNIT; Start 11/18/18 at 13:00 Famotidine (Pepcid) 20 mg DAILY PO Last administered on 11/20/18 08:59; Admin Dose 20 MG; Start 11/19/18 at 09:00 Nifedipine (Procardia Xl) 60 mg BID PO Last administered on 11/20/18 09:00; Admin Dose 60 MG; Start 11/19/18 at 09:00 Levetiracetam (Keppra) 500 mg BID PO Last administered on 11/20/18 09:00; Admin Dose 500 MG; Start 11/19/18 at 09:00 Clonidine (Catapres) 0.2 mg Q6H PRN PO SBP>170 Last administered on 11/19/18 12:23; Admin Dose 0.2 MG; Start 11/19/18 at 12:30 Valproic Acid (Depakene) 500 mg TID PO Last administered on 11/20/18 08:59; Admin Dose 500 MG; Start 11/19/18 at 21:00 EARNESTINE MCCLENDON NP Nov 20, 2018 10:04
[2018-11-20] MEDS: ACETAMINOPHEN 325 MG TAB PO PRN ×2 (10:09→21:04)
[2018-11-20] MEDS ORDERED: SOD CHLORIDE 0.9% 500 ML IV ONE (10:30)
[2018-11-20] MEDS ORDERED: SODIUM CHLORIDE 0.45% 500 ML BAG IV* ONE (10:30)
--- NOTE | 2018-11-20 10:43 | CONS ---
Consult Date/Type/Reason Admit Date/Time Nov 16, 2018 at 08:35 Initial Consult Date Requesting Provider: EARNESTIEN MCCLENDON NP Date/Time of Note DATE: 11/20/18 TIME: 10:39 Subjective 57 yo M with Hx of ckd, frontal-lobe epilepsy and other comorbidities, who presents for evaluation of L hemiparesis and L hemisensory loss...in the context of fevers, The patient transferred to [facility]. off gtts. No other acute events overnight noted. No hemoptysis, hematemesis, or hematochezia. OBJECTIVE: VITAL SIGNS: Blood pressure is 129/59, respirations 23, pulse 77, temperature 98.6. HEENT: Head is normocephalic. NECK: Supple. HEART: Regular rate. LUNGS: Show diminished breath sounds at the base. ABDOMEN: Soft, nontender to palpation without rebound or guarding. EXTREMITIES: Negative for clubbing, cyanosis, no edema. DERMATOLOGIC: No rashes. MUSCULOSKELETAL: No joint effusion. NEUROLOGIC: No change in exam. MEDICATIONS: Reviewed. LABORATORY DATA: Shows a sodium of 147, potassium 4.8, chloride 119, bicarbonate 18, BUN 53, creatinine 3.97. White count 7.3, hemoglobin 8.5, platelet count is 183. IMAGING STUDIES: Reviewed. ASSESSMENT AND PLAN: Objective Vitals Vital Signs Date Temp Pulse Resp B/P (MAP) Pulse Ox O2 O2 Flow FiO2 Time Delivery Rate 11/20/18 36.9 10:09 11/20/18 80 08:01 11/20/18 19 138/65 97 07:40 (89) 11/19/18 Room Air 16:08 11/19/18 2.0 15:56 Intake and Output 11/19/18 11/19/18 11/20/18 1515:00 23:00 07:00 IntakeIntake Total 655 ml 80 ml OutputOutput Total 0 ml BalanceBalance 655 ml 80 ml Results/Medications Result Diagram: 11/20/18 0525 11/20/18 0525 Results 24 hrs Laboratory Tests Test 11/19/18 11:56 11/19/18 14:47 11/19/18 17:31 11/19/18 20:20 Bedside Glucose 141 109 134 Valproic Acid 43 L (Depakene) Level Test 11/20/18 05:25 11/20/18 07:41 White Blood Count 4.8 Red Blood Count 2.73 L Hemoglobin 7.7 L Hematocrit 24.7 L Mean Corpuscular 90.5 Volume Mean Corpuscular 28.2 L Hemoglobin Mean Corpuscular 31.2 L Hemoglobin Concent Red Cell 12.4 Distribution Width Platelet Count 187 Mean Platelet Volume 10.5 H Immature 0.600 H Granulocytes % Neutrophils % 51.3 Lymphocytes % 28.7 Monocytes % 10.3 Eosinophils % 8.5 H Basophils % 0.6 Nucleated Red Blood 0.0 Cells % Immature 0.030 Granulocytes # Neutrophils # 2.5 Lymphocytes # 1.4 Monocytes # 0.5 Eosinophils # 0.4 Basophils # 0.0 Nucleated Red Blood 0.0 Cells # Sodium Level 144 Potassium Level 4.7 Chloride Level 118 H Carbon Dioxide Level 19 L Anion Gap 7 Blood Urea Nitrogen 52 H Creatinine 4.22 H Est Glomerular 15 L Filtrat Rate mL/min Glucose Level 82 Calcium Level 8.2 L Phosphorus Level 4.7 Magnesium Level 1.8 Valproic Acid 32 L (Depakene) Level Bedside Glucose 105 Home Meds Active Scripts Trazodone Hcl* (Desyrel*) 50 Mg Tablet, 25 MG PO HS PRN for INSOMNIA, #30 TAB Prov:MALGORZATA HENDRICKSON 10/01/18 Levetiracetam* (Levetiracetam*) 750 Mg Tablet, 1500 MG PO BID, #60 TAB 1 Refill Prov:MALGORZATA HENDRICKSON 10/01/18 Metoprolol Tartrate* (Lopressor*) 100 Mg Tablet, 100 MG PO BID, #60 TAB 1 Refill Prov:MALGORZATA HENDRICKSON 10/01/18 Clonidine Hcl* (Catapres*) 0.2 Mg Tablet, 0.2 MG PO TID for 30 Days, #90 TAB 1 Refill Prov:MALGORZATA HENDRICKSON 10/01/18 Hydralazine Hcl* (Hydralazine Hcl*) 100 Mg Tablet, 100 MG PO TID, #90 TAB 1 Refill Prov:MALGORZATA HENDRICKSON 10/01/18 Atorvastatin Calcium* (Atorvastatin Calcium*) 20 Mg Tablet, 20 MG PO QHS for 30 Days, #30 TAB 1 Refill Prov:MALGORZATA HENDRICKSON 10/01/18 Reported Medications Furosemide* (Lasix*) 20 Mg Tablet, 20 MG PO DAILY, TAB 11/16/18 Lorazepam* (Lorazepam*) 1 Mg Tablet, 1 MG PO DAILY PRN for ANXIETY, #30 TAB 11/16/18 Calcitriol* (Calcitriol*) 0.5 Mcg Capsule, 0.5 MCG PO DAILY, CAP 11/16/18 Isosorbide Mononitrate* (Isosorbide Mononitrate*) 30 Mg Tab.er.24h, 30 MG PO DAILY, TAB 11/16/18 Aspirin* (Aspirin* Chew) 81 Mg Tab.chew, 81 MG PO DAILY, TAB.CHEW 11/16/18 Tiotropium [place] (Spiriva Respimat) 4 Gm Mist.inhal, 2 PUFF INHALATION DAILY, #1 INHALER 09/23/18 Discontinued Scripts Nifedipine (Procardia Xl) 90 Mg Tab.er.24, 90 MG PO DAILY, #30 TAB 1 Refill Prov:MALGORZATA HENDRICKSON 10/01/18 Aspirin* (Aspirin* EC) 81 Mg Tablet.dr, 81 MG PO DAILY, #30 TAB 1 Refill Prov:MALGORZATA HENDRICKSON 10/01/18 Medications Current Medications Calcitriol (Rocaltrol) 0.5 mcg DAILY PO Last administered on 11/20/18at 08:59; Admin Dose 0.5 MCG; Start 11/17/18 at 09:00 Trazodone HCl (Desyrel) 25 mg HS PRN PO INSOMNIA; Start 11/16/18 at 21:00 Tiotropium [place] (Spiriva) 1 inh DAILY INH Last administered on 11/20/18 08:57; Admin Dose 1 INH; Start 11/16/18 at 16:00 Atorvastatin Calcium (Lipitor) 80 mg HS PO Last administered on 11/19/18at 20:22; Admin Dose 80 MG; Start 11/16/18 at 21:00 Acetaminophen (Tylenol Tab) 650 mg Q4H PRN PO Temp greater than 99.6F Last administered on 11/20/18 10:09; Admin Dose 650 MG; Start 11/16/18 at 13:00 Docusate Sodium (Colace) 100 mg BID PO Last administered on 11/20/18at 09:00; Admin Dose 100 MG; Start 11/16/18 at 21:00 Insulin Glargine (Lantus) 10 units DAILY@2000 SC Last administered on 11/19/18at 21:28; Admin Dose 10 UNITS; Start 11/16/18 at 20:00 Ondansetron HCl (Zofran Inj) 4 mg Q6H PRN IV NAUSEA AND/OR VOMITING Last administered on 11/18/18at 07:44; Admin Dose 4 MG; Start 11/16/18 at 14:00 Miscellaneous Information 1 ea NOTE XX ; Start 11/16/18 at 14:30 Glucose (Glutose) 15 gm Q15M PRN PO DECREASED GLUCOSE; Start 11/16/18 at 14:30 Glucose (Glutose) 22.5 gm Q15M PRN PO DECREASED GLUCOSE; Start 11/16/18 at 14:30 Dextrose (D50w Syringe) 25 ml Q15M PRN IV DECREASED GLUCOSE; Start 11/16/18 at 14:30 Dextrose (D50w Syringe) 50 ml Q15M PRN IV DECREASED GLUCOSE; Start 11/16/18 at 14:30 Glucagon (Glucagen) 1 mg Q15M PRN IM DECREASED GLUCOSE; Start 11/16/18 at 14:30 Glucose (Glutose) 15 gm Q15M PRN BUCCAL DECREASED GLUCOSE; Start 11/16/18 at 14:30 IV Flush (NS 3 ml) 3 ml PER PROTOCOL IV ; Start 11/16/18 at 22:30 Acetaminophen (Tylenol Supp) 650 mg Q6H PRN [place] .PAIN 1-3 OR TEMP; Start 11/16/18 at 22:30 Bisacodyl (Dulcolax) 5 mg DAILY PRN PO .CONSTIPATION; Start 11/16/18 at 22:30 Citric Acid/ Sodium Citrate (Bicitra) 30 ml BID PO Last administered on 11/20/18at 08:59; Admin Dose 30 ML; Start 11/17/18 at 09:00 Aspirin (Aspirin) 81 mg DAILY PO Last administered on 11/20/18at 09:00; Admin Dose 81 MG; Start 11/18/18 at 09:00 Clopidogrel Bisulfate (plaVIX) 75 mg DAILY PO Last administered on 11/20/18at 08:58; Admin Dose 75 MG; Start 11/18/18 at 09:00 Bumetanide (Bumex) 1 mg DAILY PO Last administered on 11/20/18at 09:00; Admin Dose 1 MG; Start 11/19/18 at 09:00; Status Hold Labetalol HCl (Normodyne) 400 mg Q8 PO Last administered on 11/20/18 06:14; Admin Dose 400 MG; Start 11/18/18 at 14:00 Diagnostic Test (Pha) (Accu-Chek) 1 ea 02 XX ; Start 11/19/18 at 02:00 Insulin Aspart (Novolog Insulin Pen) NOVOLOG *MILD* ALGORITHM WITH MEALS BEDTIME SC Last administered on 11/19/18 12:03; Admin Dose 1 UNIT; Start 11/18/18 at 11:30 Hydralazine HCl (Apresoline) 100 mg Q8 PO Last administered on 11/20/18 06:13; Admin Dose 100 MG; Start 11/18/18 at 14:00 Heparin Sodium (Porcine) (Heparin (5000 Units/1ml)) 5,000 unit BID SC Last administered on 11/20/18 09:04; Admin Dose 5,000 UNIT; Start 11/18/18 at 13:00 Famotidine (Pepcid) 20 mg DAILY PO Last administered on 11/20/18 08:59; Admin Dose 20 MG; Start 11/19/18 at 09:00 Nifedipine (Procardia Xl) 60 mg BID PO Last administered on 11/20/18 09:00; A dmin Dose 60 MG; Start 11/19/18 at 09:00 Levetiracetam (Keppra) 500 mg BID PO Last administered on 11/20/18 09:00; Admin Dose 500 MG; Start 11/19/18 at 09:00 Clonidine (Catapres) 0.2 mg Q6H PRN PO SBP>170 Last administered on 11/19/18 12:23; Admin Dose 0.2 MG; Start 11/19/18 at 12:30 Valproic Acid (Depakene) 500 mg TID PO Last administered on 11/20/18 08:59; Admin Dose 500 MG; Start 11/19/18 at 21:00 Assessment/Plan Hospital Course (Demo Recall) 1. Nonoliguric acute kidney injury on top of chronic kidney disease stage IV with previous baseline creatinine of 3.2 to 3.4 mg/dL. Etiology of current acute kidney injury is likely secondary to hemodynamics, possible tubular injury due to hypertensive emergency and blood pressure fluctuations. Currently, the patient's urinary output has been adequate. Plan at this point is to continue to adjust blood pressure medications to avoid significant hemodynamic fluctuations. Otherwise, continue supportive care, renally dose all medicines and avoid nephrotoxins. seems to be plateuing. No immediate need for renal replacement therapy at this time. 2. Hypertensive urgency. Etiology is likely secondary to chronic kidney disease. The patient had a secondary workup, which was negative. We will continue to adjust blood pressure medications. better controlled. cont current regimen. 3. Mineral bone disorder, monitor calcium and phosphorus levels. 4. Hypernatremia. The patient has free water deficit of approximately 1 liter, encourage free water intake. 5. Hyperkalemia secondary to chronic kidney disease, improved. 6. 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 The patient's left-sided weakness is improving. Continue medical management. 7. History of seizure disorder. Continue current treatment plan. 8. Diabetes. Continue current insulin regimen. 9. Systemic inflammatory response syndrome. The patient is on empiric antibiotic therapy. We will continue to monitor. RUKHSANA ARCINIEGA MD Nov 20, 2018 10:43
[2018-11-20] MEDS: ATORVASTATIN 80 MG TAB PO SCH (20:57)
[2018-11-20] MEDS: INSULIN GLARGINE [LANTus] (100 UNITS/ML) SYG SC SCH (21:44)
[2018-11-21] VITALS (10 sets, daily range): BP systolic 133–166; BP diastolic 69–77; PULSE 69–87; RESP 18
[2018-11-21] MEDS: ACCU-CHEK XX SCH (02:00)
[2018-11-21] MEDS: LABETALOL 200 MG TAB PO SCH ×3 (05:26→23:05)
[2018-11-21] MEDS: INSULIN ASPART [NOVOLOG] 3 ML PEN SC SCH ×4 (07:43→20:34)
[2018-11-21] MEDS: VALPROIC ACID 250 MG CAP PO SCH ×3 (08:41→20:38)
[2018-11-21] MEDS: FAMOTIDINE 20 MG TAB PO SCH (08:41)
[2018-11-21] MEDS: ASPIRIN 81 MG TAB PO SCH (08:41)
[2018-11-21] MEDS: CLOPIDOGREL 75 MG TAB PO SCH (08:41)
[2018-11-21] MEDS: DOCUSATE SODIUM 100 MG CAP PO SCH ×3 (08:41→21:00)
[2018-11-21] MEDS: CALCITRIOL 0.25 MCG CAP PO SCH (08:41)
[2018-11-21] MEDS: NIFEdipine (XL) 60 MG TAB PO SCH ×2 (08:41→20:34)
[2018-11-21] MEDS: CITRIC ACID/NA CITRATE 30 ML CUP PO SCH ×2 (08:41→20:33)
[2018-11-21] MEDS: LEVETIRACETAM 500 MG TAB PO SCH ×2 (08:41→20:33)
[2018-11-21] MEDS: HEPARIN 5,000 UNIT/1 ML VIAL SC SCH (08:55)
[2018-11-21] MEDS: TIOTROPIUM 18 MCG CAPSULE INHA DEV INH SCH (08:56)
--- NOTE | 2018-11-21 09:06 | CONS ---
Consult Date/Type/Reason Admit Date/Time Nov 16, 2018 at 08:35 Initial Consult Date Requesting Provider: EARNESTINE MCCLENDON NP Date/Time of Note DATE: 11/21/18 TIME: 08:57 Subjective 57 yo M with Hx of ckd, frontal-lobe epilepsy and other comorbidities, who presents for evaluation of L hemiparesis and L hemisensory loss. The patient transferred to [facility]. off gtts. No other acute events overnight noted. seen by st. No hemoptysis, hematemesis, or hematochezia. continues good uo. OBJECTIVE: HEENT: Head is normocephalic. NECK: Supple. HEART: Regular rate. LUNGS: Show diminished breath sounds at the base. ABDOMEN: Soft, nontender to palpation without rebound or guarding. EXTREMITIES: Negative for clubbing, cyanosis, no edema. DERMATOLOGIC: No rashes. MUSCULOSKELETAL: No joint effusion. NEUROLOGIC: No change in exam. MEDICATIONS: Reviewed. Objective Vitals Vital Signs Date Temp Pulse Resp B/P (MAP) Pulse Ox O2 O2 Flow FiO2 Time Delivery Rate 11/21/18 76 08:55 11/21/18 98.2 18 133/71 98 07:33 (91) 11/20/18 Room Air 07:30 11/19/18 2.0 15:56 Intake and Output 11/20/18 11/20/18 11/21/18 1515:00 23:00 07:00 IntakeIntake Total 800 ml BalanceBalance 800 ml Results/Medications Result Diagram: 11/21/18 0457 11/21/18 0457 Results 24 hrs Laboratory Tests Test 11/20/18 11:56 11/20/18 17:35 11/20/18 20:56 11/21/18 04:57 Bedside Glucose 123 109 176 White Blood Count 6.2 # Red Blood Count 2.90 L Hemoglobin 8.2 L Hematocrit 25.7 L Mean Corpuscular 88.6 Volume Mean Corpuscular 28.3 L Hemoglobin Mean Corpuscular 31.9 L Hemoglobin Concent Red Cell 12.3 Distribution Width Platelet Count 185 Mean Platelet Volume 10.7 H Immature 1.400 H Granulocytes % Neutrophils % 59.2 Lymphocytes % 20.2 Monocytes % 11.7 H Eosinophils % 6.9 Basophils % 0.6 Nucleated Red Blood 0.0 Cells % Immature 0.090 H Granulocytes # Neutrophils # 3.7 Lymphocytes # 1.3 Monocytes # 0.7 Eosinophils # 0.4 Basophils # 0.0 Nucleated Red Blood 0.0 Cells # Sodium Level 145 H Potassium Level 4.6 Chloride Level 118 H Carbon Dioxide Level 19 L Anion Gap 8 Blood Urea Nitrogen 52 H Creatinine 4.23 H Est Glomerular 15 L Filtrat Rate mL/min Glucose Level 75 Calcium Level 8.4 Test 11/21/18 07:43 Bedside Glucose 84 Home Meds Active Scripts Trazodone Hcl* (Desyrel*) 50 Mg Tablet, 25 MG PO HS PRN for INSOMNIA, #30 TAB Prov:MALGORZATA HENDRICKSON 10/01/18 Levetiracetam* (Levetiracetam*) 750 Mg Tablet, 1500 MG PO BID, #60 TAB 1 Refill Prov:MALGORZATA HENDRICKSON 10/01/18 Metoprolol Tartrate* (Lopressor*) 100 Mg Tablet, 100 MG PO BID, #60 TAB 1 Refill Prov:MALGORZATA HENDRICKSON 10/01/18 Clonidine Hcl* (Catapres*) 0.2 Mg Tablet, 0.2 MG PO TID for 30 Days, #90 TAB 1 Refill Prov:MALGORZATA HENDRICKSON 10/01/18 Hydralazine Hcl* (Hydralazine Hcl*) 100 Mg Tablet, 100 MG PO TID, #90 TAB 1 Refill Prov:MALGORZATA HENDRICKSON 10/01/18 Atorvastatin Calcium* (Atorvastatin Calcium*) 20 Mg Tablet, 20 MG PO QHS for 30 Days, #30 TAB 1 Refill Prov:MALGORZATA HENDRICKSON 10/01/18 Reported Medications Furosemide* (Lasix*) 20 Mg Tablet, 20 MG PO DAILY, TAB 11/16/18 Lorazepam* (Lorazepam*) 1 Mg Tablet, 1 MG PO DAILY PRN for ANXIETY, #30 TAB 11/16/18 Calcitriol* (Calcitriol*) 0.5 Mcg Capsule, 0.5 MCG PO DAILY, CAP 11/16/18 Isosorbide Mononitrate* (Isosorbide Mononitrate*) 30 Mg Tab.er.24h, 30 MG PO DAILY, TAB 11/16/18 Aspirin* (Aspirin* Chew) 81 Mg Tab.chew, 81 MG PO DAILY, TAB.CHEW 11/16/18 Tiotropium [place] (Spiriva Respimat) 4 Gm Mist.inhal, 2 PUFF INHALATION DAILY, #1 INHALER 09/23/18 Discontinued Scripts Nifedipine (Procardia Xl) 90 Mg Tab.er.24, 90 MG PO DAILY, #30 TAB 1 Refill Prov:MALGORZATA HENDRICKSON 10/01/18 Aspirin* (Aspirin* EC) 81 Mg Tablet.dr, 81 MG PO DAILY, #30 TAB 1 Refill Prov:MADHAVIMALGORZATA 10/01/18 Medications Current Medications Calcitriol (Rocaltrol) 0.5 mcg DAILY PO Last administered on 11/21/18 08:41; Admin Dose 0.5 MCG; Start 11/17/18 at 09:00 Trazodone HCl (Desyrel) 25 mg HS PRN PO INSOMNIA; Start 11/16/18 at 21:00 Tiotropium [place] (Spiriva) 1 inh DAILY INH Last administered on 11/20/18 08:57; Admin Dose 1 INH; Start 11/16/18 at 16:00 Atorvastatin Calcium (Lipitor) 80 mg HS PO Last administered on 11/20/18 20:57; Admin Dose 80 MG; Start 11/16/18 at 21:00 Acetaminophen (Tylenol Tab) 650 mg Q4H PRN PO Temp greater than 99.6F Last administered on 11/20/18 21:04; Admin Dose 650 MG; Start 11/16/18 at 13:00 Docusate Sodium (Colace) 100 mg BID PO Last administered on 11/20/18 20:58; Admin Dose 100 MG; Start 11/16/18 at 21:00 Insulin Glargine (Lantus) 10 units DAILY@2000 SC Last administered on 11/20/18 21:44; Admin Dose 10 UNITS; Start 11/16/18 at 20:00 Ondansetron HCl (Zofran Inj) 4 mg Q6H PRN IV NAUSEA AND/OR VOMITING Last administered on 11/18/18 07:44; Admin Dose 4 MG; Start 11/16/18 at 14:00 Miscellaneous Information 1 ea NOTE XX ; Start 11/16/18 at 14:30 Glucose (Glutose) 15 gm Q15M PRN PO DECREASED GLUCOSE; Start 11/16/18 at 14:30 Glucose (Glutose) 22.5 gm Q15M PRN PO DECREASED GLUCOSE; Start 11/16/18 at 14:30 Dextrose (D50w Syringe) 25 ml Q15M PRN IV DECREASED GLUCOSE; Start 11/16/18 at 14:30 Dextrose (D50w Syringe) 50 ml Q15M PRN IV DECREASED GLUCOSE; Start 11/16/18 at 14:30 Glucagon (Glucagen) 1 mg Q15M PRN IM DECREASED GLUCOSE; Start 11/16/18 at 14:30 Glucose (Glutose) 15 gm Q15M PRN BUCCAL DECREASED GLUCOSE; Start 11/16/18 at 14:30 IV Flush (NS 3 ml) 3 ml PER PROTOCOL IV ; Start 11/16/18 at 22:30 Acetaminophen (Tylenol Supp) 650 mg Q6H PRN [place] .PAIN 1-3 OR TEMP; Start 11/16/18 at 22:30 Bisacodyl (Dulcolax) 5 mg DAILY PRN PO .CONSTIPATION; Start 11/16/18 at 22:30 Citric Acid/ Sodium Citrate (Bicitra) 30 ml BID PO Last administered on 11/20/18at 20:57; Admin Dose 30 ML; Start 11/17/18 at 09:00 Aspirin (Aspirin) 81 mg DAILY PO Last administered on 11/20/18 09:00; Admin Dose 81 MG; Start 11/18/18 at 09:00 Clopidogrel Bisulfate (plaVIX) 75 mg DAILY PO Last administered on 11/20/18 08:58; Admin Dose 75 MG; Start 11/18/18 at 09:00 Bumetanide (Bumex) 1 mg DAILY PO Last administered on 11/20/18 09:00; Admin Dose 1 MG; Start 11/19/18 at 09:00; Status Hold Labetalol HCl (Normodyne) 400 mg Q8 PO Last administered on 11/21/18 05:26; Admin Dose 400 MG; Start 11/18/18 at 14:00 Diagnostic Test (Pha) (Accu-Chek) 1 ea 02 XX ; Start 11/19/18 at 02:00 Insulin Aspart (Novolog Insulin Pen) NOVOLOG *MILD* ALGORITHM WITH MEALS BEDTIME SC Last administered on 11/19/18 12:03; Admin Dose 1 UNIT; Start 11/18/18 at 11:30 Hydralazine HCl (Apresoline) 100 mg Q8 PO Last administered on 11/21/18 05:26; Admin Dose 100 MG; Start 11/18/18 at 14:00 Heparin Sodium (Porcine) (Heparin (5000 Units/1ml)) 5,000 unit BID SC Last administered on 11/20/18 21:45; Admin Dose 5,000 UNIT; Start 11/18/18 at 13:00 Famotidine (Pepcid) 20 mg DAILY PO Last administered on 11/20/18 08:59; Admin Dose 20 MG; Start 11/19/18 at 09:00 Nifedipine (Procardia Xl) 60 mg BID PO Last administered on 11/20/18 20:58; Admin Dose 60 MG; Start 11/19/18 at 09:00 Levetiracetam (Keppra) 500 mg BID PO Last administered on 11/20/18 20:58; Admin Dose 500 MG; Start 11/19/18 at 09:00 Clonidine (Catapres) 0.2 mg Q6H PRN PO SBP>170 Last administered on 11/19/18 12:23; Admin Dose 0.2 MG; Start 11/19/18 at 12:30 Valproic Acid (Depakene) 500 mg TID PO Last administered on 11/21/18 08:41; Admin Dose 500 MG; Start 11/19/18 at 21:00 Assessment/Plan Hospital Course (Demo Recall) 1. Nonoliguric acute kidney injury on top of chronic kidney disease stage IV with previous baseline creatinine of 3.2 to 3.4 mg/dL. Etiology of current acute kidney injury is likely secondary to hemodynamics, possible tubular injury due to hypertensive emergency and blood pressure fluctuations. Currently, the patient's urinary output has been adequate. Plan at this point is to continue to adjust blood pressure medications to avoid significant hemodynamic fluctuations. Otherwise, continue supportive care, renally dose all medicines and avoid nephrotoxins. seems to be plateauing. No immediate need for renal replacement therapy at this time. 2. Hypertensive urgency. Etiology is likely secondary to chronic kidney disease. The patient had a secondary workup, which was negative. We will continue to adjust blood pressure medications. better controlled. cont current regimen. 3. Mineral bone disorder, monitor calcium and phosphorus levels. 4. Hypernatremia. The patient has free water deficit of approximately 1 liter, encourage free water intake. 5. Hyperkalemia secondary to chronic kidney disease, improved. 6. 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 The patient's left-sided weakness is improving. Continue medical management. 7. History of seizure disorder. Continue current treatment plan. 8. Diabetes. Continue current insulin regimen. 9. Systemic inflammatory response syndrome. The patient is on empiric antibiotic therapy. We will continue to monitor. RUKHSANA ARCINIEGA MD Nov 21, 2018 09:06
--- NOTE | 2018-11-21 11:19 | PN ---
Date/Time of Note Date/Time of Note DATE: 11/21/18 TIME: 11:16 Assessment/Plan VTE Prophylaxis Risk score (from Ns)>0 risk: 1 SCD applied (from Ns): Yes Pharmacological prophylaxis: NA/contraindicated Pharm contraindication: low risk/ambulating Lines/Catheters IV [facility]ter [facility]from [facility] Peripheral IV Urinary Cath still in place: No Assessment/Plan Hospital Course SUBJECTIVE: Patient has been walking in hallway. He is also eager to be discharged home. No acute distress. OBJECTIVE: Vital signs-see below PHYSICAL EXAM: Constitutional: Well-developed, adequately built, lying in bed comfortably. Psych: nl mood/affect, no complaints Head: atraumatic, normocephalic Eyes: nl conjunctiva, nl sclera ENMT: mucosa pink and moist, nl external ears & nose Neck: non-tender, supple Respiratory: clear to auscultation, normal air movement Cardiovascular: nl pulses, regular rate and rhythm Gastrointestinal: non-tender, soft, bowel sounds active in all 4 quadrants. Musculoskeletal/extremities: nl extremities to inspection, motor strength equal bilaterally, no focal deficit. Normal pulses,no cyanosis, no edema. Neurological: +Left facial droop.Slurred speech+ (improved). LUE/LLE 4/5. RUE/RLE 5/.5. Alert oriented 3 Skin: nl turgor ASSESSMENT/PLAN: 57-year-old male with a history of uncontrolled hypertension/poorly managed as outpatient, type 2 diabetes, depressive disorders, CKD stage IV, seizure disorders, here with uncontrolled hypertension, with new onset left sided weakness, facial droop, speech difficulties started Thursday, concerning for acute CVA... 1.Acute CVA involving right temporal/parietal infarcts sx: Left hemiparesis/Facial droop/slurry speech -Given the onset of symptoms patient is not a candidate for TPA or endovascular clot retrieval therapy -No evidence of carotid/intracranial artery stenosis. TTE with bubble study no evidence of shunting.. -In light of previous stroke shown in MRI,continue DAPT(Plavix and aspirin together for 3 months and thereafter aspirin only.), high intensity statin -Neurology notes reviewed -Not a candidate for further inpatient rehab as patient is deemed too high. 2. Hypertensive emergency -Likely culprit of #1 -stable -Blood pressure controlled on Procardia/hydralazine/labetalol 3. Acute kidney injury on CKD stage IV -Baseline creatinine 2.5 to 3 mg/dL, currently ranging from 4-4.25. -Continue holding Bumex -on Bicitra -Avoid nephrotoxins. -Monitor renal function. 4.Seizure disorders -No witnessed/reported seizure activities -Management per neurologist=> keppra/valproic acid 5. Type 2 diabetes -stable glycemic trends. -Continue Accu-Cheks/Lantus/ISS -Diabetic education 6. Dyslipidemia -Continue high intensity statin 7. Depressive disorder -Continue trazodone 8. Anemia of CKD -H&H dropped. Received 1 dose of Epogen yesterday. -Monitor H&H DVT prophylaxis: Heparin subcu, repeat CT noted, no evidence of hemorrhage PUD prophylaxis: Pepcid CODE STATUS: Full code Diet: Carbohydrate controlled/low-cholesterol diet once patient passed swallow eval per ST Disposition: Patient not a candidate for further inpatient rehab as he is deemed high. So plan is to discharge home. However, patient with rising creatinine requiring further inpatient monitoring. We will repeat creatinine in a.m. and will follow-up with nephrology in a.m. to determine patient can be discharged with outpatient nephrology follow-up. Patient was seen in collaboration with Result Diagram: [id number] Results 24hrs Laboratory Tests Test 11/20/18 11:56 11/20/18 17:35 11/20/18 20:56 11/21/18 04:57 Bedside Glucose 123 109 176 White Blood Count 6.2 # Red Blood Count 2.90 L Hemoglobin 8.2 L Hematocrit 25.7 L Mean Corpuscular 88.6 Volume Mean Corpuscular 28.3 L Hemoglobin Mean Corpuscular 31.9 L Hemoglobin Concent Red Cell 12.3 Distribution Width Platelet Count 185 Mean Platelet Volume 10.7 H Immature 1.400 H Granulocytes % Neutrophils % 59.2 Lymphocytes % 20.2 Monocytes % 11.7 H Eosinophils % 6.9 Basophils % 0.6 Nucleated Red Blood 0.0 Cells % Immature 0.090 H Granulocytes # Neutrophils # 3.7 Lymphocytes # 1.3 Monocytes # 0.7 Eosinophils # 0.4 Basophils # 0.0 Nucleated Red Blood 0.0 Cells # Sodium Level 145 H Potassium Level 4.6 Chloride Level 118 H Carbon Dioxide Level 19 L Anion Gap 8 Blood Urea Nitrogen 52 H Creatinine 4.23 H Est Glomerular 15 L Filtrat Rate mL/min Glucose Level 75 Calcium Level 8.4 Test 11/21/18 07:43 Bedside Glucose 84 Exam/Review of Systems Exam Vitals Vital Signs Date Temp Pulse Resp B/P (MAP) Pulse Ox O2 O2 Flow FiO2 Time Delivery Rate 11/21/18 76 08:55 11/21/18 98.2 18 133/71 98 07:33 (91) 11/20/18 Room Air 07:30 11/19/18 2.0 15:56 Intake and Output 11/20/18 11/20/18 11/21/18 1515:00 23:00 07:00 IntakeIntake Total 800 ml BalanceBalance 800 ml Results Results 24hrs Laboratory Tests Test 11/20/18 11:56 11/20/18 17:35 11/20/18 20:56 11/21/18 04:57 Bedside Glucose 123 109 176 White Blood Count 6.2 # Red Blood Count 2.90 L Hemoglobin 8.2 L Hematocrit 25.7 L Mean Corpuscular 88.6 Volume Mean Corpuscular 28.3 L Hemoglobin Mean Corpuscular 31.9 L Hemoglobin Concent Red Cell 12.3 Distribution Width Platelet Count 185 Mean Platelet Volume 10.7 H Immature 1.400 H Granulocytes % Neutrophils % 59.2 Lymphocytes % 20.2 Monocytes % 11.7 H Eosinophils % 6.9 Basophils % 0.6 Nucleated Red Blood 0.0 Cells % Immature 0.090 H Granulocytes # Neutrophils # 3.7 Lymphocytes # 1.3 Monocytes # 0.7 Eosinophils # 0.4 Basophils # 0.0 Nucleated Red Blood 0.0 Cells # Sodium Level 145 H Potassium Level 4.6 Chloride Level 118 H Carbon Dioxide Level 19 L Anion Gap 8 Blood Urea Nitrogen 52 H Creatinine 4.23 H Est Glomerular 15 L Filtrat Rate mL/min Glucose Level 75 Calcium Level 8.4 Test 11/21/18 07:43 Bedside Glucose 84 Medications Medication Current Medications Calcitriol (Rocaltrol) 0.5 mcg DAILY PO Last administered on 11/21/18at 08:41; Admin Dose 0.5 MCG; Start 11/17/18 at 09:00 Trazodone HCl (Desyrel) 25 mg HS PRN PO INSOMNIA; Start 11/16/18 at 21:00 Tiotropium [place] (Spiriva) 1 inh DAILY INH Last administered on 11/20/18 08:57; Admin Dose 1 INH; Start 11/16/18 at 16:00 Atorvastatin Calcium (Lipitor) 80 mg HS PO Last administered on 11/20/18 20:57; Admin Dose 80 MG; Start 11/16/18 at 21:00 Acetaminophen (Tylenol Tab) 650 mg Q4H PRN PO Temp greater than 99.6F Last administered on 11/20/18 21:04; Admin Dose 650 MG; Start 11/16/18 at 13:00 Docusate Sodium (Colace) 100 mg BID PO Last administered on 11/21/18 08:41; Admin Dose 100 MG; Start 11/16/18 at 21:00 Insulin Glargine (Lantus) 10 units DAILY@2000 SC Last administered on 11/20/18 21:44; Admin Dose 10 UNITS; Start 11/16/18 at 20:00 Ondansetron HCl (Zofran Inj) 4 mg Q6H PRN IV NAUSEA AND/OR VOMITING Last administered on 11/18/18 07:44; Admin Dose 4 MG; Start 11/16/18 at 14:00 Miscellaneous Information 1 ea NOTE XX ; Start 11/16/18 at 14:30 Glucose (Glutose) 15 gm Q15M PRN PO DECREASED GLUCOSE; Start 11/16/18 at 14:30 Glucose (Glutose) 22.5 gm Q15M PRN PO DECREASED GLUCOSE; Start 11/16/18 at 14:30 Dextrose (D50w Syringe) 25 ml Q15M PRN IV DECREASED GLUCOSE; Start 11/16/18 at 14:30 Dextrose (D50w Syringe) 50 ml Q15M PRN IV DECREASED GLUCOSE; Start 11/16/18 at 14:30 Glucagon (Glucagen) 1 mg Q15M PRN IM DECREASED GLUCOSE; Start 11/16/18 at 14:30 Glucose (Glutose) 15 gm Q15M PRN BUCCAL DECREASED GLUCOSE; Start 11/16/18 at 14:30 IV Flush (NS 3 ml) 3 ml PER PROTOCOL IV ; Start 11/16/18 at 22:30 Acetaminophen (Tylenol Supp) 650 mg Q6H PRN DC .PAIN 1-3 OR TEMP; Start 11/16/18 at 22:30 Bisacodyl (Dulcolax) 5 mg DAILY PRN PO .CONSTIPATION; Start 11/16/18 at 22:30 Citric Acid/ Sodium Citrate (Bicitra) 30 ml BID PO Last administered on 11/21/18 08:41; Admin Dose 30 ML; Start 11/17/18 at 09:00 Aspirin (Aspirin) 81 mg DAILY PO Last administered on 11/21/18 08:41; Admin Dose 81 MG; Start 11/18/18 at 09:00 Clopidogrel Bisulfate (plaVIX) 75 mg DAILY PO Last administered on 11/21/18 08:41; Admin Dose 75 MG; Start 11/18/18 at 09:00 Bumetanide (Bumex) 1 mg DAILY PO Last administered on 11/20/18 09:00; Admin Dose 1 MG; Start 11/19/18 at 09:00; Status Hold Labetalol HCl (Normodyne) 400 mg Q8 PO Last administered on 11/21/18 05:26; Admin Dose 400 MG; Start 11/18/18 at 14:00 Diagnostic Test (Pha) (Accu-Chek) 1 ea 02 XX ; Start 11/19/18 at 02:00 Insulin Aspart (Novolog Insulin Pen) NOVOLOG *MILD* ALGORITHM WITH MEALS BEDTIME SC Last administered on 11/19/18 12:03; Admin Dose 1 UNIT; Start 11/18/18 at 11:30 Hydralazine HCl (Apresoline) 100 mg Q8 PO Last administered on 11/21/18 05:26; Admin Dose 100 MG; Start 11/18/18 at 14:00 Heparin Sodium (Porcine) (Heparin (5000 Units/1ml)) 5,000 unit BID SC Last administered on 11/21/18 08:55; Admin Dose 5,000 UNIT; Start 11/18/18 at 13:00 Famotidine (Pepcid) 20 mg DAILY PO Last administered on 11/21/18 08:41; Admin Dose 20 MG; Start 11/19/18 at 09:00 Nifedipine (Procardia Xl) 60 mg BID PO Last administered on 11/21/18 08:41; Admin Dose 60 MG; Start 11/19/18 at 09:00 Levetiracetam (Keppra) 500 mg BID PO Last administered on 11/21/18 08:41; Admin Dose 500 MG; Start 11/19/18 at 09:00 Clonidine (Catapres) 0.2 mg Q6H PRN PO SBP>170 Last administered on 11/19/18 12:23; Admin Dose 0.2 MG; Start 11/19/18 at 12:30 Valproic Acid (Depakene) 500 mg TID PO Last administered on 11/21/18 08:41; Admin Dose 500 MG; Start 11/19/18 at 21:00 EARNESTINE MCCLENDON NP Nov 21, 2018 11:19
[2018-11-21] MEDS: ONDANSETRON 4 MG INJ IV PRN (12:09)
[2018-11-21] MEDS: ATORVASTATIN 80 MG TAB PO SCH (20:33)
[2018-11-21] MEDS: INSULIN GLARGINE [LANTus] (100 UNITS/ML) SYG SC SCH (20:57)
[2018-11-22] VITALS: BP 163/72; PULSE 73; PULSE 77; RESP 16
[2018-11-22] MEDS: ACCU-CHEK XX SCH (02:00)
[2018-11-22 04:00] VITALS: BP 163/75; PULSE 75; PULSE 78; RESP 18
[2018-11-22] MEDS: LABETALOL 200 MG TAB PO SCH (05:46)
[2018-11-22] MEDS: ONDANSETRON 4 MG INJ IV PRN (05:52)
[2018-11-22 07:31] VITALS: BP 169/72; PULSE 67; RESP 18
[2018-11-22] MEDS: INSULIN ASPART [NOVOLOG] 3 ML PEN SC SCH (08:00)
[2018-11-22 08:58] VITALS: PULSE 73
--- NOTE | 2018-11-22 09:00 | PDOCDIS ---
Discharge Instructions CONDITION [id number] Patient Condition: [id number] Stable HOME CARE INSTRUCTIONS: [id number] Your diet recommendation is: [id number] renal/carbohydrate-controlled diet FOLLOW UP/APPOINTMENTS Follow-up Plan 1.Follow-up with ([facility] doctor)on thursday [id number] [facility] [address] [place] [address] Office 2. Follow-up with primary care physician in 1 week. 3. You are being discharged after having a stroke. He also had previous strokes. At this time, we recommend you to take both aspirin and Plavix for a total 3 months, after 3 months, he can be only on aspirin lifelong. This medicine can make your blood thinning and can cause bleeding. Please go to the emergency room, if you notice any bleeding from your nose, urine, stool or any orifices. EARNESTINE MCCLENDON NP Nov 22, 2018 09:00
[2018-11-22] MEDS ORDERED: BICS PO (09:06)
[2018-11-22] MEDS ORDERED: ASPI-903 PO (09:06)
[2018-11-22] MEDS ORDERED: CLOP75TA28 PO (09:06)
[2018-11-22] MEDS ORDERED: NIFE60TA2 PO (09:06)
[2018-11-22] MEDS ORDERED: LABE200T25 PO (09:06)
[2018-11-22] MEDS ORDERED: VALP250C PO (09:06)
[2018-11-22] MEDS ORDERED: HYDR100T25 PO (09:06)
[2018-11-22] MEDS ORDERED: ATOR-2 PO (09:06)
[2018-11-22] MEDS ORDERED: LEVE-5 PO (09:06)
[2018-11-22] MEDS: TIOTROPIUM 18 MCG CAPSULE INHA DEV INH SCH (09:15)
[2018-11-22] MEDS: VALPROIC ACID 250 MG CAP PO SCH (09:16)
--- NOTE | 2018-11-22 09:16 | DS ---
Date/Time of Note Date/Time of Note DATE: 11/22/18 TIME: 09:13 Discharge Summary Admission/Discharge Info Admit Date/Time Nov 16, 2018 at 08:35 Discharge Date/Time Discharge Diagnosis 1.Acute CVA involving right temporal/parietal infarcts 2. Poorly controlled hypertension 3. Acute kidney injury on CKD stage IV-Baseline creatinine 2.5 to 3 mg/dL, currently ranging from 4-4.25. 4.Seizure disorders 5. Type 2 diabetes 6. Dyslipidemia 7. Depressive disorder 8. Anemia of CKD Patient Condition: Stable Consults Daisy, nephrology , neurology Procedures 11/16/2018. MRI neck noncontrast IMPRESSION: Evaluation is mildly limited due to motion degradation. No evidence of bilateral carotid artery stenosis by NASCET criteria. Further findings as detailed above. 11/16/2018. Carotid ultrasound. IMPRESSION: No evidence for hemodynamically significant carotid artery stenosis. Antegrade flow in the vertebral arteries bilaterally. If further characterization of the arterial vasculature is needed CTA is recommended. Validated velocity measurements with angiographic measurements, velocity criteria are extrapolated from diameter data as defined by the Society of Radiologists in Ultrasound Consensus Conference Radiology 2003; 229; 340 - 346. This study does indirectly reference the measurement of the distal internal carotid artery diameter as the denominator for stenosis measurement. RPTAT: AA 11/16/2018. MRI head noncontrast IMPRESSION: 1. No evidence of aneurysm or intracranial stenosis. 2. Duplicated right M1 middle cerebral artery. Further findings as detailed above. RPTAT: HVF .Owen Ramos MD, MD Date Time Electronically viewed and signed by .Owen Ramos MD, MD on 11/16/2018 23:04 .F/ 11/16/2018. Chest x-ray. No evidence of active cardiopulmonary disease. 11/16/2018. Brain CT without contrast IMPRESSION: Focal areas of diminished density within the lateral right frontal lobe and lateral parietotemporal region consistent with developing infarcts. Cerebritis also possible but considered less likely. No significant mass effect or evidence of hemorrhage. Results called to Dr. Valencia at 08:20 a.m. on 11/16/2018. RPTAT: HJBB 11/16/2018. Brain MRI without contrast IMPRESSION: 1. Acute / recent right temporal parietal infarctions. 2. Mild chronic microvascular ischemic changes. 3. Chronic left centrum semiovale lacunar infarction. Further findings as detailed above. RPTAT: HVF .Owen Ramos MD, MD Date Time Electronically viewed and signed by .Owen Ramos MD, MD on 11/16/2018 23:01 11/18/2018. TTE with bubble study. Conclusions: Agitated saline was injected intravenously for microbubble contrast study. No right to left shunt was identified with and with out valsalva maneuver. Normal left ventricular cavity size, wall thickness and systolic function. Electronically Signed By: Daniel Tran 2018-11-18 09:07:09 PST Hx of Present Illness This is a 57-year-old male with a past medical history of poorly manag ed hypertension, CKD stage IV, DMII, dyslipidemia, depressive disorders, seizure disorders, was brought into the emergency room with left-sided weakness, left facial droop, headache, speech difficulties, gait disturbance started Thursday afternoon (~48 hrs symptoms onset). Patient was admitted to [facility] recently with poorly managed hypertension, right hemiparesis, worsening kidney function, and at that time he was ruled out for endocrine etiology for uncontrolled hypertension. 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 He was sent home on antihypertensive regimen. Apparently, according to the patient's family, his blood pressure was not managed well despite addition of new agents with last visit and he was feeling weak since thursday and his symptoms progressed as mentioned above. Patient denied any chest pain, palpitation, shortness of breath, nausea, vomiting, vision changes, loss of consciousness, diarrhea, constipation or other constitutional symptoms. Patient has been having a low-grade fevers at home. In ER, patient's initial blood pressure 212/116. He also had a temperature 101.6. Patient also had a pulse rate 105. Initial labs showed WBC 13,000, hemoglobin 11, hematocrit 33.5, potassium 5.3, BUN 52, creatinine 3.48, glucose 143. Chest x-ray negative for any acute cardiopulmonary disease. A brain CT showed Focal areas of diminished density within the lateral right frontal lobe and lateral parietotemporal region consistent with developing infarcts. Cerebritis also possible but considered less likely. No significant mass effect or evidence of hemorrhage. Urine analysis negative for UTI. There is 3+ total protein and UA. In ER, patient was given aspirin 162 mg, ceftriaxone 1 g and normal saline bolus. Patient was admitted for further evaluation. Hospital Course 57-year-old male with a history of uncontrolled hypertension/poorly managed as outpatient, type 2 diabetes, depressive disorders, CKD stage IV, seizure disorders, here with uncontrolled hypertension, with new onset left sided weakness, facial droop, speech difficulties started approximately3 days ago, found to have acute CVA involving right temporal/parietal infarcts. Patient also had hypertensive emergency on arrival. Case reviewed by neurologist. Given the onset of symptoms patient was not a candidate for TPA or endovascular clot retrieval therapy. There is no evidence of carotid/intracranial artery stenosis.TTE with bubble study no evidence of shunting.In light of previous stroke shown in MRI,recommendation is to continue DAPT(Plavix and aspirin together for 3 months and thereafter aspirin only.) and, high intensity statin. In regards to hypertension, she required Cardene drip and ICU monitoring initially. After that, he was successfully weaned to oral medications including multiple agents labetalol high-dose, nifedipine, and hydralazine. Patient was being followed by cleaner touch up worker was managing hypertension as well. CKD stage IV with a baseline creatinine 2.5-3, patient was also started on Bumex and Bicitra per nephrology. Hospitalization was noted for creatinine worsening up to 4-4.25, as such, Bumex was stopped. Diabetes was managed with insulin. Patient did not have any witnessed seizure activities and social medications were titrated per neurology and patient did well on Keppra and valproic acid. He was continued on home medication for other underlying comorbidities. Patient was evaluated by physical therapy and deemed high for further inpatient rehabilitation. He was able to tolerate diet and activities well. His speech got much clearer, able to swallow without any difficulties. Left hemiparesis improved. Facial droop improved. At this time, patient is medically stable for discharge with outpatient follow-up. G-tube CKD with progression, patient needs nephrology follow-up after discharge for which he was given authorization to see his cleaner touch up worker Dr. Villa on Thursday. Patient also was instructed to continue Plavix and aspirin for a total of 3 months, after that to continue only aspirin lifelong. He was given prescriptions for blood pressure medication and others. Patient verbalized understanding. He is very eager to be discharged. Approximately 60 minutes was spent on coordinating the discharge on this patient. Patient was seen in collaboration with [facility] Active Scripts Citric Acid/Sodium Citrate* (Bicitra* (PEDIATRIC)) 1 Meq/Ml Soln, 30 ML PO BID, #60 TAB Prov:MCCLENDONROBERTO CARLOSA [employer] 11/22/18 Valproic Acid* (Depakene*) 250 Mg Capsule, 500 MG PO TID, #90 CAP Prov:MCCLENDONLEVIEARNESTINE V. [employer] 11/22/18 Levetiracetam* (Keppra*) 500 Mg Tablet, 500 MG PO BID, #60 TAB Prov:MCCLENDONROBERTO CARLOSA [employer] 11/22/18 Nifedipine (Procardia Xl) 60 Mg Tab.er.24, 60 MG PO BID, #60 TAB Prov:MCCLENDONEARNESTINE V. [employer] 11/22/18 Labetalol Hcl* (Labetalol Hcl*) 200 Mg Tablet, 600 MG PO Q8, #90 TAB Prov:MCCLENDON,EARNESTINE [employer] 11/22/18 Atorvastatin* (Atorvastatin*) 80 Mg Tablet, 80 MG PO HS, #30 TAB 1 Refill Prov:MCCLENDONROBERTO CARLOSA [employer] 11/22/18 Clopidogrel Bisulfate (Clopidogrel) 75 Mg Tablet, 75 MG PO DAILY for 80 Days, #30 TAB 3 Refills Patient to take both aspirin and Plavix together times 80 days more. After that, he should be taking only aspirin lifelong. Please give him a refill appropriately as instructed. Prov:MCCLENDONROBERTO CARLOSA [employer] 11/22/18 Aspirin* (Aspirin* Chew) 81 Mg Tab.chew, 81 MG PO DAILY, #30 TAB.CHEW 6 Refills Prov:MCCLENDONROBERTO CARLOSA [employer] 11/22/18 Hydralazine Hcl* (Hydralazine Hcl*) 100 Mg Tablet, 100 MG PO TID, #90 TAB 1 Refi ll Prov:EARNESTINE MCCLENDON [employer] 11/22/18 Trazodone Hcl* (Desyrel*) 50 Mg Tablet, 25 MG PO HS PRN for INSOMNIA, #30 TAB Prov:MALOGRZATA HENDRICKSON 10/01/18 Levetiracetam* (Levetiracetam*) 750 Mg Tablet, 1500 MG PO BID, #60 TAB 1 Refill Prov:MALGORZATA HENDRICKSON 10/01/18 Metoprolol Tartrate* (Lopressor*) 100 Mg Tablet, 100 MG PO BID, #60 TAB 1 Refill Prov:MALGORZATA HENDRICKSON 10/01/18 Clonidine Hcl* (Catapres*) 0.2 Mg Tablet, 0.2 MG PO TID for 30 Days, #90 TAB 1 Refill Prov:MALGORZATA HENDRICKSON 10/01/18 Atorvastatin Calcium* (Atorvastatin Calcium*) 20 Mg Tablet, 20 MG PO QHS for 30 Days, #30 TAB 1 Refill Prov:MALGORZATA HENDRICKSON 10/01/18 Reported Medications Furosemide* (Lasix*) 20 Mg Tablet, 20 MG PO DAILY, TAB 11/16/18 Lorazepam* (Lorazepam*) 1 Mg Tablet, 1 MG PO DAILY PRN for ANXIETY, #30 TAB 11/16/18 Calcitriol* (Calcitriol*) 0.5 Mcg Capsule, 0.5 MCG PO DAILY, CAP 11/16/18 Isosorbide Mononitrate* (Isosorbide Mononitrate*) 30 Mg Tab.er.24h, 30 MG PO DAILY, TAB 11/16/18 Tiotropium [place] (Spiriva Respimat) 4 Gm Mist.inhal, 2 PUFF INHALATION DAILY, #1 INHALER 09/23/18 Discontinued Scripts Nifedipine (Procardia Xl) 90 Mg Tab.er.24, 90 MG PO DAILY, #30 TAB 1 Refill Prov:MALGORZATA HENDRICKSON 10/01/18 Aspirin* (Aspirin* EC) 81 Mg Tablet.dr, 81 MG PO DAILY, #30 TAB 1 Refill Prov:MALGORZATA HENDRICKSON 10/01/18 Follow-up Plan 1.Follow-up with ([facility] doctor)on thursday [id number] [facility] [address] [place] [address] Office 2. Follow-up with primary care physician in 1 week. 3. You are being discharged after having a stroke. He also had previous strokes. At this time, we recommend you to take both aspirin and Plavix for a total 3 months, after 3 months, he can be only on aspirin lifelong. This medicine can make your blood thinning and can cause bleeding. Please go to the emergency room, if you notice any bleeding from your nose, urine, stool or any orifices. Primary Care Provider Not On Staff Doctor Pending Labs Laboratory Tests Test 11/21/18 12:13 11/21/18 17:32 11/21/18 20:32 11/22/18 05:03 Bedside 112 116 125 Glucose mg/dL (70-220) mg/dL (70-220) mg/dL (70-220) Sodium Level 146 mmol/L (135-14 4) Potassium 4.1 Level mmol/L (3.5-5. 1) Chloride Level 115 mmol/L (97-110 ) Carbon Dioxide 21 Level mmol/L (21-31) Anion Gap 10 (5-13) Blood Urea 48 Nitrogen mg/dl (7-20) Creatinine 4.07 mg/dl (0.61-1. 24) Est Glomerular 15 Filtrat mL/min (>60) Rate mL/min Glucose Level 78 mg/dl (70-220) Calcium Level 8.3 mg/dl (8.4-10. 2) Test 11/22/18 08:06 Bedside 82 Glucose mg/dL (70-220) EARNESTINE MCCLENDON NP Nov 22, 2018 09:16
[2018-11-22] MEDS: DOCUSATE SODIUM 100 MG CAP PO SCH (09:17)
[2018-11-22] MEDS: FAMOTIDINE 20 MG TAB PO SCH (09:17)
[2018-11-22] MEDS: LEVETIRACETAM 500 MG TAB PO SCH (09:17)
[2018-11-22] MEDS: NIFEdipine (XL) 60 MG TAB PO SCH (09:17)
[2018-11-22] MEDS: ASPIRIN 81 MG TAB PO SCH (09:17)
[2018-11-22] MEDS: CLOPIDOGREL 75 MG TAB PO SCH (09:17)
[2018-11-22] MEDS: CALCITRIOL 0.25 MCG CAP PO SCH (09:17)
[2018-11-22] MEDS: CITRIC ACID/NA CITRATE 30 ML CUP PO SCH (09:18)
[2018-11-22 11:57] VITALS: BP 153/81; PULSE 70; RESP 18
[2018-11-22] MEDS ORDERED: LABETALOL 200 MG TAB PO SCH (14:00)
--- NOTE | 2018-11-22 15:30 | PN ---
DATE: 11/22/2018 SUBJECTIVE: The patient is stable, no events overnight. No fevers, chills, nausea, vomiting. OBJECTIVE: VITAL SIGNS: Blood pressure is 116/72, respiration 18, pulse 76, temperature 98.2. HEENT: Head is normocephalic. NECK: Supple. HEART: Regular rate. LUNGS: Show diminished breath sounds at base. ABDOMEN: Soft, nontender to palpation. No rebound or guarding. EXTREMITIES: Negative for clubbing, cyanosis, no edema. DERMATOLOGIC: No rashes. MUSCULOSKELETAL: No joint effusion. NEUROLOGIC: No change in exam. MEDICATIONS: The patient's medications have been reviewed. LABORATORY DATA: From 11/21/2018 was reviewed. Laboratory data from 11/22/2018 shows sodium of 146, potassium 4.1, bicarbonate 21, BUN 48, creatinine 4.07. ASSESSMENT AND PLAN: 1. Nonoliguric acute kidney injury on top of chronic kidney disease stage IV with previous baseline creatinine around 3.2 to 3.4 mg/dL. Etiology of acute kidney injury is secondary to hemodynamics, po ssible tubular injury. The patient's renal function appears to be stabilizing as creatinine has mild ly improved in the last 24 hours. At this point, continue current treatment plan, supportive care, r enally dose all meds. No overt uremic signs or symptoms. No immediate need for renal replacement th erapy. 2. Hypertensive urgency. Etiology secondary to acute cerebrovascular and chronic kidney disease. T he patient has had secondary workup for hypertension which is negative. Blood pressure has improved. Continue current medical management. Continue Procardia, Labetalol, Hydralazine. Defer any AKR in hibitor or ARB as the patient becomes markedly hyperkalemic. 3. Mineral bone disorder. Monitor calcium and phosphorus levels. 4. Anemia. Monitor hemoglobin and hematocrit levels. Continue Epogen as needed. 5. Hypernatremia. Encourage free water intake. 6. Acute parietal cerebrovascular accident with left-sided weakness. The patient is clinically impr oving. Continue medical management. 7. History of seizure disorder, continue current treatment plan. 18 Diabetes. Continue current insulin regimen. 9. Metabolic acidosis. Continue Bicitra. 10. Systemic inflammatory response syndrome. The patient is clinically improving. Continue to [facility]. Dictated By: JASMINA MCCLAIN/WILD Conf#: [id number] DID#: [id number] CC: CHANDANA PALM MD;*End*
== END 2018-11-22 11:37 | disposition home or self-care (01) | DRG 64 ==
LOC: E/R 07:34 → 6WM 08:35 → ICU 11:51 → 6WM 11-19 11:17
PROVIDERS: ADMIT Internal Medicine; ATTEND Internal Medicine
DX: I63.9 Cerebral infarction, unspecified (principal); R65.11 Systemic inflammatory response syndrome (SIRS) of non-infectious origin with acute organ dysfunction; G81.94 Hemiplegia, unspecified affecting left nondominant side; I16.1 Hypertensive emergency; N17.9 Acute kidney failure, unspecified; N18.4 Chronic kidney disease, stage 4 (severe); E87.0 Hyperosmolality and hypernatremia; E87.2 Acidosis; R29.810 Facial weakness; R47.81 Slurred speech; I12.9 Hypertensive chronic kidney disease with stage 1 through stage 4 chronic kidney disease, or unspecified chronic kidney disease; E87.5 Hyperkalemia; G40.909 Epilepsy, unspecified, not intractable, without status epilepticus; E11.22 Type 2 diabetes mellitus with diabetic chronic kidney disease; E78.5 Hyperlipidemia, unspecified; F32.9 Major depressive disorder, single episode, unspecified; D63.1 Anemia in chronic kidney disease
CPT/HCPCS: 36415; 70450; 70544; 70549; 70551; 71045; 80048; 80053; 80061; 80164; 80307; 81001; 81003; 82043; 82550; 82553; 82728; 82962; 83036; 83540; 83605; 83690; 83735; 84100; 84155; 84300; 84443; 84484; 85025; 85610; 85651; 85730; 86592; 87040; 87081; 87086; 87400; 92523; 92526; 92610; 93005; 93308; 93880; 97116; 97163; 97167; 97530; 97535; J0696; J1644; J1815; J1953; J2405; J7030; J7040; J7050; Q4081

== ENCOUNTER 2018-12-09 14:15 | Inpatient (IN) | payer MEDICARE ==
[~2018-12-09] VITALS: Ht 165.1 cm; Wt 65.6 kg
[~2018-12-09 14:15] MED LIST changes: -ASPI-817 PO; +ASPI-903 PO; +ATOR-2 PO; -ATOR20TA38 PO; +BICS PO; +CALC0.5C10 PO; -CLON0.2T12 PO; +CLOP75TA28 PO; +LABE200T25 PO; +LEVE-5 PO; -LEVE750T8 PO; -METO-407 PO; +NIFE60TA2 PO; -NIFE90TA PO; +VALP250C PO
[2018-12-09] MEDS ORDERED: SODIUM POLYSTYRENE 15 GM KIT (POWDER + SORBITOL) PO STA (16:55)
[2018-12-09] MEDS ORDERED: FUROSEMIDE 40 MG INJ IV STA (16:55)
[2018-12-09] MEDS ORDERED: CA CHLORIDE 10% 10 ML SYRINGE IV STA (16:55)
[2018-12-09] MEDS ORDERED: NA BICARBONATE 8.4% 50 ML SYG IV STA (16:55)
[2018-12-09] MEDS ORDERED: ALBUTEROL 0.5% (NEB) 2.5 MG/0.5 ML AMP INH STA (16:55)
[2018-12-09] MEDS ORDERED: SOD CHLORIDE 0.9% 1,000 ML IV STA (17:04)
[2018-12-09] MEDS ORDERED: HYDR-3672 PO (17:12)
[2018-12-09] MEDS ORDERED: ONDANSETRON 4 MG INJ IV PRN (17:30)
[2018-12-09] MEDS ORDERED: ACETAMINOPHEN 325 MG TAB PO PRN (17:30)
--- NOTE | 2018-12-09 19:26 | HP ---
DATE OF ADMISSION: 12/09/2018 CHIEF COMPLAINT: Acute kidney injury, hyperkalemia. HISTORY OF PRESENT ILLNESS: This is a 58-year-old male well known to me who has a history of CKD sta ge IV/V with a baseline creatinine around 3.5 to 4 mg/dL with an estimated EGFR around 15 to 18 mL pe r minute, a history of hypertension, a history of recent CVA, a history of cerebritis, a history of d iabetes, history of seizure disorder who presents to [facility] Room with hyperkalemia. The patient was seen in my office approximately 2 days ago. Routine laboratory, juan l panel was drawn. The patient was noted to be hyperkalemic. He was immediately sent to the emergen cy room for evaluation after labs were confirmed. Upon arrival to the emergency room, the patient cano d laboratory data drawn, which showed a potassium of 6.7, a BUN of 65, and a creatinine of 4.22. The patient also on admission was noted to be hypertensive with systolic pressures in the 160s. The pat ient denies any chest pain, denies any hemoptysis, hematemesis, hematochezia, denies any weakness. I n the emergency room, EKG was obtained which showed peaked T waves. No other events noted. In the e mergency room, the patient was given Kayexalate, sodium bicarbonate, Lasix, and albuterol. PAST MEDICAL HISTORY: As stated above, a history of CKD stage IV/V, history of hypertension, diabete s, history of cerebritis, history of CVA, seizure disorder. PAST SURGICAL HISTORY: Status post trach removal. FAMILY HISTORY: No family history of kidney disease. SOCIAL HISTORY: Does not drink, smoke or do drugs. MEDICATIONS: The patient's medications were reviewed. REVIEW OF SYSTEMS: A 14-point review of systems was conducted. Pertinent positives as stated in the HPI, otherwise negative. PHYSICAL EXAMINATION: VITAL SIGNS: Blood pressure is 167/76, respirations 15, pulse 60, temperature 98.3. HEENT: Head is normocephalic. NECK: Supple. HEART: Regular rate. LUNGS: Show diminished breath sounds at the base. ABDOMEN: Soft, nontender to palpation. No rebound or guarding. EXTREMITIES: Negative for clubbing, cyanosis. No edema. DERMATOLOGIC: No rashes. MUSCULOSKELETAL: No joint effusion. NEUROLOGIC: No focal deficits. LABORATORY DATA: Shows sodium 141, potassium 6.7, chloride 113, BUN 65, creatinine 4.22. White coun t 7.8, hemoglobin 8.6, platelet count is 170. IMAGING STUDIES: Reviewed. ASSESSMENT AND PLAN: This is a 58-year-old male who presents with: 1. Nonoliguric acute kidney injury on top of chronic kidney disease stage IV with previous baseline creatinine around 3.5 to 4.0 mg/dL. Etiology of current acute kidney injury is possibly due to hemod ynamics, possible progression of chronic kidney disease. The patient has noted hyperkalemia, potassi um 6.7 mEq per liter. Plan at this point is to continue current medical management. Will check urin alysis with microanalysis, check urine electrolytes. We will continue current treatment plan. If th e patient's potassium levels cannot be adequately controlled in the setting of acute kidney injury an d advanced chronic kidney disease, the patient will be initiated on hemodialysis therapy. 2. Hyperkalemia. Etiology is secondary to acute kidney injury, chronic kidney disease with possible dietary indiscretion. EKG has noted changes. The patient is status post Kayexalate, albuterol, Las ix, sodium bicarbonate. Will repeat potassium levels. If remain elevated, the patient will be given an amp of D50 and IV insulin. Potassium levels cannot be improved medically, the patient will be i nitiated on renal replacement therapy. 3. Metabolic acidosis secondary to chronic kidney disease, acute kidney injury. The patient is stat us post bicarbonate therapy. 4. Anemia. Monitor hemoglobin and hematocrit levels. Will give Epogen as needed. 5. Hypertension. The patient will resume blood pressure regimen of hydralazine, labetalol, nifedipi ne. Monitor blood pressures closely. 6. Recent history of cerebrovascular accident. Continue aspirin, atorvastatin, Plavix. 7. History of seizure disorder. Continue Keppra, valproic acid. 8. History of diabetes. Continue medical management. 9. GI and DVT prophylaxis. Please note, I spent an additional 30 minutes in lepa-xu-pred time discussing code status, advance di rectives. The patient is FULL CODE. Dictated By: JASMINA DOCKERY DO NR/NTS Conf#: [id number] DID#: [id number]
--- NOTE | 2018-12-09 19:33 | ERD ---
ER Documentation Chief Complaint Chief Complaint sent by pmd for elevated potassium HPI Patient is a 58-year-old male with hypertension, diabetes, and chronic kidney disease who presents with high potassium. The patient was sent by his doctor. He does not know what number the potassium was but was told it was high. The patient has chronic kidney disease but is not on dialysis. The patient has no symptoms currently. His doctor is Dr. Villa. ROS All systems reviewed and are negative except as per history of present illness. Medications Home Meds Active Scripts Valproic Acid* (Depakene*) 250 Mg Capsule, 500 MG PO TID, #90 CAP Prov:ROBERTO CARLOS MCCLENDONA V. LDR RN 11/22/18 Levetiracetam* (Keppra*) 500 Mg Tablet, 500 MG PO BID, #60 TAB Prov:EARNESTINE MCCLENDON V. LDR RN 11/22/18 Nifedipine (Procardia Xl) 60 Mg Tab.er.24, 60 MG PO BID, #60 TAB Prov:EARNESTINE MCCLENDON V. LDR RN 11/22/18 Labetalol Hcl* (Labetalol Hcl*) 200 Mg Tablet, 600 MG PO Q8, #90 TAB Prov:EARNESTINE MCCLENDON V. LDR RN 11/22/18 Atorvastatin* (Atorvastatin*) 80 Mg Tablet, 80 MG PO HS, #30 TAB 1 Refill Prov:EARNESTINE MCCLENDON V. LDR RN 11/22/18 Clopidogrel Bisulfate (Clopidogrel) 75 Mg Tablet, 75 MG PO DAILY for 80 Days, #30 TAB 3 Refills Patient to take both aspirin and Plavix together times 80 days more. After that, he should be taking only aspirin lifelong. Please give him a refill appropriately as instructed. Prov:EARNESTINE MCCLENDON V. LDR RN 11/22/18 Aspirin* (Aspirin* Chew) 81 Mg Tab.chew, 81 MG PO DAILY, #30 TAB.CHEW 6 Refills Prov:EARNESTINE MCCLENDON V. LDR RN 11/22/18 Reported Medications Hydralazine Hcl* (Hydralazine Hcl*) 50 Mg Tab, 50 MG PO DAILY PRN for HOLD IF SBP<125, #120 TAB 12/09/18 Discontinued Reported Medications Calcitriol* (Calcitriol*) 0.5 Mcg Capsule, 0.5 MCG PO DAILY, CAP 11/16/18 Tiotropium [place] (Spiriva Respimat) 4 Gm Mist.inhal, 2 PUFF INHALATION DAILY, #1 INHALER 09/23/18 Discontinued Scripts Citric Acid/Sodium Citrate* (Bicitra* (PEDIATRIC)) 1 Meq/Ml Soln, 30 ML PO BID, #60 TAB Prov:MCCLENDON,EARNESTINE V. LDR RN 11/22/18 Hydralazine Hcl* (Hydralazine Hcl*) 100 Mg Tablet, 100 MG PO TID, #90 TAB 1 Refill Prov:MCCLENDON,EARNESTINE V. LDR RN 11/22/18 Trazodone Hcl* (Desyrel*) 50 Mg Tablet, 25 MG PO HS PRN for INSOMNIA, #30 TAB Prov:MALGORZATA HENDRICKSON 10/01/18 Allergies Allergies: Coded Allergies: No Known Allergy (Unverified , 12/09/18) PMhx/Soc History of Surgery: No Anesthesia Reaction: No Hx Neurological Disorder: No Hx Respiratory Disorders: No Hx Cardiac Disorders: No Hx Psychiatric Problems: Yes (depression, hx of alcohol use ) Hx Miscellaneous Medical Probl: Yes Hx Alcohol Use: No Hx Substance Use: No Hx Tobacco Use: No Smoking Status: Never smoker FmHx Family History: diabetes Physical Exam Vitals Vital Signs Date Temp Pulse Resp B/P (MAP) Pulse Ox O2 O2 Flow FiO2 Time Delivery Rate 12/09/18 60 15 167/76 100 Room Air 18:46 (106) 12/09/18 55 18 100 21 17:41 12/09/18 98.3 55 20 168/75 98 Room Air 17:10 (106) 12/09/18 98.5 61 18 143/68 98 14:28 (93) Physical Exam Const: No acute distress Head: Atraumatic Eyes: Normal Conjunctiva ENT: Normal External Ears, Nose and Mouth. Neck: Full range of motion. No meningismus. Resp: Clear to auscultation bilaterally Cardio: Regular rate and rhythm, no murmurs Abd: Soft, non tender, non distended. Normal bowel sounds Skin: No petechiae or rashes Back: No midline or flank tenderness Ext: No cyanosis, or edema Neur: Awake and alert Psych: Normal Mood and Affect Result Diagram: 12/09/18 1612 12/09/18 1612 Results 24 hrs Laboratory Tests Test 12/09/18 16:12 White Blood Count 7.8 10^3/ul Red Blood Count 3.04 10^6/ul Hemoglobin 8.6 g/dl Hematocrit 27.3 % Mean Corpuscular Volume 89.8 fl Mean Corpuscular Hemoglobin 28.3 pg Mean Corpuscular Hemoglobin Concent 31.5 g/dl Red Cell Distribution Width 13.5 % Platelet Count 170 10^3/UL Mean Platelet Volume 9.0 fl Immature Granulocytes % 2.300 % Neutrophils % 61.7 % Lymphocytes % 15.8 % Monocytes % 12.9 % Eosinophils % 6.5 % Basophils % 0.8 % Nucleated Red Blood Cells % 0.5 /100WBC Immature Granulocytes # 0.180 10^3/ul Neutrophils # 4.8 10^3/ul Lymphocytes # 1.2 10^3/ul Monocytes # 1.0 10^3/ul Eosinophils # 0.5 10^3/ul Basophils # 0.1 10^3/ul Nucleated Red Blood Cells # 0.0 10^3/ul Sodium Level 141 mmol/L Potassium Level 6.7 mmol/L Chloride Level 113 mmol/L Carbon Dioxide Level 20 mmol/L Anion Gap 8 Blood Urea Nitrogen 65 mg/dl Creatinine 4.22 mg/dl Est Glomerular Filtrat Rate mL/min 15 mL/min Glucose Level 137 mg/dl Calcium Level 8.6 mg/dl Current Medications Medications Dose Sig/Eladio Start Time Status Last (Trade) Ordered Route PRN Stop Time Admin Dose Reason Admin Furosemide 40 mg ONCE STAT 12/09/18 DC 12/09/18 (Lasix) IV 16:55 17:10 12/09/18 16:56 Sodium 30 gm ONCE STAT 12/09/18 DC 12/09/18 Polystyrene PO 16:55 17:11 Sulfonate 12/09/18 16:56 (Kayexelate 15 Gm Kit (Powder+Sorbi gisselle)) Albuterol 15 mg ONCE STAT 12/09/18 DC 12/09/18 (Proventil INH 16:55 17:40 0.5% (Neb)) 12/09/18 16:56 Sodium 50 ml ONCE STAT 12/09/18 DC 12/09/18 Bicarbonate IV 16:55 17:08 (Na Bicarb 12/09/18 16:56 8.4% Syg) Calcium 1,000 mg ONCE STAT 12/09/18 DC 12/09/18 Chloride IV 16:55 17:07 (Ca Chloride 12/09/18 16:56 10% Syg) Sodium 1,000 ml @ Q1H STAT 12/09/18 DC 12/09/18 Chloride 1,000 mls/hr IV 17:04 17:20 12/09/18 18:03 Ondansetron 4 mg ER BRIDGE 12/09/18 HCl (Zofran PRN IV 17:30 Inj) NAUSEA/VOMITI 12/10/18 17:29 NG 650 mg ER BRIDGE 12/09/18 Acetaminophen PRN PO 17:30 (Tylenol .MILD PAIN 12/10/18 17:29 Tab) 1-3 OR TEMP Aspirin 81 mg DAILY PO 12/10/18 (Aspirin) 09:00 80 mg HS PO 12/09/18 Atorvastatin 21:00 Calcium (Lipitor) Clopidogrel 75 mg DAILY PO 12/10/18 Bisulfate 09:00 (plaVIX) Hydralazine 100 mg Q8 PO 12/09/18 HCl 22:00 (Apresoline) Labetalol 600 mg Q8 PO 12/09/18 HCl 22:00 (Normodyne) 500 mg BID PO 12/09/18 Levetiracetam 21:00 (Keppra) Nifedipine 60 mg BID PO 12/09/18 (Procardia 21:00 Xl) Valproic 500 mg TID PO 12/09/18 Acid 21:00 (Depakene) Procedures/MDM EKG read by me: Rate/Rhythm: Bradycardia at a rate of 55 Intervals: Normal Impression: Bradycardia with peaked T waves Patient is a 58-year-old male who presents with acute hyperkalemia. Potassium was 6.7 and he was treated with calcium, bicarb, albuterol, and Kayexalate. The patient will be admitted to the care of Dr. Villa who is his primary doctor. He will be admitted to a telemetry bed. He does not currently receive dialysis but may need dialysis in the future if his kidney function is not improved. Dr. Villa requested 1 L of normal saline which I have ordered. Critical Care: Time: 35 minutes excluding all billable procedures. Treatments/Evaluations: Close monitoring and treatment of unstable vital signs, cardiorespiratory, and neurologic status, while maintaining tight balance of fluid, respiratory, and cardiac interventions. Departure Diagnosis: Primary Impression: Hyperkalemia Additional Impressions: Anemia Anemia type: unspecified type Qualified Codes: D64.9 - Anemia, unspecified Chronic kidney disease Chronic kidney disease stage: unspecified stage Qualified Codes: N18.9 - Chronic kidney disease, unspecified Condition: YULISA Salguero MD Dec 09, 2018 19:32
[2018-12-09 21:07] VITALS: BP 139/78; PULSE 59; RESP 20
[2018-12-09 21:15] VITALS: Ht 165.1 cm; Wt 65.6 kg
[2018-12-09] MEDS: LEVETIRACETAM 500 MG TAB PO SCH (21:32)
[2018-12-09] MEDS: VALPROIC ACID 250 MG CAP PO SCH (21:32)
[2018-12-09] MEDS: NIFEdipine (XL) 60 MG TAB PO SCH (21:33)
[2018-12-09] MEDS: ATORVASTATIN 80 MG TAB PO SCH (21:33)
[2018-12-09] MEDS: LABETALOL 200 MG TAB PO SCH (22:00)
[2018-12-09 23:58] VITALS: BP_SYST 139; BP_SYST 168; BP_DIAS 77; BP_DIAS 78; PULSE 59; RESP 20
[2018-12-10] VITALS (13 sets, daily range): BP systolic 143–179; BP diastolic 67–101; PULSE 62–75; RESP 20
[2018-12-10] MEDS: LABETALOL 200 MG TAB PO SCH ×3 (05:06→21:38)
[2018-12-10] MEDS: VALPROIC ACID 250 MG CAP PO SCH ×3 (09:01→21:23)
[2018-12-10] MEDS: ASPIRIN 81 MG TAB PO SCH (09:01)
[2018-12-10] MEDS: CLOPIDOGREL 75 MG TAB PO SCH (09:01)
[2018-12-10] MEDS: LEVETIRACETAM 500 MG TAB PO SCH ×2 (09:02→21:23)
[2018-12-10] MEDS: NIFEdipine (XL) 60 MG TAB PO SCH ×2 (09:02→21:23)
--- NOTE | 2018-12-10 09:57 | PN ---
DATE: 12/10/2018 SUBJECTIVE: The patient is stable, no events overnight. No fevers, chills, nausea, or vomiting. OBJECTIVE: VITAL SIGNS: Blood pressure is 159/81, respirations 20, pulse 62, temperature 98.2. HEENT: Head is normocephalic. NECK: Supple. HEART: Regular rate. LUNGS: Show diminished breath sounds at the base. ABDOMEN: Soft, nontender to palpation without rebound or guarding. EXTREMITIES: Negative for clubbing, cyanosis, trace edema. DERMATOLOGIC: No rashes. MUSCULOSKELETAL: No joint effusion. NEUROLOGIC: No change in exam. MEDICATIONS: Reviewed. LABORATORY DATA: Shows sodium 141, potassium 4.9, BUN 59, creatinine 3.85. White count 7.2, hemoglo bin 8.6, platelet count is 186. ASSESSMENT AND PLAN: 1. Nonoliguric acute kidney injury on top of chronic kidney disease stage IV with previous baseline creatinine of around 3.5 to 4 mg/dL. Etiology of acute kidney injury is likely secondary to hemodyna mics. Renal function is returning back to baseline. At this point, continue current treatment plan, supportive care, renally dose all medicines. 2. Chronic kidney disease stage IV with a baseline creatinine of around 3.5 to 3.8 mg/dL. The patie nt is currently at baseline. The patient does not wish to be started on dialysis at this time unless absolutely necessary. We will continue current medical management. Continue disease factor modific ation. 3. Hyperkalemia secondary to acute kidney injury, chronic kidney disease in conjunction with dietary indiscretion. The patient's potassium levels are normalized. Continue renal diet. We will have a dietary consult for the patient for education on low-potassium diet, renal diet. 4. Metabolic acidosis secondary to acute kidney injury. We will continue Bicitra. 5. Anemia. Continue to monitor hemoglobin and hematocrit levels. 6. Hypertension. Blood pressure remains elevated. Continue current blood pressure regimen, adjust as needed. 7. Recent history of cerebrovascular accident. Continue medical management. 8. Seizure disorder. Continue Keppra and valproic acid. 9. Diabetes. Continue current medical management. 10. Gastrointestinal and deep vein thrombosis prophylaxis. DISPOSITION: Anticipate discharge of the patient within the next 24 hours. Dictated By: JASMINA MCCLAIN/WILD Conf#: [id number] DID#: [id number] CC: JASMINA DOCKERY DO;*EndCC*
[2018-12-10] MEDS: CITRIC ACID/NA CITRATE 30 ML CUP PO SCH ×2 (10:40→21:22)
[2018-12-10] MEDS ORDERED: EPOETIN 10000 UNITS/1 ML INJ (ESRD) SC ONE (11:00)
[2018-12-10] MEDS: ATORVASTATIN 80 MG TAB PO SCH (21:23)
[2018-12-11] VITALS: BP 158/76; PULSE 64; PULSE 68; RESP 18
[2018-12-11 04:00] VITALS: BP 168/81; PULSE 60; PULSE 68; RESP 18
[2018-12-11] MEDS: LABETALOL 200 MG TAB PO SCH (06:03)
[2018-12-11 07:41] VITALS: BP 137/63; PULSE 67; RESP 20
[2018-12-11 08:00] VITALS: PULSE 63
[2018-12-11] MEDS: CLOPIDOGREL 75 MG TAB PO SCH (09:01)
[2018-12-11] MEDS: LEVETIRACETAM 500 MG TAB PO SCH (09:01)
[2018-12-11] MEDS: NIFEdipine (XL) 60 MG TAB PO SCH (09:02)
[2018-12-11] MEDS: ASPIRIN 81 MG TAB PO SCH (09:02)
[2018-12-11] MEDS: CITRIC ACID/NA CITRATE 30 ML CUP PO SCH (09:02)
[2018-12-11] MEDS: VALPROIC ACID 250 MG CAP PO SCH (09:07)
--- NOTE | 2018-12-11 10:17 | DS ---
Date/Time of Note Date/Time of Note DATE: 12/11/18 TIME: 10:14 Discharge Summary Admission/Discharge Info Admit Date/Time Dec 09, 2018 at 17:05 Discharge Date/Time Hospital Course HISTORY OF PRESENT ILLNESS: This is a 58-year-old male with history of CKD stage IV/V with a baseline creatinine around 3.5 to 4 mg/dL with an estimated EGFR around 15 to 18 mL per minute, a history of hypertension, a history of recent CVA, a history of cerebritis, a history of diabetes, history of seizure disorder who presents to [facility] with hyperkalemia. Upon arrival to the emergency room, the patient had laboratory data drawn, which showed a potassium of 6.7, a BUN of 65, and a creatinine of 4.22. The patient also on admission was noted to be hypertensive with systolic pressures in the 160s. The patient denies any chest pain, denies any hemoptysis, hematemesis, hematochezia, denies any weakness. In the emergency room, EKG was obtained which showed peaked T waves. No other events noted. In the emergency room, the patient was given Kayexalate, sodium bicarbonate, Lasix, and albuterol. while in [facility] he was treated for: 1. Nonoliguric acute kidney injury on top of chronic kidney disease stage IV with previous baseline creatinine of around 3.5 to 4 mg/dL. Etiology of acute kidney injury is likely secondary to hemodynamics. Renal function is returning back to baseline. At this point, continue current treatment plan, supportive care, renally dose all medicines. 2. Chronic kidney disease stage IV with a baseline creatinine of around 3.5 to 3.8 mg/dL. The patient is currently at baseline. The patient does not wish to be started on dialysis at this time unless absolutely necessary. We will continue current medical management. Continue disease factor modification. 3. Hyperkalemia secondary to acute kidney injury, chronic kidney disease in conjunction with dietary indiscretion. The patient's potassium levels are normalized. Continue renal diet. We will have a dietary consult for the patient for education on low-potassium diet, renal diet. 4. Metabolic acidosis secondary to acute kidney injury. We will continue Bicitra. 5. Anemia. Continue to monitor hemoglobin and hematocrit levels. 6. Hypertension. Blood pressure remains elevated. Continue current blood pressure regimen, adjust as needed. 7. Recent history of cerebrovascular accident. Continue medical management. 8. Seizure disorder. Continue Keppra and valproic acid. 9. Diabetes. Continue current medical management. 10. Gastrointestinal and deep vein thrombosis prophylaxis. PHYSICAL EXAMINATION: VITAL SIGNS: Blood pressure is 167/76, respirations 15, pulse 60, temperature 98.3. HEENT: Head is normocephalic. NECK: Supple. HEART: Regular rate. LUNGS: Show diminished breath sounds at the base. ABDOMEN: Soft, nontender to palpation. No rebound or guarding. EXTREMITIES: Negative for clubbing, cyanosis. No edema. DERMATOLOGIC: No rashes. MUSCULOSKELETAL: No joint effusion. NEUROLOGIC: No focal deficits. low k diet discussed salt and fluid restriction also discussed meds were reviewed will dc in stable condition follow up with Dr Villa in one week time time of [facility]: 37 minutes Home Meds Active Scripts Valproic Acid* (Depakene*) 250 Mg Capsule, 500 MG PO TID, #90 CAP Prov:MCCLENDONEARNESTINE V. BUSINESS OBJECTS ARCHITECT 11/22/18 Levetiracetam* (Keppra*) 500 Mg Tablet, 500 MG PO BID, #60 TAB Prov:MCCLENDONROBERTO CARLOSA V. BUSINESS OBJECTS ARCHITECT 11/22/18 Nifedipine (Procardia Xl) 60 Mg Tab.er.24, 60 MG PO BID, #60 TAB Prov:MCCLENDONEARNESTINE V. BUSINESS OBJECTS ARCHITECT 11/22/18 Labetalol Hcl* (Labetalol Hcl*) 200 Mg Tablet, 600 MG PO Q8, #90 TAB Prov:MCCLENDONEARNESTINE V. BUSINESS OBJECTS ARCHITECT 11/22/18 Atorvastatin* (Atorvastatin*) 80 Mg Tablet, 80 MG PO HS, #30 TAB 1 Refill Prov:MCCLENDONEARNESTINE V. BUSINESS OBJECTS ARCHITECT 11/22/18 Clopidogrel Bisulfate (Clopidogrel) 75 Mg Tablet, 75 MG PO DAILY for 80 Days, #30 TAB 3 Refills Patient to take both aspirin and Plavix together times 80 days more. After that, he should be taking only aspirin lifelong. Please give him a refill appropriately as instructed. Prov:EARNESTINE MCCLENDON V. BUSINESS OBJECTS ARCHITECT 11/22/18 Aspirin* (Aspirin* Chew) 81 Mg Tab.chew, 81 MG PO DAILY, #30 TAB.CHEW 6 Refills Prov:EARNESTINE MCCLENDON V. BUSINESS OBJECTS ARCHITECT 11/22/18 Reported Medications Hydralazine Hcl* (Hydralazine Hcl*) 50 Mg Tab, 50 MG PO DAILY PRN for HOLD IF SBP<125, #120 TAB 12/09/18 Discontinued Reported Medications Calcitriol* (Calcitriol*) 0.5 Mcg Capsule, 0.5 MCG PO DAILY, CAP 11/16/18 Tiotropium [place] (Spiriva Respimat) 4 Gm Mist.inhal, 2 PUFF INHALATION DAILY, #1 INHALER 09/23/18 Discontinued Scripts Citric Acid/Sodium Citrate* (Bicitra* (PEDIATRIC)) 1 Meq/Ml Soln, 30 ML PO BID, #60 TAB Prov:ROBERTO CARLOS MCCLENDONA Tiffanie BUSINESS OBJECTS ARCHITECT 11/22/18 Hydralazine Hcl* (Hydralazine Hcl*) 100 Mg Tablet, 100 MG PO TID, #90 TAB 1 Refill Prov:EARNESTINE MCCLENDON V. BUSINESS OBJECTS ARCHITECT 11/22/18 Trazodone Hcl* (Desyrel*) 50 Mg Tablet, 25 MG PO HS PRN for INSOMNIA, #30 TAB Prov:MALGORZATA HENDRICKSON 10/01/18 Primary Care Provider Not On Staff Doctor Time spent on discharge: > 30 minutes Pending Labs Laboratory Tests Test 12/11/18 06:33 White Blood Count 8.2 10^3/ul (4.8-10.8) Red Blood Count 3.08 10^6/ul (4.70-6.10) Hemoglobin 8.8 g/dl (14.0-18.0) Hematocrit 27.9 % (42.0-52.0) Mean Corpuscular Volume 90.6 fl (82.0-101.0) Mean Corpuscular Hemoglobin 28.6 pg (29.0-33.0) Mean Corpuscular Hemoglobin Concent 31.5 g/dl (32.0-37.0) Red Cell Distribution Width 14.3 % (11.5-14.5) Platelet Count 186 10^3/UL (140-415) Mean Platelet Volume 9.5 fl (7.4-10.4) Immature Granulocytes % 1.500 % (0.001-0.429) Neutrophils % 60.4 % (39.0-77.0) Lymphocytes % 18.0 % (15.0-51.0) Monocytes % 13.1 % (0.0-11.0) Eosinophils % 6.3 % (0.0-7.0) Basophils % 0.7 % (0.0-2.0) Nucleated Red Blood Cells % 0.0 /100WBC (0.0-0.0) Immature Granulocytes # 0.120 10^3/ul (0.0-0.031) Neutrophils # 4.9 10^3/ul (1.6-7.5) Lymphocytes # 1.5 10^3/ul (0.8-2.9) Monocytes # 1.1 10^3/ul (0.3-0.9) Eosinophils # 0.5 10^3/ul (0.0-0.5) Basophils # 0.1 10^3/ul (0.0-0.1) Nucleated Red Blood Cells # 0.0 10^3/ul (0.0-0.0) Sodium Level 145 mmol/L (135-144) Potassium Level 4.9 mmol/L (3.5-5.1) Chloride Level 116 mmol/L (97-110) Carbon Dioxide Level 21 mmol/L (21-31) Anion Gap 8 (5-13) Blood Urea Nitrogen 54 mg/dl (7-20) Creatinine 3.91 mg/dl (0.61-1.24) Est Glomerular Filtrat Rate mL/min 16 mL/min (>60) Glucose Level 105 mg/dl (70-220) Calcium Level 8.2 mg/dl (8.4-10.2) Phosphorus Level 4.8 mg/dl (2.5-4.9) Magnesium Level 1.9 mg/dl (1.7-2.5) VENANCIO KELLOGG DO Dec 11, 2018 10:17
== END 2018-12-11 11:20 | disposition home health service (06) | DRG 683 ==
LOC: E/R 14:15 → TEL 17:05
PROVIDERS: ADMIT Internal Medicine; ATTEND Internal Medicine
DX: N17.9 Acute kidney failure, unspecified (principal); I12.0 Hypertensive chronic kidney disease with stage 5 chronic kidney disease or end stage renal disease; E87.2 Acidosis; E11.22 Type 2 diabetes mellitus with diabetic chronic kidney disease; E87.5 Hyperkalemia; N18.5 Chronic kidney disease, stage 5; D64.9 Anemia, unspecified; G40.909 Epilepsy, unspecified, not intractable, without status epilepticus; Z79.4 Long term (current) use of insulin; Z79.82 Long term (current) use of aspirin; Z86.73 Personal history of transient ischemic attack (TIA), and cerebral infarction without residual deficits
CPT/HCPCS: 80048; 81001; 81003; 82043; 83735; 84100; 84155; 84300; 85025; 93005; 94664; J1940; J7030; Q4081

== ENCOUNTER 2018-12-29 11:33 | Inpatient (IN) | payer MEDICARE, MEDICAID ==
[~2018-12-29] VITALS: Ht 165.1 cm; Wt 62.4 kg
[~2018-12-29 11:33] MED LIST changes: -BICS PO; -CALC0.5C10 PO; +HYDR-3672 PO; -HYDR100T25 PO; -TIOT4MIS2 INHALATION; -TRA50 PO
[2018-12-29] MEDS ORDERED: INSULIN REGULAR, HUMAN 100 UNIT/1 ML 3ML VIAL IVP STA (12:31)
[2018-12-29] MEDS ORDERED: SODIUM POLYSTYRENE 15 GM KIT (POWDER + SORBITOL) PO STA (12:31)
[2018-12-29] MEDS ORDERED: CA CHLORIDE 10% 10 ML SYRINGE IV STA (12:31)
[2018-12-29] MEDS ORDERED: NA BICARBONATE 8.4% 50 ML SYG IV STA (12:31)
[2018-12-29] MEDS ORDERED: DEXTROSE 50% 50 ML SYRINGE IV PRN (13:00)
--- NOTE | 2018-12-29 13:20 | ERD ---
ER Documentation Chief Complaint Chief Complaint lab work ; high potassium level HPI 58-year-old male with a history of diabetes, hypertension, and CKD sent by Dr. Villa for hyperkalemia seen on blood work yesterday. Per the patient, his potassium was 8. Patient denies any symptoms. He is denying any dizziness, chest pain, shortness of breath, palpitations, decrease in urination or change in urination. He does have a history of this but is not currently on dialysis. ROS All systems reviewed and are negative except as per history of present illness. Medications Home Meds Active Scripts Valproic Acid* (Depakene*) 250 Mg Capsule, 500 MG PO TID, #90 CAP Prov:MCCLENDONROBERTO CARLOSA V. FOOD CHECKER 11/22/18 Levetiracetam* (Keppra*) 500 Mg Tablet, 500 MG PO BID, #60 TAB Prov:MCCLENDONROBERTO CARLOSA V. FOOD CHECKER 11/22/18 Nifedipine (Procardia Xl) 60 Mg Tab.er.24, 60 MG PO BID, #60 TAB Prov:MCCLENDONEARNESTINE V. FOOD CHECKER 11/22/18 Labetalol Hcl* (Labetalol Hcl*) 200 Mg Tablet, 600 MG PO Q8, #90 TAB Prov:MCCLENDONROBERTO CARLOSA V. FOOD CHECKER 11/22/18 Atorvastatin* (Atorvastatin*) 80 Mg Tablet, 80 MG PO HS, #30 TAB 1 Refill Prov:ROBERTO CARLOS MCCLENDONA V. FOOD CHECKER 11/22/18 Clopidogrel Bisulfate (Clopidogrel) 75 Mg Tablet, 75 MG PO DAILY for 80 Days, #30 TAB 3 Refills Patient to take both aspirin and Plavix together times 80 days more. After that, he should be taking only aspirin lifelong. Please give him a refill appropriately as instructed. Prov:EARNESTINE MCCLENDON V. FOOD CHECKER 11/22/18 Aspirin* (Aspirin* Chew) 81 Mg Tab.chew, 81 MG PO DAILY, #30 TAB.CHEW 6 Refills Prov:EARNESTINE MCCLENDON V. FOOD CHECKER 11/22/18 Reported Medications Hydralazine Hcl* (Hydralazine Hcl*) 50 Mg Tab, 50 MG PO DAILY PRN for HOLD IF SBP<125, #120 TAB 12/09/18 Allergies Allergies: Coded Allergies: No Known Allergy (Unverified , 12/29/18) PMhx/Soc History of Surgery: Yes (HERNIA REPAIR) Anesthesia Reaction: No Hx Neurological Disorder: Yes (SEIZURES) Hx Respiratory Disorders: No Hx Cardiac Disorders: Yes (HTN, ) Hx Psychiatric Problems: No Hx Miscellaneous Medical Probl: No Hx Alcohol Use: No Hx Substance Use: No Hx Tobacco Use: No Smoking Status: Never smoker FmHx Family History: No diabetes Physical Exam Vitals Vital Signs Date Temp Pulse Resp B/P (MAP) Pulse Ox O2 O2 Flow FiO2 Time Delivery Rate 12/29/18 96.0 56 19 119/56 100 11:37 (77) Physical Exam Const: No acute distress Head: Atraumatic Eyes: Normal Conjunctiva, PERRLA, EOMI ENT: Normal External Ears, Nose and Mouth. Neck: Full range of motion. No meningismus. Resp: Clear to auscultation bilaterally Cardio: Bradycardic, regular rhythm, no murmurs. 2+ distal pulses Abd: Soft, non tender, non distended. Normal bowel sounds Skin: No petechiae or rashes Back: No midline or flank tenderness Ext: No cyanosis, or edema Neur: Awake and alert, normal speech, no facial asymmetry, moving all extremities Psych: Normal Mood and Affect Result Diagram: 12/29/18 1200 12/29/18 1200 Results 24 hrs Laboratory Tests Test 12/29/18 12:00 12/29/18 12:35 12/29/18 14:09 12/29/18 14:50 White Blood Count 7.7 10^3/ul Red Blood Count 3.11 10^6/ul Hemoglobin 9.0 g/dl Hematocrit 29.0 % Mean Corpuscular 93.2 fl Volume Mean Corpuscular 28.9 pg Hemoglobin Mean Corpuscular 31.0 g/dl Hemoglobin Concent Red Cell Distribution 16.5 % Width Platelet Count 151 10^3/UL Mean Platelet Volume 10.4 fl Immature Granulocytes 0.400 % % Neutrophils % 65.5 % Lymphocytes % 14.8 % Monocytes % 6.5 % Eosinophils % 12.2 % Basophils % 0.6 % Nucleated Red Blood 0.0 /100WBC Cells % Immature Granulocytes 0.030 10^3/ul # Neutrophils # 5.0 10^3/ul Lymphocytes # 1.1 10^3/ul Monocytes # 0.5 10^3/ul Eosinophils # 0.9 10^3/ul Basophils # 0.1 10^3/ul Nucleated Red Blood 0.0 10^3/ul Cells # Sodium Level 139 mmol/L Potassium Level 6.3 mmol/L Chloride Level 112 mmol/L Carbon Dioxide Level 20 mmol/L Anion Gap 7 Blood Urea Nitrogen 78 mg/dl Creatinine 4.61 mg/dl Est Glomerular Filtrat 13 mL/min Rate mL/min Glucose Level 122 mg/dl Calcium Level 8.5 mg/dl Bedside Glucose 128 mg/dL 45 mg/dL 114 mg/dL Current Medications Medications Dose Sig/Eladio Start Time Status Last (Trade) Ordered Route PRN Stop Time Admin Dose Reason Admin Sodium 30 gm ONCE STAT 12/29/18 DC Polystyrene PO 12:31 12/29/18 Sulfonate 12:32 (Kayexelate 15 Gm Kit (Powder+Sorbi gisselle)) Sodium 50 ml ONCE STAT 12/29/18 DC 12/29/18 Bicarbonate IV 12:31 12/29/18 12:41 (Na Bicarb 12:32 8.4% Syg) Calcium 1,000 mg ONCE STAT 12/29/18 DC 12/29/18 Chloride IV 12:31 12/29/18 12:40 (Ca Chloride 12:32 10% Syg) Insulin 10 unit ONCE STAT 12/29/18 DC 12/29/18 Human IVP 12:31 12/29/18 12:42 Regular 12:32 (Humulin R) Dextrose ONCE PRN 12/29/18 12/29/18 (D50w IV DECREASED 13:00 12:41 Syringe) GLUCOSE Sodium 30 gm ONCE PO 12/29/18 Polystyrene 13:30 12/29/18 Sulfonate 23:59 (Kayexalate) Ondansetron 4 mg ER BRIDGE 12/29/18 HCl (Zofran PRN IV 14:30 12/30/18 Inj) NAUSEA/VOMITI 14:29 NG 650 mg ER BRIDGE 12/29/18 Acetaminophen PRN PO 14:30 12/30/18 (Tylenol .MILD PAIN 14:29 Tab) 1-3 OR TEMP Procedures/MDM EMERGENT LABS AND DIAGNOSTIC STUDIES: Lab Results above were reviewed and interpreted by me. CBC: Mild anemia. No evidence of infection BMP: Hyperkalemia with evidence of renal failure with elevated BUN and creatinine. Mild acidosis. 12-lead EKG was interpreted by Judith Urban MD: sinus bradycardia 51 bpm Normal axis Normal intervals Anteriorly peaked T waves, concerning for hyperkalemia. No acute ST or T wave changes suggestive of acute ischemia or STEMI. Radiology Results as interpreted by Radiology below were reviewed by Marybel Urban MD: Chest x-ray shows cardiomegaly, no acute abnormalities Initial Nursing notes reviewed. Previous Medical Records requested via the Electronic Health Record. EMERGENCY DEPARTMENT COURSE / MEDICAL DECISION MAKING: patient is presenting with hyperkalemia and worsening renal failure.Vitals are unremarkable. Patient is asymptomatic. EKG was concerning for possible hyperkalemia changes, so he was treated with insulin, dextrose, calcium, bicarb, and Kayexalate. I spoke with his dry mixer, Dr. Villa, who plans on admitting the patient for further management. Critical Care Time: 35 minutes Treatments/Evaluations: Close monitoring and treatment of unstable vital signs, cardiorespiratory, and neurologic status, while maintaining tight balance of fluid, respiratory, and cardiac interventions. This time includes discussing the case with the patient and the patients family. This time does not include all procedures stated elsewhere in this record. This time also includes reviewing old records, labs and radiological studies. This time includes examining and re- examining the patient. Additionally, this time also includes arranging care with admitting and consulting physicians. Departure Diagnosis: Primary Impression: Acute kidney injury superimposed on chronic kidney disease Additional Impression: Hyperkalemia Condition: Serious MARCELLE URBAN MD Dec 29, 2018 13:18
[2018-12-29] MEDS ORDERED: NA POLYST SULFON 15 GM/60 ML BTL PO SCH (13:30)
[2018-12-29] MEDS ORDERED: ACETAMINOPHEN 325 MG TAB PO PRN (14:30)
[2018-12-29] MEDS ORDERED: ONDANSETRON 4 MG INJ IV PRN (14:30)
[2018-12-29] MEDS ORDERED: FUROSEMIDE 40 MG INJ IV ONE (16:00)
[2018-12-29] MEDS ORDERED: SOD CHLORIDE 0.9% 1,000 ML IV SCH (16:00)
[2018-12-29 21:20] VITALS: Ht 165.1 cm; Wt 62.4 kg
--- NOTE | 2018-12-29 21:22 | HP ---
DATE OF ADMISSION: 12/29/2018 CHIEF COMPLAINT: Hyperkalemia. HISTORY OF PRESENT ILLNESS: This is a 58-year-old male well known to me with a past medical history of CKD stage IV/V with a baseline GFR between 13 and 15 mL per minute. The baseline creatinine aroun d 4.0 to 4.3 mg/dL, who presents to [facility] due to hyperkalemia. The patient wa s recently noted to have hyperkalemia in the outpatient setting. He was given Kayexalate. On repeat a renal panel, the patient's potassium levels remain markedly elevated near 7 mEq/dL. As a result, the patient was brought in to the emergency room. Upon arrival, the patient does have a potassium of 6.3 mEq per liter. The patient was given hyperkalemia cocktail with calcium gluconate, dextrose, in sulin. The patient also noted to be bradycardic on EKG. The patient himself denies any hemoptysis, hematemesis, hematochezia. In terms of patient's renal history, as stated above history has progressive CKD. I spoke in detail with the patient on the past several weeks about the probable need to initiate hemodialysis. The pat jeanette is reluctant to start dialysis. I informed him that if his potassium levels remain elevated fletcher t his life would be at risk if he does not initiate dialysis. The patient understood and he states t hat he will now speak with his family and make a decision regarding hemodialysis. PAST MEDICAL HISTORY: 1. History of CKD stage V. 2. History of hypertension. 3. History of diabetes. 4. ____ 5. History of CVA. 6. History of seizure disorder. PAST SURGICAL HISTORY: Status post trach placement and removal. FAMILY HISTORY: No family history of kidney disease. SOCIAL HISTORY: Does not drink, smoke or do drugs. MEDICATIONS: Reviewed. REVIEW OF SYSTEMS: A 14-point review of systems conducted. Pertinent positives stated in HPI, other hanson negative. PHYSICAL EXAMINATION: VITAL SIGNS: Blood pressure is 135/72, respirations 14, pulse 62, temperature 98.3. HEENT: Head is normocephalic. NECK: Supple. HEART: Regular rate. LUNGS: Show diminished breath sounds at the base. ABDOMEN: Soft, nontender to palpation without rebound or guarding. EXTREMITIES: Negative for clubbing, cyanosis, no edema. DERMATOLOGIC: No rashes. MUSCULOSKELETAL: No joint effusions. NEUROLOGIC: No focal deficits. LABORATORY DATA: From December 29 was reviewed. The patient's sodium 139, potassium is 6.3, chloride 112, bicarbonate 20, BUN 78, creatinine is 4.61. White count 7.7, hemoglobin 9.0, platelet count is 151. IMAGING STUDIES: Reviewed. ASSESSMENT AND PLAN: 1. Nonoliguric acute kidney injury on top of CKD stage IV with previous baseline creatinine around 4 .0 to 4.3 mg/dL. Etiology of current [place] is likely secondary to hemodynamics, questionable progressi on of CKD. Plan at this point is to give the patient a fluid challenge with normal saline 75 mL an h our. We will also check a urinalysis, urine electrolytes. Otherwise, continue current treatment lexi n, supportive care, renally dose all meds. Please note if the patient's renal function does not stab ilize or the patient's hyperkalemia cannot be medically managed, we will be initiating on renal repla cement therapy. 2. Hyperkalemia. Etiology secondary to acute kidney injury, CKD. Patient is status post Kayexalate , Lasix, sodium bicarbonate, IV insulin and dextrose. We will repeat potassium levels. If remained elevated, patient will be urgently started on hemodialysis. We will continue to monitor closely. 3. Metabolic acidosis. Patient will be started Bicitra. 4. Anemia. Monitor H and H levels. We will give Epogen. 5. Progressive CKD. The patient is currently in acute kidney injury as stated above. As I stated a emmy, I spoke with the patient about the likely need to initiate dialysis. The patient will discuss with his family. We will otherwise continue current medical management. Continue disease factor mod ification. 6. Hypertension. Continue current blood pressure regimen. 7. History of CVA. Continue aspirin, atorvastatin and Plavix. 8. Seizure disorder. Continue Keppra or valproic acid. 9. History of diabetes. Glucose currently well controlled. Continue to monitor. 10. GI and DVT prophylaxis. Dictated By: JASMINA DOCKERY DO NR/NTS Conf#: [id number] DID#: [id number] CC: MARCELLE VELÁSQUEZ MD;*EndCC*
[2018-12-29 21:23] VITALS: PULSE 49
[2018-12-29] MEDS: LEVETIRACETAM 500 MG TAB PO SCH (21:34)
[2018-12-29] MEDS: ATORVASTATIN 80 MG TAB PO SCH (21:35)
[2018-12-29] MEDS: NIFEdipine (XL) 60 MG TAB PO SCH (21:35)
[2018-12-29] MEDS: LABETALOL 200 MG TAB PO SCH (21:37)
[2018-12-29 21:40] VITALS: BP 171/78; PULSE 79; RESP 17
[2018-12-29] MEDS: CITRIC ACID/NA CITRATE 30 ML CUP PO SCH (22:50)
[2018-12-29] MEDS: VALPROIC ACID 250 MG CAP PO SCH (22:50)
[2018-12-30] VITALS (13 sets, daily range): BP systolic 145–202; BP diastolic 71–91; PULSE 55–79; RESP 18
[2018-12-30] MEDS ORDERED: GLUCOSE GEL 15 GRAM TUBE BUCCAL PRN (04:00)
[2018-12-30] MEDS ORDERED: GLUCAGON 1 MG INJ IM PRN (04:00)
[2018-12-30] MEDS ORDERED: DEXTROSE 50% 50 ML SYRINGE IV PRN ×2 (04:00)
[2018-12-30] MEDS ORDERED: GLUCOSE GEL 15 GRAM TUBE PO PRN ×2 (04:00)
[2018-12-30] MEDS: LABETALOL 200 MG TAB PO SCH ×3 (05:49→22:00)
[2018-12-30] MEDS: INSULIN ASPART [NOVOLOG] 3 ML PEN SC SCH ×4 (07:44→20:29)
--- NOTE | 2018-12-30 09:17 | PN ---
DATE: 12/30/2018 SUBJECTIVE: The patient overnight was stable. No events noted. No fevers, chills, nausea, vomiting . OBJECTIVE: VITAL SIGNS: Blood pressure is 147/73, respirations 18, pulse 60, temperature 97.9. HEENT: Head is normocephalic. NECK: Supple. HEART: Regular rate. LUNGS: Show diminished breath sounds at the base. ABDOMEN: Soft, nontender to palpation without rebound or guarding. EXTREMITIES: Negative for clubbing, cyanosis, no edema. DERMATOLOGIC: No rashes. MUSCULOSKELETAL: No joint effusion. NEUROLOGIC: No change in exam. MEDICATIONS: Reviewed. LABORATORY DATA: Has been reviewed. ASSESSMENT AND PLAN: 1. Nonoliguric acute kidney injury on top of chronic kidney disease stage IV with previous baseline creatinine of to 4.3 mg/dL. Etiology of current acute kidney injury is secondary to hemodynami cs. Patient's renal function has improved with IV hydration. 2. At this point, will discontinue IV fluids. Continue treatment plan, supportive care, renally dos e all meds. No immediate need for renal replacement therapy at this time. 3. Hyperkalemia. Etiology is secondary to acute kidney injury, chronic kidney disease. The patient 's potassium levels normalized. We will continue to monitor. Continue low-potassium diet. 4. Metabolic acidosis, continue Bicitra. 5. Anemia, monitor hemoglobin and hematocrit levels. 6. Progressive chronic kidney disease. The patient is currently in acute kidney injury as stated ab ove. We will continue current treatment plan. Otherwise, continue disease factor modification. 7. Hypertension. Continue current blood pressure regimen. 8. History of cerebrovascular accident. Continue medical management. 9. Seizure disorder. 10. History of diabetes. 11. Gastrointestinal and deep venous thrombosis prophylaxis. Dictated By: JASMINA DOCKERY DO NR/NTS Conf#: [id number] DID#: [id number] CC: JASMINA DOCKERY DO;*EndCC*
[2018-12-30] MEDS: CLOPIDOGREL 75 MG TAB PO SCH (09:24)
[2018-12-30] MEDS: ASPIRIN 81 MG TAB PO SCH (09:24)
[2018-12-30] MEDS: VALPROIC ACID 250 MG CAP PO SCH ×3 (09:24→20:25)
[2018-12-30] MEDS: LEVETIRACETAM 500 MG TAB PO SCH ×2 (09:25→20:25)
[2018-12-30] MEDS: NIFEdipine (XL) 60 MG TAB PO SCH ×2 (09:25→20:25)
[2018-12-30] MEDS: CITRIC ACID/NA CITRATE 30 ML CUP PO SCH ×2 (09:26→20:24)
[2018-12-30] MEDS: SEVELAMER CARBONATE 800 MG TABLET PO SCH ×2 (11:40→17:05)
[2018-12-30] MEDS ORDERED: NITROGLYCERIN 2% 1 GM OINT PKT TD PRN (12:00)
[2018-12-30] MEDS: ATORVASTATIN 80 MG TAB PO SCH (20:25)
[2018-12-31 00:01] VITALS: PULSE 53
[2018-12-31 00:08] VITALS: BP 140/63; PULSE 54; RESP 18
[2018-12-31] MEDS ORDERED: ACCU-CHEK XX SCH (02:00)
[2018-12-31 04:05] VITALS: PULSE 60
[2018-12-31 04:06] VITALS: BP 125/59; PULSE 58; RESP 18
[2018-12-31] MEDS: LABETALOL 200 MG TAB PO SCH (06:00)
[2018-12-31 07:21] VITALS: BP 141/68; PULSE 60; RESP 18
[2018-12-31] MEDS: INSULIN ASPART [NOVOLOG] 3 ML PEN SC SCH (07:33)
[2018-12-31] MEDS: SEVELAMER CARBONATE 800 MG TABLET PO SCH (07:33)
[2018-12-31 08:00] VITALS: PULSE 62
[2018-12-31] MEDS: ASPIRIN 81 MG TAB PO SCH (08:43)
[2018-12-31] MEDS: VALPROIC ACID 250 MG CAP PO SCH (08:44)
[2018-12-31] MEDS: CLOPIDOGREL 75 MG TAB PO SCH (08:44)
[2018-12-31] MEDS: LEVETIRACETAM 500 MG TAB PO SCH (08:44)
[2018-12-31] MEDS: CITRIC ACID/NA CITRATE 30 ML CUP PO SCH (08:44)
[2018-12-31] MEDS: NIFEdipine (XL) 60 MG TAB PO SCH (08:44)
--- NOTE | 2018-12-31 09:31 | DS ---
DATE OF ADMISSION: 12/29/2018 DATE OF DISCHARGE: HOSPITAL COURSE: This is a 58-year-old male well known to me with a past medical history of CKD stag e IV/V with a baseline creatinine around 4.0 to 4.5 mg/dL. Estimated EGFR around 15 to 17 mL per min quentin. The patient also has a history of hypertension, diabetes, history of CVA, history of cerebritis , history of seizure disorder, who presents to the [facility] due to severe hyperka lemia. The patient was noted to have hyperkalemia in outpatient setting which did not respond to Franny exalate therapy. As a result, the patient was brought into the emergency room and admitted to [facility]. During the hospital course, the patient was treated for his hyperkalemia with Kayexalate, IV fl uids with dietary modification with resolution of his hyperkalemia. I did speak with the patient and the patient's son in great detail about the possibility of initiating hemodialysis if the patient's potassium levels cannot be controlled. Patient voiced understanding, but does not wish to start dial ysis at this time. Additionally, the patient was informed that his kidney function is very low and t he possibility of being started on dialysis due to progression of underlying CKD over the next severa l weeks to months is highly likely. The patient also on admission noted to be hypertensive and to cano ve hypertensive urgency. The patient's blood pressure medications were adjusted and currently his bl ood pressure levels have improved. Currently at this time, the patient will be discharged home. He will be discharged with home health therapy and the patient will follow up with myself in 1 week's ti me. FINAL DIAGNOSES: 1. Nonoliguric kidney injury on top of chronic kidney disease stage IV. 2. Hyperkalemia, resolved. 3. Metabolic acidosis. Continue Bicitra. 4. Hypertensive urgency, improved. Continue current blood pressure regimen. 5. Anemia. 6. Chronic kidney disease, stage IV. 7. History of cerebrovascular accident. 8. Seizure disorder. 9. History of diabetes. FINAL MEDICATIONS: Please see reconciliation list. The patient will be discharged on his home regim en of aspirin, Lipitor, bicitra, Plavix, hydralazine will be increased to 100 mg q.8h. The patient w ill continue labetalol 600 mg q. 8 hours, Keppra 500 mg b.i.d. and nifedipine 60 mg b.i.d. Please note I spent over 30 minutes of time preparing the patient's discharge. At the time of discharge, the patient is stable, in no acute distress. Dictated By: JASMINA MCCLAIN/WILD Conf#: [id number] DID#: [id number]
== END 2018-12-31 11:17 | disposition home or self-care (01) | DRG 641 ==
LOC: E/R 11:33 → 6WM 16:34
PROVIDERS: ADMIT Internal Medicine; ATTEND Internal Medicine
DX: E87.5 Hyperkalemia (principal); N17.9 Acute kidney failure, unspecified; N18.4 Chronic kidney disease, stage 4 (severe); E87.2 Acidosis; I12.9 Hypertensive chronic kidney disease with stage 1 through stage 4 chronic kidney disease, or unspecified chronic kidney disease; E11.22 Type 2 diabetes mellitus with diabetic chronic kidney disease; G40.909 Epilepsy, unspecified, not intractable, without status epilepticus; I16.0 Hypertensive urgency; Z79.82 Long term (current) use of aspirin; Z86.73 Personal history of transient ischemic attack (TIA), and cerebral infarction without residual deficits
CPT/HCPCS: 71045; 80048; 82962; 83735; 84100; 85025; 93005; 96374; 96375; J1815; J1940; J7030

== ENCOUNTER 2019-02-10 08:32 | Inpatient (IN) | payer MEDICARE, MEDICAID ==
[~2019-02-10] VITALS: Ht 165.1 cm; Wt 64.0 kg
[2019-02-10] MEDS ORDERED: SOD CHLORIDE 0.9% 1,000 ML IV STA (08:47)
[2019-02-10] MEDS ORDERED: SOD CHLORIDE 0.9% 100 ML ONE (08:52)
[2019-02-10] MEDS ORDERED: IODIXANOL LOCM 100 ML BTL ONE (08:52)
--- NOTE | 2019-02-10 08:56 | ERD ---
ER Documentation Chief Complaint Chief Complaint Severe h/a since last night, woke up altered at 6am. ALOC noted. HPI This is a 58-year-old [place]ij[place] speaking male with a known history of hypertension previous cerebral infarct of the right temporal parietal region on Plavix aspirin and Keppra. The patient's last known normal time was at 9 PM yesterday evening, 12 hours prior to arrival. Patient for the past 48 hours has been com plaining of a posterior headache. He also had a subconjunctival hemorrhage on the right eye but his son indicates there is no trauma. The patient still complaining of a posterior headache. He has had no chest pain. He has had no shortness of breath. His son indicates he is been compliant with all of his medications. He takes 75 mg of Plavix once daily. He takes 81 mg of aspirin once daily. He also takes 500 mg of Keppra twice daily. When the patient awoke this morning at 6 AM, 3 hours prior to arrival he was altered. His son indicated his changes in mental status was that the patient was unable to speak. He also indicated that the patient was slow in his movements of his upper extremities. He appeared confused. ROS All systems reviewed and are negative except as per history of present illness. Medications Home Meds Active Scripts Levetiracetam* (Keppra*) 500 Mg Tablet, 500 MG PO BID, #60 TAB Prov:EARNESTINE MCCLENDON NP 11/22/18 Nifedipine (Procardia Xl) 60 Mg Tab.er.24, 60 MG PO BID, #60 TAB Prov:EARNESTINE MCCLENDON V. PAINTER BOTTOM 11/22/18 Labetalol Hcl* (Labetalol Hcl*) 200 Mg Tablet, 600 MG PO Q8, #90 TAB Prov:EARNESTINE MCCLENDON V. PAINTER BOTTOM 11/22/18 Atorvastatin* (Atorvastatin*) 80 Mg Tablet, 80 MG PO HS, #30 TAB 1 Refill Prov:EARNESTINE MCCLENDON V. PAINTER BOTTOM 11/22/18 Clopidogrel Bisulfate (Clopidogrel) 75 Mg Tablet, 75 MG PO DAILY for 80 Days, #30 TAB 3 Refills Patient to take both aspirin and Plavix together times 80 days more. After that, he should be taking only aspirin lifelong. Please give him a refill appropriately as instructed. Prov:EARNESTINE MCCLENDON V. PAINTER BOTTOM 11/22/18 Aspirin* (Aspirin* Chew) 81 Mg Tab.chew, 81 MG PO DAILY, #30 TAB.CHEW 6 Refills Prov:EARNESTINE MCCLENDON V. PAINTER BOTTOM 11/22/18 Reported Medications Hydralazine Hcl* (Hydralazine Hcl*) 100 Mg Tablet, 100 MG PO Q8, #90 TAB 02/10/19 Divalproex Sodium* (Depakote ER*) 250 Mg Tabsr, 500 MG PO BID, #30 TAB.SA 02/10/19 Isosorbide Mononitrate* (Isosorbide Mononitrate*) 30 Mg Tab.er.24h, 30 MG PO DAILY, TAB 02/10/19 Discontinued Reported Medications Hydralazine Hcl* (Hydralazine Hcl*) 50 Mg Tab, 50 MG PO DAILY PRN for HOLD IF SBP<125, #120 TAB 12/09/18 Discontinued Scripts Valproic Acid* (Depakene*) 250 Mg Capsule, 500 MG PO TID, #90 CAP Prov:EARNESTINE MCCLENDON V. PAINTER BOTTOM 11/22/18 Allergies Allergies: Coded Allergies: No Known Allergy (Unverified , 02/10/19) PMhx/Soc History of Surgery: Yes (HERNIA REPAIR) Anesthesia Reaction: No Hx Neurological Disorder: Yes (SEIZURES) Hx Respiratory Disorders: No Hx Cardiac Disorders: Yes (HTN) Hx Psychiatric Problems: No Hx Miscellaneous Medical Probl: No Hx Alcohol Use: No Hx Substance Use: No Hx Tobacco Use: No Physical Exam Vitals Vital Signs Date Temp Pulse Resp B/P (MAP) Pulse Ox O2 O2 Flow FiO2 Time Delivery Rate 02/10/19 62 12 152/84 97 Room Air 10:30 (106) 02/10/19 72 17 159/73 97 Room Air 10:00 (101) 02/10/19 71 14 181/80 97 Room Air 09:30 (113) 02/10/19 75 16 177/77 98 Room Air 09:15 (110) 02/10/19 98.5 70 18 220/98 97 08:47 (138) Physical Exam Constitutional:Well-developed. Well-nourished. HEENT:Normocephalic. Atraumatic.Pupils were equal round reactive to light. Moist mucous membranes.No tonsillar exudates. Subconjunctival hemorrhage of his right eye. Neck: No nuchal rigidity. No lymphadenopathy. No posterior cervical spine tenderness or step-offs. Respiratory: Not using accessory muscles of respiration.Lungs were clear to auscultation bilaterally. No rhonchi. No rales. No wheezing. Cardiovascular: Regular rate regular rhythm.No murmurs. No rubs were appreciated.S1, S2 normal. Distal pulses are palpable 2+ bilaterally. GI: Abdomen was soft. Nontender. Non Distended. No pulsatile abdominal masses or bruits. No rebound. No guarding. Bowel sounds were present and normal. Muscle skeletal: Patient full range of motion of the upper and lower extremities but muscular strength is decreased in the left lower extremities to 3 out of 5..Normal muscle tone.No assymetrical calf tenderness or swelling. Skin: No petechia, no purpura. No lesions on the palms or the soles of the feet. No maculopapular rash. NEURO: Patient was alert and awake . He would follow simple verbal commands. He was unable to stick out his tongue. He was a phasic. Gait was observed and a taxic. No pronator drift. Decreased sensation of the left lower extremity with muscular weakness of the left lower extremity. NIH stroke scale of 14 Result Diagram: 02/10/19 0907 02/10/19 0907 Results 24 hrs Laboratory Tests Test 02/10/19 09:07 White Blood Count 9.3 10^3/ul Red Blood Count 2.56 10^6/ul Hemoglobin 7.5 g/dl Hematocrit 23.9 % Mean Corpuscular Volume 93.4 fl Mean Corpuscular Hemoglobin 29.3 pg Mean Corpuscular Hemoglobin Concent 31.4 g/dl Red Cell Distribution Width 15.2 % Platelet Count 91 10^3/UL Mean Platelet Volume 10.3 fl Immature Granulocytes % 0.400 % Neutrophils % 80.3 % Lymphocytes % 9.1 % Monocytes % 6.8 % Eosinophils % 3.0 % Basophils % 0.4 % Nucleated Red Blood Cells % 0.0 /100WBC Immature Granulocytes # 0.040 10^3/ul Neutrophils # 7.5 10^3/ul Lymphocytes # 0.9 10^3/ul Monocytes # 0.6 10^3/ul Eosinophils # 0.3 10^3/ul Basophils # 0.0 10^3/ul Nucleated Red Blood Cells # 0.0 10^3/ul Prothrombin Time 12.5 Sec Prothrombin Time Ratio 1.0 INR International Normalized Ratio 0.92 Activated Partial Thromboplast Time 31.2 Sec Sodium Level 146 mmol/L Potassium Level 5.5 mmol/L Chloride Level 122 mmol/L Carbon Dioxide Level 15 mmol/L Anion Gap 9 Blood Urea Nitrogen 80 mg/dl Creatinine 4.51 mg/dl Est Glomerular Filtrat Rate mL/min 14 mL/min Glucose Level 95 mg/dl Hemoglobin A1c 5.6 % Calcium Level 8.6 mg/dl Total Bilirubin 0.2 mg/dl Direct Bilirubin 0.00 mg/dl Indirect Bilirubin 0.2 mg/dl Aspartate Amino Transf (AST/SGOT) 12 IU/L Alanine Aminotransferase (ALT/SGPT) < 6 IU/L Alkaline Phosphatase 65 IU/L Creatine Kinase 65 IU/L Creatine Kinase Index 4.4 Creatinine Kinase MB (Mass) 2.86 ng/ml Troponin I < 0.012 ng/ml Total Protein 7.3 g/dl Albumin 4.0 g/dl Globulin 3.30 g/dl Albumin/Globulin Ratio 1.21 Triglycerides Level 122 mg/dl Cholesterol Level 140 mg/dl LDL Cholesterol, Calculated 37 mg/dl HDL Cholesterol 79 mg/dl Cholesterol/HDL Ratio 1.7 RATIO Ethyl Alcohol Level < 10.0 mg/dl Current Medications Medications Dose Sig/Eladio Start Time Status Last (Trade) Ordered Route PRN Stop Time Admin Dose Reason Admin Sodium 1,000 ml @ Q1H STAT 02/10/19 DC 02/10/19 Chloride 1,000 mls/hr IV 08:47 09:30 02/10/19 09:46 IV Flush 10 ml STK-MED 02/10/19 DC 02/10/19 (NS 10 ml) ONCE .ROUTE 08:52 09:04 02/10/19 08:53 Sodium 100 ml @ ud STK-MED 02/10/19 DC 02/10/19 Chloride ONCE .ROUTE 08:52 09:04 02/10/19 08:53 Iodixanol 100 ml STK-MED 02/10/19 DC 02/10/19 (Visipaque ONCE .ROUTE 08:52 09:04 Locm) 02/10/19 08:53 Labetalol 20 mg Q20M PRN 02/10/19 HCl IV ELEVATED 09:00 (Labetalol) BLOOD PRESSURE Aspirin 81 mg DAILY PO 02/11/19 (Aspirin) 09:00 80 mg HS PO 02/10/19 Atorvastatin 21:00 Calcium (Lipitor) Clopidogrel 75 mg DAILY PO 02/11/19 Bisulfate 09:00 (plaVIX) Hydralazine 50 mg DAILY PO 02/10/19 HCl 12:00 (Apresoline) Isosorbide 30 mg DAILY PO 02/11/19 Mononitrate 09:00 (Imdur) Labetalol 600 mg Q8 PO 02/10/19 HCl 14:00 (Normodyne) 500 mg BID PO 02/10/19 Levetiracetam 21:00 (Keppra) Nifedipine 60 mg BID PO 02/10/19 (Procardia 21:00 Xl) Valproic 500 mg TID PO 02/10/19 02/10/19 Acid 13:00 12:55 (Depakene) Ondansetron 4 mg ER BRIDGE 02/10/19 HCl (Zofran PRN IV 13:00 Inj) NAUSEA/VOMITI 02/11/19 12:59 NG 650 mg ER BRIDGE 02/10/19 Acetaminophen PRN PO 13:00 (Tylenol .MILD PAIN 02/11/19 12:59 Tab) 1-3 OR TEMP Citric 30 ml DAILY ONCE 02/11/19 UNV Acid/ Sodium PO 09:00 Citrate 02/11/19 09:01 (Bicitra) Epoetin 10,000 unit ONCE ONCE 02/10/19 UNV Saurabh-epbx SC 13:00 (Retacrit 02/10/19 13:01 (Non-Esrd)) Procedures/MDM This is a 58-year-old male that presented to the emergency department with strokelike symptoms. The patient arrived to triage and immediately was treated as a code stroke. This was activated a 45. The patient immediately went over to the CT scan were IV access was established by nursing staff. At 8:48 AM the telemetry neurologist was consulted. When the patient returned from the CT scan he was placed on a conveyor monitor continuous pulse oximetry and IV access was established by nursing staff. The patient had a CT scan of his head that was reviewed by the radiologist and myself: 1. Several scattered acute cerebral infarctions measuring up to 45 mm involving the posterior right frontal lobe/anterior right parietal lobe and bilateral parieto-occipital regions, which could due to the emboli from a central source such as the heart or [employer] ST[employer] RE[employer]ER vasculitis. 2. Several early chronic cerebral infarctions of the right temporoparietal region and left parieto-occipital region. 3. No hemorrhage, hydrocephalus, or midline shift. The patient was anemic with a hemoglobin of 7.5. However the patient had no signs of an upper or lower gastrointestinal bleed. Patient received a type and screen. The patient was on the high end of normal with a potassium of 5.5. Patient was given bicarbonate amp of calcium chloride. The patient also had a CTA performed. She was seen by the telemetry neurologist Dr. Alexandra. Dr. Alexandra did indicate an MRI with and without contrast would be beneficial as well as CSF studies to include for viral cultures HSV PCR and Lyme titers. I spoke with the admitting physician Dr. Villa. Given the patient was in worsening acute on chronic renal failure the patient is unable to obtain an MRI with gadolinium as this could worsen the patient's renal function. The patient will be admitted to the telemetry service. His symptoms had significantly improved while in the emergency department. Given his last known normal time and improvement of his symptoms he was not a TPA candidate. The patient did still have persistence of neurological deficits as he still had weakness and decreased sensation in his left lower extremity. However given TPA was discussed with the patient but he is not a candidate due to the onset of his symptoms over 12 hours ago. The patient states however that his persistent symptoms are not disabling and therefore the risks outweigh the benefits. 12 Lead EKG tracing ordered and reviewed by myself showed: Normal sinus rhythm of 72 bpm and no arrhythmia. AR interval normal. QRS duration normal. No ST segment elevation No ST segment depression. No changes consistent with acute ischemia. Critical Care: Time: 90 minutes Treatments/Evaluations: Close monitoring and treatment of unstable vital signs, cardiorespiratory, and neurologic status, while maintaining tight balance of fluid, respiratory, and cardiac interventions. Time does not include performing any of the above billable procedures. Critical Care: Time: 80 minutes Treatments/Evaluations: Close monitoring and treatment of unstable vital signs, cardiorespiratory, and neurologic status, while maintaining tight balance of fluid, respiratory, and cardiac interventions. Time does not include performing any of the above billable procedures. Departure Diagnosis: Primary Impression: Renal failure (ARF), acute on chronic Acute renal failure type: unspecified Chronic kidney disease stage: stage 4 (severe) Qualified Codes: N17.9 - Acute kidney failure, unspecified; N18.4 - Chronic kidney disease, stage 4 (severe) Additional Impression: CVA (cerebral vascular accident) CVA mechanism: unspecified Qualified Codes: I63.9 - Cerebral infarction, unspecified Condition: Serious ROQUE ALEX MD February 10, 2019 08:56
[2019-02-10] MEDS ORDERED: LABETALOL HCL 20MG INJ IV PRN (09:00)
--- NOTE | 2019-02-10 10:46 | STROKE ---
Date/Time of Note Date/Time of Note DATE: 02/10/19 TIME: 10:41 Patient Information General Patient location: emergency Arrival Date Age 58 Gender male Weight 64.1 kg Vital Signs Vital Signs Vital Signs Date Temp Pulse Resp B/P (MAP) Pulse Ox O2 O2 Flow FiO2 Time Delivery Rate 02/10/19 98.5 70 18 220/98 97 08:47 (138) Patient History Past Medical History Diabetes, Hypertension Current Medications Allergies: Coded Allergies: No Known Allergy (Unverified , 02/10/19) Labs Coagulation Labs: Coagulation Test 02/10/19 09:07 Activated Partial Thromboplast Time 31.2 Sec (23.0-35.0) History & Physical Patient History Notes Pt Hx Reviewed History of Present Illness 58yo M last normal 9pm, having posterior headache for 2 days, developed subconjiuctival hemorrhage to eye 2 days ago, woke this morning with speech difficulty. Oct 2018, had CVA in right temporoparietal ischemic. On aspirin, Plavix, and Keppra. Now unsteady gait and aphasia. The patient's son reports that patient had woken at 5am with headache, nausea, and vomiting, but was able to speak normally at that time. Review of Systems Constitutional: no symptoms reported EENTM: no symptoms reported Respiratory: no symptoms reported Cardiovascular: no symptoms reported Gastrointestinal: see HPI Genitourinary: no symptoms reported Musculoskeletal: no symptoms reported Skin: no symptoms reported Psychiatric/Neurological: no symptoms reported All Other Systems: Reviewed and Negative NIH Stroke Scale NIH Stroke Scale [id number] l4d LOC Questions: Wiqzm5o OC Commands: Cfvkz7g est Gaze: Xwlsn9o Jczon4a alsy: Jyxpg7s rm - Left: Eyqqx1t ight: Frhvh2q eft: Qicfr8r ight: Xkzcs1n Oziuz5v Nqukd6p st Language: Yyvil3r thria: Hjojn5x Zeqmx5v 4Bd Total Score: Anctt5p Date/Time Recorded DATE: 02/10/19 TIME: 10:41 Submitted By Jake Calero t-PA Imaging Review Imaging Reviewed: Yes Date/Time Imaging Reviewed DATE: 02/10/19 TIME: 10:41 Imaging Findings no acute changes on CT head t-PA Administration Recommendation: No Weight 64.1 kg Recommedation submitted by Jake Calero Reason t-PA not Recommended outside time window t-PA Not Recommended Date/Time 02/10/19 9:20 Recommendations Impression Diagnosis G04.9 Recommendation 58yo M presents with acute onset headache, nausea, vomiting, and speech impairment. Neurological exam is notable for inability to answer questions or follow commands, left lower extremity numbness, and severe aphasia. I reviewed the CTA from patients 2 previous hospitalizations in August and October and there is no evidence atherosclerotic disease on these studies. CTA completed today demonstrates no evidence of M1 or M2 occlusion. I reviewed the previous MRI Brain images from September and October 2018- There are diffuse T2/FLAIR hy perintensities on the right in September and the left hemiphere in October without significant restricted diffusion. Notably, the lesions seen in September are nearly resolved in October. 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 Patient is not a TPA candidate due to time of onset and is not a neurointerventional candidate based on CTA findings. I recommend MRI Brain with and without gadolinium and lumbar puncture with CSF studies to include protein, glucose, cell count, oligoclonal bands, IgG index, IgG/Albumin ratio, gram stain, bacterial culture, viral culture, HSV PCR, and Lyme titers. I recommend laboratory workup include DIANA, dsDNA, Sm/GRADUATE NURSE, KAR level, C3, C4, ss-A, ss-B, and lyme titers. If ADEM diagnosis is confirmed, then I recommend consider high dose Solumedrol 500mg IV Q8 hours for 5 days with 21 day oral solumedrol taper. Mrwli1Jt Therapy: Fucbb1f Physical Therapy Speech Therapy Occupational Therapy [id number] [facility] [place]. Recommendations: Gpmss6q Bedside Swallow Evaluation Pnumatic Compression Devices Stroke Education Smoking Education JAKE CALERO February 10, 2019 10:46
[2019-02-10] MEDS ORDERED: ISOS30TA67 PO (12:02)
[2019-02-10] MEDS ORDERED: HYDR100T25 PO (12:06)
[2019-02-10] MEDS ORDERED: DIVA-73 PO (12:06)
[2019-02-10] MEDS: VALPROIC ACID 250 MG CAP PO SCH ×2 (12:55→21:49)
[2019-02-10] MEDS ORDERED: EPOETIN ALFA-EPBX (NON-ESRD 10,000 UNIT/ML VIAL SC ONE (13:00)
[2019-02-10] MEDS ORDERED: ONDANSETRON 4 MG INJ IV PRN (13:00)
[2019-02-10] MEDS ORDERED: ACETAMINOPHEN 325 MG TAB PO PRN (13:00)
[2019-02-10 14:20] VITALS: Ht 165.1 cm; Wt 64.0 kg
--- NOTE | 2019-02-10 15:39 | HP ---
DATE OF ADMISSION: 02/10/2019 CHIEF COMPLAINT: Headache, dysarthria, possible CVA. HISTORY OF PRESENT ILLNESS: This is a 58-year-old male well known to me with a past medical history of chronic kidney disease stage IV/V with EGFR baseline of between 13 to 15 mL per minute. Baseline creatinine around 4.0 to 4.5 mg/dL. Etiology of CKD was felt to be secondary to hypertensive nephros clerosis, a history of diabetes, history of CVA, history of seizure disorder, history of hypertension , previous history of cerebritis who presents to [facility] with dysarthria, headac hes, weakness. The patient was in his normal state of health until approximately 48 hours prior to a dmission when he started to develop a headache in his frontal region and left occipital region. The patient also developed a subconjunctival hemorrhage of the right eye. The patient states his blood p ressure was stable in the last several days prior to the development of headache. The patient states that he has been compliant with medication. This morning around 6:00 a.m., patient was noted to be altered with a change in mental status, unable to speak. The patient also had weakness in his upper extremities. As a result, EMS services were called. The patient was brought into the Emergency Room . Upon arrival, the patient had imaging studies including a CT scan of the brain and of the neck. T he CT scan showed several scattered acute cerebral infarction of the posterior right frontal lobe and anterior parietal lobe, bilateral parietal central region that could be emboli or questionable C and N vasculitis. The patient was seen by tele-neurology who recommended a lumbar puncture for evaluati on of possible acute disseminated encephalomyelitis. The patient was given blood pressure medication s in the Emergency Room. Neurologically, the patient was improving as his dysarthria has resolved. There have been no reports of any hemoptysis, hematemesis, hematochezia. PAST MEDICAL HISTORY: As stated above, history of CKD stage IV/V, history of hypertension, history o f diabetes, history of CVA, history of seizure disorder, history of cerebritis. PAST SURGICAL HISTORY: Status post trach placement and removal. FAMILY HISTORY: No family history of kidney disease. SOCIAL HISTORY: Does not drink, smoke or do drugs. MEDICATIONS: Have been reviewed. REVIEW OF SYSTEMS: A 14-point review of systems was conducted. Pertinent positives stated in HPI, o therwise negative. PHYSICAL EXAMINATION: VITAL SIGNS: Blood pressure is 180/92, respirations 16, pulse 72, temperature 98.6. HEENT: Head is normocephalic. NECK: Supple. HEART: Regular rate. LUNGS: Show diminished breath sounds at base, otherwise clear. ABDOMEN: Soft, nontender to palpation without rebound or guarding. EXTREMITIES: Negative for clubbing, cyanosis. Positive edema. DERMATOLOGIC: No rashes. MUSCULOSKELETAL: No joint effusions. NEUROLOGIC: Generalized weakness, no obvious focal deficits. MEDICATIONS: The patient's medications have been reviewed. LABORATORY DATA: Has been reviewed. Shows white count 9.3, hemoglobin 7.5, platelet count 61, sodiu m 156, potassium 5.5, BUN 80, creatinine 4.51. IMAGING STUDIES: Reviewed. ASSESSMENT AND PLAN: This is a 58-year-old male who presents with: 1. Acute dysarthria and weakness, etiology may be secondary to acute cerebrovascular, possible embol ic in nature versus possible acute disseminated encephalomyelitis. The patient's CT scan was reviewe d. The plan at this point is to get an MRI of the brain. We will place a neurology consult for eval uation for consideration of possible steroids and/or IV antibiotic therapy. A lumbar puncture is pen ding. We will also send out general serologies including DIANA, anti-RO, anti- antibody, KAR inhi bitor level, anti-double stranded DNA antibody. The patient will also have a speech evaluation. Seferino l monitor neuro checks q.4-6h. Monitor closely. 2. Hypertensive urgency. Etiology may be secondary to acute cerebrovascular accident. Will monitor blood pressures closely and resume blood pressure medications. Avoid hypotensive episodes. 3. Possible embolic CVA. Plan is to get a cardiology consult for evaluation. Will check a 2D echo. We will continue to monitor. Continue antiplatelet therapy. 4. Previous history of cerebrovascular accident. Continue current medical management with aspirin a nd statin therapy, Plavix, aspirin. If the patient has had a recurrent stroke, may require full anti coagulation. 5. History of seizure disorder. Continue Keppra. 6. Chronic kidney disease stage IV/V with a baseline creatinine around 4 to 4.5 mg/dL. Patient's re nal function appears to be at baseline. Plan is to continue current medical management. Continue ramirez pportive care, renally dose all meds, defer any KAR inhibitor at this time. Monitor blood pressure a nd renal function closely. 7. Hyperkalemia secondary to chronic kidney disease. Will give patient Kayexalate, monitor potassiu m levels closely. Continue low-potassium diet. 8. Metabolic acidosis, improved. Continue Bicitra as needed. 9. Anemia. Continue to monitor hemoglobin and hematocrit levels. We will check an iron panel. We will continue Epogen. 10. History of diabetes. Glucose levels well controlled. Continue to monitor. 11. Hyponatremia, encourage free water intake. Please note I spent over 30 minutes of face to face time with the patient. The patient is FULL CODE. Dictated By: JASMINA DOCKERY DO NR/WILD Conf#: [id number] DID#: [id number]
[2019-02-10] MEDS ORDERED: KETOROLAC 30 MG INJ IV STA (15:41)
[2019-02-10] MEDS: LABETALOL 200 MG TAB PO SCH ×2 (15:44→21:51)
--- NOTE | 2019-02-10 16:08 | CONS ---
Assessment/Plan Assessment/Plan Hospital Course 58 yo M with multiple comorbidities who presents for evaluation of weakness, headache, dysarthria and other sx... for which neurology is consulted. The clinical picture is most ominously concerning for recurrent CVA. Hypertensive urgency is a diagnosis of exclusion. CTH is notable for possible infarcts bilaterally CTA H/N is unrevealing. LDL 37 P: Await MRI brain for further characterization Cont ASA/Plavix per ops for secondary prevention; LDL is at goal Add ESR, RPR Continue medical management per primary PT/OT/ST as necessary Will follow clinically, to recommend neurologic studies, as necessary Consultation Date/Type/Reason Admit Date/Time February 10, 2019 at 12:40 Type of Consult Neurology Reason for Consultation weakness/headache/dysarthria Requesting Provider: A Date/Time of Note DATE: 02/10/19 TIME: 16:07 Hx of Present Illness The pt is currently a limited historian and is unable to tell me the events leading to his ED arrival. He currently endorses a severe headache, posteriorly, but is unable to characterize it. He states that he woke up this morning around 5 am with it. He also had associated nausea and vomiting. He additionally endorses feeling generally weak and shaky. He denies lethargy or confusion (though he states he felt confused earlier), speech or vision problem, numbness or tingling. It is additionally elsewhere noted: CHIEF COMPLAINT: Headache, dysarthria, possible CVA. HISTORY OF PRESENT ILLNESS: This is a 58-year-old male well known to me with a past medical history of chronic kidney disease stage IV/V with EGFR baseline of between 13 to 15 mL per minute. Baseline creatinine around 4.0 to 4.5 mg/dL. Etiology of CKD was felt to be secondary to hypertensive nephrosclerosis, a history of diabetes, history of CVA, history of seizure disorder, history of hypertension, previous history of cerebritis who presents to [facility] with dysarthria, headaches, weakness. The patient was in his normal state of health until approximately 48 hours prior to admission when he started to develop a headache in his frontal region and left occipital region. The patient also developed a subconjunctival hemorrhage of the right eye. The patient states his blood pressure was stable in the last several days prior to the development of headache. The patient states that he has been compliant with medication. This morning around 6:00 a.m., patient was noted to be altered with a change in mental status, unable to speak. The patient also had weakness in his upper extremities. As a result, EMS services were called. The patient was brought into the Emergency Room. Upon arrival, the patient had imaging studies including a CT scan of the brain and of the neck. The CT scan showed several sc attered acute cerebral infarction of the posterior right frontal lobe and anterior parietal lobe, bilateral parietal central region that could be emboli or questionable C and N vasculitis. The patient was seen by tele-neurology who recommended a lumbar puncture for evaluation of possible acute disseminated encephalomyelitis. The patient was given blood pressure medications in the Emergency Room. Neurologically, the patient was improving as his dysarthria has resolved. There have been no reports of any hemoptysis, hematemesis, hematochezia. negative unless noted otherwise in HPI Exam/Review of Systems Exam Vitals Vital Signs Date Temp Pulse Resp B/P (MAP) Pulse Ox O2 O2 Flow FiO2 Time Delivery Rate 02/10/19 98.8 61 15 179/86 99 Room Air 13:46 (117) Exam PE: Gen Appearance: No Apparent Distress HEENT: Normocephalic; R eye conjunctival hemorrhage Cardiovascular: Regular rate Lungs: Clear bilaterally Abdomen: Soft Extremities: Dry NE: The patient was alert and oriented. Language was normal. Fund of knowledge was normal. Pupils were equal and reactive to light. There was no afferent pupillary defect. Visual french were normal. Funduscopic examination was limited. Extra-ocular movements were full. Ptosis was absent. There was no nystagmus. Facial sensation was normal. Face was symmetric with normal strength. Hearing was intact. Palate movements were normal. Neck strength was normal. There was normal tongue bulk and speed of movement. Tone was normal. Muscle bulk was normal. I did see generalized fasciculations. The pt was generally weak, mildly. Vibration sensation was normal. Temperature and pinprick sensation was normal. Rapid alternating movements were normal. There was no dysmetria. There was no intention tremor. Gait was deferred due to bedrest. Arm and leg reflexes were 2+ and symmetric. Weber's sign was absent. Plantar responses were flexor. Results Result Diagram: 02/10/19 0907 02/10/19 09 Results 24hrs Laboratory Tests Test 02/10/19 09:07 White Blood Count 9.3 # Red Blood Count 2.56 L Hemoglobin 7.5 L Hematocrit 23.9 L Mean Corpuscular Volume 93.4 Mean Corpuscular Hemoglobin 29.3 Mean Corpuscular Hemoglobin Concent 31.4 L Red Cell Distribution Width 15.2 H Platelet Count 91 #L Mean Platelet Volume 10.3 Immature Granulocytes % 0.400 Neutrophils % 80.3 H Lymphocytes % 9.1 L Monocytes % 6.8 Eosinophils % 3.0 Basophils % 0.4 Nucleated Red Blood Cells % 0.0 Immature Granulocytes # 0.040 H Neutrophils # 7.5 Lymphocytes # 0.9 Monocytes # 0.6 Eosinophils # 0.3 Basophils # 0.0 Nucleated Red Blood Cells # 0.0 Prothrombin Time 12.5 Prothrombin Time Ratio 1.0 INR International Normalized Ratio 0.92 Activated Partial Thromboplast Time 31.2 Sodium Level 146 H Potassium Level 5.5 H Chloride Level 122 H Carbon Dioxide Level 15 L Anion Gap 9 Blood Urea Nitrogen 80 H Creatinine 4.51 H Est Glomerular Filtrat Rate mL/min 14 L Glucose Level 95 Hemoglobin A1c 5.6 Calcium Level 8.6 Total Bilirubin 0.2 Direct Bilirubin 0.00 Indirect Bilirubin 0.2 Aspartate Amino Transf (AST/SGOT) 12 L Alanine Aminotransferase (ALT/SGPT) < 6 L Alkaline Phosphatase 65 Creatine Kinase 65 Creatine Kinase Index 4.4 Creatinine Kinase MB (Mass) 2.86 H Troponin I < 0.012 Total Protein 7.3 Albumin 4.0 Globulin 3.30 H Albumin/Globulin Ratio 1.21 Triglycerides Level 122 Cholesterol Level 140 LDL Cholesterol, Calculated 37 HDL Cholesterol 79 H Cholesterol/HDL Ratio 1.7 Ethyl Alcohol Level < 10.0 H Medications Medication Current Medications Labetalol HCl (Labetalol) 20 mg Q20M PRN IV ELEVATED BLOOD PRESSURE; Start 02/10/19 at 09:00 Aspirin (Aspirin) 81 mg DAILY PO ; Start 02/11/19 at 09:00 Atorvastatin Calcium (Lipitor) 80 mg HS PO ; Start 02/10/19 at 21:00 Clopidogrel Bisulfate (plaVIX) 75 mg DAILY PO ; Start 02/11/19 at 09:00 Hydralazine HCl (Apresoline) 50 mg DAILY PO ; Start 02/10/19 at 12:00 Isosorbide Mononitrate (Imdur) 30 mg DAILY PO ; Start 02/11/19 at 09:00 Labetalol HCl (Normodyne) 600 mg Q8 PO ; Start 02/10/19 at 14:00 Levetiracetam (Keppra) 500 mg BID PO ; Start 02/10/19 at 21:00 Nifedipine (Procardia Xl) 60 mg BID PO ; Start 02/10/19 at 21:00 Valproic Acid (Depakene) 500 mg TID PO Last administered on 02/10/19at 12:55; Admin Dose 500 MG; Start 02/10/19 at 13:00 Ondansetron HCl (Zofran Inj) 4 mg ER BRIDGE PRN IV NAUSEA/VOMITING; Start 02/10/19 at 13:00; Stop 02/11/19 at 12:59 Acetaminophen (Tylenol Tab) 650 mg ER BRIDGE PRN PO .MILD PAIN 1-3 OR TEMP; Start 02/10/19 at 13:00; Stop 02/11/19 at 12:59 Citric Acid/ Sodium Citrate (Bicitra) 30 ml DAILY PO ; Start 02/11/19 at 09:00 Past Medical History reviewed Home Meds Active Scripts Levetiracetam* (Keppra*) 500 Mg Tablet, 500 MG PO BID, #60 TAB Prov:EARNESTINE MCCLENDON V. MICROBIOLOGY QUALITY CONTROL TECHNICIAN 11/22/18 Nifedipine (Procardia Xl) 60 Mg Tab.er.24, 60 MG PO BID, #60 TAB Prov:MCCLENDONROBERTO CARLOSA Zeferino. MICROBIOLOGY QUALITY CONTROL TECHNICIAN 11/22/18 Labetalol Hcl* (Labetalol Hcl*) 200 Mg Tablet, 600 MG PO Q8, #90 TAB Prov:EARNESTINE MCCLENDON V. MICROBIOLOGY QUALITY CONTROL TECHNICIAN 11/22/18 Atorvastatin* (Atorvastatin*) 80 Mg Tablet, 80 MG PO HS, #30 TAB 1 Refill Prov:MCCLENDONEARNESTINE V. MICROBIOLOGY QUALITY CONTROL TECHNICIAN 11/22/18 Clopidogrel Bisulfate (Clopidogrel) 75 Mg Tablet, 75 MG PO DAILY for 80 Days, #30 TAB 3 Refills Patient to take both aspirin and Plavix together times 80 days more. After that, he should be taking only aspirin lifelong. Please give him a refill appropriately as instructed. Prov:MCCLENDONEARNESTINE V. MICROBIOLOGY QUALITY CONTROL TECHNICIAN 11/22/18 Aspirin* (Aspirin* Chew) 81 Mg Tab.chew, 81 MG PO DAILY, #30 TAB.CHEW 6 Refills Prov:EARNESTINE MCCLENDON VRebeca MICROBIOLOGY QUALITY CONTROL TECHNICIAN 11/22/18 Reported Medications Hydralazine Hcl* (Hydralazine Hcl*) 100 Mg Tablet, 100 MG PO Q8, #90 TAB 02/10/19 Divalproex Sodium* (Depakote ER*) 250 Mg Tabsr, 500 MG PO BID, #30 TAB.SA 02/10/19 Isosorbide Mononitrate* (Isosorbide Mononitrate*) 30 Mg Tab.er.24h, 30 MG PO DAILY, TAB 02/10/19 Discontinued Reported Medications Hydralazine Hcl* (Hydralazine Hcl*) 50 Mg Tab, 50 MG PO DAILY PRN for HOLD IF SBP<125, #120 TAB 12/09/18 Discontinued Scripts Valproic Acid* (Depakene*) 250 Mg Capsule, 500 MG PO TID, #90 CAP Prov:EARNESTINE MCCLENDON Tiffanie MICROBIOLOGY QUALITY CONTROL TECHNICIAN 11/22/18 Medications Current Medications Labetalol HCl (Labetalol) 20 mg Q20M PRN IV ELEVATED BLOOD PRESSURE; Start at 09:00 Aspirin (Aspirin) 81 mg DAILY PO ; Start 02/11/19 at 09:00 Atorvastatin Calcium (Lipitor) 80 mg HS PO ; Start 02/10/19 at 21:00 Clopidogrel Bisulfate (plaVIX) 75 mg DAILY PO ; Start 02/11/19 at 09:00 Hydralazine HCl (Apresoline) 50 mg DAILY PO ; Start 02/10/19 at 12:00 Isosorbide Mononitrate (Imdur) 30 mg DAILY PO ; Start 02/11/19 at 09:00 Labetalol HCl (Normodyne) 600 mg Q8 PO ; Start 02/10/19 at 14:00 Levetiracetam (Keppra) 500 mg BID PO ; Start 02/10/19 at 21:00 Nifedipine (Procardia Xl) 60 mg BID PO ; Start 02/10/19 at 21:00 Valproic Acid (Depakene) 500 mg TID PO Last administered on 02/10/19at 12:55; Admin Dose 500 MG; Start 02/10/19 at 13:00 Ondansetron HCl (Zofran Inj) 4 mg ER BRIDGE PRN IV NAUSEA/VOMITING; Start 02/10/19 at 13:00; Stop 02/11/19 at 12:59 Acetaminophen (Tylenol Tab) 650 mg ER BRIDGE PRN PO .MILD PAIN 1-3 OR TEMP; Start 02/10/19 at 13:00; Stop 02/11/19 at 12:59 Citric Acid/ Sodium Citrate (Bicitra) 30 ml DAILY PO ; Start 02/11/19 at 09:00 Allergies: Coded Allergies: No Known Allergy (Unverified , 02/10/19) Past Surgical History reviewed Past Surgical Hx: noncontributory, other Social History reviewed Smoking Status: Never smoker HERNANDO HART NP February 10, 2019 16:07 PAUL PIÑA February 11, 2019 15:26
[2019-02-10 16:12] VITALS: PULSE 78
[2019-02-10] MEDS ORDERED: DEXTROSE 5% 1,000 ML IV SCH (16:30)
[2019-02-10 20:00] VITALS: BP 181/81; PULSE 66; PULSE 68; RESP 18
[2019-02-10] MEDS: ATORVASTATIN 80 MG TAB PO SCH (21:49)
[2019-02-10] MEDS: NIFEdipine (XL) 60 MG TAB PO SCH (21:50)
[2019-02-10] MEDS: LEVETIRACETAM 500 MG TAB PO SCH (21:51)
[2019-02-10 22:30] VITALS: BP 168/77; PULSE 76
[2019-02-11] VITALS (11 sets, daily range): BP systolic 137–173; BP diastolic 69–85; PULSE 64–75; RESP 18–22
[2019-02-11] MEDS: LABETALOL 200 MG TAB PO SCH ×3 (06:32→21:20)
[2019-02-11] MEDS: NIFEdipine (XL) 60 MG TAB PO SCH ×2 (08:51→21:20)
[2019-02-11] MEDS: LEVETIRACETAM 500 MG TAB PO SCH ×2 (08:51→21:19)
[2019-02-11] MEDS: ISOSORBIDE MONONITRATE(SR)30 MG TAB PO SCH (08:52)
[2019-02-11] MEDS: CLOPIDOGREL 75 MG TAB PO SCH (08:52)
[2019-02-11] MEDS: VALPROIC ACID 250 MG CAP PO SCH ×3 (08:53→21:19)
[2019-02-11] MEDS: CITRIC ACID/NA CITRATE 30 ML CUP PO SCH ×2 (08:57→21:19)
[2019-02-11] MEDS ORDERED: CITRIC ACID/NA CITRATE 30 ML CUP PO SCH (09:00)
--- NOTE | 2019-02-11 09:06 | PN ---
DATE: 02/11/2019 SUBJECTIVE: Overnight the patient is stable. The patient's dysarthria improved. Strength is improv ing. No other events noted. OBJECTIVE: VITAL SIGNS: Blood pressure is 173/85, respirations 22, pulse 70, temperature 98.8. HEENT: Head is normocephalic. NECK: Supple. HEART: Regular rate. LUNGS: Show diminished breath sounds at the base. ABDOMEN: Soft, nontender to palpation without rebound or guarding. EXTREMITIES: Negative for clubbing, cyanosis, no edema. DERMATOLOGIC: No rashes. MUSCULOSKELETAL: No joint effusion. NEUROLOGIC: No focal deficits. MEDICATIONS: Reviewed. LABORATORY DATA: Reviewed. IMAGING STUDIES: Reviewed. ASSESSMENT AND PLAN: 1. Acute dysarthria, weakness, etiology is concerning for possible acute disseminated encephalomyeli tis. The patient's MRI was performed, which showed findings consistent with acute disseminated encep halomyelitis. The patient is clinically improving. The patient may require a course of steroids, So jose-Medrol. We will defer to neurology for management. Additionally, LP is pending to evaluate for v irology titers. Plan is to continue current medical management. Continue neuro checks. Follow up w [facility] neurology. We will also consider ID consult for evaluation and monitor closely. 2. Hypertensive urgency. We will continue current blood pressure regimen, enabling permissive hyper tensive at this time. 3. Previous history of cerebrovascular accident. Continue medical management. 4. History of seizure disorder. Continue Keppra. 5. Chronic kidney disease stage IV/V with a baseline creatinine around 4 to 4.5 mg/dL. The patient' s renal function appears to be at baseline. Continue current treatment plan. Continue supportive ca re, defer any KAR inhibitor at this time. 6. Mild hyperkalemia, improved. 7. Hypernatremia, improved. 8. Metabolic acidosis. Resume Bicitra. 9. Anemia. The patient had a drop in hemoglobin and hematocrit levels. We will continue Epogen and repeat a change level and check iron panel. Consider IV Ferrlecit if needed. 10. Diabetes. Continue current insulin regimen. 11. General debility. Continue physical therapy. Dictated By: JASMINA MCCLAIN/NTS Conf#: [id number] DID#: [id number] CC: JASMINA DOCKERY DO;*EndCC*
[2019-02-11] MEDS ORDERED: EPOETIN ALFA-EPBX (NON-ESRD 10,000 UNIT/ML VIAL SC ONE (10:00)
[2019-02-11] MEDS: ONDANSETRON 4 MG INJ IV PRN (10:56)
[2019-02-11] MEDS: ASPIRIN 81 MG TAB PO SCH (10:58)
[2019-02-11] MEDS: SOD FERRIC GLUC COMPLX 125 MG in SOD CHLORIDE 0.9% 100 ML IVPB SCH (13:18)
--- NOTE | 2019-02-11 14:11 | CONS ---
Assessment/Plan Assessment/Plan Hospital Course (Demo Recall) 1. Hypertensive hypertensive emergency 2. See the [facility] versus acute disseminated encephalomyelitis versus others 3. History of prior CVAs 4. Chronic kidney disease 5. History of respiratory failure 6. History of dyslipidemia Recommendations We will will continue with the current cardiac care for now. Allow for permissive hypertension Echocardiogram previously has showed normal LV systolic function. Will be repeated Aggressive risk factor modification: Lipid management will be aggressively done We will monitor on telemetry for any significant arrhythmia Follow-up with neurology recommendations Thank you for his referral. I will continue to follow along with you as needed basis over the weekend. Please do not hesitate to contact me with any new cardiac questions NELSON SIERRA MD [facility] Consultation Date/Type/Reason Admit Date/Time February 10, 2019 at 12:40 Date of Consultation: February 11, 2019 Type of Consult Cardiology Reason for Consultation cva Requesting Provider: JASMINA DOCKERY DO Date/Time of Note DATE: 02/11/19 TIME: 14:03 Hx of Present Illness Interventional cardiology consultation note Chief complaint: Dysarthria Reason for consult: Possible CVA History of present illness: Thank you for this referral. History was obtained from the patient from discussion with the staff and physician review of the chart This is a 58-year-old male with a past medical history of chronic kidney disease stage IV/V, diabetes, history of CVA, history of seizure disorder, history of hypertension, previous history of cerebritis who presents to [facility] with dysarthria, headaches, weakness. The patient was in his normal state of health until approximately 48 hours prior to admission when he started to develop a headache in his frontal region and left occipital region. The patient also developed a subconjunctival hemorrhage of the right eye. The patient states his blood pressure was stable in the last several days prior to the development of headache. The patient states that he has been compliant with medication. He denies any chest pain or pressure to me denies any palpitation to be has a history of arrhythmias PAST MEDICAL HISTORY: As stated above, history of CKD stage IV/V, history of hypertension, history of diabetes, history of CVA, history of seizure disorder, history of cerebritis. History of previous respiratory failure and tracheostomy. According to the patient because of the fungal infection PAST SURGICAL HISTORY: Status post trach placement and removal. FAMILY HISTORY: No family history of early coronary artery disease SOCIAL HISTORY: Does not drink, smoke or do drugs. Allergies: No known drug allergies Medications were reviewed as per medical reconciliation sheet Review of system: Patient denies all others except for above-mentioned Past Medical History Home Meds Active Scripts Levetiracetam* (Keppra*) 500 Mg Tablet, 500 MG PO BID, #60 TAB Prov:MCCLENDONROBERTO CARLOSA V. MARKETING OPERATIONS MANAGER 11/22/18 Nifedipine (Procardia Xl) 60 Mg Tab.er.24, 60 MG PO BID, #60 TAB Prov:MCCLENDNO,EARNESTINE V. MARKETING OPERATIONS MANAGER 11/22/18 Labetalol Hcl* (Labetalol Hcl*) 200 Mg Tablet, 600 MG PO Q8, #90 TAB Prov:EARNESTINE MCCLENDON V. MARKETING OPERATIONS MANAGER 11/22/18 Atorvastatin* (Atorvastatin*) 80 Mg Tablet, 80 MG PO HS, #30 TAB 1 Refill Prov:EARNESTINE MCCLENDON V. MARKETING OPERATIONS MANAGER 11/22/18 Clopidogrel Bisulfate (Clopidogrel) 75 Mg Tablet, 75 MG PO DAILY for 80 Days, #30 TAB 3 Refills Patient to take both aspirin and Plavix together times 80 days more. After that, he should be taking only aspirin lifelong. Please give him a refill appropriately as instructed. Prov:EARNESTINE MCCLENDON V. MARKETING OPERATIONS MANAGER 11/22/18 Aspirin* (Aspirin* Chew) 81 Mg Tab.chew, 81 MG PO DAILY, #30 TAB.CHEW 6 Refills Prov:EARNESTINE MCCLENDON V. MARKETING OPERATIONS MANAGER 11/22/18 Reported Medications Hydralazine Hcl* (Hydralazine Hcl*) 100 Mg Tablet, 100 MG PO Q8, #90 TAB 02/10/19 Divalproex Sodium* (Depakote ER*) 250 Mg Tabsr, 500 MG PO BID, #30 TAB.SA 02/10/19 Isosorbide Mononitrate* (Isosorbide Mononitrate*) 30 Mg Tab.er.24h, 30 MG PO DAILY, TAB 02/10/19 Discontinued Reported Medications Hydralazine Hcl* (Hydralazine Hcl*) 50 Mg Tab, 50 MG PO DAILY PRN for HOLD IF SBP<125, #120 TAB 12/09/18 Discontinued Scripts Valproic Acid* (Depakene*) 250 Mg Capsule, 500 MG PO TID, #90 CAP Prov:EARNESTINE MCCLENDON V. CRISTÓBAL 11/22/18 Medications Current Medications Labetalol HCl (Labetalol) 20 mg Q20M PRN IV ELEVATED BLOOD PRESSURE; Start 02/10/19 at 09:00 Aspirin (Aspirin) 81 mg DAILY PO Last administered on 02/11/19 10:58; Admin Dose 81 MG; Start 02/11/19 at 09:00 Atorvastatin Calcium (Lipitor) 80 mg HS PO Last administered on 02/10/19 21:49; Admin Dose 80 MG; Start 02/10/19 at 21:00 Clopidogrel Bisulfate (plaVIX) 75 mg DAILY PO Last administered on 02/11/19 08:52; Admin Dose 75 MG; Start 02/11/19 at 09:00 Hydralazine HCl (Apresoline) 50 mg DAILY PO Last administered on 02/11/19 08:51; Admin Dose 50 MG; Start 02/10/19 at 12:00 Isosorbide Mononitrate (Imdur) 30 mg DAILY PO Last administered on 02/11/19 08:52; Admin Dose 30 MG; Start 02/11/19 at 09:00 Labetalol HCl (Normodyne) 600 mg Q8 PO Last administered on 02/11/19 13:32; Admin Dose 600 MG; Start 02/10/19 at 14:00 Levetiracetam (Keppra) 500 mg BID PO Last administered on 02/11/19 08:51; Admin Dose 500 MG; Start 02/10/19 at 21:00 Nifedipine (Procardia Xl) 60 mg BID PO Last administered on 02/11/19 08:51; Admin Dose 60 MG; Start 02/10/19 at 21:00 Valproic Acid (Depakene) 500 mg TID PO Last administered on 02/11/19 13:30; Admin Dose 500 MG; Start 02/10/19 at 13:00 Citric Acid/ Sodium Citrate (Bicitra) 30 ml BID PO Last administered on 02/11/19 08:57; Admin Dose 30 ML; Start 02/11/19 at 09:00 Ondansetron HCl (Zofran Inj) 4 mg Q4H PRN IV NAUSEA AND/OR VOMITING Last administered on 02/11/19 10:56; Admin Dose 4 MG; Start 02/11/19 at 10:30 Ferric Sodium Gluconate Complex 125 mg/Sodium Chloride 110 ml @ 110 mls/hr DAILY@1300 IVPB Last administered on 02/11/19at 13:18; Admin Dose 110 MLS/HR; Start 02/11/19 at 13:00; Stop 02/15/19 at 13:59 Allergies: Coded Allergies: No Known Allergy (Unverified , 02/10/19) Past Surgical History Past Surgical Hx: noncontributory, other Social History Smoking Status: Never smoker Exam/Review of Systems Vital Signs Vitals Vital Signs Date Temp Pulse Resp B/P (MAP) Pulse Ox O2 O2 Flow FiO2 Time Delivery Rate 02/11/19 68 12:02 02/11/19 98.0 22 157/70 96 Room Air 11:57 (99) Intake and Output 02/10/19 02/10/19 02/11/19 1515:00 23:00 07:00 IntakeIntake Total 850 ml OutputOutput Total 800 ml BalanceBalance 50 ml Exam Exam General: no acute distress HEENT: NC/AT. pupils are equal. round. NECK: Status with previous tracheostomy. no stridor. CV: RRR. systolic murmur; no gallop or rubs. PULM: no wheezing or rhonchi. GI: SOFT, NT, ND, no rebound or guarding Extremity: trace B/L LE edema. no clubbing. neuro: awake and alert, OX3. Psych: calm and pleasant rectal: deferred EKG done February 10, 2019 showed normal sinus rhythm normal ECG on my personal review MRI of the brain has shown: . As compared to 11/16/2018, interval increase in size and number of multiple asymmetric supratentorial cortical and subcortical foci of edema without mass effect. There is no evidence for definite acute infarct on diffusion weighted images. Appearance is most suspicious for acute disseminated encephalomyelitis (ADEM). Posterior reversible encephalopathy syndrome (PRES) is a consideration although the distribution is less typical. Correlation with a intravenous contrast enhanced study as well as imaging of the spine is recommended when clinically appropriate. 2. Minimal nonspecific cement Watt white matter changes most commonly seen with small vessel disease. Labs Result Diagram: 02/11/19 0946 02/11/19 0553 Results 24hrs Laboratory Tests Test 02/10/19 15:42 02/10/19 20:20 02/11/19 05:53 02/11/19 09:42 Erythrocyte 20 Sedimentation Rate Rapid Plasma NONREACTIVE Reagin Urine Color COLORLESS Urine Clarity CLEAR Urine pH 5.0 Urine Specific 1.016 [place] Urine Ketones NEGATIVE Urine Nitrite NEGATIVE Urine Bilirubin NEGATIVE Urine Urobilinogen NEGATIVE Urine Leukocyte NEGATIVE Esterase Urine Microscopic 22 H RBC Urine Microscopic 1 WBC Urine Hemoglobin 2+ H Urine Glucose NEGATIVE Urine Total 2+ H Protein Urine Opiates Negative Screen Urine Barbiturates Negative Urine Amphetamines Negative Screen Urine Negative Benzodiazepines Screen Urine Cocaine Negative Screen Urine Cannabinoids Negative White Blood Count 9.3 Red Blood Count 2.32 L Hemoglobin 6.7 *L Hematocrit 21.5 L Mean Corpuscular 92.7 Volume Mean Corpuscular 28.9 L Hemoglobin Mean Corpuscular 31.2 L Hemoglobin Concent Red Cell 14.9 H Distribution Width Platelet Count 82 L Mean Platelet 10.5 H Volume Immature 0.400 Granulocytes % Neutrophils % Segmented 73 Neutrophils % (Manual) Band Neutrophils % 1 (Manual) Lymphocytes % Lymphocytes % 14 L (Manual) Monocytes % Monocytes % 8 (Manual) Eosinophils % Eosinophils % 4 (Manual) Basophils % Nucleated Red 0.0 Blood Cells % Immature 0.040 H Granulocytes # Neutrophils # Neutrophils # 6.8 (Manual) Band Neutrophils # 0.0 Lymphocytes 1.3 (Manual) Lymphocytes # Monocytes # Monocytes # 0.7 (Manual) Eosinophils # Basophils # Nucleated Red Blood Cells # Platelet Estimate SIG DECREASED Polychromasia 1+ Poikilocytosis 2+ Sodium Level 142 Potassium Level 5.2 H Chloride Level 121 H Carbon Dioxide 16 L Level Anion Gap 5 Blood Urea 69 H Nitrogen Creatinine 4.21 H Est Glomerular 15 L Filtrat Rate mL/min Glucose Level 96 Calcium Level 8.1 L Phosphorus Level 3.7 Magnesium Level 2.0 Iron Level 31 L Total Iron Binding 254 Capacity Percent Iron 12 L Saturation Ferritin 76.8 Complement C3 67 L Complement C4 24 Hepatitis B NEGATIVE Surface Antigen Hepatitis B Core NEGATIVE Total Antibody Hepatitis C NEGATIVE Antibody Test 02/11/19 09:46 Hemoglobin 6.9 *L Hematocrit 21.8 L Medications Medications Current Medications Labetalol HCl (Labetalol) 20 mg Q20M PRN IV ELEVATED BLOOD PRESSURE; Start 02/10/19 at 09:00 Aspirin (Aspirin) 81 mg DAILY PO Last administered on 02/11/19at 10:58; Admin Dose 81 MG; Start 02/11/19 at 09:00 Atorvastatin Calcium (Lipitor) 80 mg HS PO Last administered on 02/10/19 21:49; Admin Dose 80 MG; Start 02/10/19 at 21:00 Clopidogrel Bisulfate (plaVIX) 75 mg DAILY PO Last administered on 02/11/19 08:52; Admin Dose 75 MG; Start 02/11/19 at 09:00 Hydralazine HCl (Apresoline) 50 mg DAILY PO Last administered on 02/11/19 08:51; Admin Dose 50 MG; Start 02/10/19 at 12:00 Isosorbide Mononitrate (Imdur) 30 mg DAILY PO Last administered on 02/11/19 08:52; Admin Dose 30 MG; Start 02/11/19 at 09:00 Labetalol HCl (Normodyne) 600 mg Q8 PO Last administered on 02/11/19 13:32; Admin Dose 600 MG; Start 02/10/19 at 14:00 Levetiracetam (Keppra) 500 mg BID PO Last administered on 02/11/19 08:51; Admin Dose 500 MG; Start 02/10/19 at 21:00 Nifedipine (Procardia Xl) 60 mg BID PO Last administered on 02/11/19 08:51; Admin Dose 60 MG; Start 02/10/19 at 21:00 Valproic Acid (Depakene) 500 mg TID PO Last administered on 02/11/19 13:30; Admin Dose 500 MG; Start 02/10/19 at 13:00 Citric Acid/ Sodium Citrate (Bicitra) 30 ml BID PO Last administered on 02/11/19 08:57; Admin Dose 30 ML; Start 02/11/19 at 09:00 Ondansetron HCl (Zofran Inj) 4 mg Q4H PRN IV NAUSEA AND/OR VOMITING Last ad ministered on 02/11/19 10:56; Admin Dose 4 MG; Start 02/11/19 at 10:30 Ferric Sodium Gluconate Complex 125 mg/Sodium Chloride 110 ml @ 110 mls/hr DAILY@1300 IVPB Last administered on 02/11/19 13:18; Admin Dose 110 MLS/HR; Start 02/11/19 at 13:00; Stop 02/15/19 at 13:59 NELSON SIERRA MD February 11, 2019 14:11
--- NOTE | 2019-02-11 14:26 | CONS ---
DATE OF ADMISSION: 02/10/2019 DATE OF CONSULTATION: 02/11/2019 TYPE OF CONSULTATION: Infectious disease. REASON FOR CONSULTATION: Antibiotic management. HISTORY OF PRESENT ILLNESS: Donnie Kim is a 58-year-old male who comes in with severe h eadaches and woke up altered at 6:00 a.m. The patient has a number of problems includin. Hypertension. 2. Previous cerebral infarct of the right temporoparietal region on Plavix, aspirin and Keppra. For the past 48 hours, he has been complaining of posterior headaches. He has conjunctival hemorrhag e on the right eye, but his son indicates there is no trauma. The patient complains of posterior hea dache, no chest pain. When he awoke 6:00 a.m. 3 hours prior to arrival at emergency room, he was alt ered. He was unable to speak. The patient was slow in his movements of his upper extremities and he appeared confused. PAST SURGICAL HISTORY: Status post hernia repair, neurological disorder, he has seizures, as noted h e has hypertension. SOCIAL HISTORY: Does not smoke, drink or abuse drugs. ALLERGIES: NONE TO PENICILLIN, SULFA OR FOODS. MEDICATIONS: Per chart. REVIEW OF SYSTEMS: Noncontributory. PHYSICAL EXAMINATION: GENERAL: The patient is a well-developed, well-nourished, in no acute distress. VITAL SIGNS: Stable. HOSPITAL COURSE: On admission, his white count was 9.3, H and H of 7.5 and 23.8, platelet count 91,0 00. BUN and creatinine is 80/4.5. The patient was aphasic. Gait was ataxic. No pronator drift. D ecreased sensation of the lower extremity with muscular weakness of left lower extremity. The patien t was seen by neurology, Dr. Calero who noted history of diabetes and hypertension. No acute lovelace es on CT scan. He recommended laboratory workup with DIANA, GAUTAM, smooth muscle LEDGER POSTER, KAR level, C3, C4, SSA, SSB, Lyme titers. 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 We would c onsider high dose Solu-Medrol 500 mg q.8 for 5 days ____ Solu-Medrol taper. The patient was seen by ____ and by Dr. Jasmina Dockery. Overnight, his dysarthria improved. PHYSICAL EXAMINATION: VITAL SIGNS: Stable. He is afebrile. SKIN: Without generalized rash. HEENT: Within normal limits. NECK: Supple. LYMPH NODES: None palpable. CHEST: Decreased breath sounds at the bases. HEART: Without murmur or gallop. ABDOMEN: Soft, nontender without organosplenomegaly or masses. EXTREMITIES: Without cyanosis, clubbing or edema. RECTAL AND GENITAL: Deferred. NEUROLOGIC: No focal neurological abnormalities. IMPRESSION AND PLAN: At this point, I would recommend LP to evaluate for possibility of meningitis o r viral entity, West Nile virus and others. For the present time, there is no evidence of bacterial process and the patient is off antibiotics. An MRI of the brain showed interval increase in size and number of multiple asymmetrical supratentorial cortical and subcortical foci of edema without mass e ffect. No evidence of definite acute infarct on diffusion weighted images. This is most suspicious for acute disseminated encephalomyelitis, posterior reversible encephalopathy syndrome is a considera tion, although the distribution is less typical. I will dictate my findings to Dr. Dockery and Dr. Sivan gomez. Dictated By: JIA MOROCHO MD, JD/WILD Conf#: [id number] DID#: [id number] CC: JASMINA DOCKERY DO;*EndCC*
--- NOTE | 2019-02-11 14:30 | RADRPT ---
Vent Rate: 72 bpm RR Interval: 0 msec FL Interval: 156 msec QRS Duration: 84 msec QT Interval: 376 msec QTC Interval: 411 msec P-R-T [place]: 27 - -21 - 42 degrees Normal sinus rhythm Normal ECG Electronically Signed By: [facility]
--- NOTE | 2019-02-11 15:41 | CONS ---
Assessment/Plan Assessment/Plan Hospital Course 58 yo M with multiple comorbidities who presents for evaluation of weakness, headache, dysarthria and other sx... for which neurology is consulted. MRI brain revealed b/l subcortical high signal c/f PRES vs. ADEM... Encephalitis is not yet excluded.. CTA H/N is unrevealing. LDL 37 P: Agree w/ LP for CSF evaluation BP control per primary Cont ASA/Plavix per ops for secondary prevention; LDL is at goal [place] as necessary Limit sedating medications where possible PT/OT/ST as necessary Will follow clinically, to recommend neurologic studies, as necessary Consultation Date/Type/Reason Admit Date/Time February 10, 2019 at 12:40 Type of Consult Neurology Reason for Consultation ams Requesting Provider: JASMINA DOCKERY DO Date/Time of Note DATE: 02/11/19 TIME: 15:36 24 HR Interval Summary Free Text/Dictation s/p MRI brain notes 03/07 headache Notes b//l foot pain, longstanding Exam Vital Signs Vitals Vital Signs Date Temp Pulse Resp B/P (MAP) Pulse Ox O2 O2 Flow FiO2 Time Delivery Rate 02/11/19 98.2 72 22 137/69 96 Room Air 15:27 (91) Intake and Output 02/10/19 02/10/19 02/11/19 1515:00 23:00 07:00 IntakeIntake Total 850 ml OutputOutput Total 800 ml BalanceBalance 50 ml Exam PE: Gen Appearance: No Apparent Distress HEENT: Normocephalic Cardiovascular: Regular rate Lungs: Clear bilaterally Abdomen: Soft Extremities: Dry NE: The patient was alert though disoriented. Language was normal. Fund of knowledge was limited. Pupils were equal and reactive to light. There was no afferent pupillary defect. Visual french were normal. Funduscopic examination was limited. Extra-ocular movements were full. Ptosis was absent. There was no nystagmus. Facial sensation was normal. Face was symmetric with normal strength. Hearing was intact. Palate movements were normal. Neck strength was normal. There was normal tongue bulk and speed of movement. Tone was normal. Muscle bulk was normal. I did not see fasciculations. Arms and legs were strong. Vibration sensation was decreased distally. Temperature and pinprick sensation was normal. There was b/l dorsal foot allodynia. Rapid alternating movements were normal. There was no dysmetria. There was no intention tremor. Gait was deferred due to bedrest. Arm and leg reflexes were symmetric. Weber's sign was absent. Plantar responses were flexor. PAUL PIÑA February 11, 2019 15:41
--- NOTE | 2019-02-11 15:41 | RADRPT ---
Echocardiogram Report Patient Name: Nitish HARRIS ID: [id number] : 1960 (58y 3m)Study Date: 02/11/2019 2:15:07 PM Gender: MAccession #: [id number] Tech: Chris Sherman [facility] Location: [address] Ref.Physician: NELSON TRAN Height(Cm): BSA: Weight(Kg): Quality: AdequateOrder Physician: NELSON TRAN Account #: Procedures: Echocardiographic Report: Transthoracic echocardiogram with complete 2D, M-Mode, and doppler examination. Indications: Cerebrovascular Accident. Measurements: 2D/M Mode Doppler Measurement Value Normal Range Measurement Value Normal Range LVIDd 2D 5.5 [ 4.2 - 5.8 ] cm AV Peak [place] 1.8 [ 100.0 - 170.0 ] cm/sec LVIDs 2D 3.4 [ 2.5 - 4.0 ] cm AV Peak PG 13.0 [ 2.0 - 9.0 ] mmHg LVPWd 2D 1.0 [ 0.6 - 1.0 ] cm LVOT Peak [place] 0.9 [ 70.0 - 110.0 ] cm/sec IVSd 2D 1.0 [ 0.6 - 1.0 ] cm LVOT Peak PG 4.0 [ 2.0 - 6.0 ] mmHg AoR Diam 2D 2.9 [ 2.6 - 3.4 ] cm MV E Peak [place] 1.1 [ 60.0 - 130.0 ] cm/sec EDV 2D 150.0 [ 62.0 - 150.0 ] ml MV A Peak [place] 1.0 [ 100.0 - 120.0 ] cm/sec ESV 2D 47.1 [ 21.0 - 61.0 ] ml MV E/A 1.1 [ 0.8 - 1.5 ] ratio EF 2D 68.6 [ 52.0 - 72.0 ] percent MV Decel Time 275 [ 104 - 258 ] msec LA Dimen 2D 4.0 [ 3.0 - 4.0 ] cm Lat E` Franklin 0.1 [ 10.0 - 15.0 ] cm/sec Lateral E/E` 13.7 [ 1.0 - 2.0 ] ratio MV E/A 1.1 [ 0.8 - 1.5 ] ratio TR Peak [place] 3.0 [ 100.0 - 280.0 ] cm/sec TR Peak PG 35.0 mmHg RVSP 45.0 [ 10.0 - 36.0 ] mmHg Findings: Left Ventricle: Normal left ventricular systolic function. Normal left ventricular cavity size. Normal left ventricular wall thickness. Ejection fraction is visually estimated at 55 %. Tissue Doppler/Mitral Doppler indices are consistent with impaired relaxation (Stage I diastolic dysfunction). Right Ventricle: Normal right ventricular size. Normal right ventricular systolic function. Left Atrium: The left atrium is normal in size. Right Atrium: The right atrium is normal in size. Mitral Valve: Mild mitral leaflet calcification. Mild mitral annular calcification. Trace mitral regurgitation. Aortic Valve: No hemodynamically significant aortic stenosis by doppler. Aortic cusps appear mildly calcified. Tricuspid Valve: Normal appearance of the tricuspid valve. Estimated peak PA systolic pressure 45 mmHg. There is mild tricuspid regurgitation. Pericardium: Normal pericardium with no significant pericardial effusion. Aorta: Normal aortic root. IVC: Normal size and normal respiratory collapse consistent with normal right atrial pressure. Conclusions: Normal left ventricular systolic function. Normal left ventricular cavity size. Normal left ventricular wall thickness. Ejection fraction is visually estimated at 55 %. Tissue Doppler/Mitral Doppler indices are consistent with impaired relaxation (Stage I diastolic dysfunction). Mild mitral leaflet calcification. Mild mitral annular calcification. Trace mitral regurgitation. No hemodynamically significant aortic stenosis by doppler. Aortic cusps appear mildly calcified. Normal appearance of the tricuspid valve. Estimated peak PA systolic pressure 45 mmHg. There is mild tricuspid regurgitation. Electronically Signed By: Nelson Tran 2019-02-11 15:41:09 PDT
[2019-02-11] MEDS ORDERED: HYDROCODONE/APAP (10/325) TAB PO PRN (17:00)
[2019-02-11] MEDS ORDERED: VANCOMYCIN IV PER PHARMACY XX SCH (21:00)
[2019-02-11] MEDS: ATORVASTATIN 80 MG TAB PO SCH (21:19)
[2019-02-11] MEDS: ACETAMINOPHEN 500 MG TAB PO PRN (21:29)
[2019-02-11] MEDS: CEFTRIAXONE 1 GM/50 ML (PMX) 50 ML IVPB SCH (21:35)
[2019-02-11] MEDS: AMPICILLIN 1 GM/NS (PMX) 50 ML IVPB SCH (22:23)
[2019-02-11] MEDS ORDERED: VANCOMYCIN HCL 1.25 GM in SOD CHLORIDE 0.9% 250 ML IVPB ONE (23:00)
[2019-02-12] VITALS (10 sets, daily range): BP systolic 120–148; BP diastolic 60–71; PULSE 54–75; RESP 18–20
[2019-02-12] MEDS: AMPICILLIN 1 GM/NS (PMX) 50 ML IVPB SCH ×3 (04:51→21:32)
[2019-02-12] MEDS: ACETAMINOPHEN 500 MG TAB PO PRN (05:23)
[2019-02-12] MEDS: LABETALOL 200 MG TAB PO SCH ×3 (05:23→21:33)
[2019-02-12] MEDS: CEFTRIAXONE 1 GM/50 ML (PMX) 50 ML IVPB SCH ×2 (08:11→21:26)
[2019-02-12] MEDS: CITRIC ACID/NA CITRATE 30 ML CUP PO SCH ×2 (09:13→21:32)
[2019-02-12] MEDS: VALPROIC ACID 250 MG CAP PO SCH ×3 (09:14→21:53)
[2019-02-12] MEDS: CLOPIDOGREL 75 MG TAB PO SCH (09:14)
[2019-02-12] MEDS: ISOSORBIDE MONONITRATE(SR)30 MG TAB PO SCH (09:15)
[2019-02-12] MEDS: LEVETIRACETAM 500 MG TAB PO SCH (09:16)
[2019-02-12] MEDS: ASPIRIN 81 MG TAB PO SCH (09:17)
[2019-02-12] MEDS: NIFEdipine (XL) 60 MG TAB PO SCH ×2 (09:17→21:32)
--- NOTE | 2019-02-12 10:46 | PN ---
DATE: 02/12/2019 SUBJECTIVE: The patient is clinically improving. The patient's weakness is resolving. No other whitney nts noted. No hemoptysis, hematemesis or hematochezia. The patient was initiated on antibiotic thera py per infectious disease. OBJECTIVE: VITAL SIGNS: Blood pressure is 143/65, respiration 18, pulse 66, temperature 98.3. HEENT: Head is normocephalic. NECK: Supple. HEART: Regular rate. LUNGS: Show diminished breath sounds at the base. ABDOMEN: Soft, nontender to palpation without rebound or guarding. EXTREMITIES: Negative for clubbing, cyanosis, no edema. DERMATOLOGIC: No rashes. MUSCULOSKELETAL: No joint effusions. NEUROLOGIC: No change in exam. MEDICATIONS: The patient's medications have been reviewed. LABORATORY DATA: Has been reviewed. The patient's lumbar puncture results have been reviewed. ASSESSMENT AND PLAN: 1. Acute dysarthria, headaches, weakness. Etiology is unclear, possibility of a meningitis, viral v ersus bacterial is a consideration given LP which did show evidence of elevated white count, elevated protein. However, the patient did have a significant RBC count. The possibility of a disseminated encephalomyelitis versus a PRES syndrome was also a consideration. Greatly appreciate neurology's in fectious disease evaluation. The patient currently is started on antibiotic therapy. At this point, will continue to monitor. Follow up with ID and neurology for further recommendations, continue to improve blood pressure control. 2. Hypertensive urgency. The patient's blood pressures are improving. Continue current blood press ure regimen. 3. History of cerebrovascular accident. Continue medical management. 4. Seizure disorder. Continue Keppra. 5. Anemia. Patient is status post blood transfusion. Monitor hemoglobin and hematocrit levels. Co ntinue IV iron. 6. Chronic kidney disease, stage IV/V, based on prior around 4 to 4.5 mg/dL. Renal function appears to be at baseline. Continue to monitor. 7. Mild hyperkalemia. Continue to monitor. 8. Hypernatremia, improved. 9. Metabolic acidosis. Continue Bicitra. 10. Diabetes. Continue to monitor. 11. General debility. Continue physical therapy. Dictated By: JASMINA DOCKERY DO NR/NTS Conf#: [id number] DID#: [id number]
--- NOTE | 2019-02-12 11:04 | CONS ---
Assessment/Plan Assessment/Plan Hospital Course 58 yo M with multiple comorbidities who presents for evaluation of weakness, headache, dysarthria and other sx... for which neurology is consulted. MRI brain revealed b/l subcortical high signal c/f PRES (most likely given the clinical context) vs. ADEM... Unable to administer necessary contrast to differentiate the two considerations, given renal failure.. s/p LP for CSF evaluation on 02/11.. studies suggest a traumatic tap.. Encephalitis is considered less likely.. CTA H/N is unrevealing. LDL 37 P: Aggressive BP control per primary Cont ASA/Plavix per ops for secondary prevention; LDL is at goal [place] as necessary Limit sedating medications where possible OK to continue Keppra 500mg bid for now; check level to ensure not toxic PT/OT/ST as necessary Will follow clinically, to recommend neurologic studies, as necessary Consultation Date/Type/Reason Admit Date/Time February 10, 2019 at 12:40 Type of Consult Neurology Reason for Consultation ams Requesting Provider: JASMINA DOCKERY DO Date/Time of Note DATE: 02/12/19 TIME: 10:58 24 HR Interval Summary Free Text/Dictation s/p LP Exam Vital Signs Vitals Vital Signs Date Temp Pulse Resp B/P (MAP) Pulse Ox O2 O2 Flow FiO2 Time Delivery Rate 02/12/19 66 08:10 02/12/19 98.3 18 143/65 97 Room Air 07:26 (91) Intake and Output 02/11/19 02/11/19 02/12/19 1515:00 23:00 07:00 IntakeIntake Total 1050 ml 450 ml BalanceBalance 1050 ml 450 ml Exam PE: Gen Appearance: No Apparent Distress HEENT: Normocephalic Cardiovascular: Regular rate Lungs: Clear bilaterally Abdomen: Soft Extremities: Dry NE: The patient was alert though disoriented. Language was normal. Fund of knowledge was limited. Pupils were equal and reactive to light. There was no afferent pupillary defect. Visual french were normal. Funduscopic examination was limited. Extra-ocular movements were full. Ptosis was absent. There was no nystagmus. Facial sensation was normal. Face was symmetric with normal strength. Hearing was intact. Palate movements were normal. Neck strength was normal. There was normal tongue bulk a nd speed of movement. Tone was normal. Muscle bulk was normal. I did not see fasciculations. Arms and legs were strong. Vibration sensation was decreased distally. Temperature and pinprick sensation was normal. There was b/l dorsal foot allodynia. Rapid alternating movements were normal. There was no dysmetria. There was no intention tremor. Gait was deferred due to bedrest. Arm and leg reflexes were symmetric. Weber's sign was absent. Plantar responses were flexor. PAUL PIÑA February 12, 2019 11:04
[2019-02-12] MEDS: SOD FERRIC GLUC COMPLX 125 MG in SOD CHLORIDE 0.9% 100 ML IVPB SCH (13:56)
--- NOTE | 2019-02-12 15:17 | CONS ---
Assessment/Plan Assessment/Plan Hospital Course (Demo Recall) Patient is alert looks comfortable son at bedside no fevers overnight WBC 7.9 platelets 84 H&H 6.6 and 21 BUN 69 creatinine 4.21 Microbiology: CSF cultures negative preliminary Amber ink negative for cryptococcus Antimicrobials: Ampicillin ceftriaxone vancomycin Physical examination well-developed well-nourished middle-aged man who is awake in no distress. Head atraumatic normocephalic neck is supple chest rise symmetrical breath sounds diminished bases heart S1-S2 abdomen soft bowel sounds present extremities without cyanosis Assessment: 1. Acute dysarthria headaches and weakness, status post LP, so far no evidence for acute bacterial meningitis 2. History of CVA 3. Diabetes 4. Hypertension 5. Chronic kidney disease 6. Seizure disorder Plan: Patient is stable on empiric antibiotics, pending final cerebrospinal fluid culture result, he is being seen by neurology, pending final work-up. Discussed with son at bedside, discussed with RN Consultation Date/Type/Reason Admit Date/Time February 10, 2019 at 12:40 Initial Consult Date 02/11/19 Type of Consult id Requesting Provider: JASMINA DOCKERY DO Date/Time of Note DATE: 02/12/19 TIME: 15:17 Exam/Review of Systems Exam Vitals Vital Signs Date Temp Pulse Resp B/P (MAP) Pulse Ox O2 O2 Flow FiO2 Time Delivery Rate 02/12/19 97.6 63 19 120/60 96 Room Air 14:53 (80) Intake and Output 02/11/19 02/11/19 02/12/19 1515:00 23:00 07:00 IntakeIntake Total 1050 ml 450 ml BalanceBalance 1050 ml 450 ml Results Result Diagram: 02/11/19 1449 02/11/19 0553 Results 24hrs Laboratory Tests Test 02/11/19 16:00 02/12/19 15:08 CSF Tubes Submitted 4 CSF Volume 6.5 CSF Appearance CLOUDY CSF Color PINKISH CSF WBC 52 *H CSF RBC 10759 H CSF Cell Count Tube # TUBE#1 CSF Mononuclear Cells % (Auto) 44.2 CSF Polynuclear WBCs (%) 55.8 CSF Glucose 52 CSF Total Protein 193 H White Blood Count Pending Red Blood Count Pending Hemoglobin Pending Hematocrit Pending Mean Corpuscular Volume Pending Mean Corpuscular Hemoglobin Pending Mean Corpuscular Hemoglobin Concent Pending Red Cell Distribution Width Pending Platelet Count Pending Mean Platelet Volume Pending Medications Medication Current Medications Labetalol HCl (Labetalol) 20 mg Q20M PRN IV ELEVATED BLOOD PRESSURE; Start 02/10/19 at 09:00 Aspirin (Aspirin) 81 mg DAILY PO Last administered on 02/12/19 09:17; Admin Dose 81 MG; Start 02/11/19 at 09:00 Atorvastatin Calcium (Lipitor) 80 mg HS PO Last administered on 02/11/19 21:19; Admin Dose 80 MG; Start 02/10/19 at 21:00 Clopidogrel Bisulfate (plaVIX) 75 mg DAILY PO Last administered on 02/12/19 09:14; Admin Dose 75 MG; Start 02/11/19 at 09:00 Hydralazine HCl (Apresoline) 50 mg DAILY PO Last administered on 02/12/19 09:16; Admin Dose 50 MG; Start 02/10/19 at 12:00 Isosorbide Mononitrate (Imdur) 30 mg DAILY PO Last administered on 02/12/19 09:15; Admin Dose 30 MG; Start 02/11/19 at 09:00 Labetalol HCl (Normodyne) 600 mg Q8 PO Last administered on 02/12/19 13:59; Ad min Dose 600 MG; Start 02/10/19 at 14:00 Nifedipine (Procardia Xl) 60 mg BID PO Last administered on 02/12/19 09:17; Admin Dose 60 MG; Start 02/10/19 at 21:00 Valproic Acid (Depakene) 500 mg TID PO Last administered on 02/12/19 13:57; Admin Dose 500 MG; Start 02/10/19 at 13:00 Citric Acid/ Sodium Citrate (Bicitra) 30 ml BID PO Last administered on 02/12/19 09:13; Admin Dose 30 ML; Start 02/11/19 at 09:00 Ondansetron HCl (Zofran Inj) 4 mg Q4H PRN IV NAUSEA AND/OR VOMITING Last administered on 02/11/19 10:56; Admin Dose 4 MG; Start 02/11/19 at 10:30 Ferric Sodium Gluconate Complex 125 mg/Sodium Chloride 110 ml @ 110 mls/hr DAILY@1300 IVPB Last administered on 5/18/19at 13:56; Admin Dose 110 MLS/HR; Start 02/11/19 at 13:00; Stop 02/15/19 at 13:59 Acetaminophen (Tylenol Tab) 1,000 mg Q6H PRN PO MILD PAIN(1-3)OR ELEVATED TEMP Last administered on 02/12/19at 05:23; Admin Dose 1,000 MG; Start 02/11/19 at 17:00 Acetaminophen/ Hydrocodone Bitart ([place] (10/325)) 1 tab Q4H PRN PO SEVERE PAIN; Start 02/11/19 at 17:00 Vancomycin HCl (Vanco Iv Per Pharmacy) VANCOMYCIN PER PHARMACY PER PROTOCOL XX ; Start 02/11/19 at 21:00 Ceftriaxone Sodium 50 ml @ 100 mls/hr BID IVPB Last administered on 02/12/19at 08:11; Admin Dose 100 MLS/HR; Start 02/11/19 at 21:00 Miscellaneous Information (*Rx Drug Level Order Reminder*) RANDOM VANCOMYCIN LEVEL 5... ONCE ONCE XX ; Start 02/13/19 at 05:00; Stop 02/13/19 at 05:01 Levetiracetam (Keppra) 250 mg BID PO ; Start 02/12/19 at 21:00 Ampicillin 50 ml @ 100 mls/hr Q8 IVPB ; Start 02/12/19 at 22:00 VASHTI ALDRICH NP February 12, 2019 15:17
[2019-02-12] MEDS: ATORVASTATIN 80 MG TAB PO SCH (21:32)
[2019-02-12] MEDS: LEVETIRACETAM 250 MG TAB PO SCH (21:32)
[2019-02-13] VITALS (11 sets, daily range): BP systolic 137–161; BP diastolic 68–73; PULSE 56–90; RESP 18–20
[2019-02-13] MEDS: LABETALOL 200 MG TAB PO SCH ×3 (06:15→22:00)
[2019-02-13] MEDS: AMPICILLIN 1 GM/NS (PMX) 50 ML IVPB SCH ×3 (06:15→22:12)
[2019-02-13] MEDS: VALPROIC ACID 250 MG CAP PO SCH (09:00)
[2019-02-13] MEDS: CEFTRIAXONE 1 GM/50 ML (PMX) 50 ML IVPB SCH ×2 (09:27→20:55)
[2019-02-13] MEDS: CITRIC ACID/NA CITRATE 30 ML CUP PO SCH ×2 (09:27→20:55)
[2019-02-13] MEDS: CLOPIDOGREL 75 MG TAB PO SCH (09:29)
[2019-02-13] MEDS: NIFEdipine (XL) 60 MG TAB PO SCH ×2 (09:29→20:58)
[2019-02-13] MEDS: ISOSORBIDE MONONITRATE(SR)30 MG TAB PO SCH (09:29)
[2019-02-13] MEDS: ASPIRIN 81 MG TAB PO SCH (09:29)
[2019-02-13] MEDS: LEVETIRACETAM 250 MG TAB PO SCH ×2 (09:29→20:54)
[2019-02-13] MEDS ORDERED: VANCOMYCIN 1 GM 250 ML IVPB SCH (11:00)
--- NOTE | 2019-02-13 12:29 | CONS ---
Consultation Date/Type/Reason Admit Date/Time February 10, 2019 at 12:40 Initial Consult Date SUBJECTIVE: Patient is awake, alert, looks comfortable. No acute events over night. VS: stable T: 98.0 LABS: Reviewed. WBC- 9.4 Microbiology: CSF cultures negative preliminary Amber ink negative for cryptococcus Specimen: [id number] Status: Resulted Brissa: 02/11/19-1600 Rcvd: 02/12/19-0 Source: CSF Sp Descrip: Procedure Result Microbiology GRAM STAIN Final POLYMORPH. LEUKOCYTE NONE SEEN . NO ORGANISM SEEN CSF CULTURE Preliminary NO GROWTH AFTER 1 DAY Antimicrobials: Ampicillin, ceftriaxone, and vancomycin Physical examination: GEN: well-developed well-nourished middle-aged man, who is awake in no distress. HENT: Head atraumatic normocephalic, neck is supple PULM: chest rise symmetrical, breath sounds diminished bases Heart: S1-S2 Abdomen: soft, bowel sounds present Extremities: no cyanosis Assessment: 1. Acute dysarthria headaches and weakness, status post LP, so far no evidence for acute bacterial meningitis 2. History of CVA 3. Diabetes 4. Hypertension 5. Chronic kidney disease 6. Seizure disorder Plan: Patient is stable on empiric antibiotics. Pending final cerebrospinal fluid culture result. Neurology followinf and final work-up pending. Pain management. Requesting Provider: JASMINA DOCKERY DO Date/Time of Note DATE: 02/13/19 TIME: 12:24 Exam/Review of Systems Exam Vitals Vital Signs Date Temp Pulse Resp B/P (MAP) Pulse Ox O2 O2 Flow FiO2 Time Delivery Rate 02/13/19 60 12:00 02/13/19 98.0 20 143/73 98 11:53 (96) 02/12/19 Room Air 14:53 Intake and Output 02/12/19 02/12/19 02/13/19 1414:59 22:59 06:59 IntakeIntake Total 200 ml 700 ml 400 ml BalanceBalance 200 ml 700 ml 400 ml Results Result Diagram: 02/13/19 0605 02/13/19 0605 Results 24hrs Laboratory Tests Test 02/12/19 15:08 02/13/19 06:05 White Blood Count 9.7 # 9.4 Red Blood Count 2.63 L 2.67 L Hemoglobin 7.6 L 7.8 L Hematocrit 24.4 L 24.6 L Mean Corpuscular Volume 92.8 92.1 Mean Corpuscular Hemoglobin 28.9 L 29.2 Mean Corpuscular Hemoglobin Concent 31.1 L 31.7 L Red Cell Distribution Width 15.4 H 15.3 H Platelet Count 84 L 91 L Mean Platelet Volume 10.2 10.0 Immature Granulocytes % 1.800 H 3.200 H Neutrophils % 63.4 63.6 Lymphocytes % 17.0 16.0 Monocytes % 14.8 H 13.2 H Eosinophils % 2.6 3.4 Basophils % 0.4 0.6 Nucleated Red Blood Cells % 0.0 0.2 H Immature Granulocytes # 0.180 H 0.300 H Neutrophils # 6.2 5.9 Lymphocytes # 1.7 1.5 Monocytes # 1.4 H 1.2 H Eosinophils # 0.3 0.3 Basophils # 0.0 0.1 Nucleated Red Blood Cells # 0.0 0.0 Sodium Level 140 139 Potassium Level 4.8 4.9 Chloride Level 120 H 118 H Carbon Dioxide Level 16 L 15 L Anion Gap 4 L 6 Blood Urea Nitrogen 70 H 69 H Creatinine 5.04 H 5.48 H Est Glomerular Filtrat Rate mL/min 12 L 11 L Glucose Level 97 81 Calcium Level 7.5 L 7.8 L Phosphorus Level 4.6 Magnesium Level 2.0 Random Vancomycin Level 14.2 Medications Medication Current Medications Labetalol HCl (Labetalol) 20 mg Q20M PRN IV ELEVATED BLOOD PRESSURE; Start 02/10/19 at 09:00 Aspirin (Aspirin) 81 mg DAILY PO Last administered on 02/13/19 09:29; Admin Dose 81 MG; Start 02/11/19 at 09:00 Atorvastatin Calcium (Lipitor) 80 mg HS PO Last administered on 02/12/19 21:32; Admin Dose 80 MG; Start 02/10/19 at 21:00 Clopidogrel Bisulfate (plaVIX) 75 mg DAILY PO Last administered on 02/13/19 09:29; Admin Dose 75 MG; Start 02/11/19 at 09:00 Hydralazine HCl (Apresoline) 50 mg DAILY PO Last administered on 02/13/19 09:3 0; Admin Dose 50 MG; Start 02/10/19 at 12:00 Isosorbide Mononitrate (Imdur) 30 mg DAILY PO Last administered on 02/13/19 09:29; Admin Dose 30 MG; Start 02/11/19 at 09:00 Labetalol HCl (Normodyne) 600 mg Q8 PO Last administered on 02/13/19 06:15; Admin Dose 600 MG; Start 02/10/19 at 14:00 Nifedipine (Procardia Xl) 60 mg BID PO Last administered on 02/13/19 09:29; Admin Dose 60 MG; Start 02/10/19 at 21:00 Valproic Acid (Depakene) 500 mg TID PO Last administered on 02/12/19 21:53; Admin Dose 500 MG; Start 02/10/19 at 13:00 Ondansetron HCl (Zofran Inj) 4 mg Q4H PRN IV NAUSEA AND/OR VOMITING Last administered on 02/11/19 10:56; Admin Dose 4 MG; Start 02/11/19 at 10:30 Ferric Sodium Gluconate Complex 125 mg/Sodium Chloride 110 ml @ 110 mls/hr DAILY@1300 IVPB Last administered on 02/12/19 13:56; Admin Dose 110 MLS/HR; Start 02/11/19 at 13:00; Stop 02/15/19 at 13:59 Acetaminophen (Tylenol Tab) 1,000 mg Q6H PRN PO MILD PAIN(1-3)OR ELEVATED TEMP Last administered on 02/12/19 05:23; Admin Dose 1,000 MG; Start 02/11/19 at 17:00 Acetaminophen/ Hydrocodone Bitart ([place] (10)) 1 tab Q4H PRN PO SEVERE PAIN; Start 02/11/19 at 17:00 Vancomycin HCl (Vanco Iv Per Pharmacy) VANCOMYCIN PER PHARMACY PER PROTOCOL XX ; Start 02/11/19 at 21:00 Ceftriaxone Sodium 50 ml @ 100 mls/hr BID IVPB Last administered on 02/13/19 09:27; Admin Dose 100 MLS/HR; Start 02/11/19 at 21:00 Levetiracetam (Keppra) 250 mg BID PO Last administered on 02/13/19 09:29; Admin Dose 250 MG; Start 02/12/19 at 21:00 Ampicillin 50 ml @ 100 mls/hr Q8 IVPB Last administered on 02/13/19 06:15; Admin Dose 100 MLS/HR; Start 02/12/19 at 22:00 Citric Acid/ Sodium Citrate (Bicitra) 60 ml BID PO Last administered on 02/13/19 09:27; Admin Dose 60 ML; Start 02/13/19 at 10:00 Vancomycin HCl 250 ml @ 125 mls/hr 1100 IVPB Last administered on 02/13/19at 10:33; Admin Dose 125 MLS/HR; Start 02/13/19 at 11:00; Stop 02/13/19 at 19:00 JEANE BERMAN February 13, 2019 12:29
--- NOTE | 2019-02-13 13:47 | PN ---
DATE: 02/13/2019 SUBJECTIVE: The patient is clinically improving. The patient is complaining of less weakness. No n ausea, no vomiting. Headaches have improved. OBJECTIVE: VITAL SIGNS: Blood pressure is 148/70, respiration 18, pulse 73, temperature 98.0. HEENT: Head is normocephalic. NECK: Supple. HEART: Regular rate. LUNGS: Show diminished breath sounds at the base. ABDOMEN: Soft, nontender to palpation without rebound or guarding. EXTREMITIES: Negative for clubbing, cyanosis, no edema. DERMATOLOGIC: No rashes. MUSCULOSKELETAL: No joint effusion. NEUROLOGIC: No change in exam. MEDICATIONS: The patient's medications have been reviewed. LABORATORY DATA: From 02/13 was reviewed. ASSESSMENT AND PLAN: 1. Acute dysarthria, headaches, weakness. Etiology may be secondary to PRES. Lower suspicion for b acterial meningitis. The patient has been placed on empiric antibiotic therapy pending final CSF cul ture. Also, appreciate neurology's help with management. The patient is clinically improving. Cont inue to monitor closely. 2. Hypertensive urgency, improving. Continue current blood pressure regimen. 3. History of seizure disorder. The patient's antiepileptics were adjusted. Will check a Keppra le anais. 4. History of cerebrovascular accident. Continue medical management. 5. Nonoliguric acute kidney injury on top of chronic kidney disease, stage IV/V. Etiology may be se condary to hemodynamics, possible tubular injury. Renal function continues to climb, will continue t o monitor, continue supportive care, renally dose all meds. No immediate need for renal replacement therapy at this time. 6. Anemia. Monitor hemoglobin and hematocrit levels. The patient is status post blood transfusion. Continue Epogen. 7. Metabolic acidosis. Continue Bicitra. 8. Hyperkalemia, resolved. 9. Hypernatremia, improved. 10. Diabetes. Continue to monitor Accu-Cheks. 11. General debility. Continue physical therapy. Dictated By: JASMINA MCCLAIN/WILD Conf#: [id number] DID#: [id number]
[2019-02-13] MEDS: SOD FERRIC GLUC COMPLX 125 MG in SOD CHLORIDE 0.9% 100 ML IVPB SCH (13:59)
[2019-02-13] MEDS: ATORVASTATIN 80 MG TAB PO SCH (20:53)
[2019-02-13] MEDS: VALPROIC ACID LIQUID CUP 250 MG/5 ML CUP PO SCH (20:54)
[2019-02-13] MEDS ORDERED: CITRIC ACID/NA CITRATE 30 ML CUP PO SCH (21:00)
[2019-02-14] VITALS (10 sets, daily range): BP systolic 141–191; BP diastolic 71–89; PULSE 50–100; RESP 19–20
[2019-02-14] MEDS: LABETALOL 200 MG TAB PO SCH ×3 (05:18→21:25)
[2019-02-14] MEDS: AMPICILLIN 1 GM/NS (PMX) 50 ML IVPB SCH (05:19)
[2019-02-14] MEDS: CLOPIDOGREL 75 MG TAB PO SCH (06:58)
[2019-02-14] MEDS: NIFEdipine (XL) 60 MG TAB PO SCH ×2 (06:58→21:24)
[2019-02-14] MEDS: ISOSORBIDE MONONITRATE(SR)30 MG TAB PO SCH (06:58)
[2019-02-14] MEDS: CITRIC ACID/NA CITRATE 30 ML CUP PO SCH ×2 (06:59→21:24)
[2019-02-14] MEDS: VALPROIC ACID LIQUID CUP 250 MG/5 ML CUP PO SCH ×3 (06:59→21:23)
[2019-02-14] MEDS: ASPIRIN 81 MG TAB PO SCH (06:59)
[2019-02-14] MEDS: CEFTRIAXONE 1 GM/50 ML (PMX) 50 ML IVPB SCH (08:55)
[2019-02-14] MEDS: LEVETIRACETAM 250 MG TAB PO SCH ×2 (08:55→21:24)
[2019-02-14] MEDS: LOSARTAN 25 MG TAB PO SCH (10:29)
--- NOTE | 2019-02-14 10:45 | PN ---
DATE: 02/14/2019 The patient is stable. The patient overnight was noted to be hypertensive with systolic pressures in the 190s. No other acute events noted. The patient is complaining of a mild headache. Patient c/o right eye blurry vision. OBJECTIVE: VITAL SIGNS: Blood pressure is 191/89, respiratory rate 20, pulse 67, temperature 98.0. HEENT: Head is normocephalic. right eye blurry vision NECK: Supple. HEART: Regular rate. LUNGS: Show diminished breath sounds at base. ABDOMEN: Soft, nontender to palpation. No rebound or guarding. EXTREMITIES: Negative for clubbing, cyanosis, no edema. DERMATOLOGIC: No rashes. MUSCULOSKELETAL: No joint effusion. NEUROLOGIC: No change in exam. MEDICATIONS: Have been reviewed. LABORATORY DATA: Has been reviewed. ASSESSMENT AND PLAN: 1. Acute dysarthria, headaches, weakness. Etiology is likely secondary to . Lower suspicion for bacterial meningitis. The patient is on empiric antibiotics pending final CSF culture. I appreciate neurology's evaluation. The patient's symptoms are clinically improving. Continue current treatment plan, continue supportive care. Follow up recommendations. 2. Hypertensive urgency. Blood pressure is elevated this morning. Will adjust blood pressure medications. Increase hydralazine 100 mg q.8h. Continue on nifedipine 60 mg b.i.d. 3. Continue labetalol 600 mg q.8h. Will increase Imdur to 60 mg daily. Continue p.r.n. medications. Will consider adding low dose Aldactone. Will continue adding low dose ARB, Losartan. Monitor potassium levels and renal function closely. 4. Seizure disorder. Continue current antiepileptic medications. Will check a Keppra level. 5. History of cerebrovascular accident. Continue medical management. 6. Nonoliguric acute kidney injury on top of chronic kidney disease, stage IV/V with previous EGFR around 15 mL per minute. Etiology of acute kidney injury may be secondary to hemodynamics, tubular injury. Renal function appears to have stabilized in the last 24 hours. Continue to monitor closely. No immediate need for renal replacement therapy at this time: 7. Anemia. Patient is status post blood transfusion, monitor hemoglobin and hematocrit levels. Continue IV iron. Continue Epogen. 8. Metabolic acidosis, continue Bicitra. 9. Diabetes. Continue to monitor Accu-Cheks. 10. General debility, continue physical therapy. 11. right eye blurry vision. Unclear if 2/2 Press vs other. Will consult ophthamology. Dictated By: JASMINA MCCLAIN/WILD Conf#: [id number] DID#: [id number] MTDD
[2019-02-14] MEDS: SOD FERRIC GLUC COMPLX 125 MG in SOD CHLORIDE 0.9% 100 ML IVPB SCH (13:27)
--- NOTE | 2019-02-14 13:59 | CONS ---
Assessment/Plan Assessment/Plan Hospital Course 58 yo M with multiple comorbidities who presents for evaluation of weakness, headache, dysarthria and other sx... for which neurology is consulted. MRI brain revealed b/l subcortical high signal c/f PRES (most likely given the clinical context) vs. ADEM... Unable to administer necessary contrast to differentiate the two considerations, given renal failure.. s/p LP for CSF evaluation on 02/11.. studies suggest a traumatic tap.. Encephalitis is considered less likely.. CTA H/N is unrevealing. LDL 37 P: Aggressive BP control per primary Cont ASA/Plavix per ops for secondary prevention; LDL is at goal [place] as necessary Limit sedating medications where possible OK to continue Keppra 500mg bid for now; check level to ensure not toxic PT/OT/ST as necessary Will follow clinically Consultation Date/Type/Reason Admit Date/Time February 10, 2019 at 12:40 Type of Consult Neurology Reason for Consultation ams Requesting Provider: JASMINA DOCKERY DO Date/Time of Note DATE: 02/14/19 TIME: 13:58 24 HR Interval Summary Free Text/Dictation Continues acute care States that he feels well today Headache is episodic and mild. Exam Vital Signs Vitals Vital Signs Date Temp Pulse Resp B/P (MAP) Pulse Ox O2 O2 Flow FiO2 Time Delivery Rate 02/14/19 58 12:03 02/14/19 97.4 20 171/77 96 11:32 (108) 02/12/19 Room Air 14:53 Intake and Output 02/13/19 02/13/19 02/14/19 1515:00 23:00 07:00 IntakeIntake Total 410 ml 800 ml BalanceBalance 410 ml 800 ml Exam PE: Gen Appearance: No Apparent Distress HEENT: Normocephalic Cardiovascular: Regular rate Abdomen: Soft Extremities: Dry NE: The patient was alert and oriented. Language was normal. Fund of knowledge was normal. Pupils were equal and reactive to light. There was no afferent pupillary defect. Visual french were normal. Funduscopic examination was limited. Extra-ocular movements were full. Ptosis was absent. There was no nystagmus. Facial sensation was normal. Face was symmetric with normal strength. Hearing was intact. Palate movements were normal. Neck strength was normal. There was normal tongue bulk and speed of movement. Tone was normal. Muscle bulk was normal. I did not see fasciculations. Arms and legs were strong. Vibration sensation was normal. Temperature and pinprick sensation was normal. Rapid alternating movements were normal. There was no dysmetria. There was no intention tremor. Gait was steady. Arm and leg reflexes were symmetric. Weber's sign was absent. Plantar responses were flexor. PAUL PIÑA February 14, 2019 13:59
--- NOTE | 2019-02-14 14:20 | CONS ---
Assessment/Plan Assessment/Plan Hospital Course (Demo Recall) Patient is alert feels good, no fevers Microbiology: CSF cultures negative Amber ink negative Antimicrobials: none s/p Ampicillin ceftriaxone vancomycin Physical examination well-developed well-nourished middle-aged man who is awake in no distress. Head atraumatic normocephalic neck is supple chest rise symmetrical breath sounds diminished bases heart S1-S2 abdomen soft bowel sounds present extremities without cyanosis Assessment: 1. Acute dysarthria headaches and weakness, status post LP, so far no evidence for acute bacterial meningitis 2. History of CVA 3. Diabetes 4. Hypertension 5. Chronic kidney disease 6. Seizure disorder Plan: Patient is stable, abx dc'd, continue management per neurology Consultation Date/Type/Reason Admit Date/Time February 10, 2019 at 12:40 Initial Consult Date 02/11/19 Type of Consult id Requesting Provider: JASMINA DOCKERY DO Date/Time of Note DATE: 02/14/19 TIME: 14:19 Exam/Review of Systems Exam Vitals Vital Signs Date Temp Pulse Resp B/P (MAP) Pulse Ox O2 O2 Flow FiO2 Time Delivery Rate 02/14/19 58 12:03 02/14/19 97.4 20 171/77 96 11:32 (108) 02/12/19 Room Air 14:53 Intake and Output 02/13/19 02/13/19 02/14/19 1515:00 23:00 07:00 IntakeIntake Total 410 ml 800 ml BalanceBalance 410 ml 800 ml Results Result Diagram: 02/14/19 0535 02/14/19 0535 Results 24hrs Laboratory Tests Test 02/14/19 05:35 02/14/19 07:25 White Blood Count 9.6 Red Blood Count 2.63 L Hemoglobin 7.8 L Hematocrit 24.0 L Mean Corpuscular Volume 91.3 Mean Corpuscular Hemoglobin 29.7 Mean Corpuscular Hemoglobin Concent 32.5 Red Cell Distribution Width 15.1 H Platelet Count 112 #L Mean Platelet Volume 10.3 Immature Granulocytes % 2.400 H Neutrophils % 66.4 Lymphocytes % 11.1 L Monocytes % 15.5 H Eosinophils % 4.1 Basophils % 0.5 Nucleated Red Blood Cells % 1.4 H Immature Granulocytes # 0.230 H Neutrophils # 6.3 Lymphocytes # 1.1 Monocytes # 1.5 H Eosinophils # 0.4 Basophils # 0.1 Nucleated Red Blood Cells # 0.1 H Sodium Level 143 Potassium Level 4.4 Chloride Level 119 H Carbon Dioxide Level 17 L Anion Gap 7 Blood Urea Nitrogen 66 H Creatinine 5.42 H Est Glomerular Filtrat Rate mL/min 11 L Glucose Level 93 Calcium Level 7.8 L Phosphorus Level 4.0 Magnesium Level 2.0 Lab Scanned Report BLOOD TRANSFUSION Medications Medication Current Medications Labetalol HCl (Labetalol) 20 mg Q20M PRN IV ELEVATED BLOOD PRESSURE Last administered on 02/14/19 04:02; Admin Dose 20 MG; Start 02/10/19 at 09:00 Aspirin (Aspirin) 81 mg DAILY PO Last administered on 02/14/19 06:59; Admin Dose 81 MG; Start 02/11/19 at 09:00 Atorvastatin Calcium (Lipitor) 80 mg HS PO Last administered on 02/13/19 20:53; Admin Dose 80 MG; Start 02/10/19 at 21:00 Clopidogrel Bisulfate (plaVIX) 75 mg DAILY PO Last administered on 02/14/19 06:58; Admin Dose 75 MG; Start 02/11/19 at 09:00 Isosorbide Mononitrate (Imdur) 30 mg DAILY PO Last administered on 02/14/19 06:58; Admin Dose 30 MG; Start 02/11/19 at 09:00 Labetalol HCl (Normodyne) 600 mg Q8 PO Last administered on 02/14/19 13:26; Admin Dose 600 MG; Start 02/10/19 at 14:00 Nifedipine (Procardia Xl) 60 mg BID PO Last administered on 02/14/19 06:58; Admin Dose 60 MG; Start 02/10/19 at 21:00 Ondansetron HCl (Zofran Inj) 4 mg Q4H PRN IV NAUSEA AND/OR VOMITING Last administered on 02/11/19 10:56; Admin Dose 4 MG; Start 02/11/19 at 10:30 Ferric Sodium Gluconate Complex 125 mg/Sodium Chloride 110 ml @ 110 mls/hr DAILY@1300 IVPB Last administered on 02/14/19 13:27; Admin Dose 110 MLS/HR; Start 02/11/19 at 13:00; Stop 02/15/19 at 13:59 Acetaminophen (Tylenol Tab) 1,000 mg Q6H PRN PO MILD PAIN(1-3)OR ELEVATED TEMP Last administered on 02/12/19 05:23; Admin Dose 1,000 MG; Start 02/11/19 at 17:00 Acetaminophen/ Hydrocodone Bitart ([place] (10/325)) 1 tab Q4H PRN PO SEVERE PAIN; Start 02/11/19 at 17:00 Levetiracetam (Keppra) 250 mg BID PO Last administered on 02/14/19 08:55; Admin Dose 250 MG; Start 02/12/19 at 21:00 Citric Acid/ Sodium Citrate (Bicitra) 60 ml BID PO Last administered on 02/14/19 06:59; Admin Dose 60 ML; Start 02/13/19 at 10:00 Valproate Sodium (Depakene Liquid Cup) 500 mg TID PO Last administered on 02/14/19 13:27; Admin Dose 500 MG; Start 02/13/19 at 14:00 Hydralazine HCl (Apresoline) 100 mg Q8 PO Last administered on 02/14/19 13:26; Admin Dose 100 MG; Start 02/14/19 at 14:00 Losartan Potassium (Cozaar) 25 mg DAILY PO Last administered on 02/14/19 10:29; Admin Dose 25 MG; Start 02/14/19 at 09:30 VASHTI ALDRICH NP February 14, 2019 14:20
--- NOTE | 2019-02-14 19:14 | CONS ---
Consult Date/Type/Reason Admit Date/Time February 10, 2019 at 12:40 Initial Consult Date 02/11/19 Type of Consultation: cv Requesting Provider: JASMINA DOCKERY DO Date/Time of Note DATE: 02/14/19 TIME: 19:12 Subjective Cardiology follow-up progress note Subjective: Case discussed with the staff telemetry was reviewed. Patient has remained in normal sinus rhythm no evidence of atrial fibrillation overnight Discussed multiple family member at the bedside Patient denies any chest pain or pressure to me. He said that he is feeling much better. Objective: General: no acute distress HEENT: NC/AT. pupils are equal. round. NECK: Status with previous tracheostomy. no stridor. CV: RRR. systolic murmur; no gallop or rubs. PULM: no wheezing or rhonchi. GI: SOFT, NT, ND, no rebound or guarding Extremity: trace B/L LE edema. no clubbing. neuro: awake and alert, OX3. Psych: calm and pleasant rectal: deferred EKG done February 10, 2019 showed normal sinus rhythm normal ECG on my personal review MRI of the brain has shown: . As compared to 11/16/2018, interval increase in size and number of multiple asymmetric supratentorial cortical and subcortical foci of edema without mass effect. There is no evidence for definite acute infarct on diffusion weighted images. Appearance is most suspicious for acute disseminated encephalomyelitis (ADEM). Posterior reversible encephalopathy syndrome (PRES) is a consideration although the distribution is less typical. Correlation with a intravenous contrast enhanced study as well as imaging of the spine is recommended when clinically appropriate. 2. Minimal nonspecific cement Watt white matter changes most commonly seen with small vessel disease. Objective Vitals Vital Signs Date Temp Pulse Resp B/P (MAP) Pulse Ox O2 O2 Flow FiO2 Time Delivery Rate 02/14/19 57 16:03 02/14/19 98.0 20 161/76 92 15:54 (104) 02/12/19 Room Air 14:53 Intake and Output 02/13/19 02/13/19 02/14/19 1414:59 22:59 06:59 IntakeIntake Total 300 ml 910 ml BalanceBalance 300 ml 910 ml Results/Medications Result Diagram: 02/14/19 0535 02/14/19 0535 Results 24 hrs Laboratory Tests Test 02/14/19 05:35 02/14/19 07:25 White Blood Count 9.6 Red Blood Count 2.63 L Hemoglobin 7.8 L Hematocrit 24.0 L Mean Corpuscular Volume 91.3 Mean Corpuscular Hemoglobin 29.7 Mean Corpuscular Hemoglobin Concent 32.5 Red Cell Distribution Width 15.1 H Platelet Count 112 #L Mean Platelet Volume 10.3 Immature Granulocytes % 2.400 H Neutrophils % 66.4 Lymphocytes % 11.1 L Monocytes % 15.5 H Eosinophils % 4.1 Basophils % 0.5 Nucleated Red Blood Cells % 1.4 H Immature Granulocytes # 0.230 H Neutrophils # 6.3 Lymphocytes # 1.1 Monocytes # 1.5 H Eosinophils # 0.4 Basophils # 0.1 Nucleated Red Blood Cells # 0.1 H Sodium Level 143 Potassium Level 4.4 Chloride Level 119 H Carbon Dioxide Level 17 L Anion Gap 7 Blood Urea Nitrogen 66 H Creatinine 5.42 H Est Glomerular Filtrat Rate mL/min 11 L Glucose Level 93 Calcium Level 7.8 L Phosphorus Level 4.0 Magnesium Level 2.0 Lab Scanned Report BLOOD TRANSFUSION Home Meds Active Scripts Levetiracetam* (Keppra*) 500 Mg Tablet, 500 MG PO BID, #60 TAB Prov:MCCLENDON,EARNESTINE V. [employer] INSTALLER 11/22/18 Nifedipine (Procardia Xl) 60 Mg Tab.er.24, 60 MG PO BID, #60 TAB Prov:MCCLENDON,EARNESTINE V. [employer] INST[employer]ER 11/22/18 Labetalol Hcl* (Labetalol Hcl*) 200 Mg Tablet, 600 MG PO Q8, #90 TAB Prov:MCCLENDONROBERTO CARLOSA V. [employer] INSTALLER 11/22/18 Atorvastatin* (Atorvastatin*) 80 Mg Tablet, 80 MG PO HS, #30 TAB 1 Refill Prov:MCCLENDONROBERTO CARLOSA V[employer] INST[employer]ER 11/22/18 Clopidogrel Bisulfate (Clopidogrel) 75 Mg Tablet, 75 MG PO DAILY for 80 Days, #30 TAB 3 Refills Patient to take both aspirin and Plavix together times 80 days more. After that, he should be taking only aspirin lifelong. Please give him a refill appropriately as instructed. Prov:EARNESTINE MCCLENDON V[employer] INST[employer]ER 11/22/18 Aspirin* (Aspirin* Chew) 81 Mg Tab.chew, 81 MG PO DAILY, #30 TAB.CHEW 6 Refills Prov:MCCLENDONEARNESTINE V. [employer] INSTALLER 11/22/18 Reported Medications Hydralazine Hcl* (Hydralazine Hcl*) 100 Mg Tablet, 100 MG PO Q8, #90 TAB 02/10/19 Divalproex Sodium* (Depakote ER*) 250 Mg Tabsr, 500 MG PO BID, #30 TAB.SA 02/10/19 Isosorbide Mononitrate* (Isosorbide Mononitrate*) 30 Mg Tab.er.24h, 30 MG PO DAILY, TAB 02/10/19 Discontinued Reported Medications Hydralazine Hcl* (Hydralazine Hcl*) 50 Mg Tab, 50 MG PO DAILY PRN for HOLD IF SBP<125, #120 TAB 12/09/18 Discontinued Scripts Valproic Acid* (Depakene*) 250 Mg Capsule, 500 MG PO TID, #90 CAP Prov:EARNESTINE MCCLENDON V. [employer] INST[employer]ER 11/22/18 Medications Current Medications Labetalol HCl (Labetalol) 20 mg Q20M PRN IV ELEVATED BLOOD PRESSURE Last administered on 02/14/19at 04:02; Admin Dose 20 MG; Start 02/10/19 at 09:00 Aspirin (Aspirin) 81 mg DAILY PO Last administered on 02/14/19at 06:59; Admin Dose 81 MG; Start 02/11/19 at 09:00 Atorvastatin Calcium (Lipitor) 80 mg HS PO Last administered on 02/13/19at 20:53; Admin Dose 80 MG; Start 02/10/19 at 21:00 Clopidogrel Bisulfate (plaVIX) 75 mg DAILY PO Last administered on 02/14/19at 06:58; Admin Dose 75 MG; Start 02/11/19 at 09:00 Isosorbide Mononitrate (Imdur) 30 mg DAILY PO Last administered on 02/14/19at 06:58; Admin Dose 30 MG; Start 02/11/19 at 09:00 Labetalol HCl (Normodyne) 600 mg Q8 PO Last administered on 02/14/19at 13:26; Admin Dose 600 MG; Start 02/10/19 at 14:00 Nifedipine (Procardia Xl) 60 mg BID PO Last administered on 02/14/19at 06:58; Admin Dose 60 MG; Start 02/10/19 at 21:00 Ondansetron HCl (Zofran Inj) 4 mg Q4H PRN IV NAUSEA AND/OR VOMITING Last administered on 02/11/19 10:56; Admin Dose 4 MG; Start 02/11/19 at 10:30 Ferric Sodium Gluconate Complex 125 mg/Sodium Chloride 110 ml @ 110 mls/hr DAILY@1300 IVPB Last administered on 02/14/19 13:27; Admin Dose 110 MLS/HR; Start 02/11/19 at 13:00; Stop 02/15/19 at 13:59 Acetaminophen (Tylenol Tab) 1,000 mg Q6H PRN PO MILD PAIN(1-3)OR ELEVATED TEMP Last administered on 02/12/19 05:23; Admin Dose 1,000 MG; Start 02/11/19 at 17:00 Acetaminophen/ Hydrocodone Bitart ([place] (10)) 1 tab Q4H PRN PO SEVERE PAIN; Start 02/11/19 at 17:00 Levetiracetam (Keppra) 250 mg BID PO Last administered on 02/14/19 08:55; Admin Dose 250 MG; Start 02/12/19 at 21:00 Citric Acid/ Sodium Citrate (Bicitra) 60 ml BID PO Last administered on 02/14/19 06:59; Admin Dose 60 ML; Start 02/13/19 at 10:00 Valproate Sodium (Depakene Liquid Cup) 500 mg TID PO Last administered on 02/14/19 13:27; Admin Dose 500 MG; Start 02/13/19 at 14:00 Hydralazine HCl (Apresoline) 100 mg Q8 PO Last administered on 02/14/19 13:26; Admin Dose 100 MG; Start 02/14/19 at 14:00 Losartan Potassium (Cozaar) 25 mg DAILY PO Last administered on 02/14/19 10:29; Admin Dose 25 MG; Start 02/14/19 at 09:30 Minoxidil (Loniten) 5 mg DAILY PO ; Start 02/15/19 at 09:00 Assessment/Plan Hospital Course (Demo Recall) 1. Hypertensive hypertensive emergency 2. Acute CVA versus acute disseminated encephalomyelitis versus others 3. History of prior CVAs 4. Chronic kidney disease 5. History of respiratory failure 6. History of dyslipidemia Recommendations We will will continue with the current cardiac care for now. Echocardiogram previously has showed normal LV systolic function. Aggressive risk factor modification: Lipid management will be aggressively done We will monitor on telemetry for any significant arrhythmia Follow-up with neurology recommendations Thank you for his referral. I will continue to follow along with you NELSON SIERRA MD [facility] NELSON SIERRA MD February 14, 2019 19:14
[2019-02-14] MEDS: ATORVASTATIN 80 MG TAB PO SCH (21:24)
[2019-02-15] VITALS (12 sets, daily range): BP systolic 107–171; BP diastolic 65–76; PULSE 54–70; RESP 18–20
[2019-02-15] MEDS: LABETALOL 200 MG TAB PO SCH ×3 (06:06→21:11)
[2019-02-15] MEDS: CITRIC ACID/NA CITRATE 30 ML CUP PO SCH ×2 (08:25→21:05)
[2019-02-15] MEDS: ASPIRIN 81 MG TAB PO SCH (08:25)
[2019-02-15] MEDS: CLOPIDOGREL 75 MG TAB PO SCH (08:25)
[2019-02-15] MEDS: VALPROIC ACID LIQUID CUP 250 MG/5 ML CUP PO SCH ×3 (08:25→21:04)
[2019-02-15] MEDS: LEVETIRACETAM 250 MG TAB PO SCH ×2 (08:25→21:05)
[2019-02-15] MEDS: ISOSORBIDE MONONITRATE(SR)30 MG TAB PO SCH (08:26)
[2019-02-15] MEDS: NIFEdipine (XL) 60 MG TAB PO SCH ×2 (08:27→21:05)
[2019-02-15] MEDS: LOSARTAN 25 MG TAB PO SCH (08:27)
[2019-02-15] MEDS ORDERED: MINOXIDIL 2.5 MG TAB PO SCH (09:00)
--- NOTE | 2019-02-15 09:40 | PN ---
DATE: 02/15/2019 SUBJECTIVE: The patient is stable. No events overnight. The patient's blurry vision is improving. No other acute events noted. OBJECTIVE: VITAL SIGNS: Blood pressure is 146/60, respirations 20, temperature 98.6. HEENT: Head is normocephalic. NECK: Supple. HEART: Regular rate. LUNGS: Showed diminished breath sounds at the base. ABDOMEN: Soft, nontender to palpation without rebound or guarding. EXTREMITIES: Negative for clubbing, cyanosis, no edema. DERMATOLOGIC: No rashes. MUSCULOSKELETAL: No joint effusions. NEUROLOGIC: No change in exam. MEDICATIONS: The patient's medications have been reviewed. LABORATORY DATA: Has been reviewed. ASSESSMENT AND PLAN: 1. Posterior reversible encephalopathy syndrome. The patient is clinically improving. We will cont inue current medical management. Continue good blood pressure control. The patient's empiric antibi otics have been held. No evidence of encephalitis or meningitis. 2. Hypertension. Blood pressure improved. We will continue current blood pressure regimen of labet alol, nifedipine. We will continue hydralazine, will deescalate to 75 mg q.8h. The patient's Minoxi dil will be discontinued. We will continue Imdur. Continue low-dose ARB. 3. Seizure disorder. Continue Keppra. 4. History of cerebrovascular accident. Continue medical management. 5. Nonoliguric acute kidney injury on top of chronic kidney disease stage IV with previous EGFR arou nd 15 mL per minute. Etiology of acute kidney injury is secondary to hemodynamics, possible tubular injury. Renal function appears to have stabilized last 24 hours. Continue to monitor. 6. Anemia status post blood transfusion. Continue to monitor hemoglobin and hematocrit levels. Con tinue IV iron. Will give Epogen as needed. 7. Metabolic acidosis, improving. Continue Bicitra. 8. Diabetes. Continue current insulin regimen. 9. Right blurry vision. Etiology may be have been secondary to posterior reversible encephalopathy syndrome. The patient's vision is improving. Will continue to monitor. Please note I attempted to consult ophthalmology; unable to find a physician to come to the hospital. We will continue to try. Will discuss with case management. 10. General debility. Continue physical therapy. Dictated By: JASMINA MCCLAIN/WILD Conf#: [id number] [facility]#: [id number]
--- NOTE | 2019-02-15 11:46 | CONS ---
Consult Date/Type/Reason Admit Date/Time February 10, 2019 at 12:40 Initial Consult Date 02/11/19 Type of Consultation: cv Requesting Provider: JASMINA DOCKERY DO Date/Time of Note DATE: 02/15/19 TIME: 11:46 Subjective Cardiology follow-up progress note Subjective: Case discussed with the staff telemetry was reviewed. Patient has remained in normal sinus rhythm no evidence of atrial fibrillation overnight NO PALPITATIONS Patient denies any chest pain or pressure to me. he is feeling much better. Objective: General: no acute distress HEENT: NC/AT. pupils are equal. round. NECK: Status with previous tracheostomy. no stridor. CV: RRR. systolic murmur; no gallop or rubs. PULM: no wheezing or rhonchi. GI: SOFT, NT, ND, no rebound or guarding Extremity: trace B/L LE edema. no clubbing. neuro: awake and alert, OX3. Psych: calm and pleasant rectal: deferred EKG done February 10, 2019 showed normal sinus rhythm normal ECG on my personal review MRI of the brain has shown: . As compared to 11/16/2018, interval increase in size and number of multiple asymmetric supratentorial cortical and subcortical foci of edema without mass effect. There is no evidence for definite acute infarct on diffusion weighted images. Appearance is most suspicious for acute disseminated encephalomyelitis (ADEM). Posterior reversible encephalopathy syndrome (PRES) is a consideration although the distribution is less typical. Correlation with a intravenous contrast enhanced study as well as imaging of the spine is recommended when clinically appropriate. 2. Minimal nonspecific cement Watt white matter changes most commonly seen with small vessel disease. Objective Vitals Vital Signs Date Temp Pulse Resp B/P (MAP) Pulse Ox O2 O2 Flow FiO2 Time Delivery Rate 02/15/19 98.0 58 20 144/67 94 11:26 (92) 02/12/19 Room Air 14:53 Intake and Output 02/14/19 02/14/19 02/15/19 1515:00 23:00 07:00 IntakeIntake Total 1410 ml BalanceBalance 1410 ml Results/Medications Result Diagram: 02/15/19 0557 02/15/19 0557 Results 24 hrs Laboratory Tests Test 02/15/19 05:57 White Blood Count 9.4 Red Blood Count 2.71 L Hemoglobin 7.8 L Hematocrit 24.7 L Mean Corpuscular Volume 91.1 Mean Corpuscular Hemoglobin 28.8 L Mean Corpuscular Hemoglobin Concent 31.6 L Red Cell Distribution Width 15.3 H Platelet Count 118 L Mean Platelet Volume 9.8 Immature Granulocytes % 2.400 H Neutrophils % 63.7 Lymphocytes % 13.4 L Monocytes % 14.7 H Eosinophils % 5.3 Basophils % 0.5 Nucleated Red Blood Cells % 1.4 H Immature Granulocytes # 0.220 H Neutrophils # 6.0 Lymphocytes # 1.3 Monocytes # 1.4 H Eosinophils # 0.5 Basophils # 0.1 Nucleated Red Blood Cells # 0.1 H Sodium Level 143 Potassium Level 4.2 Chloride Level 116 H Carbon Dioxide Level 20 L Anion Gap 7 Blood Urea Nitrogen 60 H Creatinine 5.13 H Est Glomerular Filtrat Rate mL/min 12 L Glucose Level 80 Calcium Level 7.9 L Phosphorus Level 3.7 Magnesium Level 2.1 Home Meds Active Scripts Levetiracetam* (Keppra*) 500 Mg Tablet, 500 MG PO BID, #60 TAB Prov:EARNESTINE MCCLENDON NP 11/22/18 Nifedipine (Procardia Xl) 60 Mg Tab.er.24, 60 MG PO BID, #60 TAB Prov:EARNESTINE MCCLENDON NP 11/22/18 Labetalol Hcl* (Labetalol Hcl*) 200 Mg Tablet, 600 MG PO Q8, #90 TAB Prov:EARNESTINE MCCLENDON NP 11/22/18 Atorvastatin* (Atorvastatin*) 80 Mg Tablet, 80 MG PO HS, #30 TAB 1 Refill Prov:EARNESTINE MCCLENDON NP 11/22/18 Clopidogrel Bisulfate (Clopidogrel) 75 Mg Tablet, 75 MG PO DAILY for 80 Days, #30 TAB 3 Refills Patient to take both aspirin and Plavix together times 80 days more. After that, he should be taking only aspirin lifelong. Please give him a refill appropriately as instructed. Prov:EARNESTINE MCCLENDON NP 11/22/18 Aspirin* (Aspirin* Chew) 81 Mg Tab.chew, 81 MG PO DAILY, #30 TAB.CHEW 6 Refills Prov:EARNESTINE MCCLENDON NP 11/22/18 Reported Medications Hydralazine Hcl* (Hydralazine Hcl*) 100 Mg Tablet, 100 MG PO Q8, #90 TAB 02/10/19 Divalproex Sodium* (Depakote ER*) 250 Mg Tabsr, 500 MG PO BID, #30 TAB.SA 02/10/19 Isosorbide Mononitrate* (Isosorbide Mononitrate*) 30 Mg Tab.er.24h, 30 MG PO DAILY, TAB 02/10/19 Discontinued Reported Medications Hydralazine Hcl* (Hydralazine Hcl*) 50 Mg Tab, 50 MG PO DAILY PRN for HOLD IF SBP<125, #120 TAB 12/09/18 Discontinued Scripts Valproic Acid* (Depakene*) 250 Mg Capsule, 500 MG PO TID, #90 CAP Prov:EARNESTINE MCCLENDON V. [employer] PRODUCTION ENGINEER 11/22/18 Medications Current Medications Labetalol HCl (Labetalol) 20 mg Q20M PRN IV ELEVATED BLOOD PRESSURE Last a dministered on 02/14/19 04:02; Admin Dose 20 MG; Start 02/10/19 at 09:00 Aspirin (Aspirin) 81 mg DAILY PO Last administered on 02/15/19at 08:25; Admin Dose 81 MG; Start 02/11/19 at 09:00 Atorvastatin Calcium (Lipitor) 80 mg HS PO Last administered on 02/14/19at 21:24; Admin Dose 80 MG; Start 02/10/19 at 21:00 Clopidogrel Bisulfate (plaVIX) 75 mg DAILY PO Last administered on 02/15/19at 08:25; Admin Dose 75 MG; Start 02/11/19 at 09:00 Isosorbide Mononitrate (Imdur) 30 mg DAILY PO Last administered on 02/15/19 08:26; Admin Dose 30 MG; Start 02/11/19 at 09:00 Labetalol HCl (Normodyne) 600 mg Q8 PO Last administered on 02/15/19at 06:06; Admin Dose 600 MG; Start 02/10/19 at 14:00 Nifedipine (Procardia Xl) 60 mg BID PO Last administered on 02/15/19at 08:27; Admin Dose 60 MG; Start 02/10/19 at 21:00 Ondansetron HCl (Zofran Inj) 4 mg Q4H PRN IV NAUSEA AND/OR VOMITING Last administered on 02/11/19at 10:56; Admin Dose 4 MG; Start 02/11/19 at 10:30 Ferric Sodium Gluconate Complex 125 mg/Sodium Chloride 110 ml @ 110 mls/hr DAILY@1300 IVPB Last administered on 02/14/19at 13:27; Admin Dose 110 MLS/HR; Start 02/11/19 at 13:00; Stop 02/15/19 at 13:59 Acetaminophen (Tylenol Tab) 1,000 mg Q6H PRN PO MILD PAIN(1-3)OR ELEVATED TEMP Last administered on 02/12/19at 05:23; Admin Dose 1,000 MG; Start 02/11/19 at 17:00 Acetaminophen/ Hydrocodone Bitart ([place] (10)) 1 tab Q4H PRN PO SEVERE PAIN ; Start 02/11/19 at 17:00 Levetiracetam (Keppra) 250 mg BID PO Last administered on 02/15/19at 08:25; Admin Dose 250 MG; Start 02/12/19 at 21:00 Citric Acid/ Sodium Citrate (Bicitra) 60 ml BID PO Last administered on 02/15/19at 08:25; Admin Dose 60 ML; Start 02/13/19 at 10:00 Valproate Sodium (Depakene Liquid Cup) 500 mg TID PO Last administered on 02/15/19 08:25; Admin Dose 500 MG; Start 02/13/19 at 14:00 Hydralazine HCl (Apresoline) 100 mg Q8 PO Last administered on 02/15/19at 06:06; Admin Dose 100 MG; Start 02/14/19 at 14:00 Losartan Potassium (Cozaar) 25 mg DAILY PO Last administered on 02/15/19at 08:27; Admin Dose 25 MG; Start 02/14/19 at 09:30 Epoetin Saurabh-epbx (Retacrit (Non-Esrd)) 10,000 unit TuThSa@1700 SC ; Start 02/15/19 at 17:00 Assessment/Plan Hospital Course (Demo Recall) 1. Hypertensive hypertensive emergency 2. Acute CVA versus acute disseminated encephalomyelitis versus others 3. History of prior CVAs 4. Chronic kidney disease 5. History of respiratory failure 6. History of dyslipidemia Recommendations We will will continue with the current cardiac care for now. Echocardiogram previously has showed normal LV systolic function. Aggressive risk factor modification: Lipid management will be aggressively done Follow-up with neurology recommendations Thank you for his referral. I will continue to follow along with you NELSON SIERRA MD [facility] NELSON SIERRA MD February 15, 2019 11:46
[2019-02-15] MEDS: SOD FERRIC GLUC COMPLX 125 MG in SOD CHLORIDE 0.9% 100 ML IVPB SCH (13:01)
[2019-02-15] MEDS ORDERED: EPOETIN ALFA-EPBX (NON-ESRD 10,000 UNIT/ML VIAL SC SCH (17:00)
[2019-02-15] MEDS: ATORVASTATIN 80 MG TAB PO SCH (21:05)
[2019-02-16] VITALS: PULSE 59
[2019-02-16 00:16] VITALS: BP 160/74; PULSE 69; RESP 18
[2019-02-16 03:52] VITALS: BP 155/74; PULSE 67; RESP 18
[2019-02-16 04:00] VITALS: PULSE 66
[2019-02-16] MEDS: LABETALOL 200 MG TAB PO SCH (06:05)
[2019-02-16] MEDS: ONDANSETRON 4 MG INJ IV PRN (06:34)
[2019-02-16 07:13] VITALS: BP 150/68; PULSE 58; RESP 18
--- NOTE | 2019-02-16 08:11 | CONS ---
Consult Date/Type/Reason Admit Date/Time February 10, 2019 at 12:40 Initial Consult Date 02/11/19 Type of Consultation: cv Requesting Provider: JASMINA DOCKERY DO Date/Time of Note DATE: 02/16/19 TIME: 08:09 Subjective Cardiology follow-up progress note Subjective: Case discussed with the staff telemetry was reviewed. Patient has remained in normal sinus rhythm no evidence of atrial fibrillation overnight NO PALPITATIONS no report of any chest pain or pressure to me. . Objective: General: no acute distress HEENT: NC/AT. pupils are equal. round. NECK: Status with previous tracheostomy. no stridor. CV: RRR. systolic murmur; no gallop or rubs. PULM: no wheezing or rhonchi. GI: SOFT, NT, ND, no rebound or guarding Extremity: trace B/L LE edema. no clubbing. neuro: sleeping comfortably Psych: calm rectal: deferred EKG done February 10, 2019 showed normal sinus rhythm normal ECG on my personal review MRI of the brain has shown: . As compared to 11/16/2018, interval increase in size and number of multiple asymmetric supratentorial cortical and subcortical foci of edema without mass effect. There is no evidence for definite acute infarct on diffusion weighted images. Appearance is most suspicious for acute disseminated encephalomyelitis (ADEM). Posterior reversible encephalopathy syndrome (PRES) is a consideration although the distribution is less typical. Correlation with a intravenous contrast enhanced study as well as imaging of the spine is recommended when clinically appropriate. 2. Minimal nonspecific cement Watt white matter changes most commonly seen with small vessel disease. Objective Vitals Vital Signs Date Temp Pulse Resp B/P (MAP) Pulse Ox O2 O2 Flow FiO2 Time Delivery Rate 02/16/19 97.6 58 18 150/68 93 07:13 (95) 02/12/19 Room Air 14:53 Intake and Output 02/15/19 02/15/19 02/16/19 1515:00 23:00 07:00 IntakeIntake Total 400 ml 450 ml BalanceBalance 400 ml 450 ml Results/Medications Result Diagram: 02/16/19 0657 02/16/19 0657 Results 24 hrs Laboratory Tests Test 02/16/19 06:57 White Blood Count 8.4 Red Blood Count 2.62 L Hemoglobin 7.6 L Hematocrit 24.0 L Mean Corpuscular Volume 91.6 Mean Corpuscular Hemoglobin 29.0 Mean Corpuscular Hemoglobin Concent 31.7 L Red Cell Distribution Width 15.5 H Platelet Count 130 L Mean Platelet Volume 9.6 Immature Granulocytes % 1.900 H Neutrophils % 61.3 Lymphocytes % 15.3 Monocytes % 14.2 H Eosinophils % 6.8 Basophils % 0.5 Nucleated Red Blood Cells % 0.8 H Immature Granulocytes # 0.160 H Neutrophils # 5.2 Lymphocytes # 1.3 Monocytes # 1.2 H Eosinophils # 0.6 H Basophils # 0.0 Nucleated Red Blood Cells # 0.1 H Sodium Level 141 Potassium Level 4.2 Chloride Level 115 H Carbon Dioxide Level 20 L Anion Gap 6 Blood Urea Nitrogen 53 H Creatinine 4.74 H Est Glomerular Filtrat Rate mL/min 13 L Glucose Level 91 Calcium Level 7.7 L Phosphorus Level 3.6 Magnesium Level 2.2 Home Meds Active Scripts Levetiracetam* (Keppra*) 500 Mg Tablet, 500 MG PO BID, #60 TAB Prov:EARNESTINE MCCLENDON NP 11/22/18 Nifedipine (Procardia Xl) 60 Mg Tab.er.24, 60 MG PO BID, #60 TAB Prov:EARNESTINE MCCLENDON V. [employer]IOGR[employer]HER 11/22/18 Labetalol Hcl* (Labetalol Hcl*) 200 Mg Tablet, 600 MG PO Q8, #90 TAB Prov:EARNESTINE MCCLENDON V. [employer]IC RADIOGR[employer]HER 11/22/18 Atorvastatin* (Atorvastatin*) 80 Mg Tablet, 80 MG PO HS, #30 TAB 1 Refill Prov:EARNESTINE MCCLENDON NP 11/22/18 Clopidogrel Bisulfate (Clopidogrel) 75 Mg Tablet, 75 MG PO DAILY for 80 Days, #30 TAB 3 Refills Patient to take both aspirin and Plavix together times 80 days more. After that, he should be taking only aspirin lifelong. Please give him a refill appropriately as instructed. Prov:EARNESTINE MCCLENDON NP 11/22/18 Aspirin* (Aspirin* Chew) 81 Mg Tab.chew, 81 MG PO DAILY, #30 TAB.CHEW 6 Refills Prov:EARNESTINE MCCLENDON NP 11/22/18 Reported Medications Hydralazine Hcl* (Hydralazine Hcl*) 100 Mg Tablet, 100 MG PO Q8, #90 TAB 02/10/19 Divalproex Sodium* (Depakote ER*) 250 Mg Tabsr, 500 MG PO BID, #30 TAB.SA 02/10/19 Isosorbide Mononitrate* (Isosorbide Mononitrate*) 30 Mg Tab.er.24h, 30 MG PO D AILY, TAB 02/10/19 Discontinued Reported Medications Hydralazine Hcl* (Hydralazine Hcl*) 50 Mg Tab, 50 MG PO DAILY PRN for HOLD IF SBP<125, #120 TAB 12/09/18 Discontinued Scripts Valproic Acid* (Depakene*) 250 Mg Capsule, 500 MG PO TID, #90 CAP Prov:EARNESTINE MCCLENDON V. [employer]IC [employer]IOGR[employer]HER 11/22/18 Medications Current Medications Labetalol HCl (Labetalol) 20 mg Q20M PRN IV ELEVATED BLOOD PRESSURE Last administered on 02/14/19at 04:02; Admin Dose 20 MG; Start 02/10/19 at 09:00 Aspirin (Aspirin) 81 mg DAILY PO Last administered on 02/15/19 08:25; Admin Dose 81 MG; Start 02/11/19 at 09:00 Atorvastatin Calcium (Lipitor) 80 mg HS PO Last administered on 02/15/19at 21:05; Admin Dose 80 MG; Start 02/10/19 at 21:00 Clopidogrel Bisulfate (plaVIX) 75 mg DAILY PO Last administered on 02/15/19at 08:25; Admin Dose 75 MG; Start 02/11/19 at 09:00 Isosorbide Mononitrate (Imdur) 30 mg DAILY PO Last administered on 02/15/19at 08:26; Admin Dose 30 MG; Start 02/11/19 at 09:00 Labetalol HCl (Normodyne) 600 mg Q8 PO Last administered on 02/16/19 06:05; Admin Dose 600 MG; Start 02/10/19 at 14:00 Nifedipine (Procardia Xl) 60 mg BID PO Last administered on 02/15/19 21:05; Admin Dose 60 MG; Start 02/10/19 at 21:00 Ondansetron HCl (Zofran Inj) 4 mg Q4H PRN IV NAUSEA AND/OR VOMITING Last administered on 02/16/19at 06:34; Admin Dose 4 MG; Start 02/11/19 at 10:30 Acetaminophen (Tylenol Tab) 1,000 mg Q6H PRN PO MILD PAIN(1-3)OR ELEVATED TEMP Last administered on 02/12/19 05:23; Admin Dose 1,000 MG; Start 02/11/19 at 17:00 Acetaminophen/ Hydrocodone Bitart ([place] (10/325)) 1 tab Q4H PRN PO SEVERE PAIN; Start 02/11/19 at 17:00 Levetiracetam (Keppra) 250 mg BID PO Last administered on 02/15/19 21:05; Admin Dose 250 MG; Start 02/12/19 at 21:00 Citric Acid/ Sodium Citrate (Bicitra) 60 ml BID PO Last administered on 02/15/19 21:05; Admin Dose 60 ML; Start 02/13/19 at 10:00 Valproate Sodium (Depakene Liquid Cup) 500 mg TID PO Last administered on 02/15/19 21:04; Admin Dose 500 MG; Start 02/13/19 at 14:00 Hydralazine HCl (Apresoline) 100 mg Q8 PO Last administered on 02/16/19at 06:05; Admin Dose 100 MG; Start 02/14/19 at 14:00 Losartan Potassium (Cozaar) 25 mg DAILY PO Last administered on 02/15/19 08:27; Admin Dose 25 MG; Start 02/14/19 at 09:30 Epoetin Saurabh-epbx (Retacrit (Non-Esrd)) 10,000 unit TuThSa@1700 SC Last administered on 02/15/19at 16:44; Admin Dose 10,000 UNIT; Start 02/15/19 at 17:00 Assessment/Plan Hospital Course (Demo Recall) 1. Hypertensive hypertensive emergency 2. Acute CVA versus acute disseminated encephalomyelitis versus PRES syndrome 3. History of prior CVAs 4. Chronic kidney disease 5. History of respiratory failure 6. History of dyslipidemia Recommendations We will will continue with the current cardiac care for now. BP is better controlled now Echocardiogram previously has showed normal LV systolic function. Aggressive risk factor modification: Lipid management will be aggressively done Follow-up with neurology recommendations Thank you for his referral. I will continue to follow along with you NELSON SIERRA MD [facility] NELSON SIERRA MD February 16, 2019 08:11
[2019-02-16 08:28] VITALS: PULSE 60
[2019-02-16] MEDS: VALPROIC ACID LIQUID CUP 250 MG/5 ML CUP PO SCH (09:00)
[2019-02-16] MEDS: CITRIC ACID/NA CITRATE 30 ML CUP PO SCH (09:00)
[2019-02-16] MEDS: CLOPIDOGREL 75 MG TAB PO SCH (09:34)
[2019-02-16] MEDS: ISOSORBIDE MONONITRATE(SR)30 MG TAB PO SCH (09:34)
[2019-02-16] MEDS: ASPIRIN 81 MG TAB PO SCH (09:34)
[2019-02-16] MEDS: LOSARTAN 25 MG TAB PO SCH (09:34)
[2019-02-16] MEDS: LEVETIRACETAM 250 MG TAB PO SCH (09:34)
[2019-02-16] MEDS: NIFEdipine (XL) 60 MG TAB PO SCH (09:35)
--- NOTE | 2019-02-16 12:09 | CONS ---
Assessment/Plan Assessment/Plan Hospital Course 58 yo M with multiple comorbidities who presents for evaluation of weakness, headache, dysarthria and other sx... for which neurology is consulted. MRI brain revealed b/l subcortical high signal c/f PRES (most likely given the clinical context) vs. ADEM... Unable to administer necessary contrast to differentiate the two considerations, given renal failure.. s/p LP for CSF evaluation on 02/11.. studies suggest a traumatic tap.. Encephalitis is considered less likely.. CTA H/N is unrevealing. LDL 37 P: Aggressive BP control per primary Cont ASA/Plavix per ops for secondary prevention; LDL is at goal Wright as necessary Limit sedating medications where possible OK to continue Keppra 500mg bid for now; check level to ensure not toxic PT/OT/ST as necessary Will follow clinically Consultation Date/Type/Reason Admit Date/Time February 10, 2019 at 12:40 Type of Consult Neurology Reason for Consultation weakness/headache/dysarthria Requesting Provider: JASMINA DOCKERY DO Date/Time of Note DATE: 02/16/19 TIME: 12:09 24 HR Interval Summary Free Text/Dictation Continues acute care. Awaiting discharge today. Exam Vital Signs Vitals Vital Signs Date Temp Pulse Resp B/P (MAP) Pulse Ox O2 O2 Flow FiO2 Time Delivery Rate 02/16/19 60 08:28 02/16/19 97.6 18 150/68 93 07:13 (95) 02/12/19 Room Air 14:53 Intake and Output 02/15/19 02/15/19 02/16/19 1515:00 23:00 07:00 IntakeIntake Total 400 ml 450 ml BalanceBalance 400 ml 450 ml Exam PE: Gen Appearance: No Apparent Distress HEENT: Normocephalic Cardiovascular: Regular rate Abdomen: Soft Extremities: Dry NE: The patient was alert and oriented. Language was normal. Fund of knowledge was normal. Pupils were equal and reactive to light. There was no afferent pupillary defect. Visual french were normal. Funduscopic examination was limited. Extra-ocular movements were full. Ptosis was absent. There was no nystagmus. Facial sensation was normal. Face was symmetric with normal strength. Hearing was intact. Palate movements were normal. Neck strength was normal. There was normal tongue bulk and speed of movement. Tone was normal. Muscle bulk was normal. I did not see fasciculations. Arms and legs were strong. Vibration sensation was normal. Temperature and pinprick sensation was normal. Rapid alternating movements were normal. There was no dysmetria. There was no intention tremor. Gait was steady. Arm and leg reflexes were symmetric. Weber's sign was absent. Plantar responses were flexor. HERNANDO HART NP February 16, 2019 12:09
--- NOTE | 2019-02-16 21:17 | DS ---
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 The patient upon arrival to the emergency room had a CT scan of the head which showed findings concerning for possibility of disseminated encephalomyelitis. The patient was also noted to be hype rtensive, systolic pressures in 200s. The patient was given IV antihypertensive medications, was adm itted to telemetry. In terms of the patient's neurologic status is dysarthria, weakness improved. T he patient was seen by neurology who felt the findings were more consistent with PRES syndrome. The patient also had MRI of the brain which showed findings consistent with possible PRES. The patient h ad no evidence of acute CVA. The patient's clinical status improved with aggressive blood pressure c ontrol. Additionally, during the hospital course, the patient did have a lumbar puncture to rule out possible encephalitis. The patient had traumatic tap, was started on empiric antibiotic therapy. C SF cultures were negative. The patient was seen by infectious disease during the hospital course and antibiotics were eventually discontinued. The patient did also develop acute kidney injury on top o f his CKD stage IV during the hospital course. The patient's creatinine initially peaked at 5.48 mg/ dL; however, was trending back down towards his baseline. The patient developed no uremic symptoms. The patient also had an episode of blurry vision during the hospital course, which was felt se condary to possible PRES syndrome. The patient's blurry vision improved. Additionally, the patient was anemic and received blood transfusion. The patient also had metabolic acidosis which was placed on Bicitra and clinically improving. Currently, at this time, the patient is stable, he feels that h e is back to his baseline state. He will be discharged home and will follow up with myself in 1 week 's time. FINAL DIAGNOSES: 1. Posterior reversible encephalopathy syndrome. 2. Hypertension, controlled. 3. Seizure disorder. Continue Keppra. 4. Nonoliguric acute kidney injury on top of chronic kidney disease, improving. Renal function retu rned to baseline. 5. Metabolic acidosis. 6. Diabetes. 7. Right blurry vision, resolved. 8. Anemia status post blood transfusion. 9. Hyperkalemia, resolved. 10. Hypernatremia, resolved. CONDITION ON DISCHARGE: At the time of discharge, the patient is stable, no acute distress. FINAL MEDICATIONS: See reconciliation list. Please note I spent over 30 minutes of time preparing patient's discharge. Dictated By: JASMINA DOCKERY DO NR/WILD Conf#: [id number] DID#: [id number]
== END 2019-02-16 12:23 | disposition home health service (06) | DRG 71 ==
LOC: E/R 08:32 → TEL 12:40
PROVIDERS: ADMIT Internal Medicine; ATTEND Internal Medicine
PROC: 009U3ZX Drainage of Spinal Canal, Percutaneous Approach, Diagnostic (ICD-10-PCS; principal; 2019-02-11)
PROC: B01BZZZ Fluoroscopy of Spinal Cord (ICD-10-PCS; 2019-02-11)
DX: I67.83 Posterior reversible encephalopathy syndrome (principal); I12.0 Hypertensive chronic kidney disease with stage 5 chronic kidney disease or end stage renal disease; N18.5 Chronic kidney disease, stage 5; N17.9 Acute kidney failure, unspecified; E87.2 Acidosis; E87.0 Hyperosmolality and hypernatremia; I16.1 Hypertensive emergency; R47.01 Aphasia; E87.5 Hyperkalemia; I16.0 Hypertensive urgency; H11.31 Conjunctival hemorrhage, right eye; R47.1 Dysarthria and anarthria; E11.22 Type 2 diabetes mellitus with diabetic chronic kidney disease; G40.909 Epilepsy, unspecified, not intractable, without status epilepticus; D64.9 Anemia, unspecified; E78.5 Hyperlipidemia, unspecified; H53.8 Other visual disturbances; Z86.73 Personal history of transient ischemic attack (TIA), and cerebral infarction without residual deficits; Z79.82 Long term (current) use of aspirin; Z79.02 Long term (current) use of antithrombotics/antiplatelets
CPT/HCPCS: 36415; 36430; 70450; 70496; 70498; 70551; 71045; 80048; 80053; 80061; 80177; 80202; 80307; 81001; 82040; 82042; 82550; 82553; 82595; 82728; 82784; 82945; 82962; 83036; 83540; 83735; 83873; 83916; 84100; 84157; 84484; 85014; 85018; 85025; 85610; 85651; 85730; 86021; 86038; 86160; 86226; 86403; 86430; 86592; 86704; 86709; 86803; 86850; 86900; 86901; 86920; 87070; 87210; 87252; 87340; 87529; 89051; 92526; 92610; 93005; 93306; 96360; 97162; J0290; J0696; J1885; J2405; J2916; J3370; J7030; J7050; J7070; P9016; Q5106; Q9967

== ENCOUNTER 2019-05-31 09:25 | Inpatient (IN) | payer MEDICARE, OTHER ==
[~2019-05-31] VITALS: Ht 170.2 cm; Wt 65.7 kg
[2019-05-31] VITALS (19 sets, daily range): BP systolic 149–226; BP diastolic 65–105; PULSE 78–96; RESP 13–31
[~2019-05-31 09:25] MED LIST changes: +ASPI-817 PO; +ATOR20TA38 PO; +CALC300T4 PO; +CALC667C PO; +DIV250 PO; +DIVA-48 PO; +DIVA-73 PO; -HYDR-3672 PO; +HYDR100T25 PO; +ISOS30TA67 PO; +NEPH PO; +NIFE60TA18 PO; -VALP250C PO
[2019-05-31] MEDS ORDERED: LABETALOL HCL 20MG INJ IV ONE (10:00)
[2019-05-31] MEDS ORDERED: ACETAMINOPHEN 325 MG TAB PO PRN (13:30)
[2019-05-31] MEDS ORDERED: ONDANSETRON 4 MG INJ IV PRN (13:30)
[2019-05-31] MEDS ORDERED: hydrALAzine 20 MG INJ IV ONE ×2 (13:30→14:30)
[2019-05-31] MEDS: LABETALOL 200 MG TAB PO SCH ×2 (14:00→22:00)
[2019-05-31] MEDS ORDERED: LORAZEPAM 2 MG INJ IV ONE (14:30)
[2019-05-31] MEDS: LABETALOL HCL 20MG INJ IV PRN ×2 (17:34→19:49)
[2019-05-31] MEDS ORDERED: NITROGLYCERIN 2% 1 GM OINT PKT TD SCH (18:00)
[2019-05-31] MEDS: hydrALAzine 20 MG INJ IV PRN (18:25)
[2019-05-31] MEDS: DIVALPROEX (EC) 250 MG TAB PO SCH (21:00)
[2019-05-31] MEDS: NIFEdipine (XL) 60 MG TAB PO SCH (21:00)
[2019-05-31] MEDS ORDERED: NITROGLYCERIN 50 MG/D5W (PMX) 250 ML ONE (22:14)
[2019-05-31] MEDS: NITROGLYCERIN 50 MG/D5W (PMX) 250 ML IV SCH (22:43)
[2019-06-01] VITALS (84 sets, daily range): BP systolic 117–198; BP diastolic 56–100; PULSE 60–92; RESP 6–22
[2019-06-01] MEDS: LABETALOL 200 MG TAB PO SCH ×3 (06:00→22:05)
[2019-06-01] MEDS: DIVALPROEX (EC) 250 MG TAB PO SCH ×2 (08:23→20:23)
[2019-06-01] MEDS: NIFEdipine (XL) 60 MG TAB PO SCH ×2 (08:23→20:23)
[2019-06-01] MEDS: hydrALAzine 20 MG INJ IV PRN (10:35)
[2019-06-01] MEDS: NITROGLYCERIN 50 MG/D5W (PMX) 250 ML IV SCH (13:22)
[2019-06-02] VITALS (19 sets, daily range): BP systolic 104–142; BP diastolic 53–67; PULSE 59–77; RESP 9–18
[2019-06-02] MEDS: LABETALOL 200 MG TAB PO SCH ×3 (06:00→21:03)
[2019-06-02] MEDS: NIFEdipine (XL) 60 MG TAB PO SCH ×2 (09:32→21:00)
[2019-06-02] MEDS: CITRIC ACID/NA CITRATE 30 ML CUP PO SCH ×2 (09:32→21:02)
[2019-06-02] MEDS: DIVALPROEX (EC) 250 MG TAB PO SCH ×2 (09:32→21:02)
[2019-06-03] VITALS (7 sets, daily range): BP systolic 132–147; BP diastolic 65–78; PULSE 59–81; RESP 16–20
[2019-06-03] MEDS: NIFEdipine (XL) 60 MG TAB PO SCH ×3 (00:14→21:23)
[2019-06-03] MEDS: LABETALOL 200 MG TAB PO SCH ×3 (06:00→21:22)
[2019-06-03] MEDS: DIVALPROEX (EC) 250 MG TAB PO SCH ×2 (08:22→21:23)
[2019-06-03] MEDS: CITRIC ACID/NA CITRATE 30 ML CUP PO SCH ×2 (08:22→21:22)
[2019-06-04] VITALS (8 sets, daily range): BP systolic 136–173; BP diastolic 60–81; PULSE 59–78; RESP 18–20
[2019-06-04] MEDS: LABETALOL 200 MG TAB PO SCH ×3 (06:07→21:40)
[2019-06-04] MEDS ORDERED: EPOETIN ALFA-EPBX (NON-ESRD 10,000 UNIT/ML VIAL SC ONE (08:00)
[2019-06-04] MEDS: CITRIC ACID/NA CITRATE 30 ML CUP PO SCH ×2 (08:00→21:41)
[2019-06-04] MEDS: DIVALPROEX (EC) 250 MG TAB PO SCH ×2 (08:00→21:40)
[2019-06-04] MEDS: NIFEdipine (XL) 60 MG TAB PO SCH ×2 (08:01→21:40)
[2019-06-04] MEDS ORDERED: HALOPERIDOL 5 MG INJ IV PRN (16:30)
[2019-06-05] VITALS (10 sets, daily range): BP systolic 135–150; BP diastolic 54–70; PULSE 57–68; RESP 18–20
[2019-06-05] MEDS: LABETALOL 200 MG TAB PO SCH ×3 (06:11→21:20)
[2019-06-05] MEDS: CITRIC ACID/NA CITRATE 30 ML CUP PO SCH ×2 (08:33→21:19)
[2019-06-05] MEDS: NIFEdipine (XL) 60 MG TAB PO SCH ×2 (08:34→21:19)
[2019-06-05] MEDS: DIVALPROEX (EC) 250 MG TAB PO SCH ×2 (08:34→21:19)
[2019-06-06] VITALS (10 sets, daily range): BP systolic 133–178; BP diastolic 68–77; PULSE 55–78; RESP 17–22
[2019-06-06] MEDS: LABETALOL 200 MG TAB PO SCH ×3 (05:53→21:06)
[2019-06-06] MEDS: NIFEdipine (XL) 60 MG TAB PO SCH ×2 (08:26→21:06)
[2019-06-06] MEDS: DIVALPROEX (EC) 250 MG TAB PO SCH ×2 (08:26→21:05)
[2019-06-06] MEDS: CITRIC ACID/NA CITRATE 30 ML CUP PO SCH ×2 (08:26→21:05)
[2019-06-06] MEDS ORDERED: EPOETIN ALFA-EPBX (ESRD) 10,000 UNIT/ML VIAL SC ONE (17:00)
[2019-06-07] VITALS (8 sets, daily range): BP systolic 118–161; BP diastolic 61–75; PULSE 58–65; RESP 17–20; Ht 170.2 cm; Wt 65.7 kg
[2019-06-07] MEDS: LABETALOL 200 MG TAB PO SCH ×3 (05:17→20:46)
[2019-06-07] MEDS: DIVALPROEX (EC) 250 MG TAB PO SCH ×2 (08:31→20:43)
[2019-06-07] MEDS: NIFEdipine (XL) 60 MG TAB PO SCH ×2 (08:31→20:43)
[2019-06-07] MEDS: CITRIC ACID/NA CITRATE 30 ML CUP PO SCH ×2 (08:31→20:42)
[2019-06-07] MEDS: ASPIRIN 81 MG TAB PO SCH (08:32)
[2019-06-07] MEDS: ATORVASTATIN 20 MG TAB PO SCH (20:43)
[2019-06-08] VITALS (7 sets, daily range): BP systolic 122–149; BP diastolic 57–78; PULSE 54–66; RESP 17–18
[2019-06-08] MEDS: LABETALOL 200 MG TAB PO SCH ×3 (06:11→21:58)
[2019-06-08] MEDS: NIFEdipine (XL) 60 MG TAB PO SCH ×2 (08:17→23:33)
[2019-06-08] MEDS: DIVALPROEX (EC) 250 MG TAB PO SCH ×2 (08:17→23:33)
[2019-06-08] MEDS: ASPIRIN 81 MG TAB PO SCH (08:17)
[2019-06-08] MEDS: CITRIC ACID/NA CITRATE 30 ML CUP PO SCH ×2 (08:17→21:59)
[2019-06-08] MEDS: ATORVASTATIN 20 MG TAB PO SCH (21:59)
[2019-06-09 02:00] VITALS: BP 149/66; PULSE 61; RESP 18
[2019-06-09] MEDS: LABETALOL 200 MG TAB PO SCH ×4 (06:13→21:31)
[2019-06-09 07:29] VITALS: BP 134/63; PULSE 63; RESP 18
[2019-06-09] MEDS: CITRIC ACID/NA CITRATE 30 ML CUP PO SCH ×2 (08:19→21:30)
[2019-06-09] MEDS: NIFEdipine (XL) 60 MG TAB PO SCH ×2 (08:19→21:31)
[2019-06-09] MEDS: ASPIRIN 81 MG TAB PO SCH (08:19)
[2019-06-09] MEDS: DIVALPROEX (EC) 250 MG TAB PO SCH ×2 (08:19→21:31)
[2019-06-09 14:41] VITALS: BP 128/59; PULSE 55; RESP 18
[2019-06-09] MEDS ORDERED: HEPARIN 1000 UNITS/ML 10 ML INJ ONE (15:07)
[2019-06-09] MEDS ORDERED: LIDOCAINE 1% (MDV) 20 ML INJ ONE (15:07)
[2019-06-09] MEDS ORDERED: FENTAnyl 50 MCG/ML VIAL ONE (15:19)
[2019-06-09] MEDS ORDERED: MIDAZOLAM 1 MG/ML 2 ML INJ ONE (15:19)
[2019-06-09] MEDS ORDERED: SOD CHLORIDE 0.9% 500 ML ONE (15:28)
[2019-06-09 16:28] VITALS: BP 136/65; PULSE 55; RESP 18
[2019-06-09] MEDS ORDERED: EPOETIN ALFA-EPBX (ESRD) 10,000 UNIT/ML VIAL SC ONE (17:00)
[2019-06-09 20:36] VITALS: BP 153/70; PULSE 56; RESP 18
[2019-06-09] MEDS: ATORVASTATIN 20 MG TAB PO SCH (21:31)
[2019-06-10] VITALS (15 sets, daily range): BP systolic 122–165; BP diastolic 57–79; PULSE 53–68; RESP 18–19
[2019-06-10] MEDS: LABETALOL 200 MG TAB PO SCH ×3 (05:17→21:57)
[2019-06-10] MEDS: DIVALPROEX (EC) 250 MG TAB PO SCH ×2 (08:09→20:56)
[2019-06-10] MEDS: NIFEdipine (XL) 60 MG TAB PO SCH ×2 (08:09→20:56)
[2019-06-10] MEDS: ASPIRIN 81 MG TAB PO SCH (08:09)
[2019-06-10] MEDS: ATORVASTATIN 20 MG TAB PO SCH (20:56)
[2019-06-10] MEDS: EPOETIN ALFA-EPBX (ESRD) 10,000 UNIT/ML VIAL SC SCH (20:57)
[2019-06-11] VITALS (15 sets, daily range): BP systolic 113–170; BP diastolic 62–79; PULSE 53–71; RESP 17–18
[2019-06-11] MEDS: LABETALOL 200 MG TAB PO SCH ×3 (06:32→22:44)
[2019-06-11] MEDS: DIVALPROEX (EC) 250 MG TAB PO SCH ×2 (08:08→20:37)
[2019-06-11] MEDS: ASPIRIN 81 MG TAB PO SCH (08:08)
[2019-06-11] MEDS: NIFEdipine (XL) 60 MG TAB PO SCH ×2 (08:08→20:37)
[2019-06-11] MEDS ORDERED: HEPARIN 1000 UNITS/ML 10 ML INJ CATHETER ONE (14:00)
[2019-06-11] MEDS: ATORVASTATIN 20 MG TAB PO SCH (20:37)
[2019-06-12] VITALS (19 sets, daily range): BP systolic 139–169; BP diastolic 65–83; PULSE 54–66; RESP 16–18
[2019-06-12] MEDS: LABETALOL 200 MG TAB PO SCH ×3 (06:01→21:35)
[2019-06-12] MEDS: DIVALPROEX (EC) 250 MG TAB PO SCH ×3 (09:00→21:34)
[2019-06-12] MEDS: ASPIRIN 81 MG TAB PO SCH ×2 (09:00→15:23)
[2019-06-12] MEDS: NIFEdipine (XL) 60 MG TAB PO SCH ×3 (09:00→21:35)
[2019-06-12] MEDS ORDERED: HEPARIN 1000 UNITS/ML 10 ML INJ CATHETER ONE (13:30)
[2019-06-12] MEDS: ATORVASTATIN 20 MG TAB PO SCH (21:35)
[2019-06-13 01:08] VITALS: BP 148/70; PULSE 60; RESP 17
[2019-06-13] MEDS: LABETALOL 200 MG TAB PO SCH ×3 (05:41→21:15)
[2019-06-13 07:55] VITALS: BP 141/64; PULSE 68; RESP 16
[2019-06-13] MEDS: ASPIRIN 81 MG TAB PO SCH (09:53)
[2019-06-13] MEDS: DIVALPROEX (EC) 250 MG TAB PO SCH ×2 (09:54→21:16)
[2019-06-13] MEDS: NIFEdipine (XL) 60 MG TAB PO SCH ×2 (09:54→21:15)
[2019-06-13 14:13] VITALS: BP 112/63; PULSE 62; RESP 16
[2019-06-13] MEDS: EPOETIN ALFA-EPBX (ESRD) 10,000 UNIT/ML VIAL SC SCH (18:01)
[2019-06-13 19:59] VITALS: BP 126/62; PULSE 62; RESP 17
[2019-06-13] MEDS: ATORVASTATIN 20 MG TAB PO SCH (21:15)
[2019-06-14] VITALS (18 sets, daily range): BP systolic 107–156; BP diastolic 57–81; PULSE 52–67; RESP 16–20
[2019-06-14] MEDS: LABETALOL 200 MG TAB PO SCH ×3 (05:55→21:02)
[2019-06-14] MEDS: DIVALPROEX (EC) 250 MG TAB PO SCH ×2 (09:00→21:02)
[2019-06-14] MEDS: ASPIRIN 81 MG TAB PO SCH (09:00)
[2019-06-14] MEDS: NIFEdipine (XL) 60 MG TAB PO SCH ×2 (09:00→21:01)
[2019-06-14] MEDS ORDERED: HEPARIN 1000 UNITS/ML 10 ML INJ CATHETER SCH (15:30)
[2019-06-14] MEDS: ATORVASTATIN 20 MG TAB PO SCH (21:02)
[2019-06-15 00:57] VITALS: BP 155/76; PULSE 68; RESP 17
[2019-06-15] MEDS: LABETALOL 200 MG TAB PO SCH ×2 (06:07→15:20)
[2019-06-15 06:08] VITALS: BP 140/69; PULSE 60
[2019-06-15 08:02] VITALS: BP 118/64; PULSE 69; RESP 16
[2019-06-15] MEDS: ASPIRIN 81 MG TAB PO SCH (08:48)
[2019-06-15] MEDS: NIFEdipine (XL) 60 MG TAB PO SCH (08:48)
[2019-06-15] MEDS: DIVALPROEX (EC) 250 MG TAB PO SCH (08:48)
[2019-06-15 14:15] VITALS: BP 120/58; PULSE 63; RESP 16
[2019-06-15 15:00] VITALS: BP 126/76; PULSE 78; RESP 18
== END 2019-06-15 15:25 | disposition home health service (06) | DRG 673 ==
LOC: E/R 09:25 → TEL 13:14 → ICU 19:08 → 6WM 06-02 13:58 → MS3 06-08 17:21 → 2NE 06-11 11:55
PROVIDERS: ADMIT Internal Medicine; ATTEND Internal Medicine
PROC: 02H633Z Insertion of Infusion Device into Right Atrium, Percutaneous Approach (ICD-10-PCS; 2019-06-09)
PROC: B513ZZA Fluoroscopy of Right Jugular Veins, Guidance (ICD-10-PCS; 2019-06-09)
PROC: B543ZZA Ultrasonography of Right Jugular Veins, Guidance (ICD-10-PCS; 2019-06-09)
PROC: 0JH63XZ Insertion of Tunneled Vascular Access Device into Chest Subcutaneous Tissue and Fascia, Percutaneous Approach (ICD-10-PCS; principal; 2019-06-09 15:30)
PROC: 5A1D70Z Performance of Urinary Filtration, Intermittent, Less than 6 Hours Per Day (ICD-10-PCS; 2019-06-10)
DX: I12.0 Hypertensive chronic kidney disease with stage 5 chronic kidney disease or end stage renal disease (principal); I67.83 Posterior reversible encephalopathy syndrome; G93.6 Cerebral edema; N18.6 End stage renal disease; R65.10 Systemic inflammatory response syndrome (SIRS) of non-infectious origin without acute organ dysfunction; N17.9 Acute kidney failure, unspecified; I16.1 Hypertensive emergency; G93.40 Encephalopathy, unspecified; E87.2 Acidosis; G40.909 Epilepsy, unspecified, not intractable, without status epilepticus; E11.22 Type 2 diabetes mellitus with diabetic chronic kidney disease; I16.0 Hypertensive urgency; D64.9 Anemia, unspecified; R53.81 Other malaise; Z86.73 Personal history of transient ischemic attack (TIA), and cerebral infarction without residual deficits
CPT/HCPCS: 36415; 70450; 70551; 71045; 72141; 72146; 72148; 76937; 80048; 80053; 80164; 80307; 81001; 81003; 82043; 82140; 83540; 83735; 84100; 84155; 84300; 84436; 84479; 84484; 85025; 85610; 85730; 86704; 86709; 86803; 87081; 87340; 90935; 92507; 92523; 93005; 93306; 95819; 96374; 97110; 97116; 97162; 97530; J0360; J1630; J1644; J2060; J2250; J3010; J7040; Q5105; Q5106